=== PATIENT | female | born 1965 | race Caucasian/White ===

== ENCOUNTER → 2016-03-08 | Outpatient (CLI) | payer MEDICARE, OTHER ==
[2016-03-08 13:52] LABS: Basophils % (A) 1 %; CH 29.6; CHCM 32.5; Eosinophils # (A) 0.2 k/uL (0-0.7); Eosinophils % (A) 3 %; HCT 41.4 % (34.0-46.0); HGB 13.2 gm/dL (11.4-16.0); Luc # (Auto) 0.08; Luc % (Auto) 2; Lymphocytes # (A) 1.4 k/uL (1.0-4.8); Lymphocytes % (A) 29 %; MCH 29.1 pg (25.0-35.0); MCHC 31.8 g/dL (31.0-37.0); MCV 91.6 fL (80.0-100.0); Mean Platelet Volume 7.5; Monocytes # (A) 0.4 k/uL (0-1.0); Monocytes % (A) 8 %; Neutrophils # (A) 2.9 k/uL (1.3-7.7); Neutrophils % (A) 58 %; RBC 4.52 m/uL (3.80-5.40); RDW 13.6 % (11.5-15.5); WBC 4.9 k/uL (3.8-10.6); WBC (Perox) 5.08
[2016-03-08 14:43] LABS: ALT 35 U/L (9-52); AST 28 U/L (14-36); Alkaline Phosphatase 110 U/L (38-126); Anion Gap 12 mmol/L; Blood Urea Nitrogen 14 mg/dL (7-17); Calcium 9.8 mg/dL (8.4-10.2); Carbon Dioxide 28 mmol/L (22-30); Chloride 102 mmol/L (98-107); Glucose 95 mg/dL (74-99); Magnesium 2.1 mg/dL (1.6-2.3); Non-African American GFR(MDRD) >60 (>60 ml/min/1.73 sqM); Phosphorous 3.9 mg/dL (2.5-4.5); Sodium 142 mmol/L (137-145); Total Bilirubin 0.6 mg/dL (0.2-1.3); Total Protein 7.2 g/dL (6.3-8.2)
[2016-03-08 14:49] LABS: Potassium 4.8 mmol/L (3.5-5.1)
== END | disposition home or self-care (01) ==
LOC: LABWHC1 13:14
PROVIDERS: ATTEND Obstetrics & Gynecology
DX: C56.1 Malignant neoplasm of right ovary (principal)
CPT/HCPCS: 36415; 80053; 83735; 84100; 85025; 86304

== ENCOUNTER 2016-04-11 12:27 | Emergency (ER) | payer MEDICARE, OTHER ==
[2016-04-11 12:37] VITALS: TEMP 98.1
--- NOTE | 2016-04-11 13:02 | ED ---
General Adult HPI - General Chief complaint: Extremity Problem,Nontraumatic Stated complaint: Arm Swelling/Sore Time Seen by Provider: 04/11/16 12:55 Source: patient, RN notes reviewed, old records reviewed Mode of arrival: ambulatory Limitations: no limitations - History of Present Illness Initial comments: This is a 50-year-old female the ER for evaluation. Patient coming in for evaluation of upper x-ray pain. Patient doesn't pick R PICC line right upper x- ray, patient currently going through chemotherapy. Patient also admits to generalized body rash, that is been started with chemo. Patient has no shortness of breath no chest pain. She does have history of blood clot and arm prior secondary to PICC line. - Related Data Home Medications Medication Instructions Recorded Confirmed ALPRAZolam [Xanax] 0.25 mg PO BID PRN 01/16/14 04/11/16 Escitalopram Oxalate [Lexapro] 20 mg PO HS 01/16/14 04/11/16 HYDROcodone/APAP 5-325MG [[place] 1 - 2 tab PO Q6H PRN 10/29/15 04/11/16 5-325] Previous Rx's Medication Instructions Recorded Rivaroxaban [Xarelto] 15 mg PO BID #42 tab 04/11/16 Rivaroxaban [Xarelto] 20 mg PO DAILY #30 tab 04/11/16 Allergies Allergy/AdvReac Type Severity Reaction Status Date / Time duloxetine HCl Allergy Rash/Hives Verified 04/11/16 14:51 [From Cymbalta] Sulfa (Sulfonamide Allergy Rash/Hives Verified 04/11/16 14:51 Antibiotics) Review of Systems ROS Statement: Those systems with pertinent positive or pertinent negative responses have been documented in the HPI. ROS Other: All systems not noted in ROS Statement are negative. Past Medical History Past Medical History: Cancer, Deep Vein Thrombosis (DVT), Fibromyalgia, Osteoarthritis (OA) Additional Past Medical History / Comment(s): OVARIAN CANCER-T3C N0 Mx grade 3, mvp, diverticulosis History of Any Multi-Drug Resistant Organisms: None Reported Past Surgical History: Hysterectomy Additional Past Surgical History / Comment(s): OOPHERECTOMY; vaginal mesh insertion 1 week ago, port placement and removal, PICC line insertion and removal, Uterine CA Past Anesthesia/Blood Transfusion Reactions: Motion Sickness Additional Past Anesthesia/Blood Transfusion Reaction / Comment(s): clausterphobia Past Psychological History: Anxiety, Depression, Panic Disorder Smoking Status: Former smoker Past Alcohol Use History: Occasional Additional Past Alcohol Use History / Comment(s): started smoking at age 13, smoked 1 pack per day, quit 2011 Past Drug Use History: None Reported - Past Family History Father Family Medical History: Hypertension, Prostate Disorder Additional Family Medical History / Comment(s): parkinsons, prostate cancer Mother Family Medical History: Cancer Additional Family Medical History / Comment(s): multiple myeoloma General Exam Limitations: no limitations General appearance: alert, in no apparent distress Head exam: Present: atraumatic, normocephalic, normal inspection Eye exam: Present: normal appearance, PERRL, EOMI. Absent: scleral icterus, conjunctival injection, periorbital swelling ENT exam: Present: normal exam, mucous membranes moist Neck exam: Present: normal inspection. Absent: tenderness, meningismus, lymphadenopathy Respiratory exam: Present: normal lung sounds bilaterally. Absent: respiratory distress, wheezes, rales, rhonchi, stridor Cardiovascular Exam: Present: regular rate, normal rhythm, normal heart sounds. Absent: systolic murmur, diastolic murmur, rubs, gallop, clicks GI/Abdominal exam: Present: soft, normal bowel sounds. Absent: distended, tenderness, guarding, rebound, rigid Extremities exam: Present: normal inspection, full ROM, normal capillary refill. Absent: tenderness, pedal edema, joint swelling, calf tenderness Back exam: Present: normal inspection Neurological exam: Present: alert, oriented X3, CN II-XII intact Psychiatric exam: Present: normal affect, normal mood Skin exam: Present: warm, dry, intact, normal color. Absent: rash Course Vital Signs 04/11/16 12:33 Temperature 98.1 F Pulse Rate 109 H Respiratory 18 Rate Blood Pressure 158/97 O2 Sat by Pulse 98 Oximetry - Reevaluation(s) Reevaluation #1: 04/11/16 15:12 Patient's in no distress Medical Decision Making - Medical Decision Making Physical ER with right upper extremity thrombosis, superficial and deep, patient does have intoeing PICC line. Patient placed anticoagulation, presents checked and normal, patient will leave and PICC line for further chemotherapy - Lab Data Result diagrams: 04/11/16 15:10 04/11/16 15:10 Lab Results 04/11/16 04/11/16 04/11/16 Range/Units 15:10 15:10 15:10 WBC 2.5 L (3.8-10.6) k/uL RBC 3.93 (3.80-5.40) m/uL Hgb 11.7 (11.4-16.0) gm/dL Hct 35.5 (34.0-46.0) % MCV 90.3 (80.0-100.0) fL MCH 29.6 (25.0-35.0) pg MCHC 32.8 (31.0-37.0) g/dL RDW 16.0 H (11.5-15.5) % Plt Count 182 (150-450) k/uL Neutrophils % 46 % Lymphocytes % 44 % Monocytes % 5 % Eosinophils % 0 % Basophils % 1 % Neutrophils # 1.2 L (1.3-7.7) k/uL Lymphocytes # 1.1 (1.0-4.8) k/uL Monocytes # 0.1 (0-1.0) k/uL Eosinophils # 0.0 (0-0.7) k/uL Basophils # 0.0 (0-0.2) k/uL Anisocytosis Slight PT 9.9 (9.0-12.0) sec INR 1.0 (<1.1) APTT 22.1 (22.0-30.0) sec D-Dimer 2.02 H (<0.60) mg/L FEU Sodium 139 (137-145) mmol/L Potassium 4.6 (3.5-5.1) mmol/L Chloride 103 (98-107) mmol/L Carbon Dioxide 25 (22-30) mmol/L Anion Gap 11 mmol/L BUN 11 (7-17) mg/dL Creatinine 0.70 (0.52-1.04) mg/dL Est GFR (MDRD) Af Amer >60 (>60 ml/min/1.73 sqM) Est GFR (MDRD) Non-Af >60 (>60 ml/min/1.73 sqM) Glucose 92 (74-99) mg/dL Calcium 9.2 (8.4-10.2) mg/dL Phosphorus 3.7 (2.5-4.5) mg/dL Magnesium 1.8 (1.6-2.3) mg/dL Total Bilirubin 0.6 (0.2-1.3) mg/dL AST 22 (14-36) U/L ALT 38 (9-52) U/L Alkaline Phosphatase 106 (38-126) U/L Total Protein 7.5 (6.3-8.2) g/dL Albumin 4.3 (3.5-5.0) g/dL - Radiology Data Radiology results: report reviewed (Of some bilateral upper extremities is positive for right upper extremity DVT), image reviewed Disposition Clinical Impression: DVT of upper extremity (deep vein thrombosis) Disposition: HOME SELF-CARE Condition: Good Prescriptions: Rivaroxaban [Xarelto] 15 mg PO BID #42 tab Rivaroxaban [Xarelto] 20 mg PO DAILY #30 tab Referrals: Hussain Paulino MD [Primary Care Provider] - 1-2 days
--- NOTE | 2016-04-11 15:03 | US ---
EXAMINATION TYPE: US venous doppler duplex UE BI DATE OF EXAM: 04/11/2016 2:45 PM COMPARISON: Left upper extremity venous ultrasound September 26, 2014 CLINICAL HISTORY: Pain. Right arm pain and edema, PICC line right arm 2 weeks ago. History of DVT lef t arm SIDE PERFORMED: bilateral upper extremity TECHNOLOGIST IMPRESSION: Right Arm: +Positive for DVT, incomplete blood flow within brachial vein. +Positive for superficial t hrombus right basilic vein. *Technical limitations due to PICC line bandage Left Arm: No evidence of DVT as visualized There is satisfactory color flow and compressibility in the right internal jugular vein. Satisfactory color flow is seen in visualized portion of right subclavian vein with PICC line in place. Superfici al basilic veins shows hyperechoic material expanding lumen with noncompressibility consistent with c omplete thrombosis. Right axillary vein shows satisfactory color flow and compressibility. Right brac hial vein however shows absent color flow and noncompressibility consistent with deep venous thrombos is. Superficial cephalic vein shows satisfactory color flow and compressibility. Radial and ulnar vei ns show satisfactory compressibility. Left internal jugular vein shows satisfactory color flow and compressibility. Left subclavian vein sh ows satisfactory color flow and phasicity. Left axillary and brachial veins show satisfactory color f low and compressibility. Left superficial basilic and cephalic veins show satisfactory color flow and compressibility. Left radial and ulnar veins show satisfactory compressibility. IMPRESSION: Completely occlusive acute Superficial thrombus in right basilic vein and acute deep veno us thrombosis is noted in the visualized portion of right basilic vein. Preliminary critical results communicated to ordering ER physician by lead nuclear medicine technologist shortly after exam was completed.
[2016-04-11 15:20] LABS: Anisocytosis Slight; Basophils % (A) 1 %; CH 29.8; CHCM 33.1; Eosinophils % (A) 0 %; HCT 35.5 % (34.0-46.0); HGB 11.7 gm/dL (11.4-16.0); Luc # (Auto) 0.11; Luc % (Auto) 4; Lymphocytes # (A) 1.1 k/uL (1.0-4.8); Lymphocytes % (A) 44 %; MCH 29.6 pg (25.0-35.0); MCHC 32.8 g/dL (31.0-37.0); MCV 90.3 fL (80.0-100.0); Mean Platelet Volume 6.4; Monocytes # (A) 0.1 k/uL (0-1.0); Monocytes % (A) 5 %; Neutrophils # (A) 1.2 k/uL (1.3-7.7); Neutrophils % (A) 46 %; RBC 3.93 m/uL (3.80-5.40); WBC 2.5 k/uL (3.8-10.6); WBC (Perox) 2.81
[2016-04-11 15:26] LABS: ALT 38 U/L (9-52); AST 22 U/L (14-36); Alkaline Phosphatase 106 U/L (38-126); Anion Gap 11 mmol/L; Blood Urea Nitrogen 11 mg/dL (7-17); Calcium 9.2 mg/dL (8.4-10.2); Carbon Dioxide 25 mmol/L (22-30); Chloride 103 mmol/L (98-107); Glucose 92 mg/dL (74-99); Magnesium 1.8 mg/dL (1.6-2.3); Non-African American GFR(MDRD) >60 (>60 ml/min/1.73 sqM); Phosphorous 3.7 mg/dL (2.5-4.5); Potassium 4.6 mmol/L (3.5-5.1); Sodium 139 mmol/L (137-145); Total Bilirubin 0.6 mg/dL (0.2-1.3); Total Protein 7.5 g/dL (6.3-8.2)
[2016-04-11 15:32] LABS: Partial Thromboplastin Time 22.1 sec (22.0-30.0); Prothrombin Time 9.9 sec (9.0-12.0)
[2016-04-11] MEDS ORDERED: RIVAROXABAN 15 MG TAB PO STA (15:47)
[2016-04-11 16:15] VITALS: BP 126/87; PULSE 110; RESP 20
== END 2016-04-11 16:16 | disposition home or self-care (01) ==
LOC: EC 12:27
DX: I82.621 Acute embolism and thrombosis of deep veins of right upper extremity (principal); Z95.828 Presence of other vascular implants and grafts; Z88.2 Allergy status to sulfonamides; Z88.8 Allergy status to other drugs, medicaments and biological substances; F32.9 Major depressive disorder, single episode, unspecified; F41.9 Anxiety disorder, unspecified; F41.0 Panic disorder [episodic paroxysmal anxiety]; Z85.43 Personal history of malignant neoplasm of ovary; Z92.21 Personal history of antineoplastic chemotherapy; Z87.891 Personal history of nicotine dependence
CPT/HCPCS: 36415; 80053; 83735; 84100; 85025; 85379; 85610; 85730; 93970; 99284

== ENCOUNTER → 2016-06-10 | Outpatient (CLI) | payer MEDICARE, OTHER ==
[~2016-06-10] MED LIST: ALTEPLASE 2 MG VIAL (CATHFLO) IV NR; SODIUM CHLORIDE 0.9% 250 ML in EMPTY BAG 1 BAG IV PRN; SODIUM CHLORIDE 0.9% 500 ML in EMPTY BAG 1 BAG IV PRN
[2016-06-10 12:01] VITALS: BP 144/70; PULSE 89; RESP 16; TEMP 97.8
== END | disposition home or self-care (01) ==
LOC: PROCWHC3 10:59
PROVIDERS: ATTEND Obstetrics & Gynecology
DX: C56.1 Malignant neoplasm of right ovary (principal)
CPT/HCPCS: 96523

== ENCOUNTER 2017-01-11 07:56 | Day surgery (SDC) | payer MEDICARE, OTHER ==
[2017-01-10 11:35] VITALS: BMI 29.2
[2017-01-11 08:37] VITALS: BP 132/69; RESP 16; TEMP 98.1
[2017-01-11] MEDS ORDERED: LIDOCAINE 2% INJ 20 MG/ML SQ ONE (09:58)
[2017-01-11 10:26] VITALS: PULSE 68
--- NOTE | 2017-01-11 12:01 | IR ---
EXAMINATION TYPE: IR cvc insert >=5 years DATE OF EXAM: 01/11/2017 COMPARISON: NONE CLINICAL HISTORY: Ovarian carcinoma Needs long-term intravenous access for therapy. PROCEDURE: After informed consent, the skin overlying the right basilic vein was localized with ultrasound and n oted to be compressible and patent. An ultrasound image was obtained and submitted on the patient's chart. The overlying skin was prepped and draped and Lidocaine was used for local anesthesia. A ski n chet was made with a scalpel. Access was gained to the vein under ultrasound guidance with a 21 ga uge needle and a 0.018 inch wire was advanced. Access site was dilated with Peel-Away sheath and cat heter tailored to the appropriate length and advanced such that the distal tip is at the cavoatrial j unction. Spot image was obtained verifying placement. Catheter was fixed to the skin with suture an d a sterile dressing was placed following hemostasis. Catheter was aspirated and flushed with saline . Patient was discharged in stable condition without complication.Maximal barrier technique is utili zed. Ultrasound image is documented on the chart. Ultrasound used with sterile technique. Fluoro time and fluoroscopic images submitted to document procedure: 96 intraoperative C-arm images, 0.3 minutes fluoroscopy time IMPRESSION: STATUS POST ULTRASOUND AND FLUOROSCOPIC GUIDED PICC LINE PLACEMENT, READY FOR USE. THIS PROCEDURE WAS PERFORMED BY THE UNDERSIGNED.
== END 2017-01-11 10:25 | disposition home or self-care (01) ==
LOC: CATHCVL 07:56
PROVIDERS: ATTEND Internal Medicine Hematology & Oncology
DX: C56.9 Malignant neoplasm of unspecified ovary (principal); Z86.718 Personal history of other venous thrombosis and embolism; M12.9 Arthropathy, unspecified; Z79.01 Long term (current) use of anticoagulants; Z79.899 Other long term (current) drug therapy; Z79.2 Long term (current) use of antibiotics; Z88.2 Allergy status to sulfonamides; Z91.012 Allergy to eggs
CPT/HCPCS: 36569; 76937; 77001; C1751; C1769; J2001

== ENCOUNTER 2017-03-10 12:00 | Inpatient (IN) | payer MEDICARE, OTHER ==
[2017-03-10] MEDS ORDERED: SODIUM CHLORIDE 0.9% 1,000 ML IV STA (12:25)
[2017-03-10] MEDS ORDERED: HYDROmorphone 1 MG/ML 1 ML SYRINGE IVP STA (12:25)
[2017-03-10] MEDS ORDERED: ONDANSETRON 4 MG/2 ML VIAL IVP STA (12:25)
[2017-03-10] MEDS ORDERED: RX INFO: IV CONTRAST WAS GIVEN 1 EACH MISC MISCELLANE PRN (12:26)
--- NOTE | 2017-03-10 12:32 | ED ---
General Adult HPI - General Source: patient, RN notes reviewed Mode of arrival: ambulatory Limitations: no limitations <Radha Mendoza - Last Filed: 03/10/17 16:24> <Sahil Alexander - Last Filed: 03/10/17 16:33> - General Chief complaint: Abdominal Pain Stated complaint: Poss bowel obstruction-ca pt Time Seen by Provider: 03/10/17 12:17 - History of Present Illness Initial comments: 51-year-old female presents to the emergency Department chief complaint of nausea vomiting and abdominal pain. Patient states that she has had this for the past 2 days. She has ovarian cancer that has spread to her intestines. She states she has been drinking her abdomen. She states she has a history of obstructions in the past but today does seem to be improved compared to yesterday. She is having a lot of abdominal pain and nausea with this well. She is currently on chemo for treatment. States very little stool output. They were concerned because of the continued nausea vomiting abdominal pain she is very concerned that she may have an obstruction. She denies any fever chills with this or any other symptoms. Patient denies any recent fever, chills , shortness of breath, chest pain, back pain, numbness or tingling, dysuria or hematuria, constipation or diarrhea, headaches or visual changes, or any other current symptoms. (Radha Mendoza) - Related Data Home Medications Medication Instructions Recorded Confirmed ALPRAZolam [Xanax] 0.5 mg PO Q6H PRN 01/16/14 03/10/17 Escitalopram Oxalate [Lexapro] 20 mg PO HS 01/16/14 03/10/17 MORPHINE ORAL NIRMAL CONC 20mg/mL 10 - 20 mg PO Q4HR PRN 01/24/17 03/10/17 [Roxanol Oral Soln Conc 20MG/ML] INSULIN LISPRO (HumaLOG) [humaLOG] See Protocol SQ ACHS 03/10/17 03/10/17 Previous Rx's Medication Instructions Recorded Enoxaparin [Lovenox] 80 mg SQ DAILY 90 Days #30 syringe 01/31/17 Pantoprazole Sodium [Protonix] 40 mg PO BID #60 tablet. 01/31/17 Allergies Allergy/AdvReac Type Severity Reaction Status Date / Time duloxetine HCl Allergy Rash/Hives Verified 03/10/17 12:54 [From Cymbalta] Sulfa (Sulfonamide Allergy Rash/Hives Verified 03/10/17 12:54 Antibiotics) carboplatin AdvReac Nausea & Verified 03/10/17 12:54 Vomiting, TEMPORARY HEARING LOSS Review of Systems ROS Other: All systems not noted in ROS Statement are negative. <Radha Mendoza - Last Filed: 03/10/17 16:24> ROS Other: All systems not noted in ROS Statement are negative. <Sahil Alexander - Last Filed: 03/10/17 16:33> ROS Statement: Those systems with pertinent positive or pertinent negative responses have been documented in the HPI. Past Medical History Past Medical History: Cancer, Deep Vein Thrombosis (DVT), Fibromyalgia, GERD/ Reflux, Hearing Disorder / Deafness, Hyperlipidemia, Osteoarthritis (OA) Additional Past Medical History / Comment(s): OVARIAN CA-T3C N0 Mx grade 3, 2012 ; REOCCURING CA W/ CHEMO TREATMENT 03/2016-07/2016. MVP. Diverticulosis. PARTIAL BOWEL OBSTRUCTION D/T CA METS 12/2016. 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 BLOOD PRESSURE TAKEN ON LEGS ONLY. CURRENT UTI, ON RX. TPN History of Any Multi-Drug Resistant Organisms: None Reported Past Surgical History: Hysterectomy Additional Past Surgical History / Comment(s): OOPHERECTOMY/CERVIX/UTERUS/ OMENTUM EXC; Vaginal mesh insertion. RX Port placement, removal; PICC line insertion, removal. G TUBE 02/02 Past Anesthesia/Blood Transfusion Reactions: Motion Sickness Additional Past Anesthesia/Blood Transfusion Reaction / Comment(s): claustrophobia Past Psychological History: Anxiety, Depression, Panic Disorder Smoking Status: Former smoker Past Alcohol Use History: None Reported Past Drug Use History: None Reported - Past Family History Sister(s) Family Medical History: Blood Disorder Additional Family Medical History / Comment(s): FACTOR 5 BLOOD DISORDER. Father Family Medical History: Hypertension, Prostate Disorder Additional Family Medical History / Comment(s): parkinsons, prostate cancer Mother Family Medical History: Cancer Additional Family Medical History / Comment(s): multiple myeoloma <Radha Mendoza - Last Filed: 03/10/17 16:24> General Exam Limitations: no limitations <Radha Mendoza - Last Filed: 03/10/17 16:24> <Sahil Alexander - Last Filed: 03/10/17 16:33> - General Exam Comments Initial Comments: General: The patient is awake and alert, in no distress, and does not appear acutely ill. Eye: Pupils are equal, round and reactive to light, extra-ocular movements are intact; there is normal conjunctiva bilaterally. No signs of icterus. Ears, nose, mouth and throat: There are moist mucous membranes. Neck: The neck is supple, there is no tenderness. Cardiovascular: There is a regular rate and rhythm. No murmur, rub or gallop is appreciated. Respiratory: Lungs are clear to auscultation, respirations are non-labored, breath sounds are equal. No wheezes, stridor, rales, or rhonchi. Gastrointestinal: Soft, mild distention, non-tender abdomen without masses or organomegaly noted. There is no rebound or guarding present. No CVA tenderness. Bowel sounds are unremarkable. Back: There is no tenderness to palpation in the midline. There is no obvious deformity. No rashes noted. Musculoskeletal: Normal ROM, no tenderness, There is no pedal edema. There is no calf tenderness or swelling. Sensation intact. Pulses equal bilaterally 2+. Neurological: CN II-XII intact, There are no obvious motor or sensory deficits. Coordination appears grossly intact. Speech is normal. Skin: Skin is warm and dry and no rashes or lesions are noted. Psychiatric: Cooperative, appropriate mood & affect, normal judgment. (Radha Mendoza) Vital Signs 03/10/17 03/10/17 03/10/17 12:10 13:52 16:26 Temperature 98.4 F Pulse Rate 116 H 91 95 Respiratory 18 19 19 Rate Blood Pressure 184/109 136/63 140/69 O2 Sat by Pulse 99 98 99 Oximetry Medical Decision Making - Lab Data Result diagrams: 03/10/17 12:56 03/10/17 12:56 - Radiology Data Radiology results: report reviewed, image reviewed <Radha Mendoza - Last Filed: 03/10/17 16:24> - Lab Data Result diagrams: 03/10/17 12:56 03/10/17 12:56 <Sahil Alexander - Last Filed: 03/10/17 16:33> - Medical Decision Making 51-year-old female presents for nausea vomiting with concern for obstruction. This time CAT scan does show a small bowel obstruction. She does currently have a G2 that is draining her abdomen. This time the patient we'll consult Dr. Paredes neurosurgery as well as oncology admit to [facility] hospitalist Dr. Alexander spoke with Ana Laura. At this time on questions have been answered patient will be admitted. (Radha Mendoza) Patient was reevaluated by myself, Dr. Alexander. Patient resting comfortably in bed. Onset of symptoms was yesterday. Symptoms similar to patient's previous bowel obstruction. Abdomen does have some mild to moderate mid abdominal tenderness. Patient was updated on results and plan. Case was discussed in detail with Dr. Man, who will consult and does want medical admission. Patient case was discussed with practitioner Roseanne, who will admit for Dr. Long, who admits for Dr. Guzman. Dr. Arguelles will be placed on consult. (Sahil Alexander) - Lab Data Lab Results 03/10/17 03/10/17 03/10/17 Range/Units 12:56 12:56 12:56 WBC 4.7 (3.8-10.6) k/uL RBC 3.40 L (3.80-5.40) m/uL Hgb 10.2 L (11.4-16.0) gm/dL Hct 32.1 L (34.0-46.0) % MCV 94.2 (80.0-100.0) fL MCH 30.0 (25.0-35.0) pg MCHC 31.9 (31.0-37.0) g/dL RDW 18.4 H (11.5-15.5) % Plt Count 97 L (150-450) k/uL Neutrophils % (Manual) 75 % Band Neutrophils % 1 % Lymphocytes % (Manual) 16 % Monocytes % (Manual) 4 % Metamyelocytes % 1 % Myelocytes % 4 % Neutrophils # (Manual) 3.50 (1.3-7.7) k/uL Lymphocytes # (Manual) 0.75 L (1.0-4.8) k/uL Monocytes # (Manual) 0.19 (0-1.0) k/uL Metamyelocytes # (Man) 0.05 H (0) k/uL Myelocytes # (Manual) 0.19 H (0) k/uL Nucleated RBCs 0 (0-0) /100 WBC Manual Slide Review Performed Anisocytosis Slight Macrocytosis Slight PT (9.0-12.0) sec INR (<1.2) APTT (22.0-30.0) sec Sodium 138 (137-145) mmol/L Potassium 4.3 (3.5-5.1) mmol/L Chloride 101 (98-107) mmol/L Carbon Dioxide 25 (22-30) mmol/L Anion Gap 12 mmol/L BUN 18 H (7-17) mg/dL Creatinine 0.64 (0.52-1.04) mg/dL Est GFR (MDRD) Af Amer >60 (>60 ml/min/1.73 sqM) Est GFR (MDRD) Non-Af >60 (>60 ml/min/1.73 sqM) Glucose 121 H (74-99) mg/dL Lactic Ac Sepsis Rflx Plasma Lactic Acid Vern 2.2 H* (0.7-2.0) mmol/L Calcium 9.6 (8.4-10.2) mg/dL Total Bilirubin 0.5 (0.2-1.3) mg/dL AST 47 H (14-36) U/L ALT 119 H (9-52) U/L Alkaline Phosphatase 156 H (38-126) U/L Total Protein 6.9 (6.3-8.2) g/dL Albumin 4.0 (3.5-5.0) g/dL Amylase 47 (30-110) U/L Lipase 33 (23-300) U/L Urine Color Urine Appearance (Clear) Urine pH (5.0-8.0) Ur Specific [place] (1.001-1.035) Urine Protein (Negative) Urine Glucose (UA) (Negative) Urine Ketones (Negative) Urine Blood (Negative) Urine Nitrite (Negative) Urine Bilirubin (Negative) Urine Urobilinogen (<2.0) mg/dL Ur Leukocyte Esterase (Negative) Urine RBC (0-5) /hpf Ur Squamous Epith Cells (0-4) /hpf Urine Mucus (None) /hpf 03/10/17 03/10/17 03/10/17 Range/Units 13:15 13:34 16:20 WBC (3.8-10.6) k/uL RBC (3.80-5.40) m/uL Hgb (11.4-16.0) gm/dL Hct (34.0-46.0) % MCV (80.0-100.0) fL MCH (25.0-35.0) pg MCHC (31.0-37.0) g/dL RDW (11.5-15.5) % Plt Count (150-450) k/uL Neutrophils % (Manual) % Band Neutrophils % % Lymphocytes % (Manual) % Monocytes % (Manual) % Metamyelocytes % % Myelocytes % % Neutrophils # (Manual) (1.3-7.7) k/uL Lymphocytes # (Manual) (1.0-4.8) k/uL Monocytes # (Manual) (0-1.0) k/uL Metamyelocytes # (Man) (0) k/uL Myelocytes # (Manual) (0) k/uL Nucleated RBCs (0-0) /100 WBC Manual Slide Review Anisocytosis Macrocytosis PT 10.3 (9.0-12.0) sec INR 1.0 (<1.2) APTT 22.1 (22.0-30.0) sec Sodium (137-145) mmol/L Potassium (3.5-5.1) mmol/L Chloride (98-107) mmol/L Carbon Dioxide (22-30) mmol/L Anion Gap mmol/L BUN (7-17) mg/dL Creatinine (0.52-1.04) mg/dL Est GFR (MDRD) Af Amer (>60 ml/min/1.73 sqM) Est GFR (MDRD) Non-Af (>60 ml/min/1.73 sqM) Glucose (74-99) mg/dL Lactic Ac Sepsis Rflx Y Plasma Lactic Acid Vern (0.7-2.0) mmol/L Calcium (8.4-10.2) mg/dL Total Bilirubin (0.2-1.3) mg/dL AST (14-36) U/L ALT (9-52) U/L Alkaline Phosphatase (38-126) U/L Total Protein (6.3-8.2) g/dL Albumin (3.5-5.0) g/dL Amylase (30-110) U/L Lipase (23-300) U/L Urine Color Yellow Urine Appearance Clear (Clear) Urine pH 6.5 (5.0-8.0) Ur Specific [place] >1.050 H (1.001-1.035) Urine Protein 1+ H (Negative) Urine Glucose (UA) Negative (Negative) Urine Ketones Negative (Negative) Urine Blood Negative (Negative) Urine Nitrite Negative (Negative) Urine Bilirubin Negative (Negative) Urine Urobilinogen <2.0 (<2.0) mg/dL Ur Leukocyte Esterase Negative (Negative) Urine RBC 1 (0-5) /hpf Ur Squamous Epith Cells 1 (0-4) /hpf Urine Mucus Rare H (None) /hpf Disposition Time of Disposition: 16:25 Decision Date: 03/10/17 Decision Time: 16:25 <Radha Mendoza - Last Filed: 03/10/17 16:24> <Sahil Alexander - Last Filed: 03/10/17 16:33> Clinical Impression: Small bowel obstruction, Ovarian cancer, Abdominal pain Disposition: ADMITTED IP TO THIS [facility] Condition: Stable Referrals: Sylvia Moctezuma MD [Primary Care Provider] - 1-2 days
[2017-03-10 13:12] LABS: ALT 119 U/L (9-52); AST 47 U/L (14-36); Alkaline Phosphatase 156 U/L (38-126); Amylase 47 U/L (30-110); Anion Gap 12 mmol/L; Blood Urea Nitrogen 18 mg/dL (7-17); Calcium 9.6 mg/dL (8.4-10.2); Carbon Dioxide 25 mmol/L (22-30); Chloride 101 mmol/L (98-107); Glucose 121 mg/dL (74-99); Lipase 33 U/L (23-300); Potassium 4.3 mmol/L (3.5-5.1); Sodium 138 mmol/L (137-145); Total Bilirubin 0.5 mg/dL (0.2-1.3); Total Protein 6.9 g/dL (6.3-8.2)
[2017-03-10 13:38] LABS: Anisocytosis Slight; HCT 32.1 % (34.0-46.0); HGB 10.2 gm/dL (11.4-16.0); MCHC 31.9 g/dL (31.0-37.0); MCV 94.2 fL (80.0-100.0); Macrocytosis Slight; Mean Platelet Volume 7.8; RDW 18.4 % (11.5-15.5); WBC 4.7 k/uL (3.8-10.6)
--- NOTE | 2017-03-10 14:09 | CT ---
EXAMINATION TYPE: CT abdomen pelvis w con DATE OF EXAM: 03/10/2017 HISTORY: Possible obstruction, history of ovarian CA with multiple obstructions presents with pain CT DLP: 712.7mGycm Automated Exposure Control for Dose Reduction was Utilized. CONTRAST: CT scan of the abdomen and pelvis is performed with IV Contrast, patient injected with 100 mL of Omni paque 300. COMPARISON: CT abdomen pelvis January 26, 2017. FINDINGS: LUNG BASES: There is left basilar linear scarring and/or atelectasis. LIVER/GB: There is trace perihepatic fluid or ascites anterior margin of liver redemonstrated. Mesent vishal surgical clips inferior to liver again seen. PANCREAS: No significant abnormality is seen. SPLEEN: Trace ascites lateral margin of the spleen is redemonstrated perhaps slightly larger versus p rior. ADRENALS: Stable nonspecific nodularity or prominence left adrenal gland. KIDNEYS: No significant abnormality is seen. BOWEL: Evaluation bowel suboptimal secondary to lack of enteric contrast. There is no suspicious dila tation of stomach or duodenal sweep. Percutaneous gastrostomy tube is now present and felt satisfacto ry in position. Proximal small bowel left upper quadrant shows no suspicious dilatation. There are fluid filled promi nent and some dilated small bowel loops in the mid to lower abdomen extending into the pelvis. There is poorly distended colon along the periphery. There is poorly distended terminal and distal ileum in the pelvis and right lower quadrant. There is 1 area of mild to moderate wall thickening small bowel loops left lower quadrant coronal image 40. There is prominence of bowel proximal and distal to this . Transition point not definitively seen but there is suspected transition somewhere in the lower abd omen or pelvis. I suspect transition upper to mid pelvis just left of midline near axial image 65. UTERUS/ADNEXA: Uterus is surgically absent. LYMPH NODES: No greater than 1cm abdominal or pelvic lymph nodes are appreciated. OSSEOUS STRUCTURES: No significant abnormality is seen. OTHER: Peritoneum carcinomatosis is felt present as there is soft tissue nodularity in the upper to m id abdomen most prominent left of midline. IMPRESSION: Similar to prior study there is suggestion of distal small bowel obstruction with fluid p rominent dilated small bowel loops in the mid to lower abdomen and upper pelvis. Underlying peritonea l carcinomatosis is felt present. Consider this or adhesions as most likely etiology.
[2017-03-10 14:10] LABS: Partial Thromboplastin Time 22.1 sec (22.0-30.0); Prothrombin Time 10.3 sec (9.0-12.0)
[2017-03-10 14:35] LABS: Neutrophils % (M) 75 %
[2017-03-10 14:36] LABS: Band Neutrophils % 1 %; Lymphocytes # (M) 0.75 k/uL (1.0-4.8); Metamyelocytes # (M) 0.05 k/uL (0); Metamyelocytes % 1 %; Monocytes # (M) 0.19 k/uL (0-1.0); Myelocytes # (M) 0.19 k/uL (0); Myelocytes % 4 %; Nucleated Red Blood Cells 0 /100 WBC (0-0); Total Cells Counted 200
[2017-03-10 14:40] LABS: Platelet Count 97 k/uL (150-450)
[2017-03-10 16:24] LABS: Appearance,Urine Clear (Clear); Bilirubin,Urine Negative (Negative); Blood,Urine Negative (Negative); Color,Urine Yellow; Glucose,Urine (UA) Negative (Negative); Ketones,Urine Negative (Negative); Leukocyte Esterase,Urine Negative (Negative); Mucus,Urine Rare /hpf; Nitrite,Urine Negative (Negative); PH, Urine 6.5 (5.0-8.0); Protein,Urine 1+ (Negative); RBC,Urine 1 /hpf (0-5); Squamous Epithelial Cell,Urine 1 /hpf (0-4); Urobilinogen,Urine <2.0 mg/dL (<2.0)
[2017-03-10] MEDS ORDERED: NALOXONE 0.4 MG/ML 1 ML VIAL IV PRN (16:25)
[2017-03-10] MEDS ORDERED: ONDANSETRON 4 MG/2 ML VIAL IVP PRN (16:25)
[2017-03-10] MEDS ORDERED: HYDROmorphone 1 MG/ML 1 ML SYRINGE IVP PRN ×2 (16:25)
[2017-03-10 16:26] LABS: Specific Gravity,Urine >1.050 (1.001-1.035)
[2017-03-10] MEDS ORDERED: ALPRAZolam 0.25 MG TAB PO PRN (16:26)
[2017-03-10] MEDS ORDERED: HYDROmorphone 2 MG/ML 1 ML SYRINGE IVP PRN (16:28)
[2017-03-10] MEDS ORDERED: LORazepam 2 MG/ML INJ IV STA (16:37)
[2017-03-10] MEDS: HYDROmorphone 2 MG/ML 1 ML SYRINGE IVP PRN ×2 (16:41→22:27)
[2017-03-10 17:17] LABS: Glucose,Whole Blood 93 mg/dL (75-99)
[2017-03-10] MEDS: INSULIN ASPART 100 UNIT/ML 1 ML 10 ML VIAL SQ SCH ×2 (17:22→20:52)
[2017-03-10] MEDS: SODIUM CHLORIDE 0.9% 1,000 ML IV SCH (17:29)
[2017-03-10] MEDS ORDERED: PANTOPRAZOLE 40 MG TABLET PO SCH (17:30)
[2017-03-10 20:33] LABS: Glucose,Whole Blood 88 mg/dL (75-99)
[2017-03-10] MEDS: ESCITALOPRAM 20 MG TAB PO SCH (20:52)
[2017-03-10] MEDS ORDERED: MORPHINE ORAL SOL CONC 20 MG/ML BOTTLE PO PRN (21:43)
[2017-03-10] MEDS: LORazepam 2 MG/ML INJ IV PRN (22:26)
[2017-03-10 22:27] VITALS: RESP 16
[2017-03-10] MEDS: PANTOPRAZOLE 40 MG/10 ML VIAL IVP SCH (22:27)
--- NOTE | 2017-03-10 22:55 | HP ---
HISTORY AND PHYSICAL DATE OF SERVICE: 03/10/2017 CHIEF COMPLAINTS: Nausea, vomiting and abdominal pain. HISTORY OF PRESENT ILLNESS: This 51-year-old woman with a past medical history of multiple medical problems, including ovarian cancer with metastases, history of thrombocytopenia, history of DVT, fibromyalgia, being followed by Dr. Moctezuma in the outpatient setting, was recently admitted to [facility] with acute partial small-bowel obstruction. G tube was placed by Dr. Paredes and drainage was applied. The patient was also started on TPN Currently the patient is complaining of nausea, vomiting, abdominal pain which was aggravated the last 2 days. The patient is admitted for further evaluation and treatment. CT scan of the abdomen and pelvis was done in the emergency room which was similar to the prior studies that showed just a small bowel obstruction with fluid prominence and dilated small bowel loops in the mid to lower abdomen and upper pelvis. Peritoneal carcinomatosis is also suspected. The patient is admitted for evaluation. There is no history of any fever, rigor, chills. No history of headache, loss of consciousness, seizures. PAST MEDICAL HISTORY: 1. Ovarian cancer with metastases, as mentioned earlier. 2. History of fibromyalgia. 3. History of DVT. 4. History of DJD. 5. History of hysterectomy. 6. History of anxiety, depression, panic disorder. MEDICATIONS: Medications prior to admission include: 1. Protonix 40 mg p.o. b.i.d. 2. Roxanol 10 to 20 mg q.4 p.r.n. 3. Humalog scale. 4. Lexapro 20 mg at bedtime. 5. Lovenox 80 mg subcutaneously daily. 6. Xanax 0.5 q.6 p.r.n. ALLERGIES: 1. CYMBALTA. 2. SULFA. 3. CARBOPLATIN. FAMILY HISTORY: Hypertension, possibly due to Parkinson's. SOCIAL HISTORY: Previous history of smoking. No history of alcohol intake. REVIEW OF SYSTEMS: ENT: No diminished hearing. No diminished vision. CARDIOVASCULAR SYSTEM: No angina, palpitations. RESPIRATORY SYSTEM: As mentioned earlier. GI: As mentioned earlier. : As mentioned earlier. NERVOUS SYSTEM: No numbness, weakness. ALLERGY/IMMUNOLOGY: No asthma, hayfever. MUSCULOSKELETAL: As mentioned earlier. HEMATOLOGY/ONCOLOGY: No history of anemia. ENDOCRINE: As mentioned earlier. CONSTITUTIONAL: As mentioned earlier. DERMATOLOGY: Negative. RHEUMATOLOGY: Negative. PSYCHIATRY: As mentioned earlier. PHYSICAL EXAMINATION: Patient is alert and oriented x3. Pulse is 116, blood pressure 184/109, respiration 18, temperature 98.4, pulse ox 99% on room air. HEENT: Conjunctivae normal. Oral mucosa moist. Facial puffiness NECK: No jugular venous distention. No carotid bruit. No lymph node enlargement. CARDIOVASCULAR SYSTEM: S1, S2 muffled. No S3. No S4. RESPIRATORY SYSTEM: Breath sounds diminished at the bases. No rhonchi. No crackles. ABDOMEN: Soft. Mild diffuse distention. G tube present, draining some fluid, minimally bilious. Otherwise, diffuse tenderness also present. No guarding. No rigidity. No mass palpable. LEGS: Minimal edema bilaterally. NERVOUS SYSTEM: Higher functions as mentioned earlier. Moves all 4 limbs. No focal motor or sensory deficit. LYMPHATICS: No lymph node palpable in neck, axillae or groin. SKIN: No ulcer, rash, bleeding. LABS AT THIS TIME: UA noted. WBC 4.6, hemoglobin 10.2. BUN is 18. AST is 47, ALT is 119. ASSESSMENT: 1. Abdominal pain and distention, possibly partial small bowel obstruction. 2. Status post recent G tube insertion. 3. Ovarian cancer with metastases as well as peritoneal carcinomatosis. 4. History of ovarian cancer, on chemotherapy. 5. On total parenteral nutrition. 6. History of deep venous thrombosis. 7. History of fibromyalgia. 8. Hyperlipidemia. 9. History of degenerative joint disease. 10.History of previous partial small bowel obstruction. 11.History of anxiety, depression, panic attacks. 12.Remote history of nicotine dependence. 13.Increased AST, ALT, possibly secondary to carcinomatosis. 14.Anemia, normocytic, secondary to malignancy. 15.Thrombocytopenia secondary to malignancy. 16.FULL CODE. RECOMMENDATIONS AND DISCUSSION: In this 51-year-old woman who presented with multiple complex medical issues, we will we will monitor the patient closely, continue the current medications, continue with symptomatic treatment. I recommend intermittent aspiration from the NG. Continue with TPN. Resume the home medication. Monitor electrolytes closely. Surgical evaluation. Guarded prognosis because of the multiple complex medical issues. Further recommendations to follow. I would also recommend resuming the pain medication , and Dilaudid may be given for breakthrough pain. Prognosis guarded because of multiple complex medical issues. Further recommendations to follow. See orders for further details. Discussed with the patient. DVT prophylaxis. Dr. Paredes and Dr. Man also are consulted. MMODL / IJN: [id number] / ALINE
[2017-03-11] MEDS: HYDROmorphone 2 MG/ML 1 ML SYRINGE IVP PRN ×2 (02:04→21:01)
[2017-03-11] MEDS: LORazepam 2 MG/ML INJ IV PRN (06:30)
[2017-03-11 07:25] LABS: Glucose,Whole Blood 91 mg/dL (75-99)
[2017-03-11] MEDS: INSULIN ASPART 100 UNIT/ML 1 ML 10 ML VIAL SQ SCH ×4 (09:33→20:35)
[2017-03-11] MEDS: PANTOPRAZOLE 40 MG/10 ML VIAL IVP SCH ×2 (09:34→20:41)
[2017-03-11] MEDS: ENOXAPARIN 80 MG/0.8 ML SYRINGE SQ SCH (09:35)
[2017-03-11 09:45] VITALS: BMI 26.2
[2017-03-11] MEDS ORDERED: MVI, ADULT NO.4 WITH VIT K 10 ML, TRACE (CONC-1ML/DOSE) 1 ML, PARENTERAL ELECTROLYTES 2... IV SCH ×4 (10:00)
[2017-03-11] MEDS: MVI, ADULT NO.4 WITH VIT K 10 ML, TRACE (CONC-1ML/DOSE) 1 ML, PARENTERAL ELECTROLYTES 2... IV SCH ×4 (10:30)
--- NOTE | 2017-03-11 10:48 | P.GSCN ---
History of Present Illness Consult date: 03/11/17 Reason for Consult: Small bowel obstruction History of present illness: [id number] female with history of metastatic ovarian cancer. Patient has had previous admissions for small bowel obstruction. She has had a G-tube placed for decompression of her stomach. She currently is on TPN. She is undergoing chemotherapy. Patient states that she developed abdominal pain and nausea yesterday. Past Medical History Past Medical History: Cancer, Deep Vein Thrombosis (DVT), Fibromyalgia, GERD/ Reflux, Hearing Disorder / Deafness, Hyperlipidemia, Osteoarthritis (OA) Additional Past Medical History / Comment(s): OVARIAN CA-T3, N0 ,Mx grade 3, 2012; REOCCURING CA W/ CHEMO TREATMENT 03/2016-07/2016.currently recieving chemo( had a tx was 03-02-17) MVP. Diverticulosis. PARTIAL BOWEL OBSTRUCTION D/T CA METS 12/2016. 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 BLOOD PRESSURE TAKEN ON LEGS ONLY. CURRENT UTI, ON RX. TPN History of Any Multi-Drug Resistant Organisms: None Reported Past Surgical History: Hysterectomy Additional Past Surgical History / Comment(s): OOPHERECTOMY/CERVIX/UTERUS/ OMENTUM EXC; Vaginal mesh insertion. RX Port placement, removal; PICC line insertion, removal.picc line rt upper arm, G TUBE 02/02 Past Anesthesia/Blood Transfusion Reactions: Motion Sickness Additional Past Anesthesia/Blood Transfusion Reaction / Comm: claustrophobia Smoking Status: Former smoker - Past Family History Sister(s) Family Medical History: Blood Disorder Additional Family Medical History / Comment(s): FACTOR 5 BLOOD DISORDER. Father Family Medical History: Hypertension, Prostate Disorder Additional Family Medical History / Comment(s): parkinsons, prostate cancer Mother Family Medical History: Cancer Additional Family Medical History / Comment(s): multiple myeoloma Medications and Allergies Home Medications Medication Instructions Recorded Confirmed Type ALPRAZolam [Xanax] 0.5 mg PO Q6H PRN 01/16/14 03/10/17 History Escitalopram Oxalate [Lexapro] 20 mg PO HS 01/16/14 03/10/17 History MORPHINE ORAL NIRMAL CONC 20mg/mL 10 - 20 mg PO Q4HR PRN 01/24/17 03/10/17 History [Roxanol Oral Soln Conc 20MG/ML] Enoxaparin [Lovenox] 80 mg SQ DAILY 90 Days #30 syringe 01/31/17 03/10/17 Rx Pantoprazole Sodium [Protonix] 40 mg PO BID #60 tablet. 01/31/17 03/10/17 Rx INSULIN LISPRO (HumaLOG) [humaLOG] See Protocol SQ ACHS 03/10/17 03/10/17 History Allergies Allergy/AdvReac Type Severity Reaction Status Date / Time duloxetine HCl Allergy Rash/Hives Verified 03/10/17 12:54 [From Cymbalta] Sulfa (Sulfonamide Allergy Rash/Hives Verified 03/10/17 12:54 Antibiotics) carboplatin AdvReac Nausea & Verified 03/10/17 12:54 Vomiting, TEMPORARY HEARING LOSS Surgical - Exam Vital Signs Temp Pulse Resp BP Pulse Ox 98.4 F 116 H 18 184/109 99 03/10/17 12:10 03/10/17 12:10 03/10/17 12:10 03/10/17 12:10 03/10/17 12:10 - General no distress - Eyes PERRL - ENT normal pinna - Neck no masses - Respiratory normal expansion - Cardiovascular Rhythm: regular - Abdomen G-tube in left upper quadrant Abdomen: soft, non tender Results - Labs 03/10/17 12:56 03/10/17 12:56 Abnormal Lab Results - Last 24 Hours (Table) 03/10/17 03/10/17 03/10/17 Range/Units 12:56 12:56 12:56 RBC 3.40 L (3.80-5.40) m/uL Hgb 10.2 L (11.4-16.0) gm/dL Hct 32.1 L (34.0-46.0) % RDW 18.4 H (11.5-15.5) % Plt Count 97 L (150-450) k/uL Lymphocytes # (Manual) 0.75 L (1.0-4.8) k/uL Metamyelocytes # (Man) 0.05 H (0) k/uL Myelocytes # (Manual) 0.19 H (0) k/uL BUN 18 H (7-17) mg/dL Glucose 121 H (74-99) mg/dL Plasma Lactic Acid Vern 2.2 H* (0.7-2.0) mmol/L AST 47 H (14-36) U/L ALT 119 H (9-52) U/L Alkaline Phosphatase 156 H (38-126) U/L Ur Specific [place] (1.001-1.035) Urine Protein (Negative) Urine Mucus (None) /hpf 03/10/17 Range/Units 16:20 RBC (3.80-5.40) m/uL Hgb (11.4-16.0) gm/dL Hct (34.0-46.0) % RDW (11.5-15.5) % Plt Count (150-450) k/uL Lymphocytes # (Manual) (1.0-4.8) k/uL Metamyelocytes # (Man) (0) k/uL Myelocytes # (Manual) (0) k/uL BUN (7-17) mg/dL Glucose (74-99) mg/dL Plasma Lactic Acid Vern (0.7-2.0) mmol/L AST (14-36) U/L ALT (9-52) U/L Alkaline Phosphatase (38-126) U/L Ur Specific [place] >1.050 H (1.001-1.035) Urine Protein 1+ H (Negative) Urine Mucus Rare H (None) /hpf Microbiology - Last 24 Hours (Table) 03/10/17 16:20 Urine Culture - Preliminary Urine,Voided Diabetes panel 03/10/17 Range/Units 12:56 Sodium 138 (137-145) mmol/L Potassium 4.3 (3.5-5.1) mmol/L Chloride 101 (98-107) mmol/L Carbon Dioxide 25 (22-30) mmol/L BUN 18 H (7-17) mg/dL Creatinine 0.64 (0.52-1.04) mg/dL Glucose 121 H (74-99) mg/dL Calcium 9.6 (8.4-10.2) mg/dL AST 47 H (14-36) U/L ALT 119 H (9-52) U/L Alkaline Phosphatase 156 H (38-126) U/L Total Protein 6.9 (6.3-8.2) g/dL Albumin 4.0 (3.5-5.0) g/dL Calcium panel 03/10/17 Range/Units 12:56 Calcium 9.6 (8.4-10.2) mg/dL Albumin 4.0 (3.5-5.0) g/dL Pituitary panel 03/10/17 Range/Units 12:56 Sodium 138 (137-145) mmol/L Potassium 4.3 (3.5-5.1) mmol/L Chloride 101 (98-107) mmol/L Carbon Dioxide 25 (22-30) mmol/L BUN 18 H (7-17) mg/dL Creatinine 0.64 (0.52-1.04) mg/dL Glucose 121 H (74-99) mg/dL Calcium 9.6 (8.4-10.2) mg/dL Adrenal panel 03/10/17 Range/Units 12:56 Sodium 138 (137-145) mmol/L Potassium 4.3 (3.5-5.1) mmol/L Chloride 101 (98-107) mmol/L Carbon Dioxide 25 (22-30) mmol/L BUN 18 H (7-17) mg/dL Creatinine 0.64 (0.52-1.04) mg/dL Glucose 121 H (74-99) mg/dL Calcium 9.6 (8.4-10.2) mg/dL Total Bilirubin 0.5 (0.2-1.3) mg/dL AST 47 H (14-36) U/L ALT 119 H (9-52) U/L Alkaline Phosphatase 156 H (38-126) U/L Total Protein 6.9 (6.3-8.2) g/dL Albumin 4.0 (3.5-5.0) g/dL - Imaging CT scan - abdomen: report reviewed (Distal small bowel obstruction with peritoneal carcinomatosis) Assessment and Plan Assessment: Chronic small bowel obstruction. Would recommend gastric tube to low intermittent suction. Patient will continue TPN. She will be observed.
[2017-03-11 10:58] LABS: Glucose,Whole Blood 95 mg/dL (75-99)
[2017-03-11 11:45] LABS: Anisocytosis Slight; Basophils % (A) 1 %; Eosinophils # (A) 0.1 k/uL (0-0.7); Eosinophils % (A) 2 %; HCT 25.2 % (34.0-46.0); HGB 7.8 gm/dL (11.4-16.0); Hypochromasia Slight; Lymphocytes % (A) 31 %; MCV 96.9 fL (80.0-100.0); Macrocytosis Slight; Mean Platelet Volume 7.8; Monocytes # (A) 0.2 k/uL (0-1.0); Monocytes % (A) 5 %; Neutrophils # (A) 1.8 k/uL (1.3-7.7); Neutrophils % (A) 58 %; Platelet Count 90 k/uL (150-450); RDW 18.6 % (11.5-15.5); WBC 3.1 k/uL (3.8-10.6)
[2017-03-11 11:58] LABS: ALT 96 U/L (9-52); AST 53 U/L (14-36); Albumin 2.8 g/dL (3.5-5.0); Alkaline Phosphatase 126 U/L (38-126); Anion Gap 4 mmol/L; Blood Urea Nitrogen 17 mg/dL (7-17); Calcium 8.1 mg/dL (8.4-10.2); Carbon Dioxide 28 mmol/L (22-30); Chloride 107 mmol/L (98-107); Glucose 85 mg/dL (74-99); Magnesium 1.7 mg/dL (1.6-2.3); Phosphorus 3.5 mg/dL (2.5-4.5); Potassium 3.7 mmol/L (3.5-5.1); Sodium 139 mmol/L (137-145); Total Bilirubin 0.4 mg/dL (0.2-1.3); Total Protein 5.1 g/dL (6.3-8.2); Triglycerides 149 mg/dL (<150)
--- NOTE | 2017-03-11 15:02 | P.PN ---
Progress Note - Text Consult dictated Impression: 1- Recurrent partial SBO > clinically resolving 2- Metastatic Ovarian Cancer, currently on Gemzar Chemotherapy Rec: 1- Agree with conservative approach 2- No intervention from Oncology stand point
--- NOTE | 2017-03-11 16:49 | XR ---
EXAMINATION TYPE: XR chest 1V portable DATE OF EXAM: 03/11/2017 CLINICAL HISTORY: Ovarian cancer. TECHNIQUE: Single AP portable upright view of the chest is obtained. COMPARISON: Chest x-ray from June 24, 2014 FINDINGS: There is new right-sided PICC line with tip in right atrium. There is suspected new small left pleural effusion. Both lungs are clear without pneumothorax. Cardiac silhouette size is more pro minent but within normal limits. Osseous structures are intact. IMPRESSION: New right-sided PICC line with tip in right atrium. New small left pleural effusion. No s uspicious focal infiltrate.
[2017-03-11] MEDS: ALPRAZolam 0.5 MG TAB PO PRN ×2 (16:51→20:44)
[2017-03-11] MEDS: SODIUM CHLORIDE 0.9% 1,000 ML IV SCH (16:55)
[2017-03-11 17:36] LABS: Glucose,Whole Blood 104 mg/dL (75-99)
[2017-03-11] MEDS: ESCITALOPRAM 20 MG TAB PO SCH (20:41)
--- NOTE | 2017-03-11 21:02 | PN ---
PROGRESS NOTE DATE OF SERVICE: 03/11/2017 This 51-year-old woman with a past medical history of multiple medical problems, ovarian cancer with mets, was admitted with abdominal pain and possible partial small- bowel obstruction. The patient was seen by Dr. Man as well as Dr. Campos. The patient has had NG tube draining to gravity at this time. TPN is being continued. The patient is on Gemzar chemotherapy. No chest pain. No palpitations. No fever. EXAM: Alert and oriented x3. Pulse 90, blood pressure 120/60, respirations 16, temperature 99.1, pulse ox 94% room air. HEENT: Conjunctivae normal. NECK: No jugular venous distention. CARDIOVASCULAR: S1, S2 muffled. RESPIRATORY: Breath sounds diminished in the bases. Scattered rhonchi. No crackles. ABDOMEN: Soft. NG tube in place. Otherwise, mild diffuse discomfort on palpation. No guarding. No rigidity. NERVOUS SYSTEM: No focal deficits. LAB: WBC 3.1, hemoglobin WAS 7.8, and AST is 53 and ALT is 96, which is improving mildly. The cultures are negative. ASSESSMENT: 1. Abdominal pain, distention, possibly partial small-bowel obstruction, acute on chronic. 2. Status post recent nasogastric tube insertion for decompression. 3. Ovarian cancer with metastases as well as peritoneal carcinomatosis. 4. History of ovarian cancer on chemotherapy, Gemzar. 5. On total parenteral nutrition. 6. History of deep venous thrombosis. 7. History of fibromyalgia. 8. Hyperlipidemia. 9. History of degenerative joint disease. 10.History of previous partial small-bowel obstruction. 11.History of anxiety, depression, panic attacks. 12.Remote history of nicotine dependence. 13.Increased AST, ALT, possibly secondary to carcinomatosis. 14.Anemia, normocytic and secondary to malignancy. 15.Thrombocytopenia secondary to malignancy. 16.FULL CODE. RECOMMENDATIONS AND DISCUSSION: Recommend to continue current medical management, continue with monitoring and symptomatic treatment. Closely monitor with multiple consultants. Guarded prognosis because of multiple complex medical issues. Further recommendations to follow. MMODL / IJN: [id number] /
--- NOTE | 2017-03-11 23:08 | CONS ---
CONSULTATION DATE OF SERVICE: March 11, 2017. ADMITTING PHYSICIANS: Dr. Long. REASON FOR CONSULTATION: Ovarian carcinoma and bowel obstruction. HISTORY OF PRESENT ILLNESS: Ladonna is a 51-year-old female, who was diagnosed with stage IIIC ovarian carcinoma August 16, 2014. Then she was seen by Dr. Singh and underwent optimal cytoreductive surgery followed by 8 cycles of carboplatin and Taxol by Dr. Talley in [facility]. The patient has done well until early 2015, when she developed recurrent disease with peritoneal carcinomatosis. She was rechallenged with carboplatin and Taxotere with initial improvement; however, she has progressed recently with recurrent episodes of small-bowel obstruction. She was evaluated by Dr. Estrada Khan at [facility] and felt not to be a surgical candidate. She was recently started on palliative systemic chemotherapy with gemcitabine which she has tolerated well with early clinical signs of improvement. She presented to the hospital with 3-4 days of progressive abdominal pain and nausea and no bowel movement for 3 days. She was found to have an early small-bowel obstruction on imaging studies and hospitalized for further management. When seen today, she reported that nausea, vomiting and abdominal pain had significantly improved and nearly resolved. Her gastric tube is connected to intermittent suction and TPN was resumed. When she was examined in her room, she stated feeling much better. PAST MEDICAL HISTORY: 1. Recurrent metastatic carcinoma with diagnostic and therapeutic circumstance as indicated above. 2. Prior history of thromboembolic event in the right upper extremity. 3. Fibromyalgia. 4. Degenerative joint disease. 5. Anxiety/depression. CURRENT MEDICATIONS: Reviewed and listed in electronic medical record. SOCIAL HISTORY: The patient reports smoking 1 pack of cigarettes daily for 20 years, quit at diagnosis of cancer. Denies any history of alcohol use. Family history was noncontributory. PAST SURGICAL HISTORY: Abdominal debulking by Dr. Singh. EXAMINATION: The patient was alert and oriented. Skin is warm and dry. Pale, but not icteric. Hair distribution was normal for age and gender. Blood pressure was 100/63, pulse was 90 and regular, respiratory rate of 16, not labored. Temperature was 99.1. There were no pathologic cervical supraclavicular infraclavicular . Chest was clear with good air exchange. Heart sounds are normal. The abdomen was soft. The liver and the spleen were not clinically palpable. No masses, tenderness or inguinal lymphadenopathy. Abdomen was soft, moderate tenderness. No rebound. Extremities are unremarkable. ' Laboratory studies showed WBC of 3.1, neutrophils of 1.8, hemoglobin 7.8, and platelet count of 90,000. IMPRESSION: 1. Recurrent small-bowel obstruction due to advanced malignancy and abdominal carcinomatosis. 2. Metastatic ovarian carcinoma with multiple lines of systemic therapy; more recently, gemcitabine with good clinical results. 3. Anemia and thrombocytopenia with mild leukopenia, but no neutropenia. This is likely result of chemotherapy. 4. History of thromboembolic event in the right upper extremity. RECOMMENDATION: 1. Reviewed CBC results with the patient. 2. Monitor for need of supportive transfusion if hemoglobin is less than 7.0. 3. I agree with gastric tube to suction. 4. Resume TPN. 5. Chemotherapy will be resumed after discharge in an outpatient setting. 6. Will follow the patient along with you in the hospital. Further recommendation to follow. Thank you for asking us and the privilege to participate in the care of Ms. Belle. MMSHAUNNAL / BRANDIEN: [id number] /
[2017-03-12 01:41] LABS: Glucose,Whole Blood 110 mg/dL (75-99)
[2017-03-12] MEDS: ALPRAZolam 0.5 MG TAB PO PRN ×2 (05:04→10:31)
[2017-03-12 06:05] LABS: Glucose,Whole Blood 124 mg/dL (75-99)
[2017-03-12 08:28] VITALS: BP 118/72; PULSE 99; TEMP 97.8
[2017-03-12] MEDS: ENOXAPARIN 80 MG/0.8 ML SYRINGE SQ SCH (09:04)
[2017-03-12] MEDS: PANTOPRAZOLE 40 MG/10 ML VIAL IVP SCH (09:04)
[2017-03-12] MEDS: MVI, ADULT NO.4 WITH VIT K 10 ML, TRACE (CONC-1ML/DOSE) 1 ML, PARENTERAL ELECTROLYTES 2... IV SCH ×4 (09:09)
[2017-03-12 09:13] LABS: Anisocytosis Slight; HCT 26.9 % (34.0-46.0); HGB 8.5 gm/dL (11.4-16.0); Hypochromasia Slight; MCH 30.5 pg (25.0-35.0); MCHC 31.7 g/dL (31.0-37.0); MCV 96.4 fL (80.0-100.0); Macrocytosis Slight; Mean Platelet Volume 8.2; Platelet Count 126 k/uL (150-450); RBC 2.79 m/uL (3.80-5.40); RDW 18.5 % (11.5-15.5); WBC 2.9 k/uL (3.8-10.6)
[2017-03-12 09:21] LABS: ALT 98 U/L (9-52); AST 54 U/L (14-36); Albumin 3.2 g/dL (3.5-5.0); Alkaline Phosphatase 118 U/L (38-126); Anion Gap 8 mmol/L; Blood Urea Nitrogen 15 mg/dL (7-17); Calcium 9.2 mg/dL (8.4-10.2); Carbon Dioxide 30 mmol/L (22-30); Chloride 101 mmol/L (98-107); Glucose 136 mg/dL (74-99); Magnesium 1.6 mg/dL (1.6-2.3); Phosphorus 3.3 mg/dL (2.5-4.5); Potassium 3.7 mmol/L (3.5-5.1); Sodium 139 mmol/L (137-145); Total Bilirubin 0.4 mg/dL (0.2-1.3); Total Protein 5.7 g/dL (6.3-8.2)
[2017-03-12] MEDS: INSULIN ASPART 100 UNIT/ML 1 ML 10 ML VIAL SQ SCH (09:22)
[2017-03-12 09:31] LABS: Band Neutrophils % 1 %; Eosinophils # (M) 0.09 k/uL (0-0.7); Lymphocytes # (M) 0.75 k/uL (1.0-4.8); Monocytes # (M) 0.23 k/uL (0-1.0); Neutrophils % (M) 62 %; Nucleated Red Blood Cells 0 /100 WBC (0-0); Polychromasia Present; Total Cells Counted 100
[2017-03-12] MEDS ORDERED: MVI, ADULT NO.4 WITH VIT K 10 ML, TRACE (CONC-1ML/DOSE) 1 ML, PARENTERAL ELECTROLYTES 2... IV SCH ×4 (10:00)
[2017-03-12] MEDS ORDERED: MAGNESIUM SULFATE-D5W PMX 1 GM in DEXTROSE/WATER 1 100ML.BAG IVPB SCH (10:30)
[2017-03-12] MEDS ORDERED: POTASSIUM CHLORIDE 10 MEQ in WATER FOR INJECTION 1 100ML.BAG IVPB SCH (10:30)
--- NOTE | 2017-03-12 11:08 | P.PN ---
Progress Note - Text Progress Note Date: 03/12/17 The patient states she feels better. She is actually had several small bowel movements and flatus this morning. She is currently receiving TPN. Her gastrostomy tube is draining. On exam her vital signs are stable. Her abdomen is soft. There is no significant tenderness. Small bowel obstruction secondary to ovarian carcinomatosis. Patient appears to be at her baseline condition. I think that she can be discharged home today and follow-up as needed. She'll continue nothing by mouth with TPN at home.
[2017-03-12 11:19] LABS: Glucose,Whole Blood 118 mg/dL (75-99)
[2017-03-12] MEDS ORDERED: INSULIN ASPART 100 UNIT/ML 1 ML 10 ML VIAL SQ SCH (12:00)
[2017-03-13] MEDS ORDERED: FAT EMULSION 20% 250 ML IV SCH (09:00)
--- NOTE | 2017-03-13 12:10 | DS ---
DISCHARGE SUMMARY FINAL DIAGNOSES: 1. Abdominal pain and distention, possible partial small bowel obstruction, acute on chronic, improved. 2. Status post recent G-tube insertion for decompression. 3. Ovarian cancer with metastases as well as peritoneal carcinoma. 4. History of ovarian cancer on chemotherapy and Gemzar, on total parenteral nutrition. 5. History of deep venous thrombosis. 6. History of fibromyalgia. 7. Hyperlipidemia. 8. History of degenerative joint disease. 9. History of previous partial small bowel obstruction. 10.History of anxiety, depression, and panic attacks. 11.Remote history of nicotine dependence. 12.Increased AST, ALT, possibly secondary to carcinomatosis. 13.Anemia, normocytic anemia associated with malignancy. 14.Thrombocytopenia secondary to malignancy. 15.FULL CODE. RECOMMENDATIONS: Recommend to continue current medications. CONDITION ON DISCHARGE: The patient will be discharged in stable condition with guarded prognosis. HISTORY OF PRESENT ILLNESS: This 51-year-old woman with a past medical as above, was admitted with abdominal discomfort and pain and partial small bowel obstruction. Patient treated symptomatically. Patient improved significantly. Hematology and Oncology saw the patient. On exam, vital signs stable. Cardiovascular S1 and S2. Abdomen soft, nondistended. Continue with gravity-assisted drainage. MEDICATIONS: 1. Xanax 0.5 every 6 hours p.r.n. 2. Lovenox 80 mg subcu daily. 3. Lexapro 20 mg at bedtime. 4. Humalog scale. 5. Continue TPN. 6. Morphine sulfate 10/20 mg p.r.n. 7. Protonix 40 mg p.o. b.i.d. FOLLOWUP: Follow up with Hematology/Oncology as recommended. MMODL / IJN: [id number] /
== END 2017-03-12 13:00 | disposition home health service (06) | DRG 389 ==
LOC: EC 12:00 → 5ONC 16:31
PROVIDERS: ADMIT Hospitalist; ATTEND Hospitalist
PROC: 0D9670Z Drainage of Stomach with Drainage Device, Via Natural or Artificial Opening (ICD-10-PCS; 2017-03-10)
PROC: 3E0436Z Introduction of Nutritional Substance into Central Vein, Percutaneous Approach (ICD-10-PCS; principal; 2017-03-11)
DX: K56.600 Partial intestinal obstruction, unspecified as to cause (principal); C56.9 Malignant neoplasm of unspecified ovary; C78.6 Secondary malignant neoplasm of retroperitoneum and peritoneum; D69.59 Other secondary thrombocytopenia; Z93.1 Gastrostomy status; D63.0 Anemia in neoplastic disease; E78.5 Hyperlipidemia, unspecified; F32.9 Major depressive disorder, single episode, unspecified; F41.9 Anxiety disorder, unspecified; F41.0 Panic disorder [episodic paroxysmal anxiety]; M79.7 Fibromyalgia; M19.91 Primary osteoarthritis, unspecified site; K57.90 Diverticulosis of intestine, part unspecified, without perforation or abscess without bleeding; F40.240 Claustrophobia; H91.90 Unspecified hearing loss, unspecified ear; K21.9 Gastro-esophageal reflux disease without esophagitis; Z86.718 Personal history of other venous thrombosis and embolism; Z79.01 Long term (current) use of anticoagulants; Z79.4 Long term (current) use of insulin; Z79.899 Other long term (current) drug therapy; Z90.710 Acquired absence of both cervix and uterus; Z87.891 Personal history of nicotine dependence; Z88.2 Allergy status to sulfonamides; Z88.8 Allergy status to other drugs, medicaments and biological substances
CPT/HCPCS: 36415; 71045; 74177; 80053; 81001; 82150; 83605; 83690; 83735; 84100; 84134; 84478; 85025; 85610; 85730; 87040; 87086; 96361; 96374; 96375; 96376; 99285

== ENCOUNTER 2017-03-28 17:47 | Inpatient (IN) | payer MEDICARE, OTHER ==
[2017-03-28] MEDS ORDERED: SODIUM CHLORIDE 0.9% 500 ML IV STA ×2 (19:36→20:51)
[2017-03-28] MEDS ORDERED: ACETAMINOPHEN TAB 325 MG TAB PO STA (19:36)
[2017-03-28 19:57] LABS: Anisocytosis Slight; Basophils % (A) 1 %; Eosinophils % (A) 1 %; HGB 8.6 gm/dL (11.4-16.0); Lymphocytes # (A) 0.3 k/uL (1.0-4.8); Lymphocytes % (A) 19 %; MCH 30.9 pg (25.0-35.0); MCHC 33.1 g/dL (31.0-37.0); MCV 93.3 fL (80.0-100.0); Mean Platelet Volume 8.2; Monocytes % (A) 1 %; Neutrophils # (A) 1.1 k/uL (1.3-7.7); Neutrophils % (A) 75 %; RBC 2.79 m/uL (3.80-5.40); RDW 17.5 % (11.5-15.5)
--- NOTE | 2017-03-28 19:57 | ED ---
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 She states that she has had some shortness breath as well as neck and shoulder pain since yesterday. She had subjective fevers and chills with associated headache and nausea as well. Denies associated cough or rhinorrhea. There is some redness around her G-tube port as well as her TPN/PICC line. She is receiving chemotherapy with her last treatment being 03/24 denies history of radiation therapy. - Related Data Home Medications Medication Instructions Recorded Confirmed ALPRAZolam [Xanax] 0.5 mg PO Q6H PRN 01/16/14 03/28/17 Escitalopram Oxalate [Lexapro] 20 mg PO HS 01/16/14 03/28/17 MORPHINE ORAL NIRMAL CONC 20mg/mL 10 - 20 mg PO Q4HR PRN 01/24/17 03/28/17 [Roxanol Oral Soln Conc 20MG/ML] INSULIN LISPRO (HumaLOG) [humaLOG] See Protocol SQ ACHS 03/10/17 03/28/17 HYDROmorphone [Dilaudid] 1 mg PO Q4HR PRN 03/16/17 03/28/17 Acetaminophen/Diphenhydramine 2 tab PO HS 03/28/17 03/28/17 [Tylenol PM Extra Strength] Naproxen Sodium [Aleve] 440 mg PO DAILY PRN 03/28/17 03/28/17 Previous Rx's Medication Instructions Recorded Pantoprazole Sodium [Protonix] 40 mg PO BID #60 tablet. 01/31/17 Enoxaparin [Lovenox] 80 mg SQ BID syringe 04/05/17 cefTRIAXone [Rocephin] 2,000 mg IVP Q24HR #7 ml 04/05/17 Allergies Allergy/AdvReac Type Severity Reaction Status Date / Time duloxetine HCl Allergy Rash/Hives Verified 03/29/17 05:57 [From Cymbalta] Sulfa (Sulfonamide Allergy Rash/Hives Verified 03/29/17 05:57 Antibiotics) carboplatin AdvReac Nausea & Verified 03/29/17 05:57 Vomiting, TEMPORARY HEARING LOSS Review of Systems ROS Statement: Those systems with pertinent positive or pertinent negative responses have been documented in the HPI. ROS Other: All systems not noted in ROS Statement are negative. Constitutional: Reports: fever, chills. Denies: weakness, weight change Eyes: Denies: eye pain, eye discharge, vision change ENT: Denies: ear pain, throat pain, congestion Respiratory: Reports: dyspnea. Denies: cough, wheezes, hemoptysis, stridor Cardiovascular: Denies: chest pain, palpitations, dyspnea on exertion, orthopnea , edema, syncope Endocrine: Denies: fatigue, polydipsia, polyuria Gastrointestinal: Reports: nausea, other (erythema around the G-tube, improving) . Denies: abdominal pain, vomiting, diarrhea, constipation, hematemesis, melena , hematochezia Genitourinary: Denies: urgency, dysuria, frequency, hematuria, discharge Musculoskeletal: Reports: arthralgia, myalgia. Denies: back pain Skin: Denies: rash, lesions, change in color, change in hair/nails, pruritus Neurological: Reports: headache Psychiatric: Denies: anxiety, depression Hematological/Lymphatic: Denies: easy bleeding, easy bruising Past Medical History Past Medical History: Cancer, Deep Vein Thrombosis (DVT), Fibromyalgia, GERD/ Reflux, Hearing Disorder / Deafness, Hyperlipidemia, Osteoarthritis (OA) Additional Past Medical History / Comment(s): OVARIAN CA-T3, N0 ,Mx grade 3, 2012; REOCCURING CA W/ CHEMO TREATMENT 03/2016-07/2016.currently recieving chemo( had a tx was 03-02-17) MVP. Diverticulosis. PARTIAL BOWEL OBSTRUCTION D/T CA METS 12/2016. 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 BLOOD PRESSURE TAKEN ON LEGS ONLY. CURRENT UTI, ON RX. TPN History of Any Multi-Drug Resistant Organisms: None Reported Past Surgical History: Hysterectomy Additional Past Surgical History / Comment(s): OOPHERECTOMY/CERVIX/UTERUS/ OMENTUM EXC; Vaginal mesh insertion. RX Port placement, removal; PICC line insertion, removal.picc line rt upper arm, G TUBE 02/02 Past Anesthesia/Blood Transfusion Reactions: Motion Sickness Additional Past Anesthesia/Blood Transfusion Reaction / Comment(s): claustrophobia Past Psychological History: Anxiety, Depression, Panic Disorder Smoking Status: Former smoker Past Alcohol Use History: None Reported Past Drug Use History: None Reported - Past Family History Sister(s) Family Medical History: Blood Disorder Additional Family Medical History / Comment(s): FACTOR 5 BLOOD DISORDER. Father Family Medical History: Hypertension, Prostate Disorder Additional Family Medical History / Comment(s): parkinsons, prostate cancer Mother Family Medical History: Cancer Additional Family Medical History / Comment(s): multiple myeoloma General Exam Limitations: no limitations General appearance: alert, in no apparent distress Head exam: Present: atraumatic, normocephalic, normal inspection Eye exam: Present: normal appearance, PERRL, EOMI. Absent: scleral icterus, conjunctival injection, periorbital swelling ENT exam: Present: normal exam, mucous membranes moist Neck exam: Present: normal inspection. Absent: tenderness, meningismus, lymphadenopathy Respiratory exam: Present: normal lung sounds bilaterally. Absent: respiratory distress, wheezes, rales, rhonchi, stridor Cardiovascular Exam: Present: normal rhythm, tachycardia GI/Abdominal exam: Present: soft, normal bowel sounds. Absent: distended, tenderness, guarding, rebound, rigid Rectal exam: Present: deferred Extremities exam: Present: normal inspection, full ROM, normal capillary refill. Absent: tenderness, pedal edema, joint swelling, calf tenderness Back exam: Present: normal inspection Neurological exam: Present: alert, oriented X3, CN II-XII intact Psychiatric exam: Present: normal affect, normal mood Skin exam: Present: warm, dry, intact, erythema (around PICC insertion and G- tube). Absent: normal color, rash Course Vital Signs 03/28/17 03/28/17 03/28/17 18:18 19:03 19:20 Temperature 98.9 F 100.0 F H Pulse Rate 110 H 87 Respiratory 22 20 18 Rate Blood Pressure 139/69 109/62 O2 Sat by Pulse 99 100 Oximetry 03/28/17 03/28/17 03/28/17 20:25 21:55 22:45 Temperature 101.2 F H 98.5 F 98.1 F Pulse Rate 114 H 107 H 98 Respiratory 18 18 18 Rate Blood Pressure 91/52 85/51 85/54 O2 Sat by Pulse 98 96 97 Oximetry EKG Findings - EKG Comments: EKG Findings:: Sinus tachycardia with a ventricular rate of 105. Medical Decision Making - Medical Decision Making 51-year-old female past medical history as noted above presented for evaluation of generalized malaise, arthralgias and myalgias. On physical examination she appears to be in no apparent distress, lungs are clear to auscultation bilaterally. Skin shows some erythema around the PICC line insertion as well as the G-tube however there is no significant spread or induration. Full range of motion of the neck without meningismus. Negative Kernig and Brudzinski sign. Although there is concern for influenza versus pneumonia we'll also obtain labs to rule out neutropenic fever. No significant source of infection identified however given her neutropenic fever will start on broad spectrum antibiotics and admit for further treatment and evaluation. Discussed with admitting team who accepted without further request. - Lab Data Result diagrams: 04/05/17 08:19 04/05/17 08:19 Lab Results 03/28/17 03/28/17 03/28/17 Range/Units 19:08 19:08 19:08 WBC 1.5 L* (3.8-10.6) k/uL RBC 2.79 L (3.80-5.40) m/uL Hgb 8.6 L (11.4-16.0) gm/dL Hct 26.0 L (34.0-46.0) % MCV 93.3 D (80.0-100.0) fL MCH 30.9 (25.0-35.0) pg MCHC 33.1 (31.0-37.0) g/dL RDW 17.5 H (11.5-15.5) % Plt Count 88 L D (150-450) k/uL Neutrophils % 75 % Lymphocytes % 19 % Monocytes % 1 % Eosinophils % 1 % Basophils % 1 % Neutrophils # 1.1 L (1.3-7.7) k/uL Lymphocytes # 0.3 L (1.0-4.8) k/uL Monocytes # 0.0 (0-1.0) k/uL Eosinophils # 0.0 (0-0.7) k/uL Basophils # 0.0 (0-0.2) k/uL Manual Slide Review Performed RBC Morphology Normal Anisocytosis Slight Sodium 137 (137-145) mmol/L Potassium 4.1 (3.5-5.1) mmol/L Chloride 103 (98-107) mmol/L Carbon Dioxide 23 (22-30) mmol/L Anion Gap 11 mmol/L BUN 18 H (7-17) mg/dL Creatinine 0.80 (0.52-1.04) mg/dL Est GFR (MDRD) Af Amer >60 (>60 ml/min/1.73 sqM) Est GFR (MDRD) Non-Af >60 (>60 ml/min/1.73 sqM) Glucose 84 (74-99) mg/dL Plasma Lactic Acid Vern (0.7-2.0) mmol/L Calcium 8.9 (8.4-10.2) mg/dL Total Bilirubin 1.0 (0.2-1.3) mg/dL AST 97 H (14-36) U/L ALT 128 H (9-52) U/L Alkaline Phosphatase 164 H (38-126) U/L Troponin I (0.000-0.034) ng/mL Total Protein 6.2 L (6.3-8.2) g/dL Albumin 3.5 (3.5-5.0) g/dL Urine Color Urine Appearance (Clear) Urine pH (5.0-8.0) Ur Specific [place] (1.001-1.035) Urine Protein (Negative) Urine Glucose (UA) (Negative) Urine Ketones (Negative) Urine Blood (Negative) Urine Nitrite (Negative) Urine Bilirubin (Negative) Urine Urobilinogen (<2.0) mg/dL Ur Leukocyte Esterase (Negative) Urine RBC (0-5) /hpf Urine WBC (0-5) /hpf Ur Squamous Epith Cells (0-4) /hpf Urine Mucus (None) /hpf Influenza Type A RNA Not Detected (Not Detectd) Influenza Type B (PCR) Not Detected (Not Detectd) 03/28/17 03/28/17 03/28/17 Range/Units 19:08 19:08 19:50 WBC (3.8-10.6) k/uL RBC (3.80-5.40) m/uL Hgb (11.4-16.0) gm/dL Hct (34.0-46.0) % MCV (80.0-100.0) fL MCH (25.0-35.0) pg MCHC (31.0-37.0) g/dL RDW (11.5-15.5) % Plt Count (150-450) k/uL Neutrophils % % Lymphocytes % % Monocytes % % Eosinophils % % Basophils % % Neutrophils # (1.3-7.7) k/uL Lymphocytes # (1.0-4.8) k/uL Monocytes # (0-1.0) k/uL Eosinophils # (0-0.7) k/uL Basophils # (0-0.2) k/uL Manual Slide Review RBC Morphology Anisocytosis Sodium (137-145) mmol/L Potassium (3.5-5.1) mmol/L Chloride (98-107) mmol/L Carbon Dioxide (22-30) mmol/L Anion Gap mmol/L BUN (7-17) mg/dL Creatinine (0.52-1.04) mg/dL Est GFR (MDRD) Af Amer (>60 ml/min/1.73 sqM) Est GFR (MDRD) Non-Af (>60 ml/min/1.73 sqM) Glucose (74-99) mg/dL Plasma Lactic Acid Vern 0.8 (0.7-2.0) mmol/L Calcium (8.4-10.2) mg/dL Total Bilirubin (0.2-1.3) mg/dL AST (14-36) U/L ALT (9-52) U/L Alkaline Phosphatase (38-126) U/L Troponin I <0.012 (0.000-0.034) ng/mL Total Protein (6.3-8.2) g/dL Albumin (3.5-5.0) g/dL Urine Color Yellow Urine Appearance Clear (Clear) Urine pH 6.5 (5.0-8.0) Ur Specific [place] 1.021 (1.001-1.035) Urine Protein 1+ H (Negative) Urine Glucose (UA) Negative (Negative) Urine Ketones Negative (Negative) Urine Blood Negative (Negative) Urine Nitrite Negative (Negative) Urine Bilirubin Negative (Negative) Urine Urobilinogen >12.0 (<2.0) mg/dL Ur Leukocyte Esterase Negative (Negative) Urine RBC 2 (0-5) /hpf Urine WBC 2 (0-5) /hpf Ur Squamous Epith Cells <1 (0-4) /hpf Urine Mucus Few H (None) /hpf Influenza Type A RNA (Not Detectd) Influenza Type B (PCR) (Not Detectd) Disposition Clinical Impression: Neutropenic fever Disposition: ADMITTED IP TO THIS [facility] Condition: Stable Decision to Admit Reason: Admit from EC Decision Date: 03/28/17 Decision Time: 22:42
[2017-03-28 20:03] LABS: WBC 1.5 k/uL (3.8-10.6)
[2017-03-28 20:08] LABS: ALT 128 U/L (9-52); AST 97 U/L (14-36); Albumin 3.5 g/dL (3.5-5.0); Alkaline Phosphatase 164 U/L (38-126); Anion Gap 11 mmol/L; Blood Urea Nitrogen 18 mg/dL (7-17); Calcium 8.9 mg/dL (8.4-10.2); Carbon Dioxide 23 mmol/L (22-30); Chloride 103 mmol/L (98-107); Glucose 84 mg/dL (74-99); Potassium 4.1 mmol/L (3.5-5.1); Sodium 137 mmol/L (137-145); Total Protein 6.2 g/dL (6.3-8.2)
[2017-03-28 20:11] LABS: Appearance,Urine Clear (Clear); Bilirubin,Urine Negative (Negative); Blood,Urine Negative (Negative); Color,Urine Yellow; Glucose,Urine (UA) Negative (Negative); Ketones,Urine Negative (Negative); Leukocyte Esterase,Urine Negative (Negative); Mucus,Urine Few /hpf; Nitrite,Urine Negative (Negative); PH, Urine 6.5 (5.0-8.0); Protein,Urine 1+ (Negative); RBC,Urine 2 /hpf (0-5); Specific Gravity,Urine 1.021 (1.001-1.035); Squamous Epithelial Cell,Urine <1 /hpf (0-4); Urobilinogen,Urine >12.0 mg/dL (<2.0); WBC,Urine 2 /hpf (0-5)
--- NOTE | 2017-03-28 20:24 | XR ---
EXAMINATION TYPE: XR chest 2V DATE OF EXAM: 03/28/2017 COMPARISON: Chest x-ray March 11, 2017. HISTORY: Fever shortness of breath and chills. Currently on chemotherapy for ovarian cancer. TECHNIQUE: Frontal and lateral views of the chest are obtained. FINDINGS: There is stable right-sided PICC line. There is no focal air space opacity, pleural effusio n, or pneumothorax seen. The cardiac silhouette size is within normal limits. The osseous structur es are intact. IMPRESSION: No new suspicious acute infiltrate
[2017-03-28 20:27] LABS: Platelet Count 88 k/uL (150-450)
[2017-03-28] MEDS ORDERED: MORPHINE SULFATE 5 MG/ML SYRINGE IVP STA (21:42)
[2017-03-28] MEDS ORDERED: ONDANSETRON 4 MG/2 ML VIAL IVP STA (21:42)
[2017-03-28] MEDS ORDERED: CEFEPIME 2 GM in SODIUM CHLORIDE 0.9% 50 ML IVPB STA (21:55)
[2017-03-28] MEDS ORDERED: VANCOMYCIN IV PER PHARMACY 1 EACH MISC MISCELLANE PRN (21:55)
[2017-03-28] MEDS ORDERED: KETOROLAC 30 MG/ML 1 ML VIAL IVP STA (22:01)
[2017-03-28] MEDS ORDERED: AMPICILLIN 2,000 MG in SODIUM CHLORIDE 0.9% 100 ML IVPB STA (22:11)
[2017-03-28] MEDS ORDERED: cefTRIAXone IN SWFI 2,000 MG/20 ML SYRINGE IVP STA (22:11)
[2017-03-28] MEDS ORDERED: SODIUM CHLORIDE 0.9% 1,000 ML IV ONE (22:23)
[2017-03-28] MEDS ORDERED: MORPHINE SULFATE 4 MG/ML SYRINGE IV PRN (22:42)
[2017-03-28] MEDS ORDERED: NALOXONE 0.4 MG/ML 1 ML VIAL IV PRN (22:42)
[2017-03-28] MEDS ORDERED: NAPROXEN SODIUM 440 MG PO PRN (22:44)
[2017-03-28] MEDS: SODIUM CHLORIDE 0.9% 1,000 ML IV SCH (22:50)
[2017-03-28] MEDS ORDERED: MORPHINE SULFATE 2 MG/ML SYRINGE IV PRN (22:51)
[2017-03-28] MEDS ORDERED: VANCOMYCIN 1,250 MG in SODIUM CHLORIDE 0.9% 250 ML IVPB ONE (23:00)
[2017-03-29] MEDS ORDERED: ALPRAZolam 0.25 MG TAB ONE (02:34)
[2017-03-29] MEDS ORDERED: ENOXAPARIN 80 MG/0.8 ML SYRINGE SQ STA (04:36)
[2017-03-29] MEDS ORDERED: ESCITALOPRAM 20 MG TAB PO STA (04:36)
[2017-03-29] MEDS: SODIUM CHLORIDE 0.9% 1,000 ML IV SCH (06:44)
[2017-03-29] MEDS ORDERED: ACETAMINOPHEN IV (For NPO) 1,000 MG in EMPTY BAG 1 BAG IVPB STA (07:14)
[2017-03-29] MEDS ORDERED: NON-FORMULARY DRUG (Insulin Lispro (Humalog) 0 UNIT) SQ SCH (07:30)
[2017-03-29 07:34] LABS: Anion Gap 6 mmol/L; Blood Urea Nitrogen 12 mg/dL (7-17); Calcium 7.8 mg/dL (8.4-10.2); Carbon Dioxide 24 mmol/L (22-30); Chloride 109 mmol/L (98-107); Glucose 91 mg/dL (74-99); Potassium 4.5 mmol/L (3.5-5.1); Sodium 139 mmol/L (137-145)
[2017-03-29 07:48] LABS: Anisocytosis Slight; HGB 7.4 gm/dL (11.4-16.0); MCH 30.9 pg (25.0-35.0); MCHC 32.3 g/dL (31.0-37.0); MCV 95.6 fL (80.0-100.0); Mean Platelet Volume 7.5; RBC 2.41 m/uL (3.80-5.40)
[2017-03-29 07:52] LABS: Platelet Count 80 k/uL (150-450)
[2017-03-29 07:53] LABS: WBC 0.9 k/uL (3.8-10.6)
[2017-03-29 08:58] LABS: Poikilocytosis (M) Present
[2017-03-29] MEDS: PANTOPRAZOLE 40 MG TABLET PO SCH ×2 (09:15→21:36)
[2017-03-29] MEDS ORDERED: SODIUM CHLORIDE 0.9% 500 ML IV ONE (12:26)
[2017-03-29 13:04] LABS: Phosphorus 3.7 mg/dL (2.5-4.5)
[2017-03-29] MEDS ORDERED: MVI, ADULT NO.4 WITH VIT K 10 ML, TRACE (CONC-1ML/DOSE) 1 ML in AMINO ACID 5%-D25W+LYTE... IV ONE ×3 (14:00)
[2017-03-29] MEDS: FAT EMULSION 20% 250 ML IV SCH (14:15)
[2017-03-29] MEDS: VANCOMYCIN 1,500 MG in SODIUM CHLORIDE 0.9% 250 ML IVPB SCH (15:32)
[2017-03-29] MEDS: ALPRAZolam 0.25 MG TAB PO PRN ×2 (15:37→21:37)
[2017-03-29 18:51] LABS: Glucose,Whole Blood 86 mg/dL (75-99)
--- NOTE | 2017-03-29 21:05 | HP ---
HISTORY AND PHYSICAL DATE OF SERVICE: 03/29/2017. CHIEF COMPLAINT: Shortness of breath. BRIEF HISTORY ON THIS PATIENT: A 51-year-old female patient with history of metastatic ovarian cancer with intestinal metastasis on TPN with also history of DVT, hyperlipidemia, osteoarthritis, myalgias, presents to ED with complaint of generalized illness. The patient claims that started about 48 hours ago when she felt some shortness of breath as well as some pain in the neck and shoulder area. This was associated with fever and chills, but later got better. Patient has states that the day prior to admission, she had the same episode which was associated with headache and nausea with no vomiting or diarrhea. The patient states that she was chilling to a point it felt like she was seizing. She was seen by the by the home visiting nurse and was advised to come to the ED. PAST MEDICAL HISTORY: Significant for: 1. A history of ovarian cancer with intestinal metastasis. 2. DVT. 3. Fibromyalgia. 4. Gastroesophageal reflux disease. 5. Hyperlipidemia. 6. Osteoarthritis. 7. Deafness. 8. History of diverticulosis. 9. The patient does have history of partial bowel obstruction due to cancer metastasis. PAST SURGICAL HISTORY: Significant for hysterectomy, oophorectomy with cervical, uterine, omentum surgery, vaginal mesh insertion, port placement and removal, PICC line insertion, placement of G tube. PSYCHOLOGICAL HISTORY: Patient has history of anxiety, depression and panic disorder. SOCIAL HISTORY: Patient is a former smoker. No history of alcohol abuse and no history of IV drug abuse. FAMILY HISTORY: Significant for a blood dyscrasias in sister and history of hypertension, prostatic cancer, Parkinson disease in father. Mother has history of multiple myeloma. She is is allergic to CYMBALTA, SULFA DRUGS, and CARBOPLATIN. MEDICATIONS: The patient is on: 1. Protonix 40 mg p.o. b.i.d. 2. Naproxen 440 mg p.o. daily p.r.n. 3. Xanax 0.5 mg p.o. every 6 hours p.r.n. 4. Lexapro 20 mg p.o. q.h.s. 5. Roxanol oral solution 10-20 mg p.o. q.4 hours p.r.n. 6. Lisinopril. 7. Insulin lispro by sliding scale q.a.c. and at bedtime. 8. Dilaudid 1 mg p.o. q.4 hours p.r.n. 9. Tylenol Extra Strength 2 tablets p.o. q.h.s. REVIEW OF SYSTEMS: CONSTITUTIONAL: Patient reports fever and chills as described above with no weakness or weight changes. HEENT: Denies any ear pain or discharge. No deafness. Denies any eye pain or discharge. No vision changes. RESPIRATORY: Does report dyspnea, but no cough and hemoptysis. CARDIOVASCULAR: Denies any chest pain or palpitations. ENDOCRINE: Denies any polyuria, polydipsia. GASTROINTESTINAL: Reports some nausea, but no vomiting or diarrhea. GENITOURINARY: No hematuria or dysuria. MUSCULOSKELETAL: Patient reports some arthralgias, myalgias and back pain. SKIN: No rashes or pigmentation. NEUROLOGICAL: Patient reports some headache. Admits no lightheadedness or dizziness. PSYCHIATRIC: Patient does admit to anxiety and depression. HEMATOLOGY AND LYMPHATIC: Does give history of easy bruising and bleeding. Rest of 14-point review of system is unremarkable. PHYSICAL EXAMINATION: CONSTITUTIONAL: Patient is awake, alert, oriented x3. VITAL SIGNS: Temperature of 100, pulse 87, respirations 18, blood pressure 109/ 62, O2 saturation 100%. HEENT: Atraumatic, normocephalic. Pupils equal and reactive to light. Extraocular movements intact. Buccal mucosa is fair. Neck is supple. No goiter or lymphadenopathy. JVD is negative. No carotid bruit heard. Lungs are clear to auscultate. No rales, rhonchi, or wheezes. Heart is regular rate and rhythm without any murmurs or gallop rhythm. Abdomen is soft and mild diffuse tenderness. Bowel sounds positive. No organomegaly. EXTREMITIES: Positive trace edema. No pulses are palpable. NEUROLOGICAL: Patient is awake, alert, alert, oriented x3. She has no gross motor or sensory deficit. Cranial nerves 2-12 are grossly intact. PSYCHIATRIC: Patient has normal mood and affect. Skin is warm, dry and intact. There is some erythema around the PICC line insertion and G tube. No rashes. EKG shows sinus tachycardia without any acute changes. LABS: CBC: White blood count of 1.5, hemoglobin 8.6, hematocrit 26 and platelet count of 88. Chemical profile: Sodium 137, potassium 4.1, chloride 103, bicarb 23, BUN of 18 , creatinine 0.8. ASSESSMENT: 1. Neutropenic fever. 2. Pancytopenia. 3. Tachycardia, possibly secondary to fever. 4. Mild renal insufficiency. 5. Protein-calorie malnutrition, status post total parenteral nutrition. 6. Metastatic ovarian cancer with intestinal metastasis. PLAN: Admit the patient to general medical floor. Start patient on IV fluids. Resume TPN as prescribed at home. Continue to monitor CBC, blood cultures, urine culture. Will consult Heme/Oncology. The patient is started on IV vancomycin. Will continue with that. Will consult Infectious Disease if the patient remains febrile. Resume home medications. Further recommendations after patient is seen by Heme/Oncology and ID. MMODL / IJN: [id number] / ALINE
[2017-03-29] MEDS: diphenhydrAMINE 25 MG CAP PO SCH (21:37)
[2017-03-29] MEDS: ACETAMINOPHEN TAB 500 MG TAB PO SCH (21:38)
[2017-03-29] MEDS: ENOXAPARIN 80 MG/0.8 ML SYRINGE SQ SCH (21:39)
[2017-03-30] MEDS: ESCITALOPRAM 20 MG TAB PO SCH ×2 (00:11→21:51)
[2017-03-30] MEDS: SODIUM CHLORIDE 0.9% 1,000 ML IV SCH ×3 (00:14→19:35)
[2017-03-30 00:15] LABS: Glucose,Whole Blood 98 mg/dL (75-99)
[2017-03-30] MEDS: VANCOMYCIN 1,500 MG in SODIUM CHLORIDE 0.9% 250 ML IVPB SCH ×2 (02:59→14:56)
[2017-03-30 07:06] LABS: Glucose,Whole Blood 112 mg/dL (75-99)
[2017-03-30 08:12] LABS: Ionized Calcium 5.1 mg/dL (4.5-5.3)
[2017-03-30 08:23] LABS: Anion Gap 8 mmol/L; Blood Urea Nitrogen 7 mg/dL (7-17); Calcium 8.8 mg/dL (8.4-10.2); Carbon Dioxide 26 mmol/L (22-30); Chloride 106 mmol/L (98-107); Glucose 113 mg/dL (74-99); Magnesium 1.7 mg/dL (1.6-2.3); Phosphorus 4.2 mg/dL (2.5-4.5); Potassium 3.8 mmol/L (3.5-5.1); Sodium 140 mmol/L (137-145)
[2017-03-30] MEDS: PANTOPRAZOLE 40 MG TABLET PO SCH ×2 (09:57→21:50)
[2017-03-30] MEDS: ALPRAZolam 0.25 MG TAB PO PRN ×3 (09:57→21:49)
[2017-03-30 11:35] LABS: Glucose,Whole Blood 116 mg/dL (75-99)
[2017-03-30 12:50] LABS: Anisocytosis Slight; HCT 22.7 % (34.0-46.0); HGB 7.6 gm/dL (11.4-16.0); Hypochromasia Slight; MCH 31.3 pg (25.0-35.0); MCHC 33.3 g/dL (31.0-37.0); MCV 93.9 fL (80.0-100.0); Mean Platelet Volume 8.7; Platelet Count 64 k/uL (150-450); RBC 2.41 m/uL (3.80-5.40); RDW 17.9 % (11.5-15.5)
[2017-03-30 12:55] LABS: WBC 1.8 k/uL (3.8-10.6)
[2017-03-30 13:28] LABS: Band Neutrophils % 1 %; Eosinophils # (M) 0.04 k/uL (0-0.7); Lymphocytes # (M) 0.83 k/uL (1.0-4.8); Monocytes # (M) 0.05 k/uL (0-1.0); Neutrophils % (M) 48 %; Nucleated Red Blood Cells 0 /100 WBC (0-0); Poikilocytosis (M) Present; Total Cells Counted 100
[2017-03-30] MEDS ORDERED: MVI, ADULT NO.4 WITH VIT K 10 ML, TRACE (CONC-1ML/DOSE) 1 ML in AMINO ACID 5%-D25W+LYTE... IV SCH ×3 (14:00)
[2017-03-30] MEDS: CEFEPIME 2 GM in SODIUM CHLORIDE 0.9% 50 ML IVPB SCH ×2 (14:04→23:38)
[2017-03-30] MEDS ORDERED: RX INFO: IV CONTRAST WAS GIVEN 1 EACH MISC MISCELLANE PRN (14:25)
[2017-03-30] MEDS ORDERED: IOHEXOL 350 MG/ML 25 ML BOTTLE (ORAL USE) PO PRN (14:25)
[2017-03-30] MEDS ORDERED: CEFEPIME 2 GM in SODIUM CHLORIDE 0.9% 50 ML IVPB SCH (16:00)
[2017-03-30] MEDS: PARENTERAL ELECTROLYTES 20 ML, MVI, ADULT NO.4 WITH VIT K 10 ML, TRACE (CONC-1ML/DOSE) ... IV SCH ×4 (16:02)
[2017-03-30 18:04] LABS: Glucose,Whole Blood 109 mg/dL (75-99)
[2017-03-30] MEDS: ACETAMINOPHEN TAB 500 MG TAB PO SCH (21:50)
[2017-03-30] MEDS: diphenhydrAMINE 25 MG CAP PO SCH (21:51)
--- NOTE | 2017-03-30 22:06 | PN ---
PROGRESS NOTE DATE OF SERVICE: 03/30/2017 The patient was seen in her room and denies any complaints of shortness of breath, claims was seen by infectious disease, but she has numerous questions for the oncologist. Vital signs temperature of 98.4, pulse 90, respiration 18, blood pressure 103/63 , O2 saturation of 100% on room air. General examination patient is awake, alert, oriented x3. She is in no acute distress. HEENT atraumatic, normocephalic. Pupils equal and reactive to light. Extraocular movements intact. Buccal mucosa is fair. Neck is supple without a goiter or lymphadenopathy. JVD is negative. Lungs decreased breath sounds with scattered rhonchi. Cardiovascular system: Heart is regular rate and rhythm without murmurs or gallop rhythm. Abdomen is soft, nontender, nondistended. Bowel sounds positive. Extremities: No edema clubbing or cyanosis. Pulses are palpable. Neurological examination: Cranial nerves 2-12 grossly intact. No gross motor or sensory deficit. LAB: The CBC, white blood count of 1.8, hemoglobin 7.6, hematocrit 22.7, and platelet count of 64. Chemical profile sodium 140, potassium 3.8, chloride 106, bicarb 26, BUN of 7, creatinine 0.69, glucose 116. The patient's blood culture positive for gram- negative bacilli. ASSESSMENT: 1. Gram negative septicemia. 2. Neutropenic fever. 3. Pancytopenia. 4. Tachycardia, possibly secondary to fever which is resolved. 5. Mild renal insufficiency, clinically resolved. 6. Protein calorie malnutrition, which patient is on TPN. 7. Metastatic ovarian cancer with intestinal metastasis. PLAN: Continue to monitor. Monitor patient electrolytes and CBC closely. Await further recommendations from Oncology as for blood transfusion or a platelet transfusion. Continue with TPN as home prescription. The patient's blood cultures are positive for gram-negative bacilli. The patient's antibiotics have been switched to cefepime 2 g IV q.8 hours and also IV vancomycin. Pharmacy is dosing it. Await recommendations from heme Oncology as far pancytopenia. Resume all home medications. Will continue to monitor electrolytes and CBC. Continue to monitor renal function and I and Os. MMODL / IJN: [id number] / MTDD
[2017-03-30] MEDS: ENOXAPARIN 80 MG/0.8 ML SYRINGE SQ SCH (23:40)
[2017-03-31] MEDS: VANCOMYCIN 1,500 MG in SODIUM CHLORIDE 0.9% 250 ML IVPB SCH (01:56)
[2017-03-31 01:57] LABS: Glucose,Whole Blood 125 mg/dL (75-99)
[2017-03-31] MEDS: SODIUM CHLORIDE 0.9% 1,000 ML IV SCH ×5 (02:37→22:48)
[2017-03-31] MEDS: CEFEPIME 2 GM in SODIUM CHLORIDE 0.9% 50 ML IVPB SCH ×3 (06:21→22:48)
--- NOTE | 2017-03-31 08:13 | CONS ---
CONSULTATION DATE OF SERVICE: 03/30/17 REASON FOR CONSULTATION: Bacteremia. HISTORY OF PRESENT ILLNESS: The patient is a 51-year-old female with a past medical history significant for ovarian cancer, stage IIIC, initially diagnosed in August of 2012 for which the patient did have for 8 cycles of chemotherapy. The patient subsequently did have a problem with DVT left upper extremity to the port that was subsequently discontinued. The patient noticed to have recurrence of her malignancy in February of 2016 with evidence of peritoneal carcinomatosis and subsequent development of small bowel obstruction with progression of her disease involving the anterior abdominal wall. The patient overall remains to be very poor, hence the patient did get a PICC line January 30, 2017 and was getting TPN at home in addition to the chemotherapy. The last chemo was a week ago on . Patient presented to the [facility] ER on the 28 March 2017 with the chief complaints of shortness of breath as well as generalized weakness in addition to the neck and shoulder pain. The patient did have subjective fever and chills with associated headache and nausea as well. Patient on arrival to the ER was afebrile at 98.9, however, subsequently did have a fever of 101.2 degrees Fahrenheit. The patient did have blood cultures obtained. She was noticed to be leukopenic with a white count of 1.4 subsequently down to 0.9 with a neutrophil count of 0.8. The patient urine was negative. Influenza serology was negative. She did have a chest x-ray that was negative for any acute infiltrate. The patient has been admitted hospital. Blood cultures obtained. Blood culture now showing a gram- negative bacilli. Hence, ID was consulted for further recommendation regarding antibiotic therapy. The patient had complained some dull pain in the lower abdominal area about 2 to 3/10, associated with some nausea but no vomiting. Denies significant diarrhea though. The blood culture drawn was from the PICC line and no peripheral draw. REVIEW OF SYSTEMS: Constitutional: Positive for weakness along with chills. Eyes: No complaint. ENT no complaint. Respiratory as per HPI. Cardiovascular: No complaint. Genitourinary no complaint. Gastrointestinal: As per HPI. Musculoskeletal no complaint. Integumentary no complaint. Psychological no complaint. Endocrine no complaint. Neurological no complaint. 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 PAST SURGICAL HISTORY: Hysterectomy, port placement and subsequent removal, PICC line placement and subsequent removal with G-tube placement. Psychological history positive for anxiety, depression, panic disorder. SOCIAL HISTORY: Remote history of smoking. No drinking or drug use. FAMILY HISTORY: One sister with factor 5 Leiden deficiency. Father history of prostate cancer and parkinsonism. Mother history of multiple myeloma. ALLERGIES: TO SULFA, GABAPENTIN AND DULOXETINE. MEDICATIONS: The patient is currently on Tylenol, Xanax, Benadryl, Lovenox, Lexapro, Lipids, Dilaudid, morphine sulfate, Narcan, Zofran, Protonix, TPN and vancomycin. EXAMINATION: Blood pressure is 93/60 with a pulse of 92, temperature 98.2, T-max is 101. She is 99% on room air. General description is a middle aged female lying in bed in no distress. No tachypnea or accessory muscles of respiration use. HEENT: Shows pallor. No scleral icterus. Oral mucous membranes dry. No erythema or thrush. Neck: Trachea central. No thyromegaly. Lungs unlabored breathing. Clear to auscultation. No wheeze or crackles. Heart S1, S2 regular rate and rhythm . ABDOMEN: Soft, no guarding, no rigidity. No organomegaly. Extremities: No edema of the feet. Skin examination: No rashes or mass palpable. Neurological: Patient is awake, alert, oriented x3. Mood and affect normal. LABS: Hemoglobin 10.4, white count 0.91, and count was 1.1 with a BUN of 7, creatinine 0.69. UA has been negative. Influenza serology was negative. Chest x-ray negative for acute infiltrate. DIAGNOSTIC IMPRESSION AND PLAN: Patient admitted to the hospital with sepsis in a patient who did have fever over 101 degrees Fahrenheit. The patient did have evidence of leukopenia/neutropenia in addition to the tachycardia with a heart rate of 110, now with gram-negative bacteremia. Source is likely a PICC line infection to be on top of the list. The patient urine has been negative. However, the patient did have a complicated gynecological history with history of ovarian tumor, cancer with METS to the peritoneum, small bowel obstruction, underlying abdominal etiology cannot be entirely excluded. PLAN: 1. We will obtain blood cultures from the PICC line peripherally . 2. We will obtain a CT abdominal and pelvis with oral IV contrast to rule out any intraabdominal pathology. 3. We will add cefepime 2 g q.8 hours to cover for the gram-negative while waiting for the ID to this pathogen. 4. Depending upon clinical response as well as cultures will adjust her medications further if needed. Thank you for this consultation. Will follow this patient with you. MMODL / IJN: [id number] /
[2017-03-31 08:18] LABS: Glucose,Whole Blood 114 mg/dL (75-99)
[2017-03-31 08:29] LABS: Anisocytosis Slight; HCT 20.9 % (34.0-46.0); MCH 30.5 pg (25.0-35.0); MCHC 31.8 g/dL (31.0-37.0); MCV 95.9 fL (80.0-100.0); Mean Platelet Volume 7.6; Platelet Count 53 k/uL (150-450); RBC 2.18 m/uL (3.80-5.40); RDW 16.9 % (11.5-15.5)
[2017-03-31 08:35] LABS: Anion Gap 7 mmol/L; Blood Urea Nitrogen 5 mg/dL (7-17); Calcium 7.4 mg/dL (8.4-10.2); Carbon Dioxide 24 mmol/L (22-30); Chloride 113 mmol/L (98-107); Glucose 110 mg/dL (74-99); Magnesium 1.3 mg/dL (1.6-2.3); Phosphorus 3.3 mg/dL (2.5-4.5); Sodium 144 mmol/L (137-145)
[2017-03-31 08:36] LABS: WBC 1.9 k/uL (3.8-10.6)
[2017-03-31 08:37] LABS: HGB 6.6 gm/dL (11.4-16.0)
[2017-03-31] MEDS ORDERED: Magnesium Replacement Protocol 1 EACH MISC MISCELLANE PRN (09:12)
[2017-03-31] MEDS ORDERED: POTASSIUM CHLORIDE ORAL LIQUID 40 MEQ/30 ML CUP PO ONE (09:13)
[2017-03-31] MEDS: MAGNESIUM SULFATE-D5W PMX 1 GM in DEXTROSE/WATER 1 100ML.BAG IVPB SCH ×2 (09:44→10:47)
[2017-03-31] MEDS: PANTOPRAZOLE 40 MG TABLET PO SCH ×2 (09:55→22:45)
[2017-03-31 10:42] LABS: Band Neutrophils % 1 %; Eosinophils # (M) 0.02 k/uL (0-0.7); Lymphocytes # (M) 0.78 k/uL (1.0-4.8); Metamyelocytes # (M) 0.08 k/uL (0); Metamyelocytes % 4 %; Monocytes # (M) 0.13 k/uL (0-1.0); Myelocytes # (M) 0.04 k/uL (0); Myelocytes % 2 %; Neutrophils % (M) 43 %; Nucleated Red Blood Cells 0 /100 WBC (0-0); Poikilocytosis (M) Present; Polychromasia Present; Promyelocytes # (M) 0.02 k/uL (0); Promyelocytes % 1 %; Total Cells Counted 100
[2017-03-31] MEDS: MVI, ADULT NO.4 WITH VIT K 10 ML, TRACE (CONC-1ML/DOSE) 1 ML, POTASSIUM ACETATE 20 MEQ,... IV SCH ×5 (11:30)
[2017-03-31 13:03] LABS: Glucose,Whole Blood 106 mg/dL (75-99)
[2017-03-31] MEDS: ALPRAZolam 0.25 MG TAB PO PRN ×2 (13:59→22:41)
[2017-03-31] MEDS ORDERED: VANCOMYCIN 1,250 MG in SODIUM CHLORIDE 0.9% 250 ML IVPB SCH ×2 (15:00→17:00)
[2017-03-31] MEDS ORDERED: VANCOMYCIN IV PER PHARMACY 1 EACH MISC MISCELLANE PRN (15:39)
[2017-03-31] MEDS: VANCOMYCIN 1,250 MG in SODIUM CHLORIDE 0.9% 250 ML IVPB SCH (17:37)
[2017-03-31] MEDS: PARENTERAL ELECTROLYTES 20 ML, MVI, ADULT NO.4 WITH VIT K 10 ML, TRACE (CONC-1ML/DOSE) ... IV SCH ×4 (18:09)
[2017-03-31] MEDS ORDERED: RX INFO: IV CONTRAST WAS GIVEN 1 EACH MISC MISCELLANE PRN (18:53)
--- NOTE | 2017-03-31 18:53 | P.CONS ---
History of Present Illness - Reason for Consult Consult date: 03/31/17 - History of Present Illness The patient is a 51-year-old white female, well-known to her service. she was initially diagnosed with papillary serous ovarian cancer, stage IIIc, in 08/16. she was treated with radical surgery and then had 8 cycles of carboplatin and Taxol. She did have catheter related upper extremity thrombus during this time and is treated with about 4 months of anticoagulation. port was removed after completion of chemotherapy. She was initially seen in consult at [facility] in 05/18. 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 She was treated with Xarelto and stopped that in 10/18, with repeat Doppler showing resolution of the clot. she developed progression in 02/18 with CA 125 increasing to 92 and PET scan showing peritoneal carcinomatosis in the abdomen and pelvis, including the surface of the liver. She was treated again with carboplatin and Taxol and completed treatment in 07/20. During this time she developed recurrent PICC line related UE DVT in 04/22. she progressed again in early 12/20 with development of small bowel obstruction and CT scans showing progression in the anterior abdominal wall. CA 125 was again elevated to 92. She was admitted at this time to [facility], under the care of Dr.Rabbie Khan. she improved with conservative management. She was then seen by Dr. Khan here, as she wanted to have treatment locally. She started single agent Gemzar on01/12/17 and is status post 4 cycles. Most recent chemotherapy was administered on 03/23/17 (day 8 of cycle 4). She is not on Neulasta. The patient presented to the hospital, she was feeling quite weak and was having fevers. She had a T-max of 101.2 in the ER. She was therefore admitted further management. Labs are shown pancytopenia, with ANC less than 1000. Her blood cultures grew gram-negative bacilli as well as gram-positive cocci. She is on antibiotics, cefepime and vancomycin, according to ID. She does not have any definite localizing signs other than some mild abdominal discomfort which could be chronic. Consult was therefore placed for further evaluation and recommendations Review of Systems Constitutional: Reports fever, Reports weakness Eyes: denies blurred vision, denies pain Ears: deny: decreased hearing, ear discharge, earache, tinnitus Ears, nose, mouth and throat: Denies headache, Denies sore throat Cardiovascular: Reports decreased exercise tolerance Respiratory: Denies cough Gastrointestinal: Reports as per HPI (The patient can only tolerate clear liquids. She does have bowel movements off and on. She has a PEG tube for drainage as needed), Reports abdominal pain Genitourinary: Denies dysuria, Denies hematuria Menstruation: Reports postmenopausal Musculoskeletal: Reports muscle weakness Integumentary: Denies pruritus, Denies rash Neurological: Reports weakness, Denies numbness Psychiatric: Denies anxiety, Denies depression Endocrine: Denies fatigue, Denies weight change Hematologic/Lymphatic: Reports as per HPI Past Medical History Past Medical History: Cancer, Deep Vein Thrombosis (DVT), Fibromyalgia, GERD/ Reflux, Hearing Disorder / Deafness, Hyperlipidemia, Osteoarthritis (OA) Additional Past Medical History / Comment(s): Ovarian cancer [id number] 2012; reoccuring w/ chemo treatment 03/2016-07/2016. Last chemo received was . Diverticulosis; partial bowel obstruction r/t cancer mets 12/2016; MVP; several DVTs in bilateral arms since 2012; UTI; TPN daily. History of Any Multi-Drug Resistant Organisms: None Reported Past Surgical History: Hysterectomy Additional Past Surgical History / Comment(s): Oophorectomy w/ hysterectomy; vaginal mesh insertion; port placement and removal; PICC line insertion and removal; G-tube inserted 02/02. Past Anesthesia/Blood Transfusion Reactions: Motion Sickness Additional Past Anesthesia/Blood Transfusion Reaction / Comm: Claustrophobia Past Psychological History: Anxiety, Depression, Panic Disorder Smoking Status: Former smoker Past Alcohol Use History: None Reported Additional Past Alcohol Use History / Comment(s): Started smoking at age 13, smoked 1 pack per day, quit 2011. past occ alcohol but none now. Past Drug Use History: None Reported Additional Drug Use History / Comment(s): PAST MEDICAL MARIJUANA USE. - Past Family History Sister(s) Family Medical History: Blood Disorder Additional Family Medical History / Comment(s): FACTOR 5 BLOOD DISORDER. Father Family Medical History: Hypertension, Prostate Disorder Additional Family Medical History / Comment(s): Parkinson's, prostate cancer Mother Family Medical History: Cancer Additional Family Medical History / Comment(s): Multiple myeoloma. Medications and Allergies Home Medications Medication Instructions Recorded Confirmed Type ALPRAZolam [Xanax] 0.5 mg PO Q6H PRN 01/16/14 03/28/17 History Escitalopram Oxalate [Lexapro] 20 mg PO HS 01/16/14 03/28/17 History MORPHINE ORAL NIRMAL CONC 20mg/mL 10 - 20 mg PO Q4HR PRN 01/24/17 03/28/17 History [Roxanol Oral Soln Conc 20MG/ML] Pantoprazole Sodium [Protonix] 40 mg PO BID #60 tablet. 01/31/17 03/28/17 Rx INSULIN LISPRO (HumaLOG) [humaLOG] See Protocol SQ ACHS 03/10/17 03/28/17 History HYDROmorphone [Dilaudid] 1 mg PO Q4HR PRN 03/16/17 03/28/17 History Acetaminophen/Diphenhydramine 2 tab PO HS 03/28/17 03/28/17 History [Tylenol PM Extra Strength] Enoxaparin [Lovenox] 80 mg SQ HS 03/28/17 03/28/17 History Naproxen Sodium [Aleve] 440 mg PO DAILY PRN 03/28/17 03/28/17 History Allergies Allergy/AdvReac Type Severity Reaction Status Date / Time duloxetine HCl Allergy Rash/Hives Verified 03/29/17 05:57 [From Cymbalta] Sulfa (Sulfonamide Allergy Rash/Hives Verified 03/29/17 05:57 Antibiotics) carboplatin AdvReac Nausea & Verified 03/29/17 05:57 Vomiting, TEMPORARY HEARING LOSS Physical Exam Vitals: Vital Signs Temp Pulse Pulse Pulse Resp BP BP 03/31/17 17:27 97.9 F 79 20 98/63 03/31/17 17:09 97.9 F 79 20 98/63 03/31/17 15:27 98.4 F 85 16 103/54 03/31/17 15:25 98 F 85 16 103/54 03/31/17 14:55 98.5 F 90 18 100/68 03/31/17 14:45 98.2 F 92 16 108/73 03/31/17 11:55 97.9 F 89 16 104/56 03/31/17 08:10 98.1 F 80 16 102/55 03/31/17 08:00 86 03/31/17 00:00 86 83 16 03/30/17 20:31 98.3 F 83 16 84/54 Pulse Ox 03/31/17 17:27 100 03/31/17 17:09 100 03/31/17 15:27 98 03/31/17 15:25 03/31/17 14:55 97 03/31/17 14:45 98 03/31/17 11:55 96 03/31/17 08:10 98 03/31/17 08:00 03/31/17 00:00 03/30/17 20:31 97 Intake and Output 03/31/17 03/31/17 03/31/17 06:59 14:59 22:59 Intake Total 0 310 Output Total 700 Balance -700 0 310 Intake: Blood Product 0 310 Rc As-1 Unit 0 310 [id number] Output: Urine 700 Other: Voiding Method Toilet Toilet # Voids 1 Weight 74.7 kg 74.7 kg Patient Weight 04/01/17 06:59 Weight 74.7 kg - Constitutional General appearance: no acute distress - EENT Eyes: EOMI, PERRLA ENT: hearing grossly normal, normal oropharynx - Neck Neck: no lymphadenopathy Thyroid: bilateral: normal size - Respiratory Respiratory: bilateral: CTA - Cardiovascular Rhythm: regular Heart sounds: normal: S1, S2 - Gastrointestinal General gastrointestinal: normal bowel sounds, soft Localized gastrointestinal: tender: RLQ (Overall mild. No rebound) - Integumentary Integumentary: normal - Neurologic Neurologic: CNII-XII intact - Musculoskeletal Musculoskeletal: generalized weakness, strength equal bilaterally - Psychiatric Psychiatric: A&O x's 3, appropriate affect Results CBC & Chem 7: 03/31/17 08:00 03/31/17 08:00 Labs: Abnormal Lab Results - Last 24 Hours (Table) 03/31/17 03/31/17 03/31/17 Range/Units 01:55 07:56 08:00 WBC (3.8-10.6) k/uL RBC (3.80-5.40) m/uL Hgb (11.4-16.0) gm/dL Hct (34.0-46.0) % RDW (11.5-15.5) % Plt Count (150-450) k/uL Neutrophils # (Manual) (1.3-7.7) k/uL Lymphocytes # (Manual) (1.0-4.8) k/uL Metamyelocytes # (Man) (0) k/uL Myelocytes # (Manual) (0) k/uL Promyelocytes # (Man) (0) k/uL Potassium 3.0 L* (3.5-5.1) mmol/L Chloride 113 H (98-107) mmol/L BUN 5 L (7-17) mg/dL Glucose 110 H (74-99) mg/dL POC Glucose (mg/dL) 125 H 114 H (75-99) mg/dL Calcium 7.4 L (8.4-10.2) mg/dL Magnesium 1.3 L (1.6-2.3) mg/dL Albumin (3.5-5.0) g/dL Crossmatch 03/31/17 03/31/17 03/31/17 Range/Units 08:00 08:00 11:15 WBC 1.9 L* (3.8-10.6) k/uL RBC 2.18 L (3.80-5.40) m/uL Hgb 6.6 L* (11.4-16.0) gm/dL Hct 20.9 L (34.0-46.0) % RDW 16.9 H (11.5-15.5) % Plt Count 53 L (150-450) k/uL Neutrophils # (Manual) 0.80 L (1.3-7.7) k/uL Lymphocytes # (Manual) 0.78 L (1.0-4.8) k/uL Metamyelocytes # (Man) 0.08 H (0) k/uL Myelocytes # (Manual) 0.04 H (0) k/uL Promyelocytes # (Man) 0.02 H (0) k/uL Potassium (3.5-5.1) mmol/L Chloride (98-107) mmol/L BUN (7-17) mg/dL Glucose (74-99) mg/dL POC Glucose (mg/dL) (75-99) mg/dL Calcium (8.4-10.2) mg/dL Magnesium (1.6-2.3) mg/dL Albumin 2.4 L (3.5-5.0) g/dL Crossmatch See Detail 03/31/17 Range/Units 11:48 WBC (3.8-10.6) k/uL RBC (3.80-5.40) m/uL Hgb (11.4-16.0) gm/dL Hct (34.0-46.0) % RDW (11.5-15.5) % Plt Count (150-450) k/uL Neutrophils # (Manual) (1.3-7.7) k/uL Lymphocytes # (Manual) (1.0-4.8) k/uL Metamyelocytes # (Man) (0) k/uL Myelocytes # (Manual) (0) k/uL Promyelocytes # (Man) (0) k/uL Potassium (3.5-5.1) mmol/L Chloride (98-107) mmol/L BUN (7-17) mg/dL Glucose (74-99) mg/dL POC Glucose (mg/dL) 106 H (75-99) mg/dL Calcium (8.4-10.2) mg/dL Magnesium (1.6-2.3) mg/dL Albumin (3.5-5.0) g/dL Crossmatch Microbiology - Last 24 Hours (Table) 03/30/17 12:32 Blood Culture - Preliminary Blood No Growth after 24 hours 03/30/17 12:40 Blood Culture - Final Blood 03/28/17 19:08 Blood Culture Gram Stain - Preliminary Blood Blood Culture - Preliminary Gram Neg Bacilli Chest x-ray: report reviewed Assessment and Plan (1) Neutropenic fever Narrative/Plan: The patient does not have any specific localizing signs. She does have abdominal discomfort, but this could potentially be chronic for her. On exam she did have some mild right lower quadrant tenderness but no rebound. - Patient is currently on vancomycin and cefepime. Blood cultures as noted above. Final identification and susceptibilities pending. Continue antibiotics according to ID. - Patient will be started on Neupogen to increase her ANC. - Agree with plan for computed tomography scan of the abdomen and pelvis. The patient was somewhat apprehensive about drinking the dye, given her history of bowel obstruction. As she does have bowel movements and passing gas, the probability of for having problems is comparatively low. In case she does have any symptoms of obstruction, she does have an in situ PEG tube for decompression anyway. The patient was thus ultimately agreeable. Computed tomography scan will be ordered. Current Visit: Yes Status: Acute Code(s): D70.9 - NEUTROPENIA, UNSPECIFIED; R50.81 - FEVER PRESENTING WITH CONDITIONS CLASSIFIED ELSEWHERE SNOMED Code(s) : 101948370 (2) Pancytopenia due to antineoplastic chemotherapy Narrative/Plan: The patient is close to her laura at this time. Hemoglobin did drop to 6.6, and 1 unit of blood and has appropriately been ordered. Transfuse to keep hemoglobin above 7. The patient is concerned about her low platelets as she is on anticoagulation. She was assured that this is safe as long as the platelets are above 50,000. Continue to monitor and hold anticoagulation if platelets drop below that level Current Visit: Yes Status: Acute Code(s): D61.810 - ANTINEOPLASTIC CHEMOTHERAPY INDUCED PANCYTOPENIA; T45.1X5A - ADVERSE EFFECT OF ANTINEOPLASTIC AND IMMUNOSUP DRUGS, INIT SNOMED Code(s): 240343113471530 (3) Ovarian cancer Narrative/Plan: The patient will follow-up as an outpatient, after resolution of her acute problem Current Visit: No Status: Chronic Priority: High Code(s): C56.9 - MALIGNANT NEOPLASM OF UNSPECIFIED OVARY SNOMED Code(s): 893499155
[2017-03-31] MEDS: IOHEXOL 350 MG/ML 25 ML BOTTLE (ORAL USE) PO PRN ×2 (19:35→20:39)
[2017-03-31] MEDS ORDERED: FILGRASTIM-SNDZ 480 MCG/0.8 ML SYRINGE SQ SCH (20:00)
[2017-03-31] MEDS: ENOXAPARIN 80 MG/0.8 ML SYRINGE SQ SCH (22:37)
[2017-03-31] MEDS: diphenhydrAMINE 25 MG CAP PO SCH (22:45)
[2017-03-31] MEDS: ESCITALOPRAM 20 MG TAB PO SCH (22:46)
[2017-03-31] MEDS: ACETAMINOPHEN TAB 325 MG TAB PO PRN (22:46)
--- NOTE | 2017-03-31 22:56 | CT ---
EXAMINATION TYPE: CT abdomen pelvis w con DATE OF EXAM: 03/31/2017 HISTORY: Neutropenic fever. History of ovarian cancer. CT DLP: 666.5mGycm Automated Exposure Control for Dose Reduction was Utilized. CONTRAST: CT scan of the abdomen and pelvis is performed with IV Contrast, patient injected with 100 mL of Omni paque 300. COMPARISON: CT abdomen and pelvis March 10, 2017. FINDINGS: LUNG BASES: There is persistent posterior right basilar linear scarring and/or atelectasis and centra l and posterior left basilar linear scarring and/or atelectasis. LIVER/GB: Contracted gallbladder is present on current study. Trace perihepatic ascites along the ant erior margin of liver is redemonstrated and felt stable. PANCREAS: No significant abnormality is seen. SPLEEN: No significant abnormality is seen. ADRENALS: No significant abnormality is seen. KIDNEYS: No significant abnormality is seen. BOWEL: Oral contrast does not reach colonic level on current study. There are sutures and clips near level of hepatic flexure redemonstrated. There is no suspicious small or large bowel dilatation ident ified currently. Marked interval improvement in dilated fluid-filled small bowel loops in the mid to lower abdomen and upper pelvis from prior study. Percutaneous gastrostomy tube remains satisfactory i n position. Diverticula in the proximal sigmoid colon are redemonstrated. UTERUS/ADNEXA: Uterus is surgically absent. There are a few scattered pelvic phleboliths seen. LYMPH NODES: No greater than 1cm abdominal or pelvic lymph nodes are appreciated. OSSEOUS STRUCTURES: No significant abnormality is seen. OTHER: There is redemonstration of tiny amount of nonlayering fluid in the lower abdomen and upper pe lvis. There is more nodular soft tissue in the upper to mid abdomen most prominent in the left upper quadrant, clips are seen in the right upper quadrant at the area of soft tissue nodularity. Findings consistent with peritoneal carcinomatosis. IMPRESSION: 1. No significant new or acute finding is seen to account for patient's clinical symptoms of fever. 2. CT findings consistent with peritoneal carcinomatosis most prominent in the upper abdomen in parti cular left upper quadrant are redemonstrated without significant interval change. 3. Improved dilated small bowel loops is consistent with resolved or resolving small bowel obstructio n.
--- NOTE | 2017-03-31 22:58 | PN ---
PROGRESS NOTE DATE OF SERVICE: 03/31/2017. The patient is sitting the bedside recliner, claims she has numerous questions about her positive cultures and further plan of care and she has a lot of questions for the oncologist. VITAL SIGNS: Temperature of 97.9, pulse 79, respirations 20, blood pressure of 98/63, O2 saturation 100% on room air. She is awake, alert, oriented x3. HEENT: Atraumatic, normocephalic. Pupils equal and reactive to light. Extraocular movements intact. Buccal mucosa is a fair. Neck is supple. No goiter or lymphadenopathy. JVD is negative. No carotid bruit heard. RESPIRATORY: Lungs are clear to auscultate. No rales, rhonchi or wheezes. CARDIOVASCULAR: Heart is regular rate and rhythm without any murmurs, gallop rhythm. ABDOMEN/GI: Abdomen is soft, nontender, nondistended. Bowel sounds positive. EXTREMITIES: No edema, clubbing, cyanosis. Pulses are palpable. NEUROLOGIC: Cranial nerves 2-12 grossly intact. No gross motor or sensory deficit. SKIN; without rashes or pigmentation LABS: CBC: White blood count of 1.9, hemoglobin 6.6, hematocrit 20.9 and platelet count of 53. Chemical profile: Sodium 144, potassium 3.2, chloride 113, bicarb 24, BUN 5, creatinine 0.5 and glucose 110. Blood cultures positive for gram-negative bacilli. Cultures from PICC line are positive for gram-positive bacilli and gram- positive cocci in clusters. ASSESSMENT: 1. Gram-positive and gram-negative septicemia. 2. Neutropenic fever. 3. Severe anemia. 4. Marked neutropenia. 5. Thrombocytopenia. 6. Protein-calorie malnutrition. The patient is on total parenteral nutrition. 7. Renal insufficiency. 8. Tachycardia, clinically resolved. 9. Metastatic ovarian cancer with intestinal metastasis. Patient is getting chemotherapy. The patient received 1 unit of packed RBCs. White blood count is stable. Platelets are above 50. Will continue to monitor. The patient's IV antibiotics have been switched to IV vancomycin and IV cefepime. Infectious Disease is following with the patient. The patient is awaited further recommendations on pancytopenia by the oncology team. Will resume all home medications. Will resume TPN as prescribed at home. Continue with IV fluids. The patient had detailed discussion about patient's diagnosis and prognosis. The patient had numerous questions which were answered to her satisfaction. MMDEIRDRE / BRANDIEN: [id number] / ALINE
[2017-04-01] MEDS: ACETAMINOPHEN TAB 500 MG TAB PO SCH ×2 (00:13→22:11)
[2017-04-01] MEDS: FAT EMULSION 20% 250 ML IV SCH ×2 (00:22→06:02)
[2017-04-01] MEDS: VANCOMYCIN 1,250 MG in SODIUM CHLORIDE 0.9% 250 ML IVPB SCH ×2 (04:47→16:35)
[2017-04-01 05:15] LABS: Glucose,Whole Blood 117 mg/dL (75-99)
[2017-04-01] MEDS: ACETAMINOPHEN TAB 325 MG TAB PO PRN (06:16)
[2017-04-01] MEDS: ONDANSETRON 4 MG/2 ML VIAL IVP PRN ×2 (06:17→13:19)
[2017-04-01 06:56] LABS: Anisocytosis Slight; Basophils # (A) 0.1 k/uL (0-0.2); Basophils % (A) 1 %; Eosinophils # (A) 0.1 k/uL (0-0.7); Eosinophils % (A) 1 %; HCT 25.8 % (34.0-46.0); Lymphocytes # (A) 1.4 k/uL (1.0-4.8); Lymphocytes % (A) 13 %; MCH 30.4 pg (25.0-35.0); MCHC 32.3 g/dL (31.0-37.0); MCV 93.9 fL (80.0-100.0); Macrocytosis Slight; Mean Platelet Volume 8.5; Monocytes # (A) 0.7 k/uL (0-1.0); Monocytes % (A) 7 %; Neutrophils # (A) 8.3 k/uL (1.3-7.7); Neutrophils % (A) 76 %; Poikilocytosis Slight; RBC 2.75 m/uL (3.80-5.40); RDW 18.5 % (11.5-15.5); WBC 10.9 k/uL (3.8-10.6)
[2017-04-01 06:58] LABS: ALT 74 U/L (9-52); AST 46 U/L (14-36); Albumin 3.1 g/dL (3.5-5.0); Alkaline Phosphatase 137 U/L (38-126); Anion Gap 7 mmol/L; Blood Urea Nitrogen 6 mg/dL (7-17); Calcium 8.8 mg/dL (8.4-10.2); Carbon Dioxide 30 mmol/L (22-30); Chloride 103 mmol/L (98-107); Glucose 109 mg/dL (74-99); Magnesium 1.9 mg/dL (1.6-2.3); Phosphorus 4.4 mg/dL (2.5-4.5); Potassium 3.7 mmol/L (3.5-5.1); Sodium 140 mmol/L (137-145); Total Bilirubin 0.6 mg/dL (0.2-1.3); Total Protein 5.7 g/dL (6.3-8.2)
[2017-04-01 06:59] LABS: Platelet Count 81 k/uL (150-450)
[2017-04-01 07:00] LABS: HGB 8.4 gm/dL (11.4-16.0)
[2017-04-01 07:31] LABS: Glucose,Whole Blood 136 mg/dL (75-99)
[2017-04-01] MEDS: MVI, ADULT NO.4 WITH VIT K 10 ML, TRACE (CONC-1ML/DOSE) 1 ML, POTASSIUM ACETATE 20 MEQ,... IV SCH ×10 (08:25→09:41)
[2017-04-01] MEDS: PANTOPRAZOLE 40 MG TABLET PO SCH ×2 (08:26→22:09)
[2017-04-01] MEDS: SODIUM CHLORIDE 0.9% 1,000 ML IV SCH ×2 (08:26→12:45)
[2017-04-01] MEDS: CEFEPIME 2 GM in SODIUM CHLORIDE 0.9% 50 ML IVPB SCH ×3 (08:27→22:19)
[2017-04-01 08:55] LABS: Toxic Granulation Present
--- NOTE | 2017-04-01 09:50 | PN ---
PROGRESS NOTE DATE OF SERVICE: 03/31/2017 REASON FOR FOLLOWUP: Fever and bacteremia with a question of PICC line infection. INTERVAL HISTORY: The patient is afebrile. She is breathing comfortably. Denies significant chest pain or cough. She has some vague lower abdominal pain off and on, 3 to 4 out of 10 and no radiation. Some nausea but no vomiting. PHYSICAL EXAMINATION: Her blood pressure is 113/58 with a pulse of 79, temperature of 97.5. She is 97% on room air. General description is a middle-aged female up in the bed in no distress. RESPIRATORY SYSTEM: Unlabored breathing. Clear to auscultation anteriorly. HEART: S1, S2. Regular rate and rhythm. ABDOMEN: Soft. No tenderness. LABS: Hemoglobin 6.6, white count of 1.9 with a BUN of 5, creatinine 0.54. Blood cultures showing Gram-negative bacilli and some Gram-positive cocci. DIAGNOSTIC IMPRESSION AND PLAN: Patient admitted to hospital with a fever, now with evidence of bacteremia with blood culture showing both Gram-negative as well as Gram-positive cocci in clusters. Source is likely the PICC line. Abdominal source not entirely excluded. Patient initially refused CT of abdomen and pelvis, later on agreed to it. That will be completed today. She will be kept on vancomycin and cefepime, watching her kidney function very closely. Continue supportive care. MMODL / IJN: [id number] /
[2017-04-01] MEDS: ALPRAZolam 0.25 MG TAB PO PRN ×2 (09:58→22:11)
[2017-04-01] MEDS ORDERED: POTASSIUM CHLORIDE ORAL LIQUID 40 MEQ/30 ML CUP NG-TUBE SCH (11:00)
--- NOTE | 2017-04-01 11:40 | P.PN ---
Subjective Patient is a pleasant 63-year-old female with history of ovarian cancer multiple bowel obstructions has TPN from home came in with the fever patient is found to be bacteremic with gram-negative bacilli as well as gram-positive pressure-like CT of the abdomen did not show any significant abnormality. Patient's bowel obstruction shouldn't is improving patient did move her bowels patient's TPN need to be weaned off because of the risks of infection including candidal bacteremia. PICC line need to be more will obtain a peripheral line today try to get her to the PICC line will also get the opinion of surgery regarding TPN. Patient at this time is afebrile doing clinically well blood cultures from as today is still positive because of which repeat blood cultures will be obtained for today and tomorrow morning patient will be days continued on cefepime and vancomycin. Patient is on an appropriate dose of Lovenox that and patient had multiple DVTs in the past patient need to be an 80 twice a day subcutaneous Lovenox. Patient has a J-tube which is only being utilized for drainage rather and feeding Constitutional: Denied any fatigue denied any fever. Cardio vascular: denied any chest pain, palpitations Gastrointestinal denied any nausea vomiting Pulmonary: Denied any shortness of breath cough Neurologic denied any new focal deficits Objective - Vital Signs Vital signs: Vital Signs Temp 97.5 F L 03/31/17 23:15 Pulse 79 04/01/17 00:00 Resp 16 04/01/17 07:00 BP 99/66 04/01/17 07:00 Pulse Ox 96 04/01/17 07:00 Intake & Output 03/31/17 04/01/17 04/01/17 18:59 06:59 18:59 Intake Total 310 3373 Output Total 2850 3250 Balance -2540 123 Weight 74.7 kg 74.8 kg Intake: Intake, IV Titration 3373 Amount Fat Emulsion 20% 250 ml @ 40 20.833 mls/hr IV MoWeFr@ 1400 [facility] Rx#:[id number] Mvi, Adult No.4 with Vit 1683 K 10 ml Trace (Conc-1Ml/ Dose) 1 ml Potassium Acetate 20 meq Magnesium Sulfate 8 meq In Amino Acid 5%-D25w+Lytes*E* 1, 000 ml @ 55 mls/hr IV . [id number] [facility] Rx#:[id number] Sodium Chloride 0.9% 1, 1500 000 ml @ 125 mls/hr IV . Q8H [facility] Rx#:[id number] Vancomycin 1,250 mg In 150 Sodium Chloride 0.9% 250 ml @ 125 mls/hr IVPB Q12H [facility] Rx#:[id number] Blood Product 310 Rc As-1 Unit 310 [id number] Output: Drainage 700 G-tube drainage 700 Urine 2150 3250 Other: Voiding Method Toilet Toilet Toilet # Voids 1 3 - Exam PHYSICAL EXAMINATION: GENERAL: The patient is alert and oriented x3, not in any acute distress. Well developed, well nourished. HEENT: Pupils are round and equally reacting to light. EOMI. No scleral icterus. No conjunctival pallor. Normocephalic, atraumatic. No pharyngeal erythema. No thyromegaly. CARDIOVASCULAR: S1 and S2 present. No murmurs, rubs, or gallops. PULMONARY: Chest is clear to auscultation, no wheezing or crackles. ABDOMEN: Soft, nontender, nondistended, normoactive bowel sounds. No palpable organomegaly. J-tube in place middle ear drainage from J-tube. MUSCULOSKELETAL: No joint swelling or deformity. EXTREMITIES: No cyanosis, clubbing, or pedal edema. NEUROLOGICAL: Gross neurological examination did not reveal any focal deficits. SKIN: No rashes. - Labs CBC & Chem 7: 04/01/17 06:00 04/01/17 06:00 Labs: Abnormal Lab Results - Last 24 Hours (Table) 03/31/17 03/31/17 04/01/17 Range/Units 11:15 11:48 05:12 WBC (3.8-10.6) k/uL RBC (3.80-5.40) m/uL Hgb (11.4-16.0) gm/dL Hct (34.0-46.0) % RDW (11.5-15.5) % Plt Count (150-450) k/uL Neutrophils # (1.3-7.7) k/uL BUN (7-17) mg/dL Glucose (74-99) mg/dL POC Glucose (mg/dL) 106 H 117 H (75-99) mg/dL AST (14-36) U/L ALT (9-52) U/L Alkaline Phosphatase (38-126) U/L Total Protein (6.3-8.2) g/dL Albumin (3.5-5.0) g/dL Crossmatch See Detail 04/01/17 04/01/17 04/01/17 Range/Units 06:00 06:00 07:29 WBC 10.9 H (3.8-10.6) k/uL RBC 2.75 L (3.80-5.40) m/uL Hgb 8.4 L D (11.4-16.0) gm/dL Hct 25.8 L (34.0-46.0) % RDW 18.5 H (11.5-15.5) % Plt Count 81 L D (150-450) k/uL Neutrophils # 8.3 H (1.3-7.7) k/uL BUN 6 L (7-17) mg/dL Glucose 109 H (74-99) mg/dL POC Glucose (mg/dL) 136 H (75-99) mg/dL AST 46 H (14-36) U/L ALT 74 H (9-52) U/L Alkaline Phosphatase 137 H (38-126) U/L Total Protein 5.7 L (6.3-8.2) g/dL Albumin 3.1 L (3.5-5.0) g/dL Crossmatch Microbiology - Last 24 Hours (Table) 03/30/17 12:40 Blood Culture Gram Stain - Preliminary Blood Blood Culture - Preliminary Gram Neg Bacilli 03/30/17 12:32 Blood Culture - Preliminary Blood No Growth after 24 hours 03/30/17 12:40 Blood Culture - Final Blood Assessment and Plan Plan: -Bacteremia: Both gram-negative bacilli as well as gram-positive does live possible source of infection being PICC line PICC line need to, we need to decide about the TPN as well as the another line. Patient is presently on vancomycin and cefepime. -Ovarian cancer, history of bowel obstructions in the past patient is presently on TPN which need to be weaned off patient need to be started on diet will consult surgery. The patient's bowel obstruction improved at this point of time -Bowel obstruction: Partial improving at this point of time. -History of DVTs in the past patient is on Lovenox dose of which will be changed as mentioned in the interval history. -Pancytopenia: Secondary to chemotherapy which is improving at this time.
[2017-04-01] MEDS: MAGNESIUM SULFATE-D5W PMX 1 GM in DEXTROSE/WATER 1 100ML.BAG IVPB SCH ×2 (11:41→12:43)
[2017-04-01 12:01] LABS: Glucose,Whole Blood 124 mg/dL (75-99)
[2017-04-01] MEDS: HYDROmorphone 0.5 MG/0.5 ML SYRINGE IVP PRN ×2 (16:05→18:56)
--- NOTE | 2017-04-01 16:45 | P.PN ---
Subjective Progress Note Date: 04/01/17 Principal diagnosis: Bacteremia, bicytopenia due to chemotherapy, bowel obstruction Patient's obstruction is slowly improving. Having bowel movements. Especially after taking the contrast for her CT. Having intermittent severe cramping abdominal pain. Very concerned about the discontinuation of her PICC line and her TPN. Objective - Vital Signs Vital signs: Vital Signs Temp 97.9 F 04/01/17 15:00 Pulse 79 04/01/17 00:00 Resp 16 04/01/17 15:10 BP 120/63 04/01/17 15:00 Pulse Ox 96 04/01/17 15:00 Intake & Output 03/31/17 04/01/17 04/01/17 18:59 06:59 18:59 Intake Total 310 3373 2490 Output Total 2850 3250 2000 Balance -2540 123 490 Weight 74.7 kg 74.8 kg 74.8 kg Intake: Intake, IV Titration 3373 2460 Amount Cefepime 2 gm In Sodium 100 Chloride 0.9% 50 ml @ 100 mls/hr IVPB Q8H [facility] Rx#: [id number] Fat Emulsion 20% 250 ml @ 40 250 20.833 mls/hr IV MoWeFr@ 1400 [facility] Rx#:[id number] Magnesium Sulfate-D5w Pmx 200 1 gm In Dextrose/Water 1 100ml.bag @ 100 mls/hr IVPB Q1H [facility] Rx#: [id number] Mvi, Adult No.4 with Vit 1683 K 10 ml Trace (Conc-1Ml/ Dose) 1 ml Potassium Acetate 20 meq Magnesium Sulfate 8 meq In Amino Acid 5%-D25w+Lytes*E* 1, 000 ml @ 55 mls/hr IV . [id number] [facility] Rx#:[id number] Mvi, Adult No.4 with Vit 660 K 10 ml Trace (Conc-1Ml/ Dose) 1 ml Potassium Acetate 40 meq Magnesium Sulfate 16 meq In Amino Acid 5%-D25w+Lytes*E* 1, 000 ml @ 55 mls/hr IV . [id number] [facility] Rx#:[id number] Sodium Chloride 0.9% 1, 1500 1000 000 ml @ 125 mls/hr IV . Q8H [facility] Rx#:[id number] Vancomycin 1,250 mg In 150 250 Sodium Chloride 0.9% 250 ml @ 125 mls/hr IVPB Q12H [facility] Rx#:[id number] Oral 30 Blood Product 310 Rc As-1 Unit 310 [id number] Output: Drainage 700 G-tube drainage 700 Urine 2150 3250 2000 Other: Voiding Method Toilet Toilet Toilet # Voids 1 3 4 # Bowel Movements 2 - Exam Vital signs stable. Afebrile. Gen.: No acute distress HEENT: EOMI. No scleral icterus or pallor. Mucosa moist without lesions. Neck: Neck supple. Lungs: CTA-B without wheezing or rhonchi. Heart: RRR without murmurs. Trace bilateral LE edema. Abdomen: Soft, nondistended, with positive bowel sounds. Tenderness to palpation without guarding or rigidity but with slight rebound. MSK: 4 out of 4 strength in all 4 extremities. Neuro: Alert and oriented 3. No obvious gross neurologic deficits. Skin: No obvious jaundice or rash. Psych: Appropriate affect, slightly anxious. - Labs CBC & Chem 7: 04/01/17 06:00 04/01/17 06:00 Labs: Abnormal Lab Results - Last 24 Hours (Table) 03/31/17 04/01/17 04/01/17 Range/Units 11:15 05:12 06:00 WBC (3.8-10.6) k/uL RBC (3.80-5.40) m/uL Hgb (11.4-16.0) gm/dL Hct (34.0-46.0) % RDW (11.5-15.5) % Plt Count (150-450) k/uL Neutrophils # (1.3-7.7) k/uL BUN 6 L (7-17) mg/dL Glucose 109 H (74-99) mg/dL POC Glucose (mg/dL) 117 H (75-99) mg/dL AST 46 H (14-36) U/L ALT 74 H (9-52) U/L Alkaline Phosphatase 137 H (38-126) U/L Total Protein 5.7 L (6.3-8.2) g/dL Albumin 3.1 L (3.5-5.0) g/dL Crossmatch See Detail 04/01/17 04/01/17 04/01/17 Range/Units 06:00 07:29 11:59 WBC 10.9 H (3.8-10.6) k/uL RBC 2.75 L (3.80-5.40) m/uL Hgb 8.4 L D (11.4-16.0) gm/dL Hct 25.8 L (34.0-46.0) % RDW 18.5 H (11.5-15.5) % Plt Count 81 L D (150-450) k/uL Neutrophils # 8.3 H (1.3-7.7) k/uL BUN (7-17) mg/dL Glucose (74-99) mg/dL POC Glucose (mg/dL) 136 H 124 H (75-99) mg/dL AST (14-36) U/L ALT (9-52) U/L Alkaline Phosphatase (38-126) U/L Total Protein (6.3-8.2) g/dL Albumin (3.5-5.0) g/dL Crossmatch Microbiology - Last 24 Hours (Table) 03/30/17 12:32 Blood Culture - Preliminary Blood No Growth after 48 hours 03/30/17 12:40 Blood Culture Gram Stain - Preliminary Blood Blood Culture - Preliminary Gram Neg Bacilli 03/30/17 12:40 Blood Culture - Final Blood Assessment and Plan Assessment: #1 metastatic ovarian cancer, on chemotherapy #2 bacteremia with gram-negative bacilli and gram-positive cocci #3 small bowel obstruction, resolving #4 bicytopenia due to chemotherapy #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 ANC is 8. We'll stop her G-CSF. On antibiotics as per ID for her gram negative and gram-positive bacteremia. PICC line to be removed as per patient, likely for her bacteremia. She is very concerned about this, however he did counseling psychologist her importance of this. She is also very concerned about discontinuing her TPN. We'll defer to her primary team regarding this. Also with a small bowel obstruction that is slowly improving. She is very anxious and concerned about discontinuing her TPN and very scared about eating. Again we'll defer to primary team did try to encourage her to pace herself, however to try to eat as this is the best way to get nutrition and avoid complications of TPN. As for her history of the HOLLI, no objections to anticoagulation as long as her platelets remain above 50. Currently leaflets are 80. She will need to follow-up with her primary on career and guidance counselor oncologist upon discharge to complete her therapy for her ovarian cancer. This was discussed with the patient in great detail and she was agreeable to the plan.
[2017-04-01] MEDS ORDERED: DEXTROSE 5% IN WATER 1,000 ML IV SCH (17:30)
[2017-04-01 17:34] LABS: Glucose,Whole Blood 142 mg/dL (75-99)
[2017-04-01 18:17] LABS: Glucose,Whole Blood 133 mg/dL (75-99)
--- NOTE | 2017-04-01 18:26 | P.GSCN ---
History of Present Illness Consult date: 04/01/17 Reason for Consult: PICC line infection History of present illness: 51 years old female with ovarian cancer with peritoneal carcinomatosis. Patient is undergoing chemotherapy. She has right upper extremity PICC line and receiving TPN. She had PEG tube placement in January [address] Paredes. Blood cultures are stay for gram-negative x2. Infectious disease and primary team recommending PICC line removal to avoid sepsis. Patient denies any fever or chills or rigors. Her PEG tube has bilious drainage output. Review of Systems As stated in history of present illness Past Medical History Past Medical History: Cancer, Deep Vein Thrombosis (DVT), Fibromyalgia, GERD/ Reflux, Hearing Disorder / Deafness, Hyperlipidemia, Osteoarthritis (OA) Additional Past Medical History / Comment(s): Ovarian cancer T3N0M3 2012; reoccuring w/ chemo treatment 03/2016-07/2016. Last chemo received was . Diverticulosis; partial bowel obstruction r/t cancer mets 12/2016; MVP; several DVTs in bilateral arms since 2012; UTI; TPN daily. History of Any Multi-Drug Resistant Organisms: None Reported Past Surgical History: Hysterectomy Additional Past Surgical History / Comment(s): Oophorectomy w/ hysterectomy; vaginal mesh insertion; port placement and removal; PICC line insertion and removal; G-tube inserted 02/02. Past Anesthesia/Blood Transfusion Reactions: Motion Sickness Additional Past Anesthesia/Blood Transfusion Reaction / Comm: Claustrophobia Past Psychological History: Anxiety, Depression, Panic Disorder Smoking Status: Former smoker Past Alcohol Use History: None Reported Additional Past Alcohol Use History / Comment(s): Started smoking at age 13, smoked 1 pack per day, quit 2011. past occ alcohol but none now. Past Drug Use History: None Reported Additional Drug Use History / Comment(s): PAST MEDICAL MARIJUANA USE. - Past Family History Sister(s) Family Medical History: Blood Disorder Additional Family Medical History / Comment(s): FACTOR 5 BLOOD DISORDER. Father Family Medical History: Hypertension, Prostate Disorder Additional Family Medical History / Comment(s): Parkinson's, prostate cancer Mother Family Medical History: Cancer Additional Family Medical History / Comment(s): Multiple myeoloma. Medications and Allergies Home Medications Medication Instructions Recorded Confirmed Type ALPRAZolam [Xanax] 0.5 mg PO Q6H PRN 01/16/14 03/28/17 History Escitalopram Oxalate [Lexapro] 20 mg PO HS 01/16/14 03/28/17 History MORPHINE ORAL NIRMAL CONC 20mg/mL 10 - 20 mg PO Q4HR PRN 01/24/17 03/28/17 History [Roxanol Oral Soln Conc 20MG/ML] Pantoprazole Sodium [Protonix] 40 mg PO BID #60 tablet. 01/31/17 03/28/17 Rx INSULIN LISPRO (HumaLOG) [humaLOG] See Protocol SQ ACHS 03/10/17 03/28/17 History HYDROmorphone [Dilaudid] 1 mg PO Q4HR PRN 03/16/17 03/28/17 History Acetaminophen/Diphenhydramine 2 tab PO HS 03/28/17 03/28/17 History [Tylenol PM Extra Strength] Enoxaparin [Lovenox] 80 mg SQ HS 03/28/17 03/28/17 History Naproxen Sodium [Aleve] 440 mg PO DAILY PRN 03/28/17 03/28/17 History Allergies Allergy/AdvReac Type Severity Reaction Status Date / Time duloxetine HCl Allergy Rash/Hives Verified 03/29/17 05:57 [From Cymbalta] Sulfa (Sulfonamide Allergy Rash/Hives Verified 03/29/17 05:57 Antibiotics) carboplatin AdvReac Nausea & Verified 03/29/17 05:57 Vomiting, TEMPORARY HEARING LOSS Surgical - Exam Vital Signs Temp Pulse Resp BP Pulse Ox 98.9 F 110 H 22 139/69 99 03/28/17 18:18 03/28/17 18:18 03/28/17 18:18 03/28/17 18:18 03/28/17 18:18 General: Patient is alert and oriented to time, place and person and cooperative with exam. Chest: Bilateral equal breath sounds present. No wheezes, no crackles. Cardiovascular: Regular rate and rhythm. Abdomen: Soft, PEG tube in place Results - Labs 04/01/17 06:00 04/01/17 06:00 Abnormal Lab Results - Last 24 Hours (Table) 04/01/17 04/01/17 04/01/17 Range/Units 05:12 06:00 06:00 WBC 10.9 H (3.8-10.6) k/uL RBC 2.75 L (3.80-5.40) m/uL Hgb 8.4 L D (11.4-16.0) gm/dL Hct 25.8 L (34.0-46.0) % RDW 18.5 H (11.5-15.5) % Plt Count 81 L D (150-450) k/uL Neutrophils # 8.3 H (1.3-7.7) k/uL BUN 6 L (7-17) mg/dL Glucose 109 H (74-99) mg/dL POC Glucose (mg/dL) 117 H (75-99) mg/dL AST 46 H (14-36) U/L ALT 74 H (9-52) U/L Alkaline Phosphatase 137 H (38-126) U/L Total Protein 5.7 L (6.3-8.2) g/dL Albumin 3.1 L (3.5-5.0) g/dL 04/01/17 04/01/17 04/01/17 Range/Units 07:29 11:59 17:24 WBC (3.8-10.6) k/uL RBC (3.80-5.40) m/uL Hgb (11.4-16.0) gm/dL Hct (34.0-46.0) % RDW (11.5-15.5) % Plt Count (150-450) k/uL Neutrophils # (1.3-7.7) k/uL BUN (7-17) mg/dL Glucose (74-99) mg/dL POC Glucose (mg/dL) 136 H 124 H 142 H (75-99) mg/dL AST (14-36) U/L ALT (9-52) U/L Alkaline Phosphatase (38-126) U/L Total Protein (6.3-8.2) g/dL Albumin (3.5-5.0) g/dL 04/01/17 Range/Units 18:15 WBC (3.8-10.6) k/uL RBC (3.80-5.40) m/uL Hgb (11.4-16.0) gm/dL Hct (34.0-46.0) % RDW (11.5-15.5) % Plt Count (150-450) k/uL Neutrophils # (1.3-7.7) k/uL BUN (7-17) mg/dL Glucose (74-99) mg/dL POC Glucose (mg/dL) 133 H (75-99) mg/dL AST (14-36) U/L ALT (9-52) U/L Alkaline Phosphatase (38-126) U/L Total Protein (6.3-8.2) g/dL Albumin (3.5-5.0) g/dL Microbiology - Last 24 Hours (Table) 03/30/17 12:32 Blood Culture - Preliminary Blood No Growth after 48 hours 03/30/17 12:40 Blood Culture Gram Stain - Preliminary Blood Blood Culture - Preliminary Gram Neg Bacilli 03/30/17 12:40 Blood Culture - Final Blood Diabetes panel 04/01/17 Range/Units 06:00 Sodium 140 (137-145) mmol/L Potassium 3.7 (3.5-5.1) mmol/L Chloride 103 (98-107) mmol/L Carbon Dioxide 30 (22-30) mmol/L BUN 6 L (7-17) mg/dL Creatinine 0.70 (0.52-1.04) mg/dL Glucose 109 H (74-99) mg/dL Calcium 8.8 (8.4-10.2) mg/dL AST 46 H (14-36) U/L ALT 74 H (9-52) U/L Alkaline Phosphatase 137 H (38-126) U/L Total Protein 5.7 L (6.3-8.2) g/dL Albumin 3.1 L (3.5-5.0) g/dL Calcium panel 04/01/17 Range/Units 06:00 Calcium 8.8 (8.4-10.2) mg/dL Phosphorus 4.4 (2.5-4.5) mg/dL Albumin 3.1 L (3.5-5.0) g/dL Pituitary panel 04/01/17 Range/Units 06:00 Sodium 140 (137-145) mmol/L Potassium 3.7 (3.5-5.1) mmol/L Chloride 103 (98-107) mmol/L Carbon Dioxide 30 (22-30) mmol/L BUN 6 L (7-17) mg/dL Creatinine 0.70 (0.52-1.04) mg/dL Glucose 109 H (74-99) mg/dL Calcium 8.8 (8.4-10.2) mg/dL Adrenal panel 04/01/17 Range/Units 06:00 Sodium 140 (137-145) mmol/L Potassium 3.7 (3.5-5.1) mmol/L Chloride 103 (98-107) mmol/L Carbon Dioxide 30 (22-30) mmol/L BUN 6 L (7-17) mg/dL Creatinine 0.70 (0.52-1.04) mg/dL Glucose 109 H (74-99) mg/dL Calcium 8.8 (8.4-10.2) mg/dL Total Bilirubin 0.6 (0.2-1.3) mg/dL AST 46 H (14-36) U/L ALT 74 H (9-52) U/L Alkaline Phosphatase 137 H (38-126) U/L Total Protein 5.7 L (6.3-8.2) g/dL Albumin 3.1 L (3.5-5.0) g/dL Assessment and Plan (1) Neutropenic fever Current Visit: Yes Status: Acute Code(s): D70.9 - NEUTROPENIA, UNSPECIFIED; R50.81 - FEVER PRESENTING WITH CONDITIONS CLASSIFIED ELSEWHERE SNOMED Code(s) : 139583714 (2) Ovarian cancer Current Visit: No Status: Chronic Priority: High Code(s): C56.9 - MALIGNANT NEOPLASM OF UNSPECIFIED OVARY SNOMED Code(s): 827881833 Plan: 1. Agree with discontinuing PICC line and line holiday 2. Send catheter tip for culture 3. Start peripheral IV and PPN 4. Dr. Marcos covering for Dr. Paredes
[2017-04-01 20:32] LABS: Glucose,Whole Blood 115 mg/dL (75-99)
[2017-04-01] MEDS: ESCITALOPRAM 20 MG TAB PO SCH (22:10)
[2017-04-01] MEDS: ENOXAPARIN 80 MG/0.8 ML SYRINGE SQ SCH (22:10)
[2017-04-01] MEDS: diphenhydrAMINE 25 MG CAP PO SCH (22:10)
[2017-04-01 22:29] LABS: Glucose,Whole Blood 107 mg/dL (75-99)
[2017-04-02 00:16] LABS: Glucose,Whole Blood 111 mg/dL (75-99)
[2017-04-02] MEDS: HYDROmorphone 0.5 MG/0.5 ML SYRINGE IVP PRN ×7 (00:31→21:57)
[2017-04-02] MEDS ORDERED: [UNRECOGNIZED DRUG - REMARK] IV SCH ×6 (04:00)
[2017-04-02] MEDS: ONDANSETRON 4 MG/2 ML VIAL IVP PRN ×2 (04:12→11:22)
[2017-04-02] MEDS: SODIUM CHLORIDE 0.9% 1,000 ML IV SCH ×4 (04:14→14:26)
[2017-04-02] MEDS: ALPRAZolam 0.25 MG TAB PO PRN ×3 (04:22→21:58)
[2017-04-02] MEDS: VANCOMYCIN 1,250 MG in SODIUM CHLORIDE 0.9% 250 ML IVPB SCH ×2 (04:56→16:22)
[2017-04-02 06:03] LABS: Glucose,Whole Blood 111 mg/dL (75-99)
[2017-04-02 07:10] LABS: Anisocytosis Slight; Basophils # (A) 0.1 k/uL (0-0.2); Basophils % (A) 1 %; Eosinophils # (A) 0.2 k/uL (0-0.7); Eosinophils % (A) 1 %; HCT 32.8 % (34.0-46.0); HGB 10.5 gm/dL (11.4-16.0); Hypochromasia Slight; Lymphocytes # (A) 2.1 k/uL (1.0-4.8); Lymphocytes % (A) 7 %; MCH 30.4 pg (25.0-35.0); MCHC 31.9 g/dL (31.0-37.0); MCV 95.3 fL (80.0-100.0); Macrocytosis Slight; Mean Platelet Volume 9.2; Monocytes # (A) 1.6 k/uL (0-1.0); Monocytes % (A) 5 %; Neutrophils # (A) 25.6 k/uL (1.3-7.7); Neutrophils % (A) 85 %; Poikilocytosis Slight; RBC 3.44 m/uL (3.80-5.40); RDW 19.3 % (11.5-15.5)
[2017-04-02 07:13] LABS: Anion Gap 11 mmol/L; Blood Urea Nitrogen 10 mg/dL (7-17); Calcium 9.1 mg/dL (8.4-10.2); Carbon Dioxide 26 mmol/L (22-30); Chloride 106 mmol/L (98-107); Glucose 108 mg/dL (74-99); Potassium 4.4 mmol/L (3.5-5.1); Sodium 143 mmol/L (137-145)
[2017-04-02 07:16] LABS: WBC 30.2 k/uL (3.8-10.6)
[2017-04-02 07:17] LABS: Platelet Count 151 k/uL (150-450)
[2017-04-02] MEDS: CEFEPIME 2 GM in SODIUM CHLORIDE 0.9% 50 ML IVPB SCH ×3 (08:12→21:59)
[2017-04-02 08:21] LABS: Toxic Granulation Present
[2017-04-02] MEDS: ENOXAPARIN 80 MG/0.8 ML SYRINGE SQ SCH ×2 (09:46→21:57)
[2017-04-02] MEDS: PANTOPRAZOLE 40 MG TABLET PO SCH ×2 (09:46→21:58)
--- NOTE | 2017-04-02 12:04 | P.PN ---
Subjective Patient is a pleasant 63-year-old female with history of ovarian cancer multiple bowel obstructions has TPN from home came in with the fever patient is found to be bacteremic with gram-negative bacilli as well as gram-positive pressure-like CT of the abdomen did not show any significant abnormality. Patient's bowel obstruction shouldn't is improving patient did move her bowels patient's TPN need to be weaned off because of the risks of infection including candidal bacteremia. PICC line need to be more will obtain a peripheral line today try to get her to the PICC line will also get the opinion of surgery regarding TPN. Patient at this time is afebrile doing clinically well blood cultures from as today is still positive because of which repeat blood cultures will be obtained for today and tomorrow morning patient will be days continued on cefepime and vancomycin. Patient is on an appropriate dose of Lovenox that and patient had multiple DVTs in the past patient need to be an 80 twice a day subcutaneous Lovenox. Patient has a J-tube which is only being utilized for drainage rather and feeding 04/02/2017 Patient's PICC line was removed due to PICC line related infection patient has Pseudomonas in the blood which is sensitive to cefepime and patient is presently on cefepime. Patient is also on Vanco mycin which can be discontinued as the other gram-positive bacteria staph epidermidis but I'll leave the addition to infectious disease. Patient will be started on peripheral parenteral nutrition as patient is still vomiting bilious fluid. Patient had elevated white blood cell count from her GM-CSF injection. No diarrhea Constitutional: Denied any fatigue denied any fever. Cardio vascular: denied any chest pain, palpitations Gastrointestinal denied any nausea vomiting Pulmonary: Denied any shortness of breath cough Neurologic denied any new focal deficits Objective - Vital Signs Vital signs: Vital Signs Temp 99.4 F 04/02/17 07:00 Pulse 100 04/02/17 07:00 Resp 16 04/02/17 07:00 BP 114/73 04/02/17 07:00 Pulse Ox 94 L 04/02/17 07:00 Intake & Output 04/01/17 04/02/17 04/02/17 18:59 06:59 18:59 Intake Total 2490 1180 Output Total 1999 Balance 490 1180 Weight 74.8 kg 80.5 kg Intake: Intake, IV Titration 2460 Amount Cefepime 2 gm In Sodium 100 Chloride 0.9% 50 ml @ 100 mls/hr IVPB Q8H [facility] Rx#: [id number] Fat Emulsion 20% 250 ml @ 250 20.833 mls/hr IV MoWeFr@ 1400 [facility] Rx#:[id number] Magnesium Sulfate-D5w Pmx 200 1 gm In Dextrose/Water 1 100ml.bag @ 100 mls/hr IVPB Q1H [facility] Rx#: [id number] Mvi, Adult No.4 with Vit 660 K 10 ml Trace (Conc-1Ml/ Dose) 1 ml Potassium Acetate 40 meq Magnesium Sulfate 16 meq Parenteral Electrolytes 20 ml In Amino Acid 5%-D25w 1,000 ml @ 55 mls/hr IV . [id number] [facility] Rx#:[id number] Sodium Chloride 0.9% 1, 1000 000 ml @ 125 mls/hr IV . Q8H [facility] Rx#:[id number] Vancomycin 1,250 mg In 250 Sodium Chloride 0.9% 250 ml @ 125 mls/hr IVPB Q12H [facility] Rx#:[id number] Oral 30 1180 Output: Urine 2000 Other: Voiding Method Toilet Toilet Toilet # Voids 4 2 # Bowel Movements 2 - Exam PHYSICAL EXAMINATION: GENERAL: The patient is alert and oriented x3, not in any acute distress. Well developed, well nourished. HEENT: Pupils are round and equally reacting to light. EOMI. No scleral icterus. No conjunctival pallor. Normocephalic, atraumatic. No pharyngeal erythema. No thyromegaly. CARDIOVASCULAR: S1 and S2 present. No murmurs, rubs, or gallops. PULMONARY: Chest is clear to auscultation, no wheezing or crackles. ABDOMEN: Soft, nontender, nondistended, normoactive bowel sounds. No palpable organomegaly. J-tube in place middle ear drainage from J-tube. MUSCULOSKELETAL: No joint swelling or deformity. EXTREMITIES: No cyanosis, clubbing, or pedal edema. NEUROLOGICAL: Gross neurological examination did not reveal any focal deficits. SKIN: No rashes. - Labs CBC & Chem 7: 04/02/17 06:40 04/02/17 06:40 Labs: Abnormal Lab Results - Last 24 Hours (Table) 04/01/17 04/01/17 04/01/17 Range/Units 11:59 17:24 18:15 WBC (3.8-10.6) k/uL RBC (3.80-5.40) m/uL Hgb (11.4-16.0) gm/dL Hct (34.0-46.0) % RDW (11.5-15.5) % Neutrophils # (1.3-7.7) k/uL Monocytes # (0-1.0) k/uL Glucose (74-99) mg/dL POC Glucose (mg/dL) 124 H 142 H 133 H (75-99) mg/dL 04/01/17 04/01/17 04/02/17 Range/Units 20:30 22:27 00:14 WBC (3.8-10.6) k/uL RBC (3.80-5.40) m/uL Hgb (11.4-16.0) gm/dL Hct (34.0-46.0) % RDW (11.5-15.5) % Neutrophils # (1.3-7.7) k/uL Monocytes # (0-1.0) k/uL Glucose (74-99) mg/dL POC Glucose (mg/dL) 115 H 107 H 111 H (75-99) mg/dL 04/02/17 04/02/17 04/02/17 Range/Units 06:01 06:40 06:40 WBC 30.2 H* (3.8-10.6) k/uL RBC 3.44 L (3.80-5.40) m/uL Hgb 10.5 L (11.4-16.0) gm/dL Hct 32.8 L (34.0-46.0) % RDW 19.3 H (11.5-15.5) % Neutrophils # 25.6 H (1.3-7.7) k/uL Monocytes # 1.6 H (0-1.0) k/uL Glucose 108 H (74-99) mg/dL POC Glucose (mg/dL) 111 H (75-99) mg/dL Microbiology - Last 24 Hours (Table) 04/02/17 06:45 Catheter Tip Culture - Preliminary Catheter Tip 03/30/17 12:40 Blood Culture Gram Stain - Preliminary Blood Blood Culture - Preliminary Gram Neg Bacilli Coagulase Negative Staph 03/28/17 19:08 Blood Culture Gram Stain - Final Blood Blood Culture - Final Pseudomonas fluorescens/putida 03/30/17 12:32 Blood Culture - Preliminary Blood No Growth after 48 hours Assessment and Plan Plan: -Bacteremia: Pseudomonas and coagulase negative staph PICC line was removed PICC line tip was sent for cultures patient will be can you done cefepime, patient will be started on peripheral parenteral nutrition today -Ovarian cancer, history of bowel obstructions in the past patient is presently on TPN which need to be weaned off patient need to be started on diet will consult surgery. The patient's bowel obstruction improved at this point of time -Bowel obstruction: Patient will remain nothing by mouth because of the bilious emesis and surgery is following the patient -History of DVTs in the past patient is on Lovenox dose of which will be changed as mentioned in the interval history. -Pancytopenia: Secondary to chemotherapy which is improving at this time. Patient now has leukocytosis with the BBC count going up to 30,000 secondary to GM-CSF injection and no diarrhea
--- NOTE | 2017-04-02 14:06 | P.PN ---
Subjective Progress Note Date: 04/02/17 Principal diagnosis: Ovarian cancer 51 years old female with ovarian cancer with peritoneal carcinomatosis. Patient is undergoing chemotherapy. She had right upper extremity PICC line and receiving TPN. She had PEG tube placement in January [address] Paredes. Blood cultures positive gram-negative x2. Infectious disease and primary team recommending PICC line removal to avoid sepsis. Patient denies any fever or chills or rigors. Her PEG tube has bilious drainage output. PICC line removed yesterday and she was sent for culture Objective - Vital Signs Vital signs: Vital Signs Temp 99.4 F 04/02/17 07:00 Pulse 100 04/02/17 07:00 Resp 16 04/02/17 07:00 BP 114/73 04/02/17 07:00 Pulse Ox 94 L 04/02/17 07:00 Intake & Output 04/01/17 04/02/17 04/02/17 18:59 06:59 18:59 Intake Total 2490 1180 Output Total 2000 Balance 490 1180 Weight 74.8 kg 80.5 kg Intake: Intake, IV Titration 2460 Amount Cefepime 2 gm In Sodium 100 Chloride 0.9% 50 ml @ 100 mls/hr IVPB Q8H [facility] Rx#: [id number] Fat Emulsion 20% 250 ml @ 250 20.833 mls/hr IV MoWeFr@ 1400 [facility] Rx#:[id number] Magnesium Sulfate-D5w Pmx 200 1 gm In Dextrose/Water 1 100ml.bag @ 100 mls/hr IVPB Q1H [facility] Rx#: [id number] Mvi, Adult No.4 with Vit 660 K 10 ml Trace (Conc-1Ml/ Dose) 1 ml Potassium Acetate 40 meq Magnesium Sulfate 16 meq Parenteral Electrolytes 20 ml In Amino Acid 5%-D25w 1,000 ml @ 55 mls/hr IV . [id number] [facility] Rx#:[id number] Sodium Chloride 0.9% 1, 1000 000 ml @ 125 mls/hr IV . Q8H [facility] Rx#:[id number] Vancomycin 1,250 mg In 250 Sodium Chloride 0.9% 250 ml @ 125 mls/hr IVPB Q12H [facility] Rx#:[id number] Oral 30 1180 Output: Urine 2000 Other: Voiding Method Toilet Toilet Toilet # Voids 4 2 # Bowel Movements 2 - Labs CBC & Chem 7: 04/02/17 06:40 04/02/17 06:40 Labs: Abnormal Lab Results - Last 24 Hours (Table) 04/01/17 04/01/17 04/01/17 Range/Units 17:24 18:15 20:30 WBC (3.8-10.6) k/uL RBC (3.80-5.40) m/uL Hgb (11.4-16.0) gm/dL Hct (34.0-46.0) % RDW (11.5-15.5) % Neutrophils # (1.3-7.7) k/uL Monocytes # (0-1.0) k/uL Glucose (74-99) mg/dL POC Glucose (mg/dL) 142 H 133 H 115 H (75-99) mg/dL 04/01/17 04/02/17 04/02/17 Range/Units 22:27 00:14 06:01 WBC (3.8-10.6) k/uL RBC (3.80-5.40) m/uL Hgb (11.4-16.0) gm/dL Hct (34.0-46.0) % RDW (11.5-15.5) % Neutrophils # (1.3-7.7) k/uL Monocytes # (0-1.0) k/uL Glucose (74-99) mg/dL POC Glucose (mg/dL) 107 H 111 H 111 H (75-99) mg/dL 04/02/17 04/02/17 Range/Units 06:40 06:40 WBC 30.2 H* (3.8-10.6) k/uL RBC 3.44 L (3.80-5.40) m/uL Hgb 10.5 L (11.4-16.0) gm/dL Hct 32.8 L (34.0-46.0) % RDW 19.3 H (11.5-15.5) % Neutrophils # 25.6 H (1.3-7.7) k/uL Monocytes # 1.6 H (0-1.0) k/uL Glucose 108 H (74-99) mg/dL POC Glucose (mg/dL) (75-99) mg/dL Microbiology - Last 24 Hours (Table) 04/01/17 10:50 Blood Culture - Preliminary Blood No Growth after 24 hours 04/02/17 06:45 Catheter Tip Culture - Preliminary Catheter Tip 03/30/17 12:40 Blood Culture Gram Stain - Preliminary Blood Blood Culture - Preliminary Gram Neg Bacilli Coagulase Negative Staph 03/28/17 19:08 Blood Culture Gram Stain - Final Blood Blood Culture - Final Pseudomonas fluorescens/putida 03/30/17 12:32 Blood Culture - Preliminary Blood No Growth after 48 hours Assessment and Plan (1) Neutropenic fever Current Visit: Yes Status: Acute Code(s): D70.9 - NEUTROPENIA, UNSPECIFIED; R50.81 - FEVER PRESENTING WITH CONDITIONS CLASSIFIED ELSEWHERE SNOMED Code(s) : 117953662 (2) Ovarian cancer Current Visit: No Status: Chronic Priority: High Code(s): C56.9 - MALIGNANT NEOPLASM OF UNSPECIFIED OVARY SNOMED Code(s): 268426488 Plan: 1. Continue line holiday 2. IV abx as per ID 3. Start peripheral IV and PPN 4. Dr. Marcos covering for Dr. Paredes
--- NOTE | 2017-04-02 14:20 | P.PN ---
Subjective Progress Note Date: 04/02/17 Principal diagnosis: Bacteremia, bicytopenia due to chemotherapy, now with leukocytosis due to G-CSF therapy WBC increased due to G-CSF use, which was stopped yesterday. Remains afebrile. Last blood culture from 03/30 positive. PICC removed. Objective - Vital Signs Vital signs: Vital Signs Temp 99.4 F 04/02/17 07:00 Pulse 100 04/02/17 07:00 Resp 16 04/02/17 07:00 BP 114/73 04/02/17 07:00 Pulse Ox 94 L 04/02/17 07:00 Intake & Output 04/01/17 04/02/17 04/02/17 18:59 06:59 18:59 Intake Total 2490 1180 Output Total 1999 Balance 490 1180 Weight 74.8 kg 80.5 kg Intake: Intake, IV Titration 2460 Amount Cefepime 2 gm In Sodium 100 Chloride 0.9% 50 ml @ 100 mls/hr IVPB Q8H [facility] Rx#: [id number] Fat Emulsion 20% 250 ml @ 250 20.833 mls/hr IV MoWeFr@ 1400 [facility] Rx#:[id number] Magnesium Sulfate-D5w Pmx 200 1 gm In Dextrose/Water 1 100ml.bag @ 100 mls/hr IVPB Q1H [facility] Rx#: [id number] Mvi, Adult No.4 with Vit 660 K 10 ml Trace (Conc-1Ml/ Dose) 1 ml Potassium Acetate 40 meq Magnesium Sulfate 16 meq Parenteral Electrolytes 20 ml In Amino Acid 5%-D25w 1,000 ml @ 55 mls/hr IV . [id number] [facility] Rx#:[id number] Sodium Chloride 0.9% 1, 1000 000 ml @ 125 mls/hr IV . Q8H [facility] Rx#:[id number] Vancomycin 1,250 mg In 250 Sodium Chloride 0.9% 250 ml @ 125 mls/hr IVPB Q12H [facility] Rx#:[id number] Oral 30 1180 Output: Urine 1999 Other: Voiding Method Toilet Toilet Toilet # Voids 4 2 # Bowel Movements 2 - Exam Vital signs stable. Afebrile. Gen.: No acute distress HEENT: EOMI. No scleral icterus or pallor. Mucosa moist without lesions. Neck: Neck supple. Lungs: CTA-B without wheezing or rhonchi. Heart: RRR without murmurs. Trace bilateral LE edema. Abdomen: Soft, nondistended, with positive bowel sounds. Tenderness to palpation without guarding or rigidity but with slight rebound. MSK: 4 out of 4 strength in all 4 extremities. Neuro: Alert and oriented 3. No obvious gross neurologic deficits. Skin: No obvious jaundice or rash. Psych: Appropriate affect, slightly anxious. - Labs CBC & Chem 7: 04/02/17 06:40 04/02/17 06:40 Labs: Abnormal Lab Results - Last 24 Hours (Table) 04/01/17 04/01/17 04/01/17 Range/Units 11:59 17:24 18:15 WBC (3.8-10.6) k/uL RBC (3.80-5.40) m/uL Hgb (11.4-16.0) gm/dL Hct (34.0-46.0) % RDW (11.5-15.5) % Neutrophils # (1.3-7.7) k/uL Monocytes # (0-1.0) k/uL Glucose (74-99) mg/dL POC Glucose (mg/dL) 124 H 142 H 133 H (75-99) mg/dL 04/01/17 04/01/17 04/02/17 Range/Units 20:30 22:27 00:14 WBC (3.8-10.6) k/uL RBC (3.80-5.40) m/uL Hgb (11.4-16.0) gm/dL Hct (34.0-46.0) % RDW (11.5-15.5) % Neutrophils # (1.3-7.7) k/uL Monocytes # (0-1.0) k/uL Glucose (74-99) mg/dL POC Glucose (mg/dL) 115 H 107 H 111 H (75-99) mg/dL 04/02/17 04/02/17 04/02/17 Range/Units 06:01 06:40 06:40 WBC 30.2 H* (3.8-10.6) k/uL RBC 3.44 L (3.80-5.40) m/uL Hgb 10.5 L (11.4-16.0) gm/dL Hct 32.8 L (34.0-46.0) % RDW 19.3 H (11.5-15.5) % Neutrophils # 25.6 H (1.3-7.7) k/uL Monocytes # 1.6 H (0-1.0) k/uL Glucose 108 H (74-99) mg/dL POC Glucose (mg/dL) 111 H (75-99) mg/dL Microbiology - Last 24 Hours (Table) 03/30/17 12:40 Blood Culture Gram Stain - Preliminary Blood Blood Culture - Preliminary Gram Neg Bacilli Coagulase Negative Staph 03/28/17 19:08 Blood Culture Gram Stain - Final Blood Blood Culture - Final Pseudomonas fluorescens/putida 03/30/17 12:32 Blood Culture - Preliminary Blood No Growth after 48 hours Assessment and Plan Assessment: #1 metastatic ovarian cancer, on chemotherapy #2 bacteremia with gram-negative bacilli and gram-positive cocci #3 small bowel obstruction, resolving #4 bicytopenia due to chemotherapy, resolving #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 G-CSF stopped yesterday. Likely leukocytosis due to G-CSF although pt also bacteremic and cannot rule out infection contributing. On antibiotics as per ID for her gram negative and gram-positive bacteremia. Last culture from 03/30/17 was still positive. PICC line removed and cultures repeated. Nutrition via PPN. Has slowly improving chronic small bowel obstruction. Hold chemo until she follows up with her primary oncologist. Continue anticoagulation for history of recurrent VTE as long as plt >50. Leukocytosis likely due to G-CSF and possibly infection. This was discussed with the patient in great detail and she was agreeable to the plan.
[2017-04-02] MEDS: ESCITALOPRAM 20 MG TAB PO SCH (21:57)
[2017-04-02] MEDS: diphenhydrAMINE 25 MG CAP PO SCH (21:58)
[2017-04-02] MEDS: ACETAMINOPHEN TAB 500 MG TAB PO SCH (21:58)
[2017-04-03] MEDS: HYDROmorphone 0.5 MG/0.5 ML SYRINGE IVP PRN ×6 (03:14→21:11)
[2017-04-03] MEDS: SODIUM CHLORIDE 0.9% 1,000 ML IV SCH ×4 (03:14→18:55)
[2017-04-03 03:37] LABS: Anisocytosis Slight; Basophils # (A) 0.2 k/uL (0-0.2); Basophils % (A) 1 %; Eosinophils # (A) 0.2 k/uL (0-0.7); Eosinophils % (A) 1 %; HCT 31.1 % (34.0-46.0); HGB 9.9 gm/dL (11.4-16.0); Hypochromasia Slight; Lymphocytes # (A) 2.2 k/uL (1.0-4.8); Lymphocytes % (A) 9 %; MCH 30.4 pg (25.0-35.0); MCHC 31.8 g/dL (31.0-37.0); MCV 95.7 fL (80.0-100.0); Macrocytosis Slight; Monocytes # (A) 1.4 k/uL (0-1.0); Monocytes % (A) 6 %; Neutrophils # (A) 19.2 k/uL (1.3-7.7); Neutrophils % (A) 81 %; Platelet Count 182 k/uL (150-450); RBC 3.25 m/uL (3.80-5.40); RDW 18.8 % (11.5-15.5); WBC 23.7 k/uL (3.8-10.6)
[2017-04-03 04:00] LABS: Anion Gap 12 mmol/L; Blood Urea Nitrogen 14 mg/dL (7-17); Calcium 9.2 mg/dL (8.4-10.2); Carbon Dioxide 26 mmol/L (22-30); Chloride 105 mmol/L (98-107); Glucose 89 mg/dL (74-99); Phosphorus 4.4 mg/dL (2.5-4.5); Sodium 143 mmol/L (137-145)
[2017-04-03] MEDS ORDERED: VANCOMYCIN TROUGH DUE 1 EACH MISC MISCELLANE ONE (04:00)
[2017-04-03] MEDS: VANCOMYCIN 1,250 MG in SODIUM CHLORIDE 0.9% 250 ML IVPB SCH ×2 (04:17→21:07)
[2017-04-03] MEDS: CEFEPIME 2 GM in SODIUM CHLORIDE 0.9% 50 ML IVPB SCH ×3 (06:12→23:27)
[2017-04-03] MEDS: ENOXAPARIN 80 MG/0.8 ML SYRINGE SQ SCH ×2 (07:51→21:19)
[2017-04-03] MEDS: PANTOPRAZOLE 40 MG TABLET PO SCH ×2 (07:56→21:19)
[2017-04-03] MEDS: ALPRAZolam 0.25 MG TAB PO PRN ×3 (07:58→21:20)
--- NOTE | 2017-04-03 08:06 | PN ---
PROGRESS NOTE DATE OF SERVICE: 04/02/2017. REASON FOR FOLLOW UP: Bacteremia and PICC line infection. INTERVAL HISTORY: The patient is afebrile. She has been breathing comfortably. The PICC line has been discontinued. The patient denies having any chest pain or shortness of breath, cough. No abdominal pain. Some abdominal pain but no diarrhea. EXAMINATION: Blood pressure is 124/74 with a pulse of 95, temperature of 98.5. She is 97% on room air. General description is a middle-aged female up in the bed, up in no distress. Respiratory system unlabored breathing, clear to auscultation anteriorly. Heart S1, S2 regular rate and rhythm. Abdomen soft, minimally tender in the lower quadrant area, no guarding or rigidity. LABS: Hemoglobin is 10.5, white count of 30,000. BUN of 10. Creatinine 0.70. Blood culture with Pseudomonas fluorescens noted. DIAGNOSTIC IMPRESSION AND PLAN: Patient with a positive blood culture with Pseudomonas likely related to her PICC line that has been discontinued. Blood culture repeat 04/01 has been negative. Currently on the cefepime and vancomycin that will be continued for short course. Continue supportive care. MMODL / IJN: [id number] /
[2017-04-03] MEDS: ONDANSETRON 4 MG/2 ML VIAL IVP PRN (11:02)
[2017-04-03 14:34] VITALS: BMI 30.2
--- NOTE | 2017-04-03 14:39 | P.PN ---
Subjective Progress Note Date: 04/03/17 Principal diagnosis: PICC line infection The patient had a PICC line removed. She currently is afebrile. She has no acute complaints. Objective - Vital Signs Vital signs: Vital Signs Temp 98.5 F 04/03/17 07:00 Pulse 95 04/03/17 07:00 Resp 16 04/03/17 07:00 BP 113/68 04/03/17 07:00 Pulse Ox 94 L 04/03/17 07:00 Intake & Output 04/02/17 04/03/17 04/03/17 18:59 06:59 18:59 Intake Total 1100 1320 Output Total 2400 Balance -1300 1320 Weight 80.5 kg 79.9 kg 79.9 kg Intake: Intake, IV Titration 1100 1200 Amount Cefepime 2 gm In Sodium 200 50 Chloride 0.9% 50 ml @ 100 mls/hr IVPB Q8H [facility] Rx#: [id number] Sodium Chloride 0.9% 1, 650 900 000 ml @ 75 mls/hr IV . [id number] [facility] Rx#:[id number] Vancomycin 1,250 mg In 250 250 Sodium Chloride 0.9% 250 ml @ 125 mls/hr IVPB Q12H [facility] Rx#:[id number] Oral 120 Output: Drainage 400 G-tube drainage 400 Urine 2000 Other: Voiding Method Toilet Toilet # Voids 3 - Constitutional General appearance: Present: average body habitus - Gastrointestinal Gastrointestinal Comment(s): Soft. There is no significant tenderness. Gastrostomy tube is in place for drainage. - Labs CBC & Chem 7: 04/03/17 03:25 04/03/17 03:25 Labs: Abnormal Lab Results - Last 24 Hours (Table) 04/03/17 Range/Units 03:25 WBC 23.7 H (3.8-10.6) k/uL RBC 3.25 L (3.80-5.40) m/uL Hgb 9.9 L (11.4-16.0) gm/dL Hct 31.1 L (34.0-46.0) % RDW 18.8 H (11.5-15.5) % Neutrophils # 19.2 H (1.3-7.7) k/uL Monocytes # 1.4 H (0-1.0) k/uL Microbiology - Last 24 Hours (Table) 03/30/17 12:40 Blood Culture Gram Stain - Final Blood Blood Culture - Final Pseudomonas fluorescens/putida Coagulase Negative Staph 04/01/17 10:50 Blood Culture - Preliminary Blood No Growth after 48 hours 04/02/17 06:40 Blood Culture - Preliminary Blood No Growth after 24 hours 04/02/17 06:45 Catheter Tip Culture - Preliminary Catheter Tip 03/30/17 12:32 Blood Culture - Preliminary Blood No Growth after 72 hours Assessment and Plan Assessment: Line infection. Patient continue receive IV antibiotics. She will be evaluated with Dr. Paredes tomorrow.
--- NOTE | 2017-04-03 16:20 | P.PN ---
Subjective Progress Note Date: 04/03/17 Progress note being dictated for Dr. Strong Interval history:Patient is a pleasant 63-year-old female with history of ovarian cancer multiple bowel obstructions has TPN from home came in with the fever patient is found to be bacteremic with gram-negative bacilli as well as gram-positive pressure-like CT of the abdomen did not show any significant abnormality. Patient's bowel obstruction shouldn't is improving patient did move her bowels patient's TPN need to be weaned off because of the risks of infection including candidal bacteremia. PICC line need to be more will obtain a peripheral line today try to get her to the PICC line will also get the opinion of surgery regarding TPN. Patient at this time is afebrile doing clinically well blood cultures from as today is still positive because of which repeat blood cultures will be obtained for today and tomorrow morning patient will be days continued on cefepime and vancomycin. Patient is on an appropriate dose of Lovenox that and patient had multiple DVTs in the past patient need to be an 80 twice a day subcutaneous Lovenox. Patient has a J- tube which is only being utilized for drainage rather and feeding 04/02/2017 Patient's PICC line was removed due to PICC line related infection patient has Pseudomonas in the blood which is sensitive to cefepime and patient is presently on cefepime. Patient is also on Vanco mycin which can be discontinued as the other gram-positive bacteria staph epidermidis but I'll leave the addition to infectious disease. Patient will be started on peripheral parenteral nutrition as patient is still vomiting bilious fluid. Patient had elevated white blood cell count from her GM-CSF injection. No diarrhea Constitutional: Denied any fatigue denied any fever. Cardio vascular: denied any chest pain, palpitations Gastrointestinal denied any nausea vomiting Pulmonary: Denied any shortness of breath cough Neurologic denied any new focal deficits 04/03/2017 maintained on cefepime and vancomycin as per infectious disease. PICC line catheter tip preliminary culture negative, repeat preliminary blood cultures negative. T-max 99.3, leukocytosis improving. Blood sugars controlled. Denies nausea vomiting, complains of mild supra-umbilical discomfort. Objective - Vital Signs Vital signs: Vital Signs Temp 99.3 F 04/03/17 14:51 Pulse 84 04/03/17 14:51 Resp 16 04/03/17 14:51 BP 109/66 01/29/18 14:51 Pulse Ox 97 04/03/17 14:51 Intake & Output 04/02/17 04/03/17 04/03/17 18:59 06:59 18:59 Intake Total 1100 1320 625 Output Total 2400 Balance -1300 1320 625 Weight 80.5 kg 79.9 kg 79.9 kg Intake: Intake, IV Titration 1100 1200 625 Amount Cefepime 2 gm In Sodium 200 50 100 Chloride 0.9% 50 ml @ 100 mls/hr IVPB Q8H [facility] Rx#: [id number] Sodium Chloride 0.9% 1, 650 900 525 000 ml @ 75 mls/hr IV . [id number] [facility] Rx#:[id number] Vancomycin 1,250 mg In 250 250 Sodium Chloride 0.9% 250 ml @ 125 mls/hr IVPB Q12H [facility] Rx#:[id number] Oral 120 Output: Drainage 400 G-tube drainage 400 Urine 2000 Other: Voiding Method Toilet Toilet # Voids 3 - Exam GENERAL: The patient is alert and oriented x3, not in any acute distress. Well developed, well nourished. HEENT: Pupils are round and equally reacting to light. EOMI. No scleral icterus. No conjunctival pallor. Normocephalic, atraumatic. No pharyngeal erythema. No thyromegaly. CARDIOVASCULAR: S1 and S2 present. No murmurs, rubs, or gallops. PULMONARY: Chest is clear to auscultation, no wheezing or crackles. ABDOMEN: Soft, nontender, nondistended, normoactive bowel sounds. No palpable organomegaly. Gastrostomy tube. MUSCULOSKELETAL: No joint swelling or deformity. EXTREMITIES: No cyanosis, clubbing, or pedal edema. NEUROLOGICAL: Gross neurological examination did not reveal any focal deficits. SKIN: No rashes. Microbiology 03/30/17 12:32 Blood Blood Culture - Preliminary No Growth after 96 hours 03/30/17 12:40 Blood Blood Culture Gram Stain - Final 03/30/17 12:40 Blood Blood Culture - Final Pseudomonas fluorescens/putida Coagulase Negative Staph 04/01/17 10:50 Blood Blood Culture - Preliminary No Growth after 48 hours 04/02/17 06:40 Blood Blood Culture - Preliminary No Growth after 24 hours 04/02/17 06:45 Catheter Tip Catheter Tip Culture - Preliminary 03/28/17 19:08 Blood Blood Culture Gram Stain - Final 03/28/17 19:08 Blood Blood Culture - Final Pseudomonas fluorescens/putida 03/30/17 12:40 Blood Blood Culture - Final 03/28/17 19:08 Blood Blood Culture - Final - Labs CBC & Chem 7: 04/03/17 03:25 04/03/17 03:25 Labs: Abnormal Lab Results - Last 24 Hours (Table) 04/03/17 Range/Units 03:25 WBC 23.7 H (3.8-10.6) k/uL RBC 3.25 L (3.80-5.40) m/uL Hgb 9.9 L (11.4-16.0) gm/dL Hct 31.1 L (34.0-46.0) % RDW 18.8 H (11.5-15.5) % Neutrophils # 19.2 H (1.3-7.7) k/uL Monocytes # 1.4 H (0-1.0) k/uL Microbiology - Last 24 Hours (Table) 03/30/17 12:32 Blood Culture - Preliminary Blood No Growth after 96 hours 03/30/17 12:40 Blood Culture Gram Stain - Final Blood Blood Culture - Final Pseudomonas fluorescens/putida Coagulase Negative Staph 04/01/17 10:50 Blood Culture - Preliminary Blood No Growth after 48 hours 04/02/17 06:40 Blood Culture - Preliminary Blood No Growth after 24 hours 04/02/17 06:45 Catheter Tip Culture - Preliminary Catheter Tip Assessment and Plan Assessment: -Bacteremia: Pseudomonas and coagulase negative staph PICC line was removed PICC line tip was sent for cultures -Ovarian cancer, history of bowel obstructions in the past patient weaned off TPN. patient needs to be started on diet will consult surgery. The patient's bowel obstruction improved at this point of time -Bowel obstruction: Patient will remain nothing by mouth because of the bilious emesis and surgery is following the patient, improving -History of DVTs in the past patient is on Lovenox dose of which will be changed as mentioned in the interval history. -Pancytopenia: Secondary to chemotherapy which is improving at this time. leukocytosis with the WBC secondary to GM-CSF injection and no diarrhea Plan: Continue on current medication regime ,monitoring and symptomatic treatment. Repeat cultures in progress, awaiting clear culture -replacement of PICC line pending. PPN/Diet advancement as per surgery. The impression and plan of care has been dictated as directed. : I performed a history and examination of this patient, discussed the same with the dictator. I agree with the dictator's note ,documented as a scribe. Any additional findings or plans will be noted.
--- NOTE | 2017-04-03 16:31 | PN ---
PROGRESS NOTE DATE OF SERVICE: 04/03/2017 REASON FOR FOLLOWUP: Positive blood culture, PICC line-related. INTERVAL HISTORY: The patient is afebrile. She is currently breathing comfortably. Still having some abdominal pain. No nausea, no vomiting or any diarrhea. Denies any chest pain or shortness of breath or cough. PHYSICAL EXAMINATION: Blood pressure 109/66 with pulse of 84, temperature of 99.3. She is 97% on room air. General description is a middle-aged female lying in bed in no distress. RESPIRATORY SYSTEM: Unlabored breathing. Clear to auscultation anteriorly. HEART: S1, S2. Regular rate and rhythm. ABDOMEN: Soft with minimal tenderness in the lower quadrant area. No guarding or rigidity. LABS: Hemoglobin 9.9, white count 23.7, BUN of 14, creatinine 0.90. Blood cultures from 04/01 and 04/02 have been negative. DIAGNOSTIC IMPRESSION AND PLAN: Patient with positive blood culture with Pseudomonas fluorescens/putida related to PICC line. That has been discontinued. It had been there for more than 3 months now. If the blood culture done on 04/01 remains negative tomorrow, she will be able to get another PICC line, as the patient needs to be on TPN in the outpatient setting. We will finish therapy with oral Cipro. Continue supportive care. MMODL / IJN: [id number] /
[2017-04-03] MEDS: ESCITALOPRAM 20 MG TAB PO SCH (21:19)
[2017-04-03] MEDS: ACETAMINOPHEN TAB 500 MG TAB PO SCH (21:20)
[2017-04-03] MEDS: diphenhydrAMINE 25 MG CAP PO SCH (21:21)
[2017-04-04] MEDS: HYDROmorphone 0.5 MG/0.5 ML SYRINGE IVP PRN ×5 (00:49→20:39)
[2017-04-04] MEDS: HYDROmorphone 2 MG TAB PO PRN (03:47)
[2017-04-04] MEDS: CEFEPIME 2 GM in SODIUM CHLORIDE 0.9% 50 ML IVPB SCH ×3 (06:18→22:00)
[2017-04-04] MEDS: ONDANSETRON 4 MG/2 ML VIAL IVP PRN ×2 (06:31→14:14)
[2017-04-04] MEDS: ENOXAPARIN 80 MG/0.8 ML SYRINGE SQ SCH ×2 (08:13→20:38)
[2017-04-04] MEDS: PANTOPRAZOLE 40 MG TABLET PO SCH ×2 (08:13→20:38)
[2017-04-04] MEDS: ALPRAZolam 0.25 MG TAB PO PRN ×3 (08:14→20:38)
[2017-04-04 09:00] LABS: Anion Gap 13 mmol/L; Blood Urea Nitrogen 16 mg/dL (7-17); Carbon Dioxide 24 mmol/L (22-30); Chloride 104 mmol/L (98-107); Glucose 76 mg/dL (74-99); Magnesium 1.7 mg/dL (1.6-2.3); Phosphorus 3.4 mg/dL (2.5-4.5); Sodium 141 mmol/L (137-145)
[2017-04-04 09:02] LABS: Potassium 3.8 mmol/L (3.5-5.1)
[2017-04-04] MEDS: VANCOMYCIN 1,250 MG in SODIUM CHLORIDE 0.9% 250 ML IVPB SCH (12:03)
--- NOTE | 2017-04-04 13:24 | P.PN ---
Subjective Progress Note Date: 04/04/17 Progress note being dictated for Dr. Strong Interval history:Patient is a pleasant 63-year-old female with history of ovarian cancer multiple bowel obstructions has TPN from home came in with the fever patient is found to be bacteremic with gram-negative bacilli as well as gram-positive pressure-like CT of the abdomen did not show any significant abnormality. Patient's bowel obstruction shouldn't is improving patient did move her bowels patient's TPN need to be weaned off because of the risks of infection including candidal bacteremia. PICC line need to be more will obtain a peripheral line today try to get her to the PICC line will also get the opinion of surgery regarding TPN. Patient at this time is afebrile doing clinically well blood cultures from as today is still positive because of which repeat blood cultures will be obtained for today and tomorrow morning patient will be days continued on cefepime and vancomycin. Patient is on an appropriate dose of Lovenox that and patient had multiple DVTs in the past patient need to be an 80 twice a day subcutaneous Lovenox. Patient has a J- tube which is only being utilized for drainage rather and feeding 04/02/2017 Patient's PICC line was removed due to PICC line related infection patient has Pseudomonas in the blood which is sensitive to cefepime and patient is presently on cefepime. Patient is also on Vanco mycin which can be discontinued as the other gram-positive bacteria staph epidermidis but I'll leave the addition to infectious disease. Patient will be started on peripheral parenteral nutrition as patient is still vomiting bilious fluid. Patient had elevated white blood cell count from her GM-CSF injection. No diarrhea Constitutional: Denied any fatigue denied any fever. Cardio vascular: denied any chest pain, palpitations Gastrointestinal denied any nausea vomiting Pulmonary: Denied any shortness of breath cough Neurologic denied any new focal deficits 04/03/2017 maintained on cefepime and vancomycin as per infectious disease. PICC line catheter tip preliminary culture negative, repeat preliminary blood cultures negative. T-max 99.3, leukocytosis improving. Blood sugars controlled. Denies nausea vomiting, complains of mild supra-umbilical discomfort. 04/04/2017 continues on IV antibiotics.Small bowel movement this morning. Nausea and vomiting earlier. Abdominal pain discomfort improving, better than yesterday. T-max 99.3, leukocytosis improving. Final Catheter tip culture reporting no growth. Repeat preliminary blood cultures negative at 48 hrs. Objective - Vital Signs Vital signs: Vital Signs Temp 99.3 F 04/04/17 07:00 Pulse 98 04/04/17 07:00 Resp 16 04/04/17 07:00 BP 130/69 04/04/17 07:00 Pulse Ox 94 L 04/04/17 07:00 Intake & Output 04/03/17 04/04/17 04/04/17 18:59 06:59 18:59 Intake Total 625 1300 Balance 625 1300 Weight 79.9 kg 81.5 kg Intake: IV 1250 Sodium Chloride 0.9% 1, 750 000 ml @ 75 mls/hr IV . [id number] [facility] Rx#:[id number] Vancomycin 1,250 mg In 500 Sodium Chloride 0.9% 250 ml @ 125 mls/hr IVPB Q12H [facility] Rx#:[id number] Intake, IV Titration 625 50 Amount Cefepime 2 gm In Sodium 100 50 Chloride 0.9% 50 ml @ 100 mls/hr IVPB Q8H [facility] Rx#: [id number] Sodium Chloride 0.9% 1, 525 000 ml @ 75 mls/hr IV . [id number] [facility] Rx#:[id number] Other: Voiding Method Toilet Toilet - Exam GENERAL: The patient is alert and oriented x3, not in any acute distress. Well developed, well nourished. HEENT: Pupils are round and equally reacting to light. EOMI. No scleral icterus. No conjunctival pallor. Normocephalic, atraumatic. No pharyngeal erythema. No thyromegaly. CARDIOVASCULAR: S1 and S2 present. No murmurs, rubs, or gallops. PULMONARY: Chest is clear to auscultation, no wheezing or crackles. ABDOMEN: Soft, nontender, nondistended, normoactive bowel sounds. No palpable organomegaly. Gastrostomy tube. MUSCULOSKELETAL: No joint swelling or deformity. EXTREMITIES: No cyanosis, clubbing, or pedal edema. NEUROLOGICAL: Gross neurological examination did not reveal any focal deficits. SKIN: No rashes. Microbiology 04/01/17 10:50 Blood Blood Culture - Preliminary No Growth after 72 hours 04/02/17 06:45 Catheter Tip Catheter Tip Culture - Final 04/02/17 06:40 Blood Blood Culture - Preliminary No Growth after 48 hours 03/30/17 12:32 Blood Blood Culture - Preliminary No Growth after 96 hours 03/30/17 12:40 Blood Blood Culture Gram Stain - Final 03/30/17 12:40 Blood Blood Culture - Final Pseudomonas fluorescens/putida Coagulase Negative Staph 03/28/17 19:08 Blood Blood Culture Gram Stain - Final 03/28/17 19:08 Blood Blood Culture - Final Pseudomonas fluorescens/putida 03/30/17 12:40 Blood Blood Culture - Final 03/28/17 19:08 Blood Blood Culture - Final - Labs CBC & Chem 7: 04/03/17 03:25 04/04/17 07:54 Labs: Microbiology - Last 24 Hours (Table) 04/02/17 06:40 Blood Culture - Preliminary Blood No Growth after 48 hours 03/30/17 12:32 Blood Culture - Preliminary Blood No Growth after 96 hours 03/30/17 12:40 Blood Culture Gram Stain - Final Blood Blood Culture - Final Pseudomonas fluorescens/putida Coagulase Negative Staph 04/01/17 10:50 Blood Culture - Preliminary Blood No Growth after 48 hours 04/02/17 06:45 Catheter Tip Culture - Preliminary Catheter Tip Assessment and Plan Assessment: -Bacteremia: Pseudomonas and coagulase negative staph PICC line was removed PICC line tip was sent for cultures -Ovarian cancer, history of bowel obstructions in the past patient weaned off TPN. patient needs to be started on diet will consult surgery. The patient's bowel obstruction improved at this point of time -Bowel obstruction: Patient will remain nothing by mouth because of the bilious emesis and surgery is following the patient, improving -History of DVTs in the past patient is on Lovenox dose of which will be changed as mentioned in the interval history. -Pancytopenia: Secondary to chemotherapy which is improving at this time. leukocytosis with the WBC secondary to GM-CSF injection and no diarrhea Plan: Continue on current medication regime ,monitoring and symptomatic treatment. Follow repeat cultures closely,-replacement of PICC line pending with PPN/Diet advancement as per surgery. The impression and plan of care has been dictated as directed. : I performed a history and examination of this patient, discussed the same with the dictator. I agree with the dictator's note ,documented as a scribe. Any additional findings or plans will be noted.
--- NOTE | 2017-04-04 13:42 | CDI ---
Mild Pro-almita malnutrition Last Revision, February 2017 Documentation Clarification Form Date: 04/04/2017 1:33:00 PM From: Christine MazaEmMILLY ball, CCDS Admit Date: 03/28/2017 10:42:00 PM Patient Name: Ladonna Belle Visit Number: [id number] Discharge Date: ATTENTION: The Clinical Documentation Specialists (CDI) and [facility] Coding Staff appreciate your assistance in clarifying documentation. Please respond to the clarification below the line at the bottom and electronically sign. The CDI & [facility] Coding staff will review the response and follow-up if needed. Please note: Queries are made part of the Legal Health Record. If you have any questions, please contact the author of this message via ITS. Dr. Vu Panda: Malnutrition has been documented in your progress notes: 03/29, 03/30 & 03/31. 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 Clinical Indicators: Presented with SOB, nausea & fever. Labs: Albumin/: 3.5 - 3.1*, Total Protein 6.2* - 5.7*. Current BMI: 30.8 Treatment: IV fluid bolus x3, IV Ms, IV Zofran, IV Maxipime, IV Vanco, IV Toradol, IV Ampicillin, IV Rocephin Dietary Consult: Patient receiving TPN via PICC, possible Gm Neg Sepsis from PICC line, removed. In your professional opinion, can you please clarify if these findings signify one of the following conditions? Mild Protein Malnutrition Mild Protein-Calorie Malnutrition Moderate Protein Malnutrition Moderate Protein-Calorie Malnutrition Severe Protein Malnutrition Severe Protein-Calorie Malnutrition Malnutrition following GI surgery Other condition, please specify Unable to determine Please continue to document in your progress notes and discharge summary in order to capture severity of illness and risk of mortality. Include clinical findings that support your diagnosis. MTDD
--- NOTE | 2017-04-04 16:07 | P.PN ---
Subjective Progress Note Date: 04/04/17 Principal diagnosis: Small bowel obstruction We were consulted during his hospital stay because of vomiting and CAT scan findings of bowel obstruction. 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 A PEG tube was placed approximately 6-8 weeks ago as a decompression because of her chronic obstruction. She is currently on TPN and receiving chemotherapy as well. She has a PICC line in place that was thought to be the probable source of recent bacteremia. She is having small loose stools at times. Overall she believes her symptoms of bowel obstruction are slightly improved since the PEG tube was placed. She still allows the PEG tube to drain all evening long while she is sleeping. Despite having the PEG tube drainage currently she is having some occasional episodes of vomiting. PEG tube drain is bilious. Minimal abdominal discomfort. CAT scan from this hospitalization show slight improvement in her bowel obstruction. Objective - Vital Signs Vital signs: Vital Signs Temp 98.8 F 04/04/17 15:00 Pulse 95 04/04/17 15:00 Resp 16 04/04/17 15:00 BP 122/74 04/04/17 15:00 Pulse Ox 95 04/04/17 15:00 Intake & Output 04/03/17 04/04/17 04/04/17 18:59 06:59 18:59 Intake Total 625 1300 Balance 625 1300 Weight 79.9 kg 81.5 kg Intake: IV 1250 Sodium Chloride 0.9% 1, 750 000 ml @ 75 mls/hr IV . [id number] [facility] Rx#:[id number] Vancomycin 1,250 mg In 500 Sodium Chloride 0.9% 250 ml @ 125 mls/hr IVPB Q12H [facility] Rx#:[id number] Intake, IV Titration 625 50 Amount Cefepime 2 gm In Sodium 100 50 Chloride 0.9% 50 ml @ 100 mls/hr IVPB Q8H [facility] Rx#: [id number] Sodium Chloride 0.9% 1, 525 000 ml @ 75 mls/hr IV . [id number] [facility] Rx#:[id number] Other: Voiding Method Toilet Toilet - Exam Abdomen: Soft, nontender, nondistended - Labs CBC & Chem 7: 04/03/17 03:25 04/04/17 07:54 Labs: Microbiology - Last 24 Hours (Table) 03/30/17 12:32 Blood Culture - Preliminary Blood No Growth after 120 hours 04/01/17 10:50 Blood Culture - Preliminary Blood No Growth after 72 hours 04/02/17 06:45 Catheter Tip Culture - Final Catheter Tip 04/02/17 06:40 Blood Culture - Preliminary Blood No Growth after 48 hours 03/30/17 12:40 Blood Culture Gram Stain - Final Blood Blood Culture - Final Pseudomonas fluorescens/putida Coagulase Negative Staph Assessment and Plan (1) Small bowel obstruction Narrative/Plan: Continue PEG tube drainage. Nothing by mouth. Small bowel obstruction is a known problem for this patient if anything it appears to be slightly improved. Will follow. Current Visit: No Status: Acute Priority: High Code(s): K56.609 - UNSP INTESTNL OBST, UNSP TO PARTIAL VERSUS COMPLETE OBST SNOMED Code(s): 012644490
[2017-04-04] MEDS: SODIUM CHLORIDE 0.9% 1,000 ML IV SCH (17:55)
--- NOTE | 2017-04-04 19:05 | P.PN ---
Subjective Progress Note Date: 04/04/17 Principal diagnosis: neutropenic fever, bowel obstruction patient seen today in follow-up, she continues to have abdominal discomfort discomfort and indigestion, very small amounts of stool passing. Objective - Vital Signs Vital signs: Vital Signs Temp 98.8 F 04/04/17 15:00 Pulse 95 04/04/17 15:00 Resp 16 04/04/17 15:00 BP 122/74 04/04/17 15:00 Pulse Ox 95 04/04/17 15:00 Intake & Output 04/03/17 04/04/17 04/04/17 18:59 06:59 18:59 Intake Total 625 1300 Output Total 200 Balance 625 1300 -200 Weight 79.9 kg 81.5 kg Intake: IV 1250 Sodium Chloride 0.9% 1, 750 000 ml @ 75 mls/hr IV . [id number] [facility] Rx#:[id number] Vancomycin 1,250 mg In 500 Sodium Chloride 0.9% 250 ml @ 125 mls/hr IVPB Q12H [facility] Rx#:[id number] Intake, IV Titration 625 50 Amount Cefepime 2 gm In Sodium 100 50 Chloride 0.9% 50 ml @ 100 mls/hr IVPB Q8H [facility] Rx#: [id number] Sodium Chloride 0.9% 1, 525 000 ml @ 75 mls/hr IV . [id number] [facility] Rx#:[id number] Output: Drainage 200 G-tube drainage 200 Other: Voiding Method Toilet Toilet # Voids 4 - Constitutional General appearance: Present: no acute distress, obese - EENT ENT: Present: normal oropharynx - Respiratory Respiratory: bilateral: CTA - Cardiovascular Heart sounds: normal: S1, S2 - Gastrointestinal General gastrointestinal: Present: soft Localized gastrointestinal: tender: diffuse (mild) - Integumentary Integumentary: Present: normal - Neurologic Neurologic: Present: CNII-XII intact - Psychiatric Psychiatric: Present: A&O x's 3, appropriate affect, intact judgment & insight - Labs CBC & Chem 7: 04/03/17 03:25 04/04/17 07:54 Labs: Microbiology - Last 24 Hours (Table) 03/30/17 12:32 Blood Culture - Preliminary Blood No Growth after 120 hours 04/01/17 10:50 Blood Culture - Preliminary Blood No Growth after 72 hours 04/02/17 06:45 Catheter Tip Culture - Final Catheter Tip 04/02/17 06:40 Blood Culture - Preliminary Blood No Growth after 48 hours Assessment and Plan (1) Neutropenic fever Narrative/Plan: Patient received G-CSF, patient now has neutrophilia, this is stabilizing. Pt did have positive blood cultures, ID following. Current Visit: Yes Status: Resolved Code(s): D70.9 - NEUTROPENIA, UNSPECIFIED; R50.81 - FEVER PRESENTING WITH CONDITIONS CLASSIFIED ELSEWHERE SNOMED Code(s): 563328386 (2) Pancytopenia due to antineoplastic chemotherapy Narrative/Plan: Patient has leukocytosis from growth factor, that has been discontinued Anemia mild not requiring intervention Platelets are normal Current Visit: Yes Status: Acute Priority: Medium Code(s): D61.810 - ANTINEOPLASTIC CHEMOTHERAPY INDUCED PANCYTOPENIA; T45.1X5A - ADVERSE EFFECT OF ANTINEOPLASTIC AND IMMUNOSUP DRUGS, INIT SNOMED Code(s): 928583830558808 (3) Abdominal pain Narrative/Plan: Surgery following Current Visit: Yes Status: Acute Priority: High Code(s): R10.9 - UNSPECIFIED ABDOMINAL PAIN SNOMED Code(s): 34240014 (4) Papillary serous adenocarcinoma of ovary Narrative/Plan: Pt will follow up with Primary Oncologist Dr. Smith after D/C for future treatment plans Current Visit: No Status: Chronic Priority: High Code(s): C56.9 - MALIGNANT NEOPLASM OF UNSPECIFIED OVARY SNOMED Code(s): 28874677
[2017-04-04] MEDS: diphenhydrAMINE 25 MG CAP PO SCH (20:38)
[2017-04-04] MEDS: ESCITALOPRAM 20 MG TAB PO SCH (20:38)
[2017-04-04] MEDS: ACETAMINOPHEN TAB 500 MG TAB PO SCH (20:38)
[2017-04-05] MEDS: SODIUM CHLORIDE 0.9% 1,000 ML IV SCH (03:11)
[2017-04-05] MEDS: VANCOMYCIN 1,250 MG in SODIUM CHLORIDE 0.9% 250 ML IVPB SCH (03:11)
--- NOTE | 2017-04-05 04:35 | PN ---
PROGRESS NOTE DATE OF SERVICE: 04/04/2017 REASON FOR FOLLOWUP: Bacteremia secondary to PICC line. INTERVAL HISTORY: The patient is afebrile. She has been breathing comfortably pain. She did mention she had one episode of vomiting this morning. No chest pain, shortness of breath or cough and no worsening abdominal pain or diarrhea. PHYSICAL EXAMINATION: On examination, blood pressure is 122/74 with a pulse of 95, temperature of 98.8. She is 95% on room air. General description is a middle-aged female lying in bed in no distress. RESPIRATORY SYSTEM: Unlabored breathing, clear to auscultation anteriorly. No wheeze or crackle. HEART: S1, S2, regular rate and rhythm. ABDOMEN: Soft, mildly tender. No guarding or rigidity. LABS: Hemoglobin 9.9, white count 23.7 with a BUN of 16, creatinine 0.82. DIAGNOSTIC IMPRESSION AND PLAN: Patient with positive blood culture related to the PICC line that has been discontinued. Repeat blood culture has been negative. Patient at this time on cefepime and vancomycin. The plan will be to get a PICC line tomorrow as the patient is to have it for nutritional support in outpatient setting. If the patient tolerates Cipro that will be the drug of choice for discharge. Otherwise, will need to arrange for the IV for another 7 to 10 days. MMSHAUNNAL / IJN: [id number] /
[2017-04-05] MEDS: CEFEPIME 2 GM in SODIUM CHLORIDE 0.9% 50 ML IVPB SCH (05:47)
[2017-04-05] MEDS: PANTOPRAZOLE 40 MG TABLET PO SCH (08:19)
[2017-04-05] MEDS: ALPRAZolam 0.25 MG TAB PO PRN (08:19)
[2017-04-05] MEDS: ONDANSETRON 4 MG/2 ML VIAL IVP PRN (08:21)
[2017-04-05] MEDS: HYDROmorphone 2 MG TAB PO PRN (08:34)
[2017-04-05 09:12] LABS: Anion Gap 14 mmol/L; Blood Urea Nitrogen 13 mg/dL (7-17); Calcium 8.9 mg/dL (8.4-10.2); Carbon Dioxide 22 mmol/L (22-30); Chloride 104 mmol/L (98-107); Glucose 79 mg/dL (74-99); Magnesium 1.6 mg/dL (1.6-2.3); Potassium 3.6 mmol/L (3.5-5.1); Sodium 140 mmol/L (137-145)
[2017-04-05 09:45] LABS: Anisocytosis Slight; Basophils # (A) 0.1 k/uL (0-0.2); Basophils % (A) 1 %; Eosinophils # (A) 0.2 k/uL (0-0.7); Eosinophils % (A) 3 %; HCT 29.5 % (34.0-46.0); HGB 9.2 gm/dL (11.4-16.0); Hypochromasia Slight; Lymphocytes # (A) 0.9 k/uL (1.0-4.8); Lymphocytes % (A) 9 %; MCH 30.2 pg (25.0-35.0); MCHC 31.3 g/dL (31.0-37.0); MCV 96.4 fL (80.0-100.0); Macrocytosis Slight; Mean Platelet Volume 7.9; Monocytes # (A) 0.9 k/uL (0-1.0); Monocytes % (A) 9 %; Neutrophils # (A) 7.1 k/uL (1.3-7.7); Neutrophils % (A) 75 %; Platelet Count 334 k/uL (150-450); Poikilocytosis Slight; RBC 3.06 m/uL (3.80-5.40); RDW 17.2 % (11.5-15.5); WBC 9.4 k/uL (3.8-10.6)
--- NOTE | 2017-04-05 12:15 | P.PN ---
Subjective Progress Note Date: 04/05/17 Principal diagnosis: Small bowel obstruction Patient says she feels better today. She had a small loose stool. No nausea or vomiting. Pain is unchanged. Objective - Vital Signs Vital signs: Vital Signs Temp 98.1 F 04/05/17 07:00 Pulse 87 04/05/17 07:00 Resp 16 04/05/17 07:00 BP 102/65 04/05/17 07:00 Pulse Ox 96 04/05/17 07:00 Intake & Output 04/04/17 04/05/17 04/05/17 18:59 06:59 18:59 Intake Total 1190 Output Total 200 Balance -200 1190 Weight 81.2 kg Intake: IV 600 Sodium Chloride 0.9% 1, 600 000 ml @ 75 mls/hr IV . [id number] [facility] Rx#:[id number] Intake, IV Titration 350 Amount Cefepime 2 gm In Sodium 100 Chloride 0.9% 50 ml @ 100 mls/hr IVPB Q8H [facility] Rx#: [id number] Vancomycin 1,250 mg In 250 Sodium Chloride 0.9% 250 ml @ 125 mls/hr IVPB Q16H [facility] Rx#:[id number] Oral 240 Output: Drainage 200 G-tube drainage 200 Other: Voiding Method Toilet Toilet Toilet # Voids 4 1 - Exam Abdomen: Soft, minimal distention, mild lower abdominal tenderness, no rebound or guarding, PEG tube intact - Labs CBC & Chem 7: 04/05/17 08:19 04/05/17 08:19 Labs: Abnormal Lab Results - Last 24 Hours (Table) 04/05/17 Range/Units 08:19 RBC 3.06 L (3.80-5.40) m/uL Hgb 9.2 L (11.4-16.0) gm/dL Hct 29.5 L (34.0-46.0) % RDW 17.2 H (11.5-15.5) % Lymphocytes # 0.9 L (1.0-4.8) k/uL Microbiology - Last 24 Hours (Table) 04/02/17 06:40 Blood Culture - Preliminary Blood No Growth after 72 hours 03/30/17 12:32 Blood Culture - Preliminary Blood No Growth after 120 hours 04/01/17 10:50 Blood Culture - Preliminary Blood No Growth after 72 hours 04/02/17 06:45 Catheter Tip Culture - Final Catheter Tip Assessment and Plan (1) Small bowel obstruction Narrative/Plan: Continue TPN with sips. PICC line today. Will follow. Current Visit: No Status: Acute Priority: High Code(s): K56.609 - UNSP INTESTNL OBST, UNSP TO PARTIAL VERSUS COMPLETE OBST SNOMED Code(s): 132612823
[2017-04-05] MEDS: ENOXAPARIN 80 MG/0.8 ML SYRINGE SQ SCH (13:36)
[2017-04-05 13:43] VITALS: PULSE 91
[2017-04-05] MEDS ORDERED: LIDOCAINE 2% INJ 20 MG/ML SQ ONE (13:57)
[2017-04-05] MEDS ORDERED: cefTRIAXone IN SWFI 2,000 MG/20 ML SYRINGE IVP SCH (14:30)
--- NOTE | 2017-04-05 14:58 | IR ---
EXAMINATION TYPE: IR cvc insert >=5 years DATE OF EXAM: 04/05/2017 COMPARISON: NONE CLINICAL HISTORY: Small bowel obstruction Needs long-term intravenous access for total parenteral nut rition. PROCEDURE: After informed consent, the skin overlying the right basilic vein was localized with ultrasound and n oted to be compressible and patent. An ultrasound image was obtained and submitted on the patient's chart. The overlying skin was prepped and draped and Lidocaine was used for local anesthesia. A ski n chet was made with a scalpel. Access was gained to the vein under ultrasound guidance with a 21 ga uge needle and a 0.018 inch wire was advanced. Access site was dilated with Peel-Away sheath and cat heter tailored to the appropriate length and advanced such that the distal tip is at the cavoatrial j unction. Spot image was obtained verifying placement. Catheter was fixed to the skin with suture an d a sterile dressing was placed following hemostasis. Catheter was aspirated and flushed with saline . Patient was discharged in stable condition without complication. Maximal barrier technique is util ized. Ultrasound image is documented on the chart. Ultrasound used with sterile technique. Fluoro time and fluoroscopic images submitted to document procedure: 26 intraoperative images, 1.6 mi nutes fluoroscopy time IMPRESSION: STATUS POST ULTRASOUND AND FLUOROSCOPIC GUIDED PICC LINE PLACEMENT, READY FOR USE. THIS PROCEDURE WAS PERFORMED BY THE UNDERSIGNED.
--- NOTE | 2017-04-05 15:28 | PN ---
PROGRESS NOTE DATE OF SERVICE: 04/05/2017 REASON FOR FOLLOWUP: PICC line infection. INTERVAL HISTORY: The patient is afebrile. She is currently breathing comfortably. Denies having any chest pain. No cough. No nausea, vomiting. No abdominal pain or any diarrhea. PHYSICAL EXAMINATION: Blood pressure 110/58 with a pulse of 91, temperature 98.1. She is 96% on room air. General description is a middle-aged female, lying in bed in no distress. RESPIRATORY SYSTEM: Unlabored breathing, clear to auscultation anteriorly. HEART: S1, S2. Regular rate and rhythm. ABDOMEN: Soft, no tenderness. LABS: Hemoglobin 9.2, white count 9.4 with a BUN of 13, creatinine 0.74. Blood culture repeat has been negative. DIAGNOSTIC IMPRESSION AND PLAN: Patient with a positive blood culture of pseudomonas fluorescens, could be related to the PICC line with the blood culture being negative. Patient needs a PICC line for her chemo as well as nutrition. A PICC line can be placed now as the blood culture repeat has been negative. She will be given oral Cipro for another 10 days to finish a course of therapy for her positive blood culture. Continue supportive care. MMODL / IJN: [id number] /
[2017-04-05 16:44] VITALS: BP 106/67; RESP 16; TEMP 98.7
--- NOTE | 2017-04-05 18:19 | P.DS ---
Providers Date of admission: 03/28/17 22:42 Expected date of discharge: 04/05/17 Attending physician: Valerie Strong Consults: 03/30/17 11:56 Consult Physician Urgent Consulting Provider: Christ Singh Consult Reason/Comments: low white count, cancer, pos blood culture, post chemo Do you want consulting provider notified?: Yes 03/30/17 11:57 Consult Physician Urgent Consulting Provider: Yesenia Ohara Consult Reason/Comments: positive blood culture, post chemotherapy, cancer, low WBC Do you want consulting provider notified?: Yes 04/01/17 10:42 Consult Physician Routine Consulting Provider: Agus Paredes Consult Reason/Comments: Bowel obstruction Do you want consulting provider notified?: Yes Primary care physician: Sylvia [address] Hospital Course: Final Diagnoses: -Bacteremia: Pseudomonas fluorescens and coagulase negative staph. PICC line was removed PICC line tip was sent for cultures-no growth after 48 hours -Ovarian cancer, history of bowel obstructions in the past. -Bowel obstruction: Status post bilious emesis and surgery is following the patient, improving -History of DVTs in the past patient is on Lovenox dose of which will be changed as mentioned in the interval history. -Pancytopenia: Secondary to chemotherapy which is improving at this time. leukocytosis with the WBC secondary to GM-CSF injection and no diarrhea. Hospital course:Patient is a pleasant 63-year-old female with history of ovarian cancer multiple bowel obstructions has TPN from home came in with the fever patient is found to be bacteremic with Pseudomonas fluorescens. CT of the abdomen did not show any significant abnormality. TPN weaned off because of the risks of infection including candidal bacteremia. PICC line discontinued , culture reporting no growth at 48 hours. Maintained on Rocephin and vancomycin. Patient is on an appropriate dose of Lovenox that and patient had multiple DVTs in the past patient need to be an 80 twice a day subcutaneous Lovenox. Patient has a J-tube which is only being utilized for drainage rather and feeding. Evaluated by both surgery and infectious disease. PICC line replaced. Small bowel movements, nausea improving, no emesis. Abdominal pain/ discomfort improving. TPN resumed. Patient will be discharged home once cleared by both infectious disease and surgery. Case management arranging TPN. Patient will be discharged home in a stable condition with guarded prognosis. Physical exam: VSS,GENERAL: The patient is alert and oriented x3, not in any acute distress.CARDIOVASCULAR: S1 and S2 present. No murmurs, rubs, or gallops. PULMONARY: Chest is clear to auscultation, no wheezing or crackles. ABDOMEN: Soft, nontender, nondistended, normoactive bowel sounds. No palpable organomegaly. Gastrostomy tube. No focal deficits. Microbiology 03/30/17 12:32 Blood Blood Culture - Final No Growth after 144 hours 04/01/17 10:50 Blood Blood Culture - Preliminary No Growth after 96 hours 04/02/17 06:40 Blood Blood Culture - Preliminary No Growth after 72 hours 04/02/17 06:45 Catheter Tip Catheter Tip Culture - Final 03/30/17 12:40 Blood Blood Culture Gram Stain - Final 03/30/17 12:40 Blood Blood Culture - Final Pseudomonas fluorescens/putida Coagulase Negative Staph 03/28/17 19:08 Blood Blood Culture Gram Stain - Final 03/28/17 19:08 Blood Blood Culture - Final Pseudomonas fluorescens/putida 03/30/17 12:40 Blood Blood Culture - Final 03/28/17 19:08 Blood Blood Culture - Final The impression and plan of care has been dictated as directed. : I performed a history and examination of this patient, discussed the same with the dictator. I agree with the dictator's note ,documented as a scribe. Any additional findings or plans will be noted. Time taken: Greater than 35 minutes Patient Condition at Discharge: Stable Plan - Discharge Summary Discharge Rx Participant: Yes New Discharge Prescriptions: New cefTRIAXone [Rocephin] 2,000 mg IVP Q24HR #7 ml Enoxaparin [Lovenox] 80 mg SQ BID syringe Continue Escitalopram Oxalate [Lexapro] 20 mg PO HS ALPRAZolam [Xanax] 0.5 mg PO Q6H PRN PRN Reason: Anxiety MORPHINE ORAL NIRMAL CONC 20mg/mL [Roxanol Oral Soln Conc 20MG/ML] 10 - 20 mg PO Q4HR PRN PRN Reason: Pain Pantoprazole Sodium [Protonix] 40 mg PO BID #60 tablet. INSULIN LISPRO (HumaLOG) [humaLOG] See Protocol SQ ACHS HYDROmorphone [Dilaudid] 1 mg PO Q4HR PRN PRN Reason: Pain Naproxen Sodium [Aleve] 440 mg PO DAILY PRN PRN Reason: Pain Acetaminophen/Diphenhydramine [Tylenol PM Extra Strength] 2 tab PO HS Discontinued Enoxaparin [Lovenox] 80 mg SQ HS Discharge Medication List ALPRAZolam [Xanax] 0.5 mg PO Q6H PRN 01/16/14 [History] Escitalopram Oxalate [Lexapro] 20 mg PO HS 01/16/14 [History] MORPHINE ORAL NIRMAL CONC 20mg/mL [Roxanol Oral Soln Conc 20MG/ML] 10 - 20 mg PO Q4HR PRN 01/24/17 [History] Pantoprazole Sodium [Protonix] 40 mg PO BID #60 tablet. 01/31/17 [Rx] INSULIN LISPRO (HumaLOG) [humaLOG] See Protocol SQ ACHS 03/10/17 [History] HYDROmorphone [Dilaudid] 1 mg PO Q4HR PRN 03/16/17 [History] Acetaminophen/Diphenhydramine [Tylenol PM Extra Strength] 2 tab PO HS 03/28/17 [ History] Naproxen Sodium [Aleve] 440 mg PO DAILY PRN 03/28/17 [History] Enoxaparin [Lovenox] 80 mg SQ BID syringe 04/05/17 [Rx] cefTRIAXone [Rocephin] 2,000 mg IVP Q24HR #7 ml 04/05/17 [Rx] Follow up Appointment(s)/Referral(s): Christ Singh MD [STAFF PHYSICIAN] - 1 Week (Patient to call Dr. Singh's office morning to schedule follow up appointment. The office is closed at time of discharge. ) Sylvia Moctezuma MD [Primary Care Provider] - 1-2 days (Patient to call Dr. Moctezuma's office to schedule follow up appointment. The office is closed at time of discharge.) Priscilla Goodman, [REFERRING] - Yesenia Ohara MD [STAFF PHYSICIAN] - 1 Week (Patient to call Dr. Ohara's office to schedule follow up appointment. The office is closed at time of discharge. ) [facility] Visiting Nurse, [NON-STAFF] - Ambulatory/Diagnostic Orders: Complete Blood Count w/diff [LAB.AMB] Time Frame: 3 Days, Location: Determined By Patient Patient Instructions/Handouts: Ceftriaxone (By injection), Acute Abdominal Pain (DC), Neutropenia (DC), Pancytopenia (DC) Activity/Diet/Wound Care/Special Instructions: TPN via PICC
[2017-04-06] MEDS ORDERED: VANCOMYCIN TROUGH DUE 1 EACH MISC MISCELLANE ONE (11:00)
--- NOTE | 2017-04-06 14:40 | CDI ---
Last Revision, February 2017 Documentation Clarification Form Date: 04/06/2017 2:22:00 PM From: Rosario Wu Phone: If you have a question about this query, please contact Marita Clifford , Pbx Manager, Pr[facility] at [phone] between 8am and 5pm. Admit Date: 03/28/2017 10:42:00 PM Patient Name: Ladonna Belle Visit Number: [id number] Discharge Date: 04/05/17 ATTENTION: The Clinical Documentation Specialists (CDI) and [facility] Coding Staff appreciate your assistance in clarifying documentation. Please respond to the clarification below the line at the bottom and electronically sign. The CDI & [facility] Coding staff will review the response and follow-up if needed. Please note: Queries are made part of the Legal Health Record. If you have any questions, please contact the author of this message via ITS. Dr. Jaleel Strong/Diana Cronin Bacteremia documented in the discharge summary. PICC line was removed, tip sent for culture-no growth after 48 hours. Patient history/risk factors: Ovarian cancer w mets to retroperitoneum, PICC line for TPN, neutropenic fever, pancytopenia due to chemotherapy Clinical Indicators: T-101.2, P-114, R-18-22, BP-91/52 WBC: 1.5 Left Shift: 1.1 Blood Culture: Pseudomonas fluorescens PICC line culture: No growth Lactic acid: 0.8 Consult: Infectious Antibiotics: IV Cefepime, IV Vancomycin, IV Rocephin Bacteremia is considered a lab finding. Please clarify if that lab finding is clinical indicator of a more definitive medical diagnosis such as: Sepsis due Pseudomona fluorescens, no PICC line infection PICC line infection with sepsis due to Pseudomona fluoresens PICC line infectoin with bacteremia Infectious Process, please specify: Other, please specify Unable to determine Please continue to document in your progress notes and discharge summary in order to capture severity of illness and risk of mortality. Include clinical findings that support your diagnosis. PICC line infection with sepsis due to Pseudomona fluoresens MTDD
== END 2017-04-05 18:54 | disposition home health service (06) | DRG 314 ==
LOC: EC 17:47 → 4MS4W 22:42 → 6PED 03-29 10:26 → 5MS5E 03-31 20:41 → 5ONC 04-01 18:05
PROVIDERS: ADMIT Internal Medicine; ATTEND Internal Medicine
PROC: 3E0436Z Introduction of Nutritional Substance into Central Vein, Percutaneous Approach (ICD-10-PCS; 2017-03-29)
PROC: 30243N1 Transfusion of Nonautologous Red Blood Cells into Central Vein, Percutaneous Approach (ICD-10-PCS; principal; 2017-03-31)
PROC: 02HV33Z Insertion of Infusion Device into Superior Vena Cava, Percutaneous Approach (ICD-10-PCS; 2017-04-05 13:45)
DX: T80.211A Bloodstream infection due to central venous catheter, initial encounter (principal); D61.810 Antineoplastic chemotherapy induced pancytopenia; K56.609 Unspecified intestinal obstruction, unspecified as to partial versus complete obstruction; R78.81 Bacteremia; D70.9 Neutropenia, unspecified; C78.6 Secondary malignant neoplasm of retroperitoneum and peritoneum; D69.59 Other secondary thrombocytopenia; E44.1 Mild protein-calorie malnutrition; Z66 Do not resuscitate; Z93.1 Gastrostomy status; B96.5 Pseudomonas (aeruginosa) (mallei) (pseudomallei) as the cause of diseases classified elsewhere; R50.81 Fever presenting with conditions classified elsewhere; E78.5 Hyperlipidemia, unspecified; K21.9 Gastro-esophageal reflux disease without esophagitis; F40.240 Claustrophobia; H91.90 Unspecified hearing loss, unspecified ear; F41.0 Panic disorder [episodic paroxysmal anxiety]; F32.9 Major depressive disorder, single episode, unspecified; M79.7 Fibromyalgia; N28.9 Disorder of kidney and ureter, unspecified; M19.91 Primary osteoarthritis, unspecified site; T45.1X5A Adverse effect of antineoplastic and immunosuppressive drugs, initial encounter; Z79.01 Long term (current) use of anticoagulants; Z68.30 Body mass index [BMI] 30.0-30.9, adult; Z79.4 Long term (current) use of insulin; Z79.899 Other long term (current) drug therapy; Z87.891 Personal history of nicotine dependence; Z90.710 Acquired absence of both cervix and uterus; Z85.43 Personal history of malignant neoplasm of ovary; Z87.440 Personal history of urinary (tract) infections; Z90.721 Acquired absence of ovaries, unilateral; Z86.718 Personal history of other venous thrombosis and embolism; Z88.2 Allergy status to sulfonamides; Z88.8 Allergy status to other drugs, medicaments and biological substances; Y84.8 Other medical procedures as the cause of abnormal reaction of the patient, or of later complication, without mention of misadventure at the time of the procedure
CPT/HCPCS: 36415; 36569; 71046; 74177; 76937; 77001; 80048; 80053; 80202; 81001; 82040; 82330; 83605; 83735; 84100; 84478; 84484; 85025; 86850; 86900; 86901; 86920; 87040; 87070; 87077; 87186; 87502; 93005; 96361; 96365; 96367; 96375; 99285

== ENCOUNTER 2017-04-15 19:27 | Inpatient (IN) | payer MEDICARE, OTHER ==
--- NOTE | 2017-04-15 20:12 | ED ---
General Adult HPI - General Source: patient, family, RN notes reviewed Mode of arrival: ambulatory Limitations: no limitations <Sahil Alexander - Last Filed: 04/15/17 20:10> <Robbie Chicas - Last Filed: 04/15/17 23:17> - General Chief complaint: Fever Stated complaint: Fever Time Seen by Provider: 04/15/17 20:00 - History of Present Illness Initial comments: Patient is a pleasant 51-year-old female presenting to the emergency department with fever. Onset of symptoms was possibly a day or 2 ago. Symptoms more pronounced today. Patient has chills and myalgias and fatigue. No cough or chest pain. Patient has some chronic abdominal discomfort which is unchanged. No dysuria or hematuria. Patient is on chemotherapy. Patient does have a history of stage III/4 over area and cancer. Patient did have pseudomonas sepsis from a PICC line just a week ago. Patient did have a line removed and has a new PICC line in place. (Sahil Alexander) - Related Data Home Medications Medication Instructions Recorded Confirmed ALPRAZolam [Xanax] 0.5 mg PO Q6H PRN 01/16/14 04/15/17 Escitalopram Oxalate [Lexapro] 20 mg PO HS 01/16/14 04/15/17 MORPHINE ORAL NIRMAL CONC 20mg/mL 10 - 20 mg PO Q4HR PRN 01/24/17 04/15/17 [Roxanol Oral Soln Conc 20MG/ML] INSULIN LISPRO (HumaLOG) [humaLOG] See Protocol SQ ACHS 03/10/17 04/15/17 HYDROmorphone [Dilaudid] 1 - 2 mg PO Q4HR PRN 03/16/17 04/15/17 Acetaminophen/Diphenhydramine 2 tab PO HS 03/28/17 04/15/17 [Tylenol PM Extra Strength] Naproxen Sodium [Aleve] 440 mg PO DAILY PRN 03/28/17 04/15/17 Enoxaparin [Lovenox] 80 mg SQ DAILY 04/15/17 04/15/17 Previous Rx's Medication Instructions Recorded Pantoprazole Sodium [Protonix] 40 mg PO BID #60 tablet. 01/31/17 Allergies Allergy/AdvReac Type Severity Reaction Status Date / Time duloxetine HCl Allergy Rash/Hives Verified 04/15/17 20:14 [From Cymbalta] Sulfa (Sulfonamide Allergy Rash/Hives Verified 04/15/17 20:14 Antibiotics) carboplatin AdvReac Nausea & Verified 04/15/17 20:14 Vomiting, TEMPORARY HEARING LOSS Review of Systems ROS Other: All systems not noted in ROS Statement are negative. Constitutional: Reports: fever, chills, weakness Eyes: Denies: eye pain ENT: Denies: ear pain Respiratory: Denies: cough, dyspnea Cardiovascular: Denies: chest pain Endocrine: Reports: fatigue Gastrointestinal: Denies: vomiting Genitourinary: Denies: dysuria Musculoskeletal: Denies: back pain Skin: Denies: rash <Sahil Alexander - Last Filed: 04/15/17 20:10> ROS Other: All systems not noted in ROS Statement are negative. <Robbie Chicas - Last Filed: 04/15/17 23:17> ROS Statement: Those systems with pertinent positive or pertinent negative responses have been documented in the HPI. Past Medical History Past Medical History: Cancer, Deep Vein Thrombosis (DVT), Fibromyalgia, GERD/ Reflux, Hearing Disorder / Deafness, Hyperlipidemia, Osteoarthritis (OA) Additional Past Medical History / Comment(s): OVARIAN CA-T3, N0 ,Mx grade 3, 2012; REOCCURING CA W/ CHEMO TREATMENT 03/2016-07/2016.currently recieving chemo( had a tx was 03-02-17) MVP. Diverticulosis. PARTIAL BOWEL OBSTRUCTION D/T CA METS 12/2016. 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 BLOOD PRESSURE TAKEN ON LEGS ONLY. CURRENT UTI, ON RX. TPN History of Any Multi-Drug Resistant Organisms: None Reported Past Surgical History: Hysterectomy Additional Past Surgical History / Comment(s): OOPHERECTOMY/CERVIX/UTERUS/ OMENTUM EXC; Vaginal mesh insertion. RX Port placement, removal; PICC line insertion, removal.picc line rt upper arm, G TUBE 02/02 Past Anesthesia/Blood Transfusion Reactions: Motion Sickness Additional Past Anesthesia/Blood Transfusion Reaction / Comment(s): claustrophobia Past Psychological History: Anxiety, Depression, Panic Disorder Smoking Status: Former smoker Past Alcohol Use History: None Reported Past Drug Use History: None Reported - Past Family History Sister(s) Family Medical History: Blood Disorder Additional Family Medical History / Comment(s): FACTOR 5 BLOOD DISORDER. Father Family Medical History: Hypertension, Prostate Disorder Additional Family Medical History / Comment(s): parkinsons, prostate cancer Mother Family Medical History: Cancer Additional Family Medical History / Comment(s): multiple myeoloma <AlexanderSahil - Last Filed: 04/15/17 20:10> General Exam Limitations: no limitations General appearance: alert, in no apparent distress Head exam: Present: atraumatic Eye exam: Present: normal appearance, PERRL ENT exam: Present: normal oropharynx Neck exam: Present: normal inspection Respiratory exam: Present: normal lung sounds bilaterally Cardiovascular Exam: Present: tachycardia GI/Abdominal exam: Present: soft. Absent: tenderness Extremities exam: Present: normal inspection, other (PICC line right upper extremity with trace localized swelling and tenderness near the insertion site.) Neurological exam: Present: alert Psychiatric exam: Present: normal affect, normal mood Skin exam: Present: normal color <Sahil Alexander - Last Filed: 04/15/17 20:10> Vital Signs 04/15/17 19:46 Temperature 99.5 F Pulse Rate 115 H Respiratory 20 Rate Blood Pressure 127/61 O2 Sat by Pulse 96 Oximetry Medical Decision Making <Sahil Alexander - Last Filed: 04/15/17 20:10> - Lab Data Result diagrams: 04/15/17 20:55 04/15/17 20:55 <Robbie Chicas - Last Filed: 04/15/17 23:17> - Medical Decision Making EKG shows normal sinus rhythm at 80 bpm DC interval is on a 56 QRS is 82 QT interval 376 QTC is 433. Patient's EKG shows no ST segment elevation or depression or T wave abnormalities are noted I spoke with Dr. Singh and he agreed that the patient should be placed on antibiotics. (Robbie Chicas) - Lab Data Lab Results 04/15/17 04/15/17 04/15/17 Range/Units 20:55 20:55 20:55 WBC 5.2 (3.8-10.6) k/uL RBC 3.34 L (3.80-5.40) m/uL Hgb 10.2 L (11.4-16.0) gm/dL Hct 31.9 L (34.0-46.0) % MCV 95.6 (80.0-100.0) fL MCH 30.4 (25.0-35.0) pg MCHC 31.8 (31.0-37.0) g/dL RDW 16.2 H (11.5-15.5) % Plt Count 346 (150-450) k/uL Neutrophils % 77 % Lymphocytes % 15 % Monocytes % 4 % Eosinophils % 2 % Basophils % 1 % Neutrophils # 4.0 (1.3-7.7) k/uL Lymphocytes # 0.8 L (1.0-4.8) k/uL Monocytes # 0.2 (0-1.0) k/uL Eosinophils # 0.1 (0-0.7) k/uL Basophils # 0.0 (0-0.2) k/uL Hypochromasia Slight Anisocytosis Slight PT (9.0-12.0) sec INR (<1.2) APTT (22.0-30.0) sec Sodium 140 (137-145) mmol/L Potassium 4.0 (3.5-5.1) mmol/L Chloride 101 (98-107) mmol/L Carbon Dioxide 30 (22-30) mmol/L Anion Gap 9 mmol/L BUN 14 (7-17) mg/dL Creatinine 0.80 (0.52-1.04) mg/dL Est GFR (MDRD) Af Amer >60 (>60 ml/min/1.73 sqM) Est GFR (MDRD) Non-Af >60 (>60 ml/min/1.73 sqM) Glucose 95 (74-99) mg/dL Plasma Lactic Acid Vern 0.9 (0.7-2.0) mmol/L Calcium 9.5 (8.4-10.2) mg/dL Total Bilirubin 0.9 (0.2-1.3) mg/dL AST 39 H (14-36) U/L ALT 54 H (9-52) U/L Alkaline Phosphatase 131 H (38-126) U/L Total Protein 6.5 (6.3-8.2) g/dL Albumin 3.7 (3.5-5.0) g/dL Urine Color Urine Appearance (Clear) Urine pH (5.0-8.0) Ur Specific Cyril (1.001-1.035) Urine Protein (Negative) Urine Glucose (UA) (Negative) Urine Ketones (Negative) Urine Blood (Negative) Urine Nitrite (Negative) Urine Bilirubin (Negative) Urine Urobilinogen (<2.0) mg/dL Ur Leukocyte Esterase (Negative) Urine RBC (0-5) /hpf Urine WBC (0-5) /hpf Ur Squamous Epith Cells (0-4) /hpf Urine Mucus (None) /hpf Influenza Type A RNA (Not Detectd) Influenza Type B (PCR) (Not Detectd) 04/15/17 04/15/17 04/15/17 Range/Units 20:55 20:55 22:40 WBC (3.8-10.6) k/uL RBC (3.80-5.40) m/uL Hgb (11.4-16.0) gm/dL Hct (34.0-46.0) % MCV (80.0-100.0) fL MCH (25.0-35.0) pg MCHC (31.0-37.0) g/dL RDW (11.5-15.5) % Plt Count (150-450) k/uL Neutrophils % % Lymphocytes % % Monocytes % % Eosinophils % % Basophils % % Neutrophils # (1.3-7.7) k/uL Lymphocytes # (1.0-4.8) k/uL Monocytes # (0-1.0) k/uL Eosinophils # (0-0.7) k/uL Basophils # (0-0.2) k/uL Hypochromasia Anisocytosis PT 10.1 (9.0-12.0) sec INR 1.0 (<1.2) APTT 22.4 (22.0-30.0) sec Sodium (137-145) mmol/L Potassium (3.5-5.1) mmol/L Chloride (98-107) mmol/L Carbon Dioxide (22-30) mmol/L Anion Gap mmol/L BUN (7-17) mg/dL Creatinine (0.52-1.04) mg/dL Est GFR (MDRD) Af Amer (>60 ml/min/1.73 sqM) Est GFR (MDRD) Non-Af (>60 ml/min/1.73 sqM) Glucose (74-99) mg/dL Plasma Lactic Acid Vern (0.7-2.0) mmol/L Calcium (8.4-10.2) mg/dL Total Bilirubin (0.2-1.3) mg/dL AST (14-36) U/L ALT (9-52) U/L Alkaline Phosphatase (38-126) U/L Total Protein (6.3-8.2) g/dL Albumin (3.5-5.0) g/dL Urine Color Yellow Urine Appearance Clear (Clear) Urine pH 6.0 (5.0-8.0) Ur Specific Cyril 1.011 (1.001-1.035) Urine Protein Trace H (Negative) Urine Glucose (UA) Negative (Negative) Urine Ketones Negative (Negative) Urine Blood Negative (Negative) Urine Nitrite Negative (Negative) Urine Bilirubin Negative (Negative) Urine Urobilinogen <2.0 (<2.0) mg/dL Ur Leukocyte Esterase Moderate H (Negative) Urine RBC 2 (0-5) /hpf Urine WBC 5 (0-5) /hpf Ur Squamous Epith Cells 1 (0-4) /hpf Urine Mucus Rare H (None) /hpf Influenza Type A RNA Not Detected (Not Detectd) Influenza Type B (PCR) Not Detected (Not Detectd) Disposition <Sahil Alexander - Last Filed: 04/15/17 20:10> Time of Disposition: 23:17 <Robbie Chicas - Last Filed: 04/15/17 23:17> Clinical Impression: Febrile illness Disposition: ADMITTED IP TO THIS HOSP Referrals: Sylvia Moctezuma MD [Primary Care Provider] - 1-2 days
[2017-04-15] MEDS ORDERED: ACETAMINOPHEN TAB 500 MG TAB PO STA (20:13)
[2017-04-15] MEDS ORDERED: SODIUM CHLORIDE 0.9% 500 ML IV SCH (20:15)
[2017-04-15 21:09] LABS: Anisocytosis Slight; Basophils % (A) 1 %; Eosinophils # (A) 0.1 k/uL (0-0.7); Eosinophils % (A) 2 %; HCT 31.9 % (34.0-46.0); HGB 10.2 gm/dL (11.4-16.0); Hypochromasia Slight; Lymphocytes # (A) 0.8 k/uL (1.0-4.8); Lymphocytes % (A) 15 %; MCH 30.4 pg (25.0-35.0); MCHC 31.8 g/dL (31.0-37.0); MCV 95.6 fL (80.0-100.0); Mean Platelet Volume 7.5; Monocytes # (A) 0.2 k/uL (0-1.0); Monocytes % (A) 4 %; Neutrophils % (A) 77 %; Platelet Count 346 k/uL (150-450); RBC 3.34 m/uL (3.80-5.40); RDW 16.2 % (11.5-15.5); WBC 5.2 k/uL (3.8-10.6)
[2017-04-15 21:18] LABS: Appearance,Urine Clear (Clear); Bilirubin,Urine Negative (Negative); Blood,Urine Negative (Negative); Color,Urine Yellow; Glucose,Urine (UA) Negative (Negative); Ketones,Urine Negative (Negative); Leukocyte Esterase,Urine Moderate (Negative); Mucus,Urine Rare /hpf; Nitrite,Urine Negative (Negative); Protein,Urine Trace (Negative); RBC,Urine 2 /hpf (0-5); Specific Gravity,Urine 1.011 (1.001-1.035); Squamous Epithelial Cell,Urine 1 /hpf (0-4); Urobilinogen,Urine <2.0 mg/dL (<2.0); WBC,Urine 5 /hpf (0-5)
[2017-04-15 21:19] LABS: ALT 54 U/L (9-52); AST 39 U/L (14-36); Albumin 3.7 g/dL (3.5-5.0); Alkaline Phosphatase 131 U/L (38-126); Anion Gap 9 mmol/L; Blood Urea Nitrogen 14 mg/dL (7-17); Calcium 9.5 mg/dL (8.4-10.2); Carbon Dioxide 30 mmol/L (22-30); Chloride 101 mmol/L (98-107); Glucose 95 mg/dL (74-99); Sodium 140 mmol/L (137-145); Total Bilirubin 0.9 mg/dL (0.2-1.3); Total Protein 6.5 g/dL (6.3-8.2)
[2017-04-15 21:20] LABS: Partial Thromboplastin Time 22.4 sec (22.0-30.0); Prothrombin Time 10.1 sec (9.0-12.0)
--- NOTE | 2017-04-15 22:42 | US ---
EXAMINATION TYPE: US venous doppler duplex UE RT DATE OF EXAM: 04/15/2017 COMPARISON: NONE CLINICAL HISTORY: Pain. SIDE PERFORMED: Right Right Arm: Negative for DVT there is flow and augmentation demonstrated in the subclavian axillary ju gular brachial vein of the left arm. There is no evidence of thrombosis. IMPRESSION: Negative exam. No evidence of deep venous thrombosis in the right arm.
--- NOTE | 2017-04-15 22:44 | XR ---
EXAMINATION TYPE: XR chest 2V DATE OF EXAM: 04/15/2017 COMPARISON: 03/28/2017 HISTORY: Fever TECHNIQUE: Frontal and lateral views of the chest are obtained. FINDINGS: Heart and mediastinum are normal. There is slight blunting of left costophrenic angle. The re is right sided central venous catheter with tip in the superior vena cava. There is no sign of a p neumothorax. Lungs are clear of consolidation. IMPRESSION: There is mild pleural reaction at the lateral left lung base that is worse than old exam . Normal heart.
[2017-04-15] MEDS ORDERED: PIPERACILLIN-TAZOBACTAM 3.375 GM in DEXTROSE/WATER 1 50ML.BAG IVPB STA (22:59)
[2017-04-15] MEDS ORDERED: SODIUM CHLORIDE 0.9% 1,000 ML IV ONE (23:17)
[2017-04-16 00:51] VITALS: BMI 27.8
[2017-04-16] MEDS: ALPRAZolam 0.5 MG TAB PO PRN ×3 (01:33→20:59)
[2017-04-16] MEDS: ESCITALOPRAM 20 MG TAB PO SCH ×2 (01:33→20:55)
[2017-04-16 07:26] LABS: Anisocytosis Slight; Basophils % (A) 2 %; Eosinophils # (A) 0.1 k/uL (0-0.7); Eosinophils % (A) 4 %; HCT 30.2 % (34.0-46.0); HGB 9.5 gm/dL (11.4-16.0); Hypochromasia Slight; Lymphocytes # (A) 0.9 k/uL (1.0-4.8); Lymphocytes % (A) 33 %; MCH 30.6 pg (25.0-35.0); MCHC 31.4 g/dL (31.0-37.0); MCV 97.2 fL (80.0-100.0); Macrocytosis Slight; Mean Platelet Volume 7.5; Monocytes # (A) 0.1 k/uL (0-1.0); Monocytes % (A) 3 %; Neutrophils # (A) 1.5 k/uL (1.3-7.7); Neutrophils % (A) 56 %; Platelet Count 320 k/uL (150-450); RBC 3.11 m/uL (3.80-5.40); RDW 16.1 % (11.5-15.5); WBC 2.7 k/uL (3.8-10.6)
[2017-04-16 07:37] LABS: ALT 51 U/L (9-52); AST 39 U/L (14-36); Albumin 3.4 g/dL (3.5-5.0); Alkaline Phosphatase 122 U/L (38-126); Anion Gap 10 mmol/L; Blood Urea Nitrogen 13 mg/dL (7-17); Calcium 9.3 mg/dL (8.4-10.2); Carbon Dioxide 28 mmol/L (22-30); Chloride 103 mmol/L (98-107); Glucose 92 mg/dL (74-99); Potassium 4.3 mmol/L (3.5-5.1); Sodium 141 mmol/L (137-145); Total Bilirubin 1.2 mg/dL (0.2-1.3); Total Protein 6.1 g/dL (6.3-8.2)
[2017-04-16] MEDS ORDERED: PIPERACILLIN-TAZOBACTAM 3.375 GM in DEXTROSE/WATER 1 50ML.BAG IVPB SCH (08:00)
[2017-04-16 08:08] VITALS: RESP 16
[2017-04-16] MEDS: PANTOPRAZOLE 40 MG TABLET PO SCH ×2 (08:31→20:55)
[2017-04-16] MEDS: ENOXAPARIN 80 MG/0.8 ML SYRINGE SQ SCH (08:31)
[2017-04-16] MEDS ORDERED: ALTEPLASE 2 MG VIAL (CATHFLO) IV STA (09:58)
[2017-04-16] MEDS: CEFEPIME 2 GM in SODIUM CHLORIDE 0.9% 50 ML IVPB SCH ×2 (13:27→16:49)
[2017-04-16] MEDS ORDERED: MORPHINE ORAL SOL CONC 20 MG/ML BOTTLE PO PRN (14:40)
[2017-04-16] MEDS ORDERED: TEMAZEPAM 15 MG CAP PO PRN (14:42)
--- NOTE | 2017-04-16 15:21 | HP ---
HISTORY AND PHYSICAL CHIEF COMPLAINTS: Fever. HISTORY OF PRESENT ILLNESS: This 51-year-old woman with past medical history of DVT, fibromyalgia, GERD, history of DJD, hyperlipidemia, hysterectomy, being followed by Dr. Moctezuma, also had stage IV ovarian cancer. The patient had G tube insertion. The patient also had PICC line for TPN purposes. The patient recently was getting chemotherapy. Patient is admitted to [facility] with Pseudomonas sepsis. The blood cultures showed Pseudomonas fluorescens, [place] and coagulase-negative staph. The patient treated with antibiotics. Currently the patient is complaining of fever, rigors, chills and myalgias. The patient came to [facility] and was admitted for further evaluation and treatment. The patient also has abdominal discomfort, which is rather chronic in nature. There is no history of any headache, loss of consciousness, chest pain, hematochezia or melena at this time. PAST MEDICAL HISTORY: Ovarian cancer with mets, history of fibromyalgia, GERD, hyperlipidemia, history of DJD, history of anxiety, depression, panic disorder. MEDICATIONS: Prior to admission include home medications are: 1. Protonix 40 mg p.o. b.i.d. 2. Aleve 440 mg p.o. daily p.r.n. 3. Roxanol 10-20 mg q.4h p.r.n. 4. Lispro protocol. 5. Dilaudid 1 mg p.o. q.4h p.r.n. 6. Lexapro 20 mg q.h.s. 7. Lovenox 80 mg subcu daily. 8. Tylenol PM 2 tablets p.o. q.h.s. 9. Xanax 0.5 q.6h p.r.n. ALLERGIES: CYMBALTA AND SULFA ANTIBIOTICS, CARBOPLATIN. FAMILY HISTORY: Hypertension, prostate disorder, Parkinson's, prostate cancer. SOCIAL HISTORY: Previous history of smoking. No history of current smoking or alcohol intake. REVIEW OF SYSTEMS: ENT: No diminished hearing or diminished vision. CARDIOVASCULAR: No angina. RESPIRATORY: As mentioned earlier. GI: No nausea, vomiting. : No dysuria. NERVOUS SYSTEM: No numbness or tingling. ALLERGY/IMMUNOLOGY: No asthma or hayfever. MUSCULOSKELETAL: As mentioned earlier. HEMATOLOGY/ONCOLOGY: No history of anemia. ENDOCRINE: No history of diabetes or hypothyroidism. CONSTITUTIONAL: As mentioned earlier. DERMATOLOGY: Negative. RHEUMATOLOGY: Negative. PSYCHIATRY: As mentioned earlier. EXAMINATION: Alert and oriented x3. Pulse 88, blood pressure 110/53, respiratory 28, temperature 98.2, pulse ox 97% on room air. HEENT: Conjunctivae normal. NECK: No jugular venous distention. CARDIOVASCULAR: S1, S2 muffled. No S3, no S4. RESPIRATORY: Breath sounds diminished in the bases. A few scattered rhonchi and crackles. ABDOMEN: Soft, obese, nontender. No guarding. No rigidity. No mass palpable. LEGS: Minimal edema. NERVOUS SYSTEM: Higher functions as mentioned. Moves all 4 limbs. No focal motor sensory deficits. LYMPHATICS: No lymphadenopathy in the neck, axillae, groin. SKIN: No ulcer, rash or bleeding. LABS: WBC 2.2, hemoglobin 10.5, albumin 3.4. ASSESSMENT: 1. Fever for evaluation, rule out sepsis. 2. History of recent Pseudomonas fluorescens putida and sepsis. 3. Stage IV ovarian cancer with metastasis as well as peritoneal carcinoma on chemotherapy. 4. Status post G-tube insertion for decompression. 5. History of ovarian cancer with chemotherapy Gemzar. 6. History of DVT. 7. History of fibromyalgia. 8. Hyperlipidemia. 9. History of degenerative joint disease. 10.History of partial small bowel obstruction previously. 11.History of anxiety, depression, panic attacks. 12.Remote history of nicotine dependence. 13.Increased AST ALT, possibly secondary to carcinomatosis. 14.Anemia secondary to malignancy. 15.Leukopenia. RECOMMENDATIONS AND DISCUSSION: This 51-year-old woman who presented with multiple medical problems, we will monitor the patient closely. Continue the current management and symptomatic treatment. Will resume the home medications. DVT prophylaxis. Continue PPI and obtain cultures. Infectious Disease evaluation. Otherwise the patient will be initiated on cefepime. The prognosis guarded because of multiple complex medical issues and further recommendations to follow. MMODL / IJN: [id number] /
[2017-04-16] MEDS: diphenhydrAMINE 25 MG CAP PO SCH (20:55)
[2017-04-16] MEDS: ACETAMINOPHEN TAB 500 MG TAB PO SCH (20:55)
--- NOTE | 2017-04-16 21:27 | P.CONS ---
History of Present Illness - Reason for Consult Consult date: 04/16/17 - Chief Complaint Abdominal pain and fever - History of Present Illness 51-year-old female with a very extensive past medical history regarding her ovarian cancer stage IV. She's had significant difficulties intra -abdominally because of the extensive carcinomatosis of the abdomen. She's had significant involvement of her bowel and has required TPN for nutrition. She was recently hospitalized 04/05/2017 at that time there was evidence of a Pseudomonas fluorescence culture of the blood thought to be related to her PICC line, and constantly the PICC line was removed. Bacteremia cleared another PICC line was placed into the right arm and she was discharged home to continue her TPN. She continues to feel very poorly but then she developed a fever at home and presented back to the emergency center. For the fevers have not been noted but she does not feel well and was admitted for further evaluation given that she recently had chemotherapy and continues to have relative neutropenia. She relates that the right arm is uncomfortable with the PICC line. Although she is not noticing significant swelling, erythema at the site. There is hope that she may be starting to recover some of her gastrointestinal function, potentially will not be TPN dependent lifelong. At this time seems to be feeling slightly better. As noted not having any further fevers. Review of Systems HEENT:Denies headache or acute visual change. Denies sinus or mouth discomforts. Denies neck stiffness or pain. Denies significant oral cavity pain. Denies difficulty on swallowing. Lungs: Denies significant shortness of breath, cough, sputum production, or hemoptysis. Cardiovascular: Denies significant shortness of breath, chest pain, chest wall pain, orthopnea, dyspnea on exertion, syncope Gastrointestinal: Relates abdominal pain is improved over time, denies nausea or emesis at this time. Denies hematemesis melena or hematochezia. Occasional mucoid stool is noted. Musculoskeletal: denies significant myalgias or arthralgias. No new joint swelling. Denies new back pain. Skin: Denies new rash or lesions. No new ulcers or wounds are related.. Neuro: Denies headache or visual change. Denies any new onset weakness or difficulty with ambulation. Denies falls or seizures. Psychiatric: Has chronic anxiety Endocrine: Has profound fatigue and weight loss over time Past Medical History Past Medical History: Cancer, Deep Vein Thrombosis (DVT), Fibromyalgia, GERD/ Reflux, Hearing Disorder / Deafness, Hyperlipidemia, Osteoarthritis (OA) Additional Past Medical History / Comment(s): OVARIAN CA-T3, N0 ,Mx grade 3, 2012; REOCCURING CA W/ CHEMO TREATMENT 03/2016-07/2016.currently recieving chemo( had a tx was 03-02-17) MVP. Diverticulosis. PARTIAL BOWEL OBSTRUCTION D/T CA METS 12/2016. 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 History of Any Multi-Drug Resistant Organisms: None Reported Past Surgical History: Hysterectomy Additional Past Surgical History / Comment(s): OOPHERECTOMY/CERVIX/UTERUS/ OMENTUM EXC; Vaginal mesh insertion. RX Port placement, removal; PICC line insertion, removal.picc line rt upper arm, G TUBE 02/02 Past Anesthesia/Blood Transfusion Reactions: Motion Sickness Additional Past Anesthesia/Blood Transfusion Reaction / Comm: claustrophobia Past Psychological History: Anxiety, Depression, Panic Disorder Additional Psychological History / Comment(s): lives in the family with the and the child. does not work outside of the home. Stopped smoking several years ago no significant alcohol use. No experience or extensive travels. No animals in the home Smoking Status: Former smoker Past Alcohol Use History: None Reported Additional Past Alcohol Use History / Comment(s): Started smoking at age 13, smoked 1 pack per day, quit 2011. past occ alcohol but none now. Past Drug Use History: None Reported Additional Drug Use History / Comment(s): PAST MEDICAL MARIJUANA USE. - Past Family History Sister(s) Family Medical History: Blood Disorder Additional Family Medical History / Comment(s): FACTOR 5 BLOOD DISORDER. Father Family Medical History: Hypertension, Prostate Disorder Additional Family Medical History / Comment(s): parkinsons, prostate cancer Mother Family Medical History: Cancer Additional Family Medical History / Comment(s): multiple myeoloma Medications and Allergies Home Medications and Allergies Comment(s): Current Medications Acetaminophen (Tylenol Tab) 1,000 mg PO HS [place] Alprazolam (Xanax) 0.5 mg PO Q6H PRN PRN Reason: Anxiety Last Admin: 04/16/17 08:34 Dose: 0.5 mg Diphenhydramine HCl (Benadryl) 50 mg PO HS [place] Enoxaparin Sodium (Lovenox) 80 mg SQ DAILY [facility] Last Admin: 04/16/17 08:31 Dose: 80 mg Escitalopram Oxalate (Lexapro) 20 mg PO HS [facility] Last Admin: 04/16/17 01:33 Dose: 20 mg Hydromorphone HCl (Dilaudid) 1 - 2 mg PO Q4HR PRN PRN Reason: MODERATE TO SEVERE PAIN Cefepime HCl 2 gm/ Sodium (Chloride) 50 mls @ 100 mls/hr IVPB Q8HR [facility] Last Admin: 04/16/17 16:49 Dose: Not Given Morphine Sulfate (Roxanol Oral Soln Conc 20mg/Ml) 10 - 20 mg PO Q4HR PRN PRN Reason: Pain Pantoprazole Sodium (Protonix) 40 mg PO AC-BID [facility] Last Admin: 04/16/17 08:31 Dose: 40 mg Temazepam (Restoril) 15 mg PO HS PRN PRN Reason: Insomnia Home Medications Medication Instructions Recorded Confirmed Type ALPRAZolam [Xanax] 0.5 mg PO Q6H PRN 01/16/14 04/15/17 History Escitalopram Oxalate [Lexapro] 20 mg PO HS 01/16/14 04/15/17 History MORPHINE ORAL NIRMAL CONC 20mg/mL 10 - 20 mg PO Q4HR PRN 01/24/17 04/15/17 History [Roxanol Oral Soln Conc 20MG/ML] Pantoprazole Sodium [Protonix] 40 mg PO BID #60 tablet. 01/31/17 04/15/17 Rx INSULIN LISPRO (HumaLOG) [humaLOG] See Protocol SQ ACHS 03/10/17 04/15/17 History HYDROmorphone [Dilaudid] 1 - 2 mg PO Q4HR PRN 03/16/17 04/15/17 History Acetaminophen/Diphenhydramine 2 tab PO HS 03/28/17 04/15/17 History [Tylenol PM Extra Strength] Naproxen Sodium [Aleve] 440 mg PO DAILY PRN 03/28/17 04/15/17 History Enoxaparin [Lovenox] 80 mg SQ DAILY 04/15/17 04/15/17 History Allergies Allergy/AdvReac Type Severity Reaction Status Date / Time duloxetine HCl Allergy Rash/Hives Verified 04/15/17 20:14 [From Cymbalta] Sulfa (Sulfonamide Allergy Rash/Hives Verified 04/15/17 20:14 Antibiotics) carboplatin AdvReac Nausea & Verified 04/15/17 20:14 Vomiting, TEMPORARY HEARING LOSS Physical Exam Vitals: Vital Signs Temp Pulse Pulse Resp BP BP Pulse Ox 04/16/17 16:00 91 16 04/16/17 15:00 98.2 F 91 16 109/58 96 04/16/17 08:00 91 16 04/16/17 07:00 97.8 F 88 16 104/57 97 04/15/17 23:26 98.3 F 88 20 110/56 97 Intake and Output 04/16/17 04/16/17 04/16/17 06:59 14:59 22:59 Intake Total 150 Balance 150 Intake: Intake, IV Titration 150 Amount Sodium Chloride 0.9% 1, 150 000 ml @ 75 mls/hr IV . [id number] Rx#:[id number] Other: Voiding Method Toilet # Voids 3 3 Weight 73.482 kg 51-year-old woman who is modestly comfortable at this time HEENT: Anicteric conjunctiva are pink and moist nasal mucosa grossly intact without significant lesions, there is no thrush. Neck: The neck is supple without significant lymphadenopathy or thyromegaly. Lungs: Good bilateral air entry without significant crackles or wheezing. There is no significant bronchial sounds. There is no egophony or dullness. Heart: Regular rate and rhythm with an audible S1-S2, no S3 no S4. There is no significant murmur click or rub, PMI was nondisplaced. Abdomen: Reveals evidence of prior surgical interventions that are well-healed. Some minimal lower quadrant tenderness is noted. Patient relates is not new. No guarding or rebound. No organomegaly. G-tube without tenderness or erythema at its insertion Extremities: The upper extremities have excellent pulses they are symmetric, no significant petechiae or telangiectasia. No splinter hemorrhages were noted. The lower extremities are free from significant edema. The peripheral pulses were 2+ and symmetric. Neuro: Awake alert oriented to person place and time. There are no acute new gross focal sensory motor deficits. Results CBC & Chem 7: 04/16/17 07:00 04/16/17 07:00 Labs: Abnormal Lab Results - Last 24 Hours (Table) 04/15/17 04/15/17 04/15/17 Range/Units 20:55 20:55 20:55 WBC (3.8-10.6) k/uL RBC 3.34 L (3.80-5.40) m/uL Hgb 10.2 L (11.4-16.0) gm/dL Hct 31.9 L (34.0-46.0) % RDW 16.2 H (11.5-15.5) % Lymphocytes # 0.8 L (1.0-4.8) k/uL AST 39 H (14-36) U/L ALT 54 H (9-52) U/L Alkaline Phosphatase 131 H (38-126) U/L Total Protein (6.3-8.2) g/dL Albumin (3.5-5.0) g/dL Urine Protein Trace H (Negative) Ur Leukocyte Esterase Moderate H (Negative) Urine Mucus Rare H (None) /hpf 04/16/17 04/16/17 Range/Units 07:00 07:00 WBC 2.7 L (3.8-10.6) k/uL RBC 3.11 L (3.80-5.40) m/uL Hgb 9.5 L (11.4-16.0) gm/dL Hct 30.2 L (34.0-46.0) % RDW 16.1 H (11.5-15.5) % Lymphocytes # 0.9 L (1.0-4.8) k/uL AST 39 H (14-36) U/L ALT (9-52) U/L Alkaline Phosphatase (38-126) U/L Total Protein 6.1 L (6.3-8.2) g/dL Albumin 3.4 L (3.5-5.0) g/dL Urine Protein (Negative) Ur Leukocyte Esterase (Negative) Urine Mucus (None) /hpf Microbiology - Last 24 Hours (Table) 04/15/17 20:50 Urine Culture - Preliminary Urine,Voided Laboratory Results WBC 2.7 k/uL (3.8-10.6) L 04/16/17 07:00 RBC 3.11 m/uL (3.80-5.40) L 04/16/17 07:00 Hgb 9.5 gm/dL (11.4-16.0) L 04/16/17 07:00 Hct 30.2 % (34.0-46.0) L 04/16/17 07:00 MCV 97.2 fL (80.0-100.0) 04/16/17 07:00 MCH 30.6 pg (25.0-35.0) 04/16/17 07:00 MCHC 31.4 g/dL (31.0-37.0) 04/16/17 07:00 RDW 16.1 % (11.5-15.5) H 04/16/17 07:00 Plt Count 320 k/uL (150-450) 04/16/17 07:00 Neutrophils % 56 % 04/16/17 07:00 Lymphocytes % 33 % 04/16/17 07:00 Monocytes % 3 % 04/16/17 07:00 Eosinophils % 4 % 04/16/17 07:00 Basophils % 2 % 04/16/17 07:00 Neutrophils # 1.5 k/uL (1.3-7.7) 04/16/17 07:00 Lymphocytes # 0.9 k/uL (1.0-4.8) L 04/16/17 07:00 Monocytes # 0.1 k/uL (0-1.0) 04/16/17 07:00 Eosinophils # 0.1 k/uL (0-0.7) 04/16/17 07:00 Basophils # 0.0 k/uL (0-0.2) 04/16/17 07:00 Hypochromasia Slight 04/16/17 07:00 Anisocytosis Slight 04/16/17 07:00 Macrocytosis Slight 04/16/17 07:00 PT 10.1 sec (9.0-12.0) 04/15/17 20:55 INR 1.0 (<1.2) 04/15/17 20:55 APTT 22.4 sec (22.0-30.0) 04/15/17 20:55 Sodium 141 mmol/L (137-145) 04/16/17 07:00 Potassium 4.3 mmol/L (3.5-5.1) 04/16/17 07:00 Chloride 103 mmol/L (98-107) 04/16/17 07:00 Carbon Dioxide 28 mmol/L (22-30) 04/16/17 07:00 Anion Gap 10 mmol/L 04/16/17 07:00 BUN 13 mg/dL (7-17) 04/16/17 07:00 Creatinine 0.76 mg/dL (0.52-1.04) 04/16/17 07:00 Est GFR (MDRD) Af Amer >60 (>60 ml/min/1.73 sqM) 04/16/17 07:00 Est GFR (MDRD) Non-Af >60 (>60 ml/min/1.73 sqM) 04/16/17 07:00 Glucose 92 mg/dL (74-99) 04/16/17 07:00 Plasma Lactic Acid Vern 0.9 mmol/L (0.7-2.0) 04/15/17 20:55 Calcium 9.3 mg/dL (8.4-10.2) 04/16/17 07:00 Total Bilirubin 1.2 mg/dL (0.2-1.3) 04/16/17 07:00 AST 39 U/L (14-36) H 04/16/17 07:00 ALT 51 U/L (9-52) 04/16/17 07:00 Alkaline Phosphatase 122 U/L (38-126) 04/16/17 07:00 Total Protein 6.1 g/dL (6.3-8.2) L 04/16/17 07:00 Albumin 3.4 g/dL (3.5-5.0) L 04/16/17 07:00 Urine Color Yellow 04/15/17 20:55 Urine Appearance Clear (Clear) 04/15/17 20:55 Urine pH 6.0 (5.0-8.0) 04/15/17 20:55 Ur Specific [place] 1.011 (1.001-1.035) 04/15/17 20:55 Urine Protein Trace (Negative) H 04/15/17 20:55 Urine Glucose (UA) Negative (Negative) 04/15/17 20:55 Urine Ketones Negative (Negative) 04/15/17 20:55 Urine Blood Negative (Negative) 04/15/17 20:55 Urine Nitrite Negative (Negative) 04/15/17 20:55 Urine Bilirubin Negative (Negative) 04/15/17 20:55 Urine Urobilinogen <2.0 mg/dL (<2.0) 04/15/17 20:55 Ur Leukocyte Esterase Moderate (Negative) H 04/15/17 20:55 Urine RBC 2 /hpf (0-5) 04/15/17 20:55 Urine WBC 5 /hpf (0-5) 04/15/17 20:55 Ur Squamous Epith Cells 1 /hpf (0-4) 04/15/17 20:55 Urine Mucus Rare /hpf (None) H 04/15/17 20:55 Influenza Type A RNA Not Detected (Not Detectd) 04/15/17 22:40 Influenza Type B (PCR) Not Detected (Not Detectd) 04/15/17 22:40 Microbiology 04/15/17 20:50 Urine,Voided Urine Culture - Preliminary Laboratory Results WBC 2.7 k/uL (3.8-10.6) L 04/16/17 07:00 RBC 3.11 m/uL (3.80-5.40) L 04/16/17 07:00 Hgb 9.5 gm/dL (11.4-16.0) L 04/16/17 07:00 Hct 30.2 % (34.0-46.0) L 04/16/17 07:00 MCV 97.2 fL (80.0-100.0) 04/16/17 07:00 MCH 30.6 pg (25.0-35.0) 04/16/17 07:00 MCHC 31.4 g/dL (31.0-37.0) 04/16/17 07:00 RDW 16.1 % (11.5-15.5) H 04/16/17 07:00 Plt Count 320 k/uL (150-450) 04/16/17 07:00 Neutrophils % 56 % 04/16/17 07:00 Lymphocytes % 33 % 04/16/17 07:00 Monocytes % 3 % 04/16/17 07:00 Eosinophils % 4 % 04/16/17 07:00 Basophils % 2 % 04/16/17 07:00 Neutrophils # 1.5 k/uL (1.3-7.7) 04/16/17 07:00 Lymphocytes # 0.9 k/uL (1.0-4.8) L 04/16/17 07:00 Monocytes # 0.1 k/uL (0-1.0) 04/16/17 07:00 Eosinophils # 0.1 k/uL (0-0.7) 04/16/17 07:00 Basophils # 0.0 k/uL (0-0.2) 04/16/17 07:00 Hypochromasia Slight 04/16/17 07:00 Anisocytosis Slight 04/16/17 07:00 Macrocytosis Slight 04/16/17 07:00 PT 10.1 sec (9.0-12.0) 04/15/17 20:55 INR 1.0 (<1.2) 04/15/17 20:55 APTT 22.4 sec (22.0-30.0) 04/15/17 20:55 Sodium 141 mmol/L (137-145) 04/16/17 07:00 Potassium 4.3 mmol/L (3.5-5.1) 04/16/17 07:00 Chloride 103 mmol/L (98-107) 04/16/17 07:00 Carbon Dioxide 28 mmol/L (22-30) 04/16/17 07:00 Anion Gap 10 mmol/L 04/16/17 07:00 BUN 13 mg/dL (7-17) 04/16/17 07:00 Creatinine 0.76 mg/dL (0.52-1.04) 04/16/17 07:00 Est GFR (MDRD) Af Amer >60 (>60 ml/min/1.73 sqM) 04/16/17 07:00 Est GFR (MDRD) Non-Af >60 (>60 ml/min/1.73 sqM) 04/16/17 07:00 Glucose 92 mg/dL (74-99) 04/16/17 07:00 Plasma Lactic Acid Vern 0.9 mmol/L (0.7-2.0) 04/15/17 20:55 Calcium 9.3 mg/dL (8.4-10.2) 04/16/17 07:00 Total Bilirubin 1.2 mg/dL (0.2-1.3) 04/16/17 07:00 AST 39 U/L (14-36) H 04/16/17 07:00 ALT 51 U/L (9-52) 04/16/17 07:00 Alkaline Phosphatase 122 U/L (38-126) 04/16/17 07:00 Total Protein 6.1 g/dL (6.3-8.2) L 04/16/17 07:00 Albumin 3.4 g/dL (3.5-5.0) L 04/16/17 07:00 Urine Color Yellow 04/15/17 20:55 Urine Appearance Clear (Clear) 04/15/17 20:55 Urine pH 6.0 (5.0-8.0) 04/15/17 20:55 Ur Specific [place] 1.011 (1.001-1.035) 04/15/17 20:55 Urine Protein Trace (Negative) H 04/15/17 20:55 Urine Glucose (UA) Negative (Negative) 04/15/17 20:55 Urine Ketones Negative (Negative) 04/15/17 20:55 Urine Blood Negative (Negative) 04/15/17 20:55 Urine Nitrite Negative (Negative) 04/15/17 20:55 Urine Bilirubin Negative (Negative) 04/15/17 20:55 Urine Urobilinogen <2.0 mg/dL (<2.0) 04/15/17 20:55 Ur Leukocyte Esterase Moderate (Negative) H 04/15/17 20:55 Urine RBC 2 /hpf (0-5) 04/15/17 20:55 Urine WBC 5 /hpf (0-5) 04/15/17 20:55 Ur Squamous Epith Cells 1 /hpf (0-4) 04/15/17 20:55 Urine Mucus Rare /hpf (None) H 04/15/17 20:55 Influenza Type A RNA Not Detected (Not Detectd) 04/15/17 22:40 Influenza Type B (PCR) Not Detected (Not Detectd) 04/15/17 22:40 Microbiology 04/15/17 20:50 Urine,Voided Urine Culture - Preliminary Assessment and Plan (1) Fever Current Visit: Yes Status: Acute Code(s): R50.9 - FEVER, UNSPECIFIED SNOMED Code(s): 843535294 (2) Metastatic malignant neoplasm to ovary Current Visit: Yes Status: Acute Code(s): C79.60 - SECONDARY MALIGNANT NEOPLASM OF UNSPECIFIED OVARY SNOMED Code(s): 32760408 (3) Pain in right arm Narrative/Plan: 51-year-old female with an extensive past medical history regarding her metastatic ovarian cancer. Has been receiving chemotherapy most recently with Gemzar. Recently hospitalized with difficulty with the right arm PICC. There was evidence of possible culture with Pseudomonas fluorescence and was treated at discharge was ciprofloxacin. The patient had a new PICC line placed and she noticed that it was giving her difficulty. She is having discomfort and she was concerned about some erythema. On exam today there is some discomfort but there is no erythema. Duplex was performed with no evidence of any deep venous thrombosis of the right upper extremity. The patient is afebrile. Cultures are negative so far. Cath will be attempted to ensure that the catheter can be salvaged if there is no evidence of any recurrent bacteremia. With relative neutropenia and concerns to infection antibiotic therapy with cefepime as requested which would have appropriate coverage for the Pseudomonas and less hematological toxicity and Zosyn. It appears TPN is on hold until the status of her IV access is clarified over the next 24 hours. Her ANC is 1.5 and is being followed by oncology. Current Visit: Yes Status: Acute Code(s): M79.601 - PAIN IN RIGHT ARM SNOMED Code(s): 324100696
[2017-04-17] MEDS: CEFEPIME 2 GM in SODIUM CHLORIDE 0.9% 50 ML IVPB SCH ×3 (00:09→16:17)
--- NOTE | 2017-04-17 00:15 | P.CONS ---
History of Present Illness - Reason for Consult Consult date: 04/16/17 - History of Present Illness The patient is a 51-year-old white female, well-known to her service. she was initially diagnosed with papillary serous ovarian cancer, stage IIIc, in 08/16. she was treated with radical surgery and then had 8 cycles of carboplatin and Taxol. She did have catheter related upper extremity thrombus during this time and is treated with about 4 months of anticoagulation. port was removed after completion of chemotherapy. She was initially seen in consult at [facility] in 05/18. 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 She was treated with Xarelto and stopped that in 10/18, with repeat Doppler showing resolution of the clot. she developed progression in 02/18 with CA 125 increasing to 92 and PET scan showing peritoneal carcinomatosis in the abdomen and pelvis, including the surface of the liver. She was treated again with carboplatin and Taxol and completed treatment in 07/20. During this time she developed recurrent PICC line related UE DVT in 04/22. she progressed again in early 12/20 with development of small bowel obstruction and CT scans showing progression in the anterior abdominal wall. CA 125 was again elevated to 92. She was admitted at this time to [facility], under the care of Dr.Rabbie Khan. she improved with conservative management. She was then seen by Dr. Khan here, as she wanted to have treatment locally. She started single agent Gemzar on01/12/17. She s on chronic TPN. After 4 cycles, she was admitted to [facility] on 03/28/17 with febrile neutropenia and sepsis. Blood cultures were +ve for pseudomonas and coag negative staph. She had her PICC replaced with a new line. After completion of antibiotics, she had D 1 of C 5 on 04/13/17. She came into the ER this time with recurrent fever, in the 102 range. Mild redness was noted at the PICC insertion site. She denied any other localizing signs. She was thus admitted for further management, and consult placed. Review of Systems Constitutional: Reports fatigue, Reports fever, Reports weakness Eyes: denies blurred vision, denies pain Ears: deny: decreased hearing, ear discharge, earache, tinnitus Ears, nose, mouth and throat: Denies headache, Denies sore throat Cardiovascular: Reports decreased exercise tolerance Respiratory: Denies cough Gastrointestinal: Reports as per HPI (chronic partial bowel obstruction) Genitourinary: Denies dysuria, Denies hematuria Menstruation: Reports postmenopausal Musculoskeletal: Reports muscle weakness Integumentary: Denies pruritus, Denies rash Neurological: Reports weakness, Denies numbness Psychiatric: Denies anxiety, Denies depression Endocrine: Denies fatigue, Denies weight change Hematologic/Lymphatic: Reports as per HPI Past Medical History Past Medical History: Cancer, Deep Vein Thrombosis (DVT), Fibromyalgia, GERD/ Reflux, Hearing Disorder / Deafness, Hyperlipidemia, Osteoarthritis (OA) Additional Past Medical History / Comment(s): OVARIAN CA-T3, N0 ,Mx grade 3, 2012; REOCCURING CA W/ CHEMO TREATMENT 03/2016-07/2016.currently recieving chemo( had a tx was 03-02-17) MVP. Diverticulosis. PARTIAL BOWEL OBSTRUCTION D/T CA METS 12/2016. 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 History of Any Multi-Drug Resistant Organisms: None Reported Past Surgical History: Hysterectomy Additional Past Surgical History / Comment(s): OOPHERECTOMY/CERVIX/UTERUS/ OMENTUM EXC; Vaginal mesh insertion. RX Port placement, removal; PICC line insertion, removal.picc line rt upper arm, G TUBE 02/02 Past Anesthesia/Blood Transfusion Reactions: Motion Sickness Additional Past Anesthesia/Blood Transfusion Reaction / Comm: claustrophobia Past Psychological History: Anxiety, Depression, Panic Disorder Smoking Status: Former smoker Past Alcohol Use History: None Reported Additional Past Alcohol Use History / Comment(s): Started smoking at age 13, smoked 1 pack per day, quit 2011. past occ alcohol but none now. Past Drug Use History: None Reported Additional Drug Use History / Comment(s): PAST MEDICAL MARIJUANA USE. - Past Family History Sister(s) Family Medical History: Blood Disorder Additional Family Medical History / Comment(s): FACTOR 5 BLOOD DISORDER. Father Family Medical History: Hypertension, Prostate Disorder Additional Family Medical History / Comment(s): parkinsons, prostate cancer Mother Family Medical History: Cancer Additional Family Medical History / Comment(s): multiple myeoloma Medications and Allergies Home Medications Medication Instructions Recorded Confirmed Type ALPRAZolam [Xanax] 0.5 mg PO Q6H PRN 01/16/14 04/15/17 History Escitalopram Oxalate [Lexapro] 20 mg PO HS 01/16/14 04/15/17 History MORPHINE ORAL NIRMAL CONC 20mg/mL 10 - 20 mg PO Q4HR PRN 01/24/17 04/15/17 History [Roxanol Oral Soln Conc 20MG/ML] Pantoprazole Sodium [Protonix] 40 mg PO BID #60 tablet. 01/31/17 04/15/17 Rx INSULIN LISPRO (HumaLOG) [humaLOG] See Protocol SQ ACHS 03/10/17 04/15/17 History HYDROmorphone [Dilaudid] 1 - 2 mg PO Q4HR PRN 03/16/17 04/15/17 History Acetaminophen/Diphenhydramine 2 tab PO HS 03/28/17 04/15/17 History [Tylenol PM Extra Strength] Naproxen Sodium [Aleve] 440 mg PO DAILY PRN 03/28/17 04/15/17 History Enoxaparin [Lovenox] 80 mg SQ DAILY 04/15/17 04/15/17 History Allergies Allergy/AdvReac Type Severity Reaction Status Date / Time duloxetine HCl Allergy Rash/Hives Verified 04/15/17 20:14 [From Cymbalta] Sulfa (Sulfonamide Allergy Rash/Hives Verified 04/15/17 20:14 Antibiotics) carboplatin AdvReac Nausea & Verified 04/15/17 20:14 Vomiting, TEMPORARY HEARING LOSS Physical Exam Vitals: Vital Signs Temp Pulse Pulse Resp BP BP Pulse Ox 04/16/17 16:00 91 16 04/16/17 15:00 98.2 F 91 16 109/58 96 04/16/17 08:00 91 16 04/16/17 07:00 97.8 F 88 16 104/57 97 04/15/17 23:26 98.3 F 88 20 110/56 97 Intake and Output 04/16/17 04/16/17 04/16/17 06:59 14:59 22:59 Intake Total 150 Balance 150 Intake: Intake, IV Titration 150 Amount Sodium Chloride 0.9% 1, 150 000 ml @ 75 mls/hr IV . [id number] ONE Rx#:[id number] Other: Voiding Method Toilet # Voids 3 3 Weight 73.482 kg - Constitutional General appearance: no acute distress - EENT Eyes: EOMI, PERRLA ENT: hearing grossly normal, normal oropharynx - Neck Neck: no lymphadenopathy Thyroid: bilateral: normal size - Respiratory Respiratory: bilateral: CTA - Cardiovascular Rhythm: regular Heart sounds: normal: S1, S2 - Gastrointestinal General gastrointestinal: decreased bowel sounds, soft - Integumentary Integumentary: normal - Neurologic Neurologic: CNII-XII intact - Musculoskeletal Musculoskeletal: generalized weakness, strength equal bilaterally - Psychiatric Psychiatric: A&O x's 3, appropriate affect Results CBC & Chem 7: 04/16/17 07:00 04/16/17 07:00 Labs: Abnormal Lab Results - Last 24 Hours (Table) 04/15/17 04/15/17 04/15/17 Range/Units 20:55 20:55 20:55 WBC (3.8-10.6) k/uL RBC 3.34 L (3.80-5.40) m/uL Hgb 10.2 L (11.4-16.0) gm/dL Hct 31.9 L (34.0-46.0) % RDW 16.2 H (11.5-15.5) % Lymphocytes # 0.8 L (1.0-4.8) k/uL AST 39 H (14-36) U/L ALT 54 H (9-52) U/L Alkaline Phosphatase 131 H (38-126) U/L Total Protein (6.3-8.2) g/dL Albumin (3.5-5.0) g/dL Urine Protein Trace H (Negative) Ur Leukocyte Esterase Moderate H (Negative) Urine Mucus Rare H (None) /hpf 04/16/17 04/16/17 Range/Units 07:00 07:00 WBC 2.7 L (3.8-10.6) k/uL RBC 3.11 L (3.80-5.40) m/uL Hgb 9.5 L (11.4-16.0) gm/dL Hct 30.2 L (34.0-46.0) % RDW 16.1 H (11.5-15.5) % Lymphocytes # 0.9 L (1.0-4.8) k/uL AST 39 H (14-36) U/L ALT (9-52) U/L Alkaline Phosphatase (38-126) U/L Total Protein 6.1 L (6.3-8.2) g/dL Albumin 3.4 L (3.5-5.0) g/dL Urine Protein (Negative) Ur Leukocyte Esterase (Negative) Urine Mucus (None) /hpf Microbiology - Last 24 Hours (Table) 04/15/17 20:50 Urine Culture - Preliminary Urine,Voided Chest x-ray: report reviewed Venous US: report reviewed Assessment and Plan (1) Fever Narrative/Plan: at presentation the patient was not neutropenic. However given her recent admission for bacteremia, as well as the redness and pain around the PICC insertion site it was felt prudent to admit her for IV antibiotics. She is currently on cefepime. Fever pattern has improved. Await culture results. ID following Current Visit: Yes Status: Acute Code(s): R50.9 - FEVER, UNSPECIFIED SNOMED Code(s): 113560298 (2) Small bowel obstruction Narrative/Plan: continue TPN Current Visit: No Status: Acute Priority: High Code(s): K56.609 - UNSP INTESTNL OBST, UNSP TO PARTIAL VERSUS COMPLETE OBST SNOMED Code(s): 813237572 (3) Pancytopenia due to antineoplastic chemotherapy Narrative/Plan: currently. Count is normal. Hemoglobin is stable in a safe range. WBC is starting to drop. the patient is not sure if she has received Neulasta. Currently ANC is greater than 1000. I will check with the office chart, and start Neupogen, if ANC goes down to around 1000 or below, if the patient did not get Neulasta. Current Visit: No Status: Acute Priority: Medium Code(s): D61.810 - ANTINEOPLASTIC CHEMOTHERAPY INDUCED PANCYTOPENIA; T45.1X5A - ADVERSE EFFECT OF ANTINEOPLASTIC AND IMMUNOSUP DRUGS, INIT SNOMED Code(s): 880255660134570
[2017-04-17] MEDS: HYDROmorphone 2 MG TAB PO PRN ×3 (06:31→18:30)
[2017-04-17] MEDS: PANTOPRAZOLE 40 MG TABLET PO SCH ×2 (06:32→16:20)
[2017-04-17 07:16] LABS: Basophils # (A) 0.1 k/uL (0-0.2); Basophils % (A) 2 %; Eosinophils # (A) 0.2 k/uL (0-0.7); Eosinophils % (A) 6 %; HCT 33.7 % (34.0-46.0); HGB 10.2 gm/dL (11.4-16.0); Hypochromasia Marked; Lymphocytes # (A) 0.6 k/uL (1.0-4.8); Lymphocytes % (A) 19 %; MCH 30.4 pg (25.0-35.0); MCHC 30.2 g/dL (31.0-37.0); MCV 100.6 fL (80.0-100.0); Macrocytosis Slight; Mean Platelet Volume 7.4; Monocytes # (A) 0.1 k/uL (0-1.0); Monocytes % (A) 2 %; Neutrophils # (A) 2.1 k/uL (1.3-7.7); Neutrophils % (A) 69 %; Platelet Count 299 k/uL (150-450); RBC 3.35 m/uL (3.80-5.40); RDW 15.8 % (11.5-15.5); WBC 3.1 k/uL (3.8-10.6)
[2017-04-17 07:45] LABS: Anion Gap 10 mmol/L; Blood Urea Nitrogen 12 mg/dL (7-17); Calcium 9.6 mg/dL (8.4-10.2); Carbon Dioxide 27 mmol/L (22-30); Chloride 104 mmol/L (98-107); Glucose 106 mg/dL (74-99); Potassium 4.4 mmol/L (3.5-5.1); Sodium 141 mmol/L (137-145)
[2017-04-17] MEDS: ENOXAPARIN 80 MG/0.8 ML SYRINGE SQ SCH (07:48)
[2017-04-17] MEDS: ALPRAZolam 0.5 MG TAB PO PRN (07:48)
[2017-04-17] MEDS ORDERED: HYDROmorphone 0.5 MG/0.5 ML SYRINGE IVP PRN (11:17)
--- NOTE | 2017-04-17 14:08 | ECHOF ---
Referral Reason:fever MEASUREMENTS -------- HEIGHT: 162.6 cm WEIGHT: 73.5 kg BP: 116/64 RVIDd: 2.7 cm (< 3.3) IVSd: 0.8 cm (0.6 - 1.1) LVIDd: 4.3 cm (3.9 - 5.3) LVPWd: 0.8 cm (0.6 - 1.1) IVSs: 1.2 cm LVIDs: 3.0 cm LVPWs: 1.2 cm LAESV Index (A-L): 13.24 ml/m Ao Diam: 3.3 cm (2.0 - 3.7) AV Cusp: 1.8 cm (1.5 - 2.6) LA Diam: 2.3 cm (2.7 - 3.8) RAP: 5.00 mmHg RVSP: 21.78 mmHg FINDINGS -------- Sinus rhythm. This was a technically adequate study. The left ventricular size is normal. Left ventricular wall thickness is normal. Overall left vent ricular systolic function is normal with, an EF between 55 - 60 %. The right ventricle is normal in size and function. Normal LA size by volume 22+/-6 ml/m2. The right atrium is normal in size. The aortic valve is trileaflet, and appears structurally normal. No aortic stenosis or regurgitation. There is no evidence of aortic regurgitation. There is no evidence of aortic stenosis. The mitral valve leaflets are mildly thickened. Mild mitral regurgitation is present. Mild tricuspid regurgitation present. Right ventricular systolic pressure is normal at < 35 mmHg. There is no evidence of pulmonary hypertension. Trace/mild (physiologic) pulmonic regurgitation. The aortic root size is normal. IVC Not well visulized. There is a trivial pericardial effusion present. CONCLUSIONS -------- 1. Sinus rhythm. 2. This was a technically adequate study. 3. The left ventricular size is normal. 4. Left ventricular wall thickness is normal. 5. Overall left ventricular systolic function is normal with, an EF between 55 - 60 %. 6. Normal LA size by volume 22+/-6 ml/m2. 7. The aortic valve is trileaflet, and appears structurally normal. No aortic stenosis or regurgitati on. 8. The mitral valve leaflets are mildly thickened. 9. Mild mitral regurgitation is present. 10. Mild tricuspid regurgitation present. 11. Right ventricular systolic pressure is normal at < 35 mmHg. 12. Trace/mild (physiologic) pulmonic regurgitation. 13. The aortic root size is normal. 14. IVC Not well visulized. 15. There is a trivial pericardial effusion present. DRESSING ROOM PORTER: Priyank Williamson RDCS
[2017-04-17] MEDS ORDERED: ONDANSETRON 4 MG/2 ML VIAL IVP PRN (14:49)
[2017-04-17 16:06] LABS: Ionized Calcium 5.1 mg/dL (4.5-5.3)
[2017-04-17] MEDS: INSULIN ASPART 100 UNIT/ML 1 ML 10 ML VIAL SQ SCH (16:18)
[2017-04-17] MEDS ORDERED: HYDROmorphone 4 MG/ML 1 ML SYRINGE IVP PRN (18:45)
[2017-04-17] MEDS: ACETAMINOPHEN TAB 500 MG TAB PO SCH (20:58)
[2017-04-17] MEDS: HYDROmorphone 0.5 MG/0.5 ML SYRINGE IVP PRN (20:59)
[2017-04-17] MEDS: ESCITALOPRAM 20 MG TAB PO SCH (20:59)
[2017-04-17] MEDS ORDERED: [UNRECOGNIZED DRUG - REMARK] IV SCH ×3 (21:00)
[2017-04-17] MEDS ORDERED: [UNRECOGNIZED DRUG - REMARK] IV SCH (21:00)
[2017-04-17] MEDS: diphenhydrAMINE 25 MG CAP PO SCH (22:25)
--- NOTE | 2017-04-17 22:30 | PN ---
PROGRESS NOTE DATE OF SERVICE: 04/17/2017. INTERVAL HISTORY: This 51-year-old woman was admitted with fever, was thought to have sepsis at this time. Otherwise the cultures are negative. Patient recently had bacteremia and sepsis. No chest pain. No palpitations. No fever. The patient complaining of abdomen discomfort. EXAM: On exam, alert and oriented x3. blood pressure 130/70, respirations 16, temperature 98.2, pulse ox 98% on room air. Cardiovascular system: S1, S2 muffled. Respiratory: Breath sounds diminished in the bases. No rhonchi. No crackles. Abdomen is soft. Mild diffuse discomfort. No guarding. No rigidity. No mass palpable. Legs: No edema. No swelling. Central nervous system: No focal deficits. LABS: WBC 3.9, hemoglobin 10.2, and platelets is 205. Influenza is negative. 2D echocardiogram shows ejection fraction 50-60%. ASSESSMENT: 1. Fever, possible sepsis. 2. History of recent Pseudomonas fluids and sputum sepsis. 3. Stage IV ovarian cancer with METS as well as peritoneal carcinoma on chemotherapy. 4. Status post G-tube insertion for decompression. 5. Abdominal discomfort. 6. History metastatic ovarian cancer with chemotherapy Gemzar. 7. History of deep vein thrombosis. 8. History of fibromyalgia. 9. History hyperlipidemia. 10.History of degenerative joint disease. 11.History of partial small bowel obstruction previously. 12.History of anxiety, depression, panic attacks. 13.Remote history of nicotine dependence. 14.Increased AST, ALT, possibly secondary to carcinomatosis. 15.Anemia secondary to malignancy. 16.Leukopenia. RECOMMENDATIONS AND DISCUSSION: In this 51-year-old woman who presented with multiple complex medical issues, we will monitor the patient closely. Continue the current medications, management and symptomatic treatment. Otherwise at this time, we will monitor the patient closely. Continue with the current medications. I would also recommend to follow closely with Hematology/Oncology and continue to monitor. Obtain cultures. I would also recommend infectious disease evaluation also. Further recommendations to follow. MMODL / IJN: [id number] /
--- NOTE | 2017-04-17 23:54 | PN ---
PROGRESS NOTE DATE OF SERVICE: 04/17/2017 REASON FOR FOLLOWUP: Fever. INTERVAL HISTORY: The patient is afebrile. She is breathing comfortably. Complaining of slight gastric upset. The patient should have eaten more than she did. Denies having any chest pain or shortness of breath or cough. Did have slight diarrhea. EXAMINATION: Blood pressure is 133/78 with a pulse of 94, temperature of 98.6. She is 96% on room air. General description is a middle-aged female lying in bed in no distress. Respiratory system: Unlabored breathing. Clear to auscultation anteriorly. Heart S1, S2. Regular rate and rhythm. Abdomen soft no tenderness. LABS: Hemoglobin is 10.2, white count 3.1 with a BUN of 12, creatinine 0.75. Blood culture has been negative so far. DIAGNOSTIC IMPRESSION AND PLAN: Patient admitted to the hospital with a fever in a patient who recently had a Pseudomonas grown from MRSA bacteremia thought to be related to the PICC line that has been discontinued. Blood cultures this admission have been negative while the patient also off antibiotic for couple of days now making is to be less likely the source. In view of her abdominal pain and the patient has no new fever or abdomen with persistent may benefit from a repeat CT abdominal and pelvis. Continue Cefepime for now. MMODL / IJN: [id number] / ALINE
[2017-04-18 01:02] LABS: Glucose,Whole Blood 128 mg/dL (75-99)
[2017-04-18] MEDS: INSULIN ASPART 100 UNIT/ML 1 ML 10 ML VIAL SQ SCH ×3 (01:57→14:13)
[2017-04-18] MEDS: CEFEPIME 2 GM in SODIUM CHLORIDE 0.9% 50 ML IVPB SCH ×3 (02:19→15:14)
[2017-04-18] MEDS: HYDROmorphone 0.5 MG/0.5 ML SYRINGE IVP PRN ×4 (02:22→15:09)
[2017-04-18 05:44] LABS: Glucose,Whole Blood 131 mg/dL (75-99)
[2017-04-18 07:52] VITALS: BP 118/67; PULSE 94; TEMP 98.1
[2017-04-18 08:06] LABS: Basophils # (A) 0.1 k/uL (0-0.2); Basophils % (A) 1 %; Eosinophils # (A) 0.1 k/uL (0-0.7); Eosinophils % (A) 2 %; HCT 32.4 % (34.0-46.0); HGB 10.2 gm/dL (11.4-16.0); Hypochromasia Slight; Lymphocytes # (A) 0.6 k/uL (1.0-4.8); Lymphocytes % (A) 13 %; MCH 30.7 pg (25.0-35.0); MCHC 31.6 g/dL (31.0-37.0); MCV 97.3 fL (80.0-100.0); Mean Platelet Volume 7.3; Monocytes # (A) 0.1 k/uL (0-1.0); Monocytes % (A) 2 %; Neutrophils # (A) 3.9 k/uL (1.3-7.7); Neutrophils % (A) 80 %; Platelet Count 301 k/uL (150-450); RBC 3.33 m/uL (3.80-5.40); RDW 15.6 % (11.5-15.5); WBC 4.9 k/uL (3.8-10.6)
[2017-04-18 08:34] LABS: Anion Gap 12 mmol/L; Blood Urea Nitrogen 19 mg/dL (7-17); Calcium 9.4 mg/dL (8.4-10.2); Carbon Dioxide 25 mmol/L (22-30); Chloride 102 mmol/L (98-107); Glucose 141 mg/dL (74-99); Magnesium 2.1 mg/dL (1.6-2.3); Phosphorus 3.9 mg/dL (2.5-4.5); Potassium 4.3 mmol/L (3.5-5.1); Sodium 139 mmol/L (137-145)
[2017-04-18] MEDS: ENOXAPARIN 80 MG/0.8 ML SYRINGE SQ SCH (09:04)
[2017-04-18] MEDS: PANTOPRAZOLE 40 MG TABLET PO SCH ×2 (09:04→15:09)
[2017-04-18] MEDS: ALPRAZolam 0.5 MG TAB PO PRN (09:14)
[2017-04-18 11:17] LABS: Glucose,Whole Blood 105 mg/dL (75-99)
--- NOTE | 2017-04-18 11:24 | CDI ---
Last Revision, February 2017 Documentation Clarification Form Date: 04/21/2017 08:33:00 AM From: Christine EmMILLY, CCDS Admit Date: 04/15/2017 11:17:00 PM Patient Name: Ladonna Belle Visit Number: [id number] Discharge Date: 04/18/2017 ATTENTION: The Clinical Documentation Specialists (CDI) and [facility] Coding Staff appreciate your assistance in clarifying documentation. Please respond to the clarification below the line at the bottom and electronically sign. The CDI & [facility] Coding staff will review the response and follow-up if needed. Please note: Queries are made part of the Legal Health Record. If you have any questions, please contact the author of this message via ITS. Dr. Darby Long: Per the 04/16 Infectious Disease consult: "For the fevers have not been noted but she does not feel well and was admitted for further evaluation given that she recently had chemotherapy and continues to have relative neutropenia." Per the 04/16 Oncology consult: the patient was not neutropenic on presentation. History/Risk Factors: Ovarian CA with metastasis to peritoneal cavity. Recent PICC line infection (pseudomonas sepsis from PICC line a week ago, line was removed & replaced. Clinical Indicators: Presented with fever & neutropenia. WBC: (5.2), 2.7, 3.1. Blood cultures x2 negative. Urine culture negative. Vitals signs on admission: T 99.5, P 115, R 20, BP 127/61, PO 96 ra Treatment: IV fluid, IV Zosyn, IV Cefepime ID Consult, Oncology Consult In your professional opinion, please clarify if these findings signify one of the following conditions, whether the condition is POA, and cause, if known: Sepsis ruled in or ruled out o If ruled in, please specify the type & the cause if known. SIRS, without underlying infectious process Neutropenic Sepsis Severe Sepsis Other, please specify Unable to determine Present on Admission: Yes or No Please continue to document in your progress notes and discharge summary in order to capture severity of illness and risk of mortality. Include clinical findings that support your diagnosis. possible sepsis Unable to determine MTDD
--- NOTE | 2017-04-18 22:10 | PN ---
PROGRESS NOTE DATE OF SERVICE: 04/18/2017 REASON FOR FOLLOWUP: Fever. INTERVAL HISTORY: The patient is afebrile. She was seen on rounds earlier this afternoon. The patient denies having any chest pain or shortness of breath or cough. Abdominal pain has improved. No nausea, vomiting or any diarrhea. EXAMINATION: Blood pressure 118/67 with a pulse of 94, temperature 98.1. She is 95% on room air. General description is a middle-aged female lying in bed in no distress. RESPIRATORY SYSTEM: Unlabored breathing. Clear to auscultation anteriorly. HEART: S1, S2. Regular rate and rhythm. ABDOMEN: Soft. No tenderness. LABS: Hemoglobin 10.2, white count 4.9 with a BUN of 19, creatinine 0.3. Blood culture has been negative. DIAGNOSTIC IMPRESSION AND PLAN: Patient admitted to the hospital with a fever with concern for possible percutaneously inserted central catheter line infection. However, the blood cultures are negative, making this to be unlikely. No further fever and no clinical focus of infection. Antibiotic can be safely discontinued. Patient watched closely off antibiotic therapy and continue supportive care. MMODL / IJN: [id number] /
--- NOTE | 2017-05-05 23:20 | P.DS ---
Providers Date of admission: 04/15/17 23:17 Expected date of discharge: 04/18/17 Attending physician: Darby Long Consults: 04/15/17 23:17 Consult Physician Urgent Consulting Provider: Yesenia Ohara Consult Reason/Comments: Febrile illness, history of PICC line infection Do you want consulting provider notified?: Yes Primary care physician: Sylvia Moctezuma Hospital Course: Discharge diagnosis Fever possible sepsis. Workup negative so far. Off antibiotics. Patient is afebrile now. Recent bacteremia Stage IV ovarian cancer with metastases Status post G-tube insertion for compression History of DVT Fibromyalgia Hyperlipidemia Hospital course Patient is a 51-year-old female was admitted to the hospital with fever and possible sepsis. Patient had recently bacteremia with Pseudomonas and MRSA. Patient is on antibiotics via PICC line. Due to fever and sepsis patient was suspected to have PICC line infection. Patient had repeat cultures blood showed no growth. Patient was complaining of abdominal pain. Abdominal CT was done showed no acute process. Otherwise patient is off antibiotics and cultures have been negative. Patient did improve clinically and patient is being discharged as per ID recommendations. Patient does not need any antibiotics at this time. Discharge physical examination PHYSICAL EXAMINATION: Patient is lying in the bed comfortably, no acute distress, awake alert and oriented.. HEENT: Normocephalic. Neck is supple. Pupils reactive. Nostrils clear. Oral cavity is moist. Ears reveal no drainage. Neck reveals no JVD, carotid bruits, or thyromegaly. CHEST EXAMINATION: Trachea is central. Symmetrical expansion. Lung galvan clear to auscultation and percussion. CARDIAC: Normal S1, S2 with no gallops. No murmurs ABDOMEN: Soft. Bowel sounds normal. No organomegaly. No abdominal bruits. Extremities: reveal no edema. No clubbing or cyanosis Neurologically awake, alert, oriented x3 with well-coordinated movements. No focal deficits noted Skin: No rash or skin lesions. Psychiatric: Coperative. Nonsuicidal Musculoskeletal: No joint swelling or deformity. Normal range of motion. Patient Condition at Discharge: Fair Plan - Discharge Summary New Discharge Prescriptions: Continue Escitalopram Oxalate [Lexapro] 20 mg PO HS ALPRAZolam [Xanax] 0.5 mg PO Q6H PRN PRN Reason: Anxiety MORPHINE ORAL NIRMAL CONC 20mg/mL [Roxanol Oral Soln Conc 20MG/ML] 10 - 20 mg PO Q4HR PRN PRN Reason: Pain Pantoprazole Sodium [Protonix] 40 mg PO BID #60 tablet. INSULIN LISPRO (HumaLOG) [humaLOG] See Protocol SQ ACHS HYDROmorphone [Dilaudid] 1 - 2 mg PO Q4HR PRN PRN Reason: Pain Naproxen Sodium [Aleve] 440 mg PO DAILY PRN PRN Reason: Pain Acetaminophen/Diphenhydramine [Tylenol PM Extra Strength] 2 tab PO HS Enoxaparin [Lovenox] 80 mg SQ DAILY Discharge Medication List ALPRAZolam [Xanax] 0.5 mg PO Q6H PRN 01/16/14 [History] Escitalopram Oxalate [Lexapro] 20 mg PO HS 01/16/14 [History] MORPHINE ORAL NIRMAL CONC 20mg/mL [Roxanol Oral Soln Conc 20MG/ML] 10 - 20 mg PO Q4HR PRN 01/24/17 [History] Pantoprazole Sodium [Protonix] 40 mg PO BID #60 tablet. 01/31/17 [Rx] INSULIN LISPRO (HumaLOG) [humaLOG] See Protocol SQ ACHS 03/10/17 [History] HYDROmorphone [Dilaudid] 1 - 2 mg PO Q4HR PRN 03/16/17 [History] Acetaminophen/Diphenhydramine [Tylenol PM Extra Strength] 2 tab PO HS 03/28/17 [ History] Naproxen Sodium [Aleve] 440 mg PO DAILY PRN 03/28/17 [History] Enoxaparin [Lovenox] 80 mg SQ DAILY 04/15/17 [History] Follow up Appointment(s)/Referral(s): Sylvia Moctezuma MD [Primary Care Provider] - 1-2 days (Patient will follow up with Dr. Moctezuma when needed, per patient. ) [facility] Visiting Nurse, [NON-STAFF] - As Needed Patient Instructions/Handouts: Fever in Adults (GEN), Peripherally Inserted Central Catheters and Midline Catheters (DC), Parenteral Nutrition (DC) Activity/Diet/Wound Care/Special Instructions: continue with gastric tube drain care as prior to admission. continue with TPN as prior to admission. Discharge Disposition: HOME SELF-CARE
== END 2017-04-18 18:15 | disposition home or self-care (01) | DRG 871 ==
LOC: EC 19:27 → 5MS5E 23:17 → 5ONC 04-16 17:10
PROVIDERS: ADMIT Hospitalist; ATTEND Hospitalist
DX: A41.52 Sepsis due to Pseudomonas (principal); D61.810 Antineoplastic chemotherapy induced pancytopenia; C78.6 Secondary malignant neoplasm of retroperitoneum and peritoneum; C56.9 Malignant neoplasm of unspecified ovary; D63.0 Anemia in neoplastic disease; E78.5 Hyperlipidemia, unspecified; B95.62 Methicillin resistant Staphylococcus aureus infection as the cause of diseases classified elsewhere; F40.240 Claustrophobia; F41.0 Panic disorder [episodic paroxysmal anxiety]; H91.90 Unspecified hearing loss, unspecified ear; K21.9 Gastro-esophageal reflux disease without esophagitis; M19.90 Unspecified osteoarthritis, unspecified site; M79.7 Fibromyalgia; T45.1X5A Adverse effect of antineoplastic and immunosuppressive drugs, initial encounter; Z82.0 Family history of epilepsy and other diseases of the nervous system; Z82.49 Family history of ischemic heart disease and other diseases of the circulatory system; Z86.718 Personal history of other venous thrombosis and embolism; Z87.891 Personal history of nicotine dependence; Z90.710 Acquired absence of both cervix and uterus
CPT/HCPCS: 36415; 71046; 80048; 80053; 81001; 82330; 83605; 83735; 84100; 84134; 84478; 85025; 85610; 85730; 87040; 87086; 87502; 93005; 93306; 96365; 96367; 96375; 96413; 99285

== ENCOUNTER 2017-05-17 21:10 | Inpatient (IN) | payer MEDICARE, OTHER ==
[2017-05-17] MEDS ORDERED: SODIUM CHLORIDE 0.9% 1,000 ML IV STA ×2 (21:35)
--- NOTE | 2017-05-17 21:42 | ED ---
Fever HPI - General Chief Complaint: Fever Stated Complaint: Fever Time Seen by Provider: 05/17/17 21:20 Source: patient, RN notes reviewed Mode of arrival: ambulatory Limitations: no limitations - History of Present Illness Initial Comments: This is a 52-year-old female who is being treated currently for ovarian cancer she has of a history of a bowel obstruction she also has a history of a PICC line infection her current right upper extremity PICC lines been in for 4-6 weeks she does receive chemotherapy with the last round 5 days ago she also gets TPN who presents with complaints of fever all day. She also has been tachycardic has had some chills no sweats no cough or phlegm production she complains of some nausea and a headache. She states she has been able drink fluids she does not eat food because it makes her nauseated and she's afraid of another bowel obstruction. MD Complaint: fever - Related Data Home Medications Medication Instructions Recorded Confirmed ALPRAZolam [Xanax] 0.5 mg PO Q6H 01/16/14 05/17/17 Escitalopram Oxalate [Lexapro] 20 mg PO HS 01/16/14 05/17/17 INSULIN LISPRO (HumaLOG) [humaLOG] See Protocol SQ ACHS 03/10/17 05/17/17 Acetaminophen/Diphenhydramine 2 tab PO HS 03/28/17 05/17/17 [Tylenol PM Extra Strength] Naproxen Sodium [Aleve] 440 mg PO DAILY PRN 03/28/17 05/17/17 Enoxaparin [Lovenox] 80 mg SQ DAILY 04/15/17 05/17/17 HYDROmorphone HCL [Dilaudid] 4 mg PO Q4H PRN 05/17/17 05/17/17 diphenhydrAMINE HCL [Benadryl] 50 mg PO HS 05/17/17 05/17/17 Previous Rx's Medication Instructions Recorded Pantoprazole Sodium [Protonix] 40 mg PO BID #60 tablet. 01/31/17 Allergies Allergy/AdvReac Type Severity Reaction Status Date / Time duloxetine HCl Allergy Rash/Hives Verified 05/17/17 21:47 [From Cymbalta] Sulfa (Sulfonamide Allergy Rash/Hives Verified 05/17/17 21:47 Antibiotics) carboplatin AdvReac Nausea & Verified 05/17/17 21:47 Vomiting, TEMPORARY HEARING LOSS Review of Systems ROS Statement: Those systems with pertinent positive or pertinent negative responses have been documented in the HPI. ROS Other: All systems not noted in ROS Statement are negative. Past Medical History Past Medical History: Cancer, Deep Vein Thrombosis (DVT), Fibromyalgia, GERD/ Reflux, Hearing Disorder / Deafness, Hyperlipidemia, Osteoarthritis (OA) Additional Past Medical History / Comment(s): OVARIAN CA-T3C N0 Mx grade 3, 2012 ; REOCCURING CA W/ CHEMO TREATMENT 03/2016-07/2016. MVP. Diverticulosis. PARTIAL BOWEL OBSTRUCTION D/T CA METS 12/2016. 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 BLOOD PRESSURE TAKEN ON LEGS ONLY. CURRENT UTI, ON RX. TPN History of Any Multi-Drug Resistant Organisms: None Reported Past Surgical History: Hysterectomy Additional Past Surgical History / Comment(s): OOPHERECTOMY/CERVIX/UTERUS/ OMENTUM EXC; Vaginal mesh insertion. RX Port placement, removal; PICC line insertion, removal. G TUBE 02/02 Past Anesthesia/Blood Transfusion Reactions: Motion Sickness Additional Past Anesthesia/Blood Transfusion Reaction / Comment(s): claustrophobia Past Psychological History: Anxiety, Depression, Panic Disorder Smoking Status: Former smoker Past Alcohol Use History: None Reported Past Drug Use History: None Reported - Past Family History Sister(s) Family Medical History: Blood Disorder Additional Family Medical History / Comment(s): FACTOR 5 BLOOD DISORDER. Father Family Medical History: Hypertension, Prostate Disorder Additional Family Medical History / Comment(s): parkinsons, prostate cancer Mother Family Medical History: Cancer Additional Family Medical History / Comment(s): multiple myeoloma General Exam - General Exam Comments Initial Comments: This is a well-developed well-nourished awake alert oriented 3 female Limitations: no limitations General appearance: alert, anxious Head exam: Present: atraumatic, normocephalic, normal inspection Eye exam: Present: normal appearance, PERRL, EOMI. Absent: scleral icterus, conjunctival injection, periorbital swelling ENT exam: Present: mucous membranes dry Neck exam: Present: normal inspection. Absent: tenderness, meningismus, lymphadenopathy Respiratory exam: Present: normal lung sounds bilaterally. Absent: respiratory distress, wheezes, rales, rhonchi, stridor Cardiovascular Exam: Present: normal rhythm, tachycardia, normal heart sounds. Absent: systolic murmur, diastolic murmur, rubs, gallop, clicks GI/Abdominal exam: Present: soft, normal bowel sounds, other (Intestinal tube question gastric noted). Absent: distended, tenderness, guarding, rebound, rigid Extremities exam: Present: normal inspection, full ROM, normal capillary refill , other (Medial right upper extremity PICC tube). Absent: tenderness, pedal edema, joint swelling (Mid upper right extremity PICC line no evidence of any drainage or wound infection at this time), calf tenderness Back exam: Present: normal inspection Neurological exam: Present: alert, oriented X3, CN II-XII intact Psychiatric exam: Present: normal affect, normal mood Skin exam: Present: warm, dry, intact, normal color. Absent: rash Course Vital Signs 05/17/17 05/17/17 05/17/17 21:12 21:47 21:53 Temperature 101 F H Pulse Rate 118 H 102 H Pulse Rate [ 108 H Left Pulse Oximetery] Respiratory 18 17 Rate Blood Pressure 120/68 128/58 O2 Sat by Pulse 98 96 Oximetry 05/17/17 05/17/17 22:44 22:56 Temperature 101.2 F H Pulse Rate 101 H Pulse Rate [ Left Pulse Oximetery] Respiratory 18 Rate Blood Pressure 109/56 O2 Sat by Pulse 97 Oximetry Medical Decision Making - Medical Decision Making I did discuss findings with patient family she'll be admitted neutropenia with fever. She will be started on antibiotics with consultation by Dr. Khan - Lab Data Result diagrams: 05/17/17 21:40 05/17/17 21:40 Lab Results 05/17/17 05/17/17 05/17/17 Range/Units 21:40 21:40 21:40 WBC 1.8 L* (3.8-10.6) k/uL RBC 2.99 L (3.80-5.40) m/uL Hgb 9.1 L (11.4-16.0) gm/dL Hct 27.4 L (34.0-46.0) % MCV 91.8 (80.0-100.0) fL MCH 30.4 (25.0-35.0) pg MCHC 33.1 (31.0-37.0) g/dL RDW 15.3 (11.5-15.5) % Plt Count 365 (150-450) k/uL Neutrophils % 69 % Lymphocytes % 23 % Monocytes % 2 % Eosinophils % 1 % Basophils % 1 % Neutrophils # 1.2 L (1.3-7.7) k/uL Lymphocytes # 0.4 L (1.0-4.8) k/uL Monocytes # 0.0 (0-1.0) k/uL Eosinophils # 0.0 (0-0.7) k/uL Basophils # 0.0 (0-0.2) k/uL Manual Slide Review Performed Polychromasia Present PT 10.2 (9.0-12.0) sec INR 1.0 (<1.2) APTT 23.3 (22.0-30.0) sec Sodium (137-145) mmol/L Potassium (3.5-5.1) mmol/L Chloride (98-107) mmol/L Carbon Dioxide (22-30) mmol/L Anion Gap mmol/L BUN (7-17) mg/dL Creatinine (0.52-1.04) mg/dL Est GFR (CKD-EPI)AfAm (>60 ml/min/1.73 sqM) Est GFR (CKD-EPI)NonAf (>60 ml/min/1.73 sqM) Glucose (74-99) mg/dL Plasma Lactic Acid Vern (0.7-2.0) mmol/L Calcium (8.4-10.2) mg/dL Magnesium (1.6-2.3) mg/dL Total Bilirubin (0.2-1.3) mg/dL AST (14-36) U/L ALT (9-52) U/L Alkaline Phosphatase (38-126) U/L Total Creatine Kinase 25 L (30-135) U/L CK-MB (CK-2) <0.2 (0.0-2.4) ng/mL CK-MB (CK-2) Rel Index Troponin I <0.012 (0.000-0.034) ng/mL Total Protein (6.3-8.2) g/dL Albumin (3.5-5.0) g/dL Lipase (23-300) U/L Urine Color Urine Appearance (Clear) Urine pH (5.0-8.0) Ur Specific [place] (1.001-1.035) Urine Protein (Negative) Urine Glucose (UA) (Negative) Urine Ketones (Negative) Urine Blood (Negative) Urine Nitrite (Negative) Urine Bilirubin (Negative) Urine Urobilinogen (<2.0) mg/dL Ur Leukocyte Esterase (Negative) 05/17/17 05/17/17 05/17/17 Range/Units 21:40 21:40 22:15 WBC (3.8-10.6) k/uL RBC (3.80-5.40) m/uL Hgb (11.4-16.0) gm/dL Hct (34.0-46.0) % MCV (80.0-100.0) fL MCH (25.0-35.0) pg MCHC (31.0-37.0) g/dL RDW (11.5-15.5) % Plt Count (150-450) k/uL Neutrophils % % Lymphocytes % % Monocytes % % Eosinophils % % Basophils % % Neutrophils # (1.3-7.7) k/uL Lymphocytes # (1.0-4.8) k/uL Monocytes # (0-1.0) k/uL Eosinophils # (0-0.7) k/uL Basophils # (0-0.2) k/uL Manual Slide Review Polychromasia PT (9.0-12.0) sec INR (<1.2) APTT (22.0-30.0) sec Sodium 134 L (137-145) mmol/L Potassium 3.7 (3.5-5.1) mmol/L Chloride 97 L (98-107) mmol/L Carbon Dioxide 25 (22-30) mmol/L Anion Gap 12 mmol/L BUN 16 (7-17) mg/dL Creatinine 0.70 (0.52-1.04) mg/dL Est GFR (CKD-EPI)AfAm >90 (>60 ml/min/1.73 sqM) Est GFR (CKD-EPI)NonAf >90 (>60 ml/min/1.73 sqM) Glucose 94 (74-99) mg/dL Plasma Lactic Acid Vern 1.2 (0.7-2.0) mmol/L Calcium 9.0 (8.4-10.2) mg/dL Magnesium 1.7 (1.6-2.3) mg/dL Total Bilirubin 0.8 (0.2-1.3) mg/dL AST 80 H (14-36) U/L ALT 99 H (9-52) U/L Alkaline Phosphatase 169 H (38-126) U/L Total Creatine Kinase (30-135) U/L CK-MB (CK-2) (0.0-2.4) ng/mL CK-MB (CK-2) Rel Index Troponin I (0.000-0.034) ng/mL Total Protein 6.8 (6.3-8.2) g/dL Albumin 3.7 (3.5-5.0) g/dL Lipase 232 (23-300) U/L Urine Color Yellow Urine Appearance Clear (Clear) Urine pH 6.0 (5.0-8.0) Ur Specific [place] 1.012 (1.001-1.035) Urine Protein Negative (Negative) Urine Glucose (UA) Negative (Negative) Urine Ketones Negative (Negative) Urine Blood Negative (Negative) Urine Nitrite Negative (Negative) Urine Bilirubin Negative (Negative) Urine Urobilinogen 4.0 (<2.0) mg/dL Ur Leukocyte Esterase Negative (Negative) - EKG Data -: EKG Interpreted by Nh EKG shows normal: sinus rhythm Rate: tachycardia (Sinus tachycardia rate 106 AZ interval 150 QRS duration 82 QT since QTC of 318/[address]-T wave changes.) - Radiology Data Radiology results: report reviewed (I did review the imaging and report no acute findings), image reviewed Disposition Clinical Impression: Neutropenia, Febrile illness, acute, Fever of unknown origin (FUO), Ovarian cancer Disposition: ADMITTED IP TO THIS HOSP Condition: Stable Referrals: Sylvia Moctezuma MD [Primary Care Provider] - 1-2 days
[2017-05-17 21:53] LABS: Basophils % (A) 1 %; Eosinophils % (A) 1 %; HCT 27.4 % (34.0-46.0); HGB 9.1 gm/dL (11.4-16.0); Lymphocytes # (A) 0.4 k/uL (1.0-4.8); Lymphocytes % (A) 23 %; MCH 30.4 pg (25.0-35.0); MCHC 33.1 g/dL (31.0-37.0); MCV 91.8 fL (80.0-100.0); Mean Platelet Volume 7.2; Monocytes % (A) 2 %; Neutrophils # (A) 1.2 k/uL (1.3-7.7); Neutrophils % (A) 69 %; Platelet Count 365 k/uL (150-450); RBC 2.99 m/uL (3.80-5.40); RDW 15.3 % (11.5-15.5)
[2017-05-17 21:55] LABS: WBC 1.8 k/uL (3.8-10.6)
[2017-05-17 21:59] LABS: Partial Thromboplastin Time 23.3 sec (22.0-30.0); Prothrombin Time 10.2 sec (9.0-12.0)
[2017-05-17 22:03] LABS: ALT 99 U/L (9-52); AST 80 U/L (14-36); Albumin 3.7 g/dL (3.5-5.0); Alkaline Phosphatase 169 U/L (38-126); Anion Gap 12 mmol/L; Blood Urea Nitrogen 16 mg/dL (7-17); Carbon Dioxide 25 mmol/L (22-30); Chloride 97 mmol/L (98-107); Glucose 94 mg/dL (74-99); Lipase 232 U/L (23-300); Magnesium 1.7 mg/dL (1.6-2.3); Potassium 3.7 mmol/L (3.5-5.1); Sodium 134 mmol/L (137-145); Total Bilirubin 0.8 mg/dL (0.2-1.3); Total Protein 6.8 g/dL (6.3-8.2)
[2017-05-17 22:09] LABS: Polychromasia Present
[2017-05-17 22:10] LABS: Creatine Kinase 25 U/L (30-135)
--- NOTE | 2017-05-17 22:18 | XR ---
EXAMINATION TYPE: XR chest 2V DATE OF EXAM: 05/17/2017 COMPARISON: 04/15/2017 HISTORY: Cough TECHNIQUE: Frontal and lateral views of the chest are obtained. FINDINGS: Heart and mediastinum are normal. Lungs are clear. Costophrenic angles are clear. There ar e no hilar masses. There is right central venous catheter with tip in the superior vena cava. There a re chest leads. IMPRESSION: No active cardiopulmonary disease. Stable small linear density at the left lung base con sistent with scarring or subsegmental atelectasis.
[2017-05-17 22:22] LABS: Appearance,Urine Clear (Clear); Bilirubin,Urine Negative (Negative); Blood,Urine Negative (Negative); Color,Urine Yellow; Glucose,Urine (UA) Negative (Negative); Ketones,Urine Negative (Negative); Leukocyte Esterase,Urine Negative (Negative); Nitrite,Urine Negative (Negative); Protein,Urine Negative (Negative); Specific Gravity,Urine 1.012 (1.001-1.035)
[2017-05-17 22:22] LABS: Creatine Kinase MB <0.2 ng/mL (0.0-2.4); Troponin I <0.012 ng/mL (0.000-0.034)
[2017-05-17] MEDS ORDERED: CEFEPIME 2 GM in SODIUM CHLORIDE 0.9% 50 ML IVPB STA (22:58)
[2017-05-17] MEDS ORDERED: ACETAMINOPHEN IV (For NPO) 1,000 MG in SALINE 1 100ML.BAG IVPB STA (22:58)
[2017-05-17] MEDS ORDERED: NALOXONE 0.4 MG/ML 1 ML VIAL IV PRN (23:28)
[2017-05-17] MEDS ORDERED: NAPROXEN 250 MG TAB PO PRN (23:31)
[2017-05-17] MEDS ORDERED: diphenhydrAMINE 50 MG CAP PO STA (23:47)
[2017-05-18] MEDS ORDERED: CEFEPIME 2 GM in SODIUM CHLORIDE 0.9% 50 ML IVPB SCH ×2
[2017-05-18] MEDS: HYDROmorphone 4 MG TABLET PO PRN ×5 (01:29→23:54)
[2017-05-18] MEDS: ALPRAZolam 0.5 MG TAB PO SCH ×5 (01:29→22:58)
[2017-05-18] MEDS ORDERED: SODIUM CHLORIDE 0.9% 500 ML IV ONE (02:20)
[2017-05-18] MEDS: ACETAMINOPHEN TAB 325 MG TAB PO PRN ×3 (04:40→17:56)
[2017-05-18 05:59] LABS: Glucose,Whole Blood 156 mg/dL (75-99)
[2017-05-18 07:03] LABS: Glucose,Whole Blood 167 mg/dL (75-99)
[2017-05-18] MEDS: ENOXAPARIN 80 MG/0.8 ML SYRINGE SQ SCH (08:15)
[2017-05-18] MEDS: INSULIN ASPART 100 UNIT/ML 1 ML 10 ML VIAL SQ SCH ×4 (08:15→21:23)
[2017-05-18] MEDS: PANTOPRAZOLE 40 MG TABLET PO SCH ×2 (08:15→21:23)
[2017-05-18] MEDS: CEFEPIME 2 GM in SODIUM CHLORIDE 0.9% 50 ML IVPB SCH ×3 (08:15→23:46)
[2017-05-18] MEDS: ONDANSETRON 4 MG/2 ML VIAL IVP PRN ×3 (10:41→23:54)
[2017-05-18 11:03] LABS: ALT 78 U/L (9-52); AST 58 U/L (14-36); Albumin 3.1 g/dL (3.5-5.0); Alkaline Phosphatase 146 U/L (38-126); Anion Gap 8 mmol/L; Blood Urea Nitrogen 15 mg/dL (7-17); Calcium 8.6 mg/dL (8.4-10.2); Carbon Dioxide 25 mmol/L (22-30); Chloride 102 mmol/L (98-107); Glucose 116 mg/dL (74-99); Magnesium 1.9 mg/dL (1.6-2.3); Phosphorus 3.9 mg/dL (2.5-4.5); Sodium 135 mmol/L (137-145); Total Bilirubin 1.1 mg/dL (0.2-1.3); Total Protein 5.9 g/dL (6.3-8.2); Triglycerides 111 mg/dL (<150)
[2017-05-18 11:09] LABS: Potassium 3.9 mmol/L (3.5-5.1)
[2017-05-18 12:09] LABS: Glucose,Whole Blood 106 mg/dL (75-99)
--- NOTE | 2017-05-18 13:34 | P.CONS ---
History of Present Illness - Reason for Consult Consult date: 05/18/17 neutropenic fever, ovarian malignancy Requesting physician: Mihir Bustos - Chief Complaint fever, chills, V - History of Present Illness Mrs. Belle is a very pleasant female pt of Dr. Khan initially seen in consult 06/03/14, diagnosed with stage IIIC serous papillary ovarian cancer and underwent radical surgery with Dr. Gillespie in [place], treated with 8 cycles of chemotherapy in [place]. She had a Port associated DVT in the LUE that was treated with lovenox for 4 months. 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 She had recurrent LUE DVT in 04/22, which was PICC line related. Her CA125 was 11 in September 2016. BRCA testing was negative. On December she was evaluated by Dr. Rabbi Khan for possible resection but CT AP revealed partial small bowel obstruction and new nodularity in anterior abdominal wall worrisome for new peritoneal disease so, she started single agent gemzar 01/12/17, in anticipation of a possible clinical trial. On Treatment f/u on 03/31/17 revealed stable disease. She was due for cycle 6 day 8 of treatment today. She is on chronic TPN, she has had febrile neutropenia and sepsis from PICC line infection with replacement. Patient came to the hospital with complaints of, fevers vomiting, aches, chills , she has only had small amounts of stool, she vomited last night. No further vomiting, fever pattern has settled down, no cough, dysuria, swelling or bleeding. She is not currently experiencing pain. Review of Systems 10 point review of systems is as stated in HPI Past Medical History Past Medical History: Cancer, Deep Vein Thrombosis (DVT), Fibromyalgia, GERD/ Reflux, Hearing Disorder / Deafness, Hyperlipidemia, Osteoarthritis (OA) Additional Past Medical History / Comment(s): OVARIAN CA-T3C N0 Mx grade 3, 2012 ; REOCCURING CA W/ CHEMO TREATMENT 03/2016-07/2016. MVP. Diverticulosis. PARTIAL BOWEL OBSTRUCTION D/T CA METS 12/2016. 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 BLOOD PRESSURE TAKEN ON LEGS ONLY. CURRENT UTI, ON RX. TPN History of Any Multi-Drug Resistant Organisms: None Reported Past Surgical History: Hysterectomy Additional Past Surgical History / Comment(s): OOPHERECTOMY/CERVIX/UTERUS/ OMENTUM EXC; Vaginal mesh insertion. RX Port placement, removal; PICC line insertion, removal. G TUBE 02/02 Past Anesthesia/Blood Transfusion Reactions: Motion Sickness Additional Past Anesthesia/Blood Transfusion Reaction / Comm: claustrophobia Past Psychological History: Anxiety, Depression, Panic Disorder Additional Psychological History / Comment(s): lives in the family with the and the child. does not work outside of the home. Stopped smoking several years ago no significant alcohol use. No experience or extensive travels. No animals in the home Smoking Status: Former smoker Past Alcohol Use History: None Reported Additional Past Alcohol Use History / Comment(s): started smoking at age 13, smoked 1 pack per day, quit 2011 Past Drug Use History: None Reported Additional Drug Use History / Comment(s): PAST MEDICAL MARIJUANA USE. - Past Family History Sister(s) Family Medical History: Blood Disorder Additional Family Medical History / Comment(s): FACTOR 5 BLOOD DISORDER. Father Family Medical History: Hypertension, Prostate Disorder Additional Family Medical History / Comment(s): parkinsons, prostate cancer Mother Family Medical History: Cancer Additional Family Medical History / Comment(s): multiple myeoloma Medications and Allergies Home Medications Medication Instructions Recorded Confirmed Type ALPRAZolam [Xanax] 0.5 mg PO Q6H 01/16/14 05/17/17 History Escitalopram Oxalate [Lexapro] 20 mg PO HS 01/16/14 05/17/17 History Pantoprazole Sodium [Protonix] 40 mg PO BID #60 tablet. 01/31/17 05/17/17 Rx INSULIN LISPRO (HumaLOG) [humaLOG] See Protocol SQ ACHS 03/10/17 05/17/17 History Acetaminophen/Diphenhydramine 2 tab PO HS 03/28/17 05/17/17 History [Tylenol PM Extra Strength] Naproxen Sodium [Aleve] 440 mg PO DAILY PRN 03/28/17 05/17/17 History Enoxaparin [Lovenox] 80 mg SQ DAILY 04/15/17 05/17/17 History HYDROmorphone HCL [Dilaudid] 4 mg PO Q4H PRN 05/17/17 05/17/17 History diphenhydrAMINE HCL [Benadryl] 50 mg PO HS 05/17/17 05/17/17 History Allergies Allergy/AdvReac Type Severity Reaction Status Date / Time duloxetine HCl Allergy Rash/Hives Verified 05/17/17 21:47 [From Cymbalta] Sulfa (Sulfonamide Allergy Rash/Hives Verified 05/17/17 21:47 Antibiotics) carboplatin AdvReac Nausea & Verified 05/17/17 21:47 Vomiting, TEMPORARY HEARING LOSS Physical Exam Vitals: Vital Signs Temp Pulse Pulse Resp BP BP Pulse Ox 05/18/17 07:00 98.4 F 112 H 16 116/64 94 L 05/18/17 04:53 125/66 05/18/17 02:58 98/61 05/18/17 02:00 108 H 17 05/18/17 00:41 99.9 F H 103 H 17 104/54 94 L 05/17/17 23:45 110 H 18 104/52 94 L 05/17/17 22:56 101.2 F H 05/17/17 22:44 101 H 18 109/56 97 05/17/17 21:53 102 H 17 128/58 96 05/17/17 21:47 108 H 05/17/17 21:12 101 F H 118 H 18 120/68 98 Intake and Output 05/17/17 05/18/17 05/18/17 22:59 06:59 14:59 Output Total 0 Balance 0 Output: Stool 0 Other: Voiding Method Toilet Weight 71.214 kg 71.214 kg 71.214 kg - Constitutional General appearance: cooperative, mild distress, obese - EENT Eyes: anicteric sclerae, EOMI, PERRLA, normal appearance ENT: hearing grossly normal, normal oropharynx - Neck Neck: no lymphadenopathy - Respiratory Respiratory: bilateral: CTA - Cardiovascular Rhythm: regular Heart sounds: normal: S1, S2 Abnormal Heart Sounds: no systolic murmur, no diastolic murmur, no rub, no S3 Gallop, no S4 Gallop, no click, no other leg Peripheral Edema: bilateral: Trace - Gastrointestinal LUQ PEG without redness, swelling, drainage or mass General gastrointestinal: normal bowel sounds, soft, tenderness Localized gastrointestinal: tender: diffuse (mild) - Integumentary Integumentary: pale - Neurologic Neurologic: CNII-XII intact - Musculoskeletal Musculoskeletal: generalized weakness, strength equal bilaterally - Psychiatric Psychiatric: A&O x's 3, appropriate affect, intact judgment & insight Results CBC & Chem 7: 05/17/17 21:40 05/18/17 10:25 Labs: Abnormal Lab Results - Last 24 Hours (Table) 05/17/17 05/17/17 05/17/17 Range/Units 21:40 21:40 21:40 WBC 1.8 L* (3.8-10.6) k/uL RBC 2.99 L (3.80-5.40) m/uL Hgb 9.1 L (11.4-16.0) gm/dL Hct 27.4 L (34.0-46.0) % Neutrophils # 1.2 L (1.3-7.7) k/uL Lymphocytes # 0.4 L (1.0-4.8) k/uL Sodium 134 L (137-145) mmol/L Chloride 97 L (98-107) mmol/L Glucose (74-99) mg/dL POC Glucose (mg/dL) (75-99) mg/dL AST 80 H (14-36) U/L ALT 99 H (9-52) U/L Alkaline Phosphatase 169 H (38-126) U/L Total Creatine Kinase 25 L (30-135) U/L Total Protein (6.3-8.2) g/dL Albumin (3.5-5.0) g/dL 05/18/17 05/18/17 05/18/17 Range/Units 05:58 06:59 10:25 WBC (3.8-10.6) k/uL RBC (3.80-5.40) m/uL Hgb (11.4-16.0) gm/dL Hct (34.0-46.0) % Neutrophils # (1.3-7.7) k/uL Lymphocytes # (1.0-4.8) k/uL Sodium 135 L (137-145) mmol/L Chloride (98-107) mmol/L Glucose 116 H (74-99) mg/dL POC Glucose (mg/dL) 156 H 167 H (75-99) mg/dL AST 58 H (14-36) U/L ALT 78 H (9-52) U/L Alkaline Phosphatase 146 H (38-126) U/L Total Creatine Kinase (30-135) U/L Total Protein 5.9 L (6.3-8.2) g/dL Albumin 3.1 L (3.5-5.0) g/dL 05/18/17 Range/Units 12:07 WBC (3.8-10.6) k/uL RBC (3.80-5.40) m/uL Hgb (11.4-16.0) gm/dL Hct (34.0-46.0) % Neutrophils # (1.3-7.7) k/uL Lymphocytes # (1.0-4.8) k/uL Sodium (137-145) mmol/L Chloride (98-107) mmol/L Glucose (74-99) mg/dL POC Glucose (mg/dL) 106 H (75-99) mg/dL AST (14-36) U/L ALT (9-52) U/L Alkaline Phosphatase (38-126) U/L Total Creatine Kinase (30-135) U/L Total Protein (6.3-8.2) g/dL Albumin (3.5-5.0) g/dL Chest x-ray: report reviewed Assessment and Plan (1) Neutropenic fever Narrative/Plan: Pt is on abx, cultures pending. Agree with abx, daily CBC and monitoring of ANC. Current Visit: Yes Status: Acute Priority: High Code(s): D70.9 - NEUTROPENIA, UNSPECIFIED; R50.81 - FEVER PRESENTING WITH CONDITIONS CLASSIFIED ELSEWHERE SNOMED Code(s): 867880162 (2) Ovarian cancer Narrative/Plan: Pt treatment will be held until her current condition has been resolved Current Visit: No Status: Chronic Priority: Medium Code(s): C56.9 - MALIGNANT NEOPLASM OF UNSPECIFIED OVARY SNOMED Code(s): 933059806
[2017-05-18] MEDS ORDERED: CALCIUM CARBONATE 500 MG CHEWABLE PO PRN (15:30)
--- NOTE | 2017-05-18 16:15 | CDI ---
Last Revision, February 2017 Documentation Clarification Form Date: 05/18/17 From: Miranda Mahmood RN, CCDS Admit Date: 05/17/2017 11:28:00 PM Patient Name: Ladonna Belle Visit Number: [id number] Discharge Date: ATTENTION: The Clinical Documentation Specialists (CDI) and [facility] Coding Staff appreciate your assistance in clarifying documentation. Please respond to the clarification below the line at the bottom and electronically sign. The CDI & [facility] Coding staff will review the response and follow-up if needed. Please note: Queries are made part of the Legal Health Record. If you have any questions, please contact the author of this message via ITS. Dr. Christ Singh/Nini CUELLAR Neutropenic Fever is documented in your consult on 05/18/17 History/Risk Factors: Stage IIIC serous papillary ovarian cancer. LUE DVT, Clinical Indicators: Complaints of, fevers, vomiting, aches, and chills. X-ray: No active cardiopulmonary disease Labs/Microbiology reports: WBC 1.8; Lactic acid 1.2 Temperature: TMax 101.2 Vitals on admission: 120/68 118 18 101 Treatment: Cefepime IV Monitor Labs IV Fluids Tylenol PO PRN In order to accurately reflect the patients severity of condition; please indicate the cause of this patients symptom of fever, if known. Neutropenic Fever secondary to / due to (please specify) Fever of unknown origin Other, please specify Unable to determine Please continue to document in your progress notes and discharge summary in order to capture severity of illness and risk of mortality. Include clinical findings that support your diagnosis. MTDD
[2017-05-18 17:04] LABS: Glucose,Whole Blood 96 mg/dL (75-99)
[2017-05-18 20:38] LABS: Glucose,Whole Blood 134 mg/dL (75-99)
[2017-05-18] MEDS ORDERED: DIPHENHYDRAMINE HCL 50 MG PO SCH (21:00)
[2017-05-18] MEDS: ESCITALOPRAM 20 MG TAB PO SCH (21:23)
[2017-05-18] MEDS: ACETAMINOPHEN TAB 500 MG TAB PO PRN (21:33)
[2017-05-18] MEDS: IBUPROFEN 600 MG TAB PO PRN (23:44)
--- NOTE | 2017-05-18 23:44 | P.HPIM ---
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 Patient also having chills. No cough or sputum production. No sweating. Patient does have nausea. No vomiting or abdominal pain no diarrhea. She states she has been able drink fluids she does not eat food because it makes her nauseated and she's afraid of another bowel obstruction. Denied any complaints of pain. Patient had Pseudomonas bacteremia sometime in March 2017 and was treated with IV cefepime.. Patient is currently having PICC line for chemotherapy. Review of Systems Constitutional: Patient does have fever and chills . No generalized weakness or weight loss. Abdomen: Patient does have nausea. No vomiting. No abdominal pain no diarrhea Cardiovascular: Patient denies any chest pain or short of breath no palpitations. Respiratory: patient denied any cough is from production. No shortness of breath Neurologic: Patient denied any numbness or tingling headache. Musculoskeletal: Patient denies any complaints of joint swelling or deformity. Skin: Negative Psychiatric: Negative Endocrine: No heat or cold intolerance. No recent weight gain. Genitourinary: No dysuria or hematuria. All other 14 point ROS negative except the above Past Medical History Past Medical History: Cancer, Deep Vein Thrombosis (DVT), Fibromyalgia, GERD/ Reflux, Hearing Disorder / Deafness, Hyperlipidemia, Osteoarthritis (OA) Additional Past Medical History / Comment(s): OVARIAN CA-T3C N0 Mx grade 3, 2012 ; REOCCURING CA W/ CHEMO TREATMENT 03/2016-07/2016. MVP. Diverticulosis. PARTIAL BOWEL OBSTRUCTION D/T CA METS 12/2016. 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 BLOOD PRESSURE TAKEN ON LEGS ONLY. CURRENT UTI, ON RX. TPN History of Any Multi-Drug Resistant Organisms: None Reported Past Surgical History: Hysterectomy Additional Past Surgical History / Comment(s): OOPHERECTOMY/CERVIX/UTERUS/ OMENTUM EXC; Vaginal mesh insertion. RX Port placement, removal; PICC line insertion, removal. G TUBE 02/02 Past Anesthesia/Blood Transfusion Reactions: Motion Sickness Additional Past Anesthesia/Blood Transfusion Reaction / Comment(s): claustrophobia Past Psychological History: Anxiety, Depression, Panic Disorder Additional Psychological History / Comment(s): lives in the family with the and the child. does not work outside of the home. Stopped smoking several years ago no significant alcohol use. No experience or extensive travels. No animals in the home Smoking Status: Former smoker Past Alcohol Use History: None Reported Additional Past Alcohol Use History / Comment(s): started smoking at age 13, smoked 1 pack per day, quit 2011 Past Drug Use History: None Reported Additional Drug Use History / Comment(s): PAST MEDICAL MARIJUANA USE. - Past Family History Sister(s) Family Medical History: Blood Disorder Additional Family Medical History / Comment(s): FACTOR 5 BLOOD DISORDER. Father Family Medical History: Hypertension, Prostate Disorder Additional Family Medical History / Comment(s): parkinsons, prostate cancer Mother Family Medical History: Cancer Additional Family Medical History / Comment(s): multiple myeoloma Medications and Allergies Home Medications Medication Instructions Recorded Confirmed Type ALPRAZolam [Xanax] 0.5 mg PO Q6H 01/16/14 05/17/17 History Escitalopram Oxalate [Lexapro] 20 mg PO HS 01/16/14 05/17/17 History Pantoprazole Sodium [Protonix] 40 mg PO BID #60 tablet. 01/31/17 05/17/17 Rx INSULIN LISPRO (HumaLOG) [humaLOG] See Protocol SQ ACHS 03/10/17 05/17/17 History Acetaminophen/Diphenhydramine 2 tab PO HS 03/28/17 05/17/17 History [Tylenol PM Extra Strength] Naproxen Sodium [Aleve] 440 mg PO DAILY PRN 03/28/17 05/17/17 History Enoxaparin [Lovenox] 80 mg SQ DAILY 04/15/17 05/17/17 History HYDROmorphone HCL [Dilaudid] 4 mg PO Q4H PRN 05/17/17 05/17/17 History diphenhydrAMINE HCL [Benadryl] 50 mg PO HS 05/17/17 05/17/17 History Allergies Allergy/AdvReac Type Severity Reaction Status Date / Time duloxetine HCl Allergy Rash/Hives Verified 05/17/17 21:47 [From Cymbalta] Sulfa (Sulfonamide Allergy Rash/Hives Verified 05/17/17 21:47 Antibiotics) carboplatin AdvReac Nausea & Verified 05/17/17 21:47 Vomiting, TEMPORARY HEARING LOSS Physical Exam Vitals: Vital Signs Temp Pulse Pulse Resp BP BP Pulse Ox 05/18/17 07:00 98.4 F 112 H 16 116/64 94 L 05/18/17 04:53 125/66 05/18/17 02:58 98/61 05/18/17 02:00 108 H 17 05/18/17 00:41 99.9 F H 103 H 17 104/54 94 L 05/17/17 23:45 110 H 18 104/52 94 L 05/17/17 22:56 101.2 F H 05/17/17 22:44 101 H 18 109/56 97 05/17/17 21:53 102 H 17 128/58 96 05/17/17 21:47 108 H 05/17/17 21:12 101 F H 118 H 18 120/68 98 Intake and Output 05/17/17 05/18/17 05/18/17 22:59 06:59 14:59 Output Total 0 Balance 0 Output: Stool 0 Other: Voiding Method Toilet Weight 71.214 kg 71.214 kg 71.214 kg PHYSICAL EXAMINATION: Patient is lying in the bed comfortably, no acute distress, awake alert and oriented.. HEENT: Normocephalic. Neck is supple. Pupils reactive. Nostrils clear. Oral cavity is moist. Ears reveal no drainage. Neck reveals no JVD, carotid bruits, or thyromegaly. CHEST EXAMINATION: Trachea is central. Symmetrical expansion. Lung galvan clear to auscultation and percussion. CARDIAC: Normal S1, S2 with no gallops. No murmurs ABDOMEN: Soft. Bowel sounds normal. No organomegaly. No abdominal bruits. Extremities: reveal no edema. No clubbing or cyanosis. Right upper extremity PICC line. No signs of infection surrounding line. Neurologically awake, alert, oriented x3 with well-coordinated movements. No focal deficits noted Skin: No rash or skin lesions. Psychiatric: Coperative. Nonsuicidal Musculoskeletal: No joint swelling or deformity. Normal range of motion. Results CBC & Chem 7: 05/17/17 21:40 05/18/17 10:25 Labs: Abnormal Lab Results - Last 24 Hours (Table) 05/17/17 05/17/17 05/17/17 Range/Units 21:40 21:40 21:40 WBC 1.8 L* (3.8-10.6) k/uL RBC 2.99 L (3.80-5.40) m/uL Hgb 9.1 L (11.4-16.0) gm/dL Hct 27.4 L (34.0-46.0) % Neutrophils # 1.2 L (1.3-7.7) k/uL Lymphocytes # 0.4 L (1.0-4.8) k/uL Sodium 134 L (137-145) mmol/L Chloride 97 L (98-107) mmol/L Glucose (74-99) mg/dL POC Glucose (mg/dL) (75-99) mg/dL AST 80 H (14-36) U/L ALT 99 H (9-52) U/L Alkaline Phosphatase 169 H (38-126) U/L Total Creatine Kinase 25 L (30-135) U/L Total Protein (6.3-8.2) g/dL Albumin (3.5-5.0) g/dL 05/18/17 05/18/17 05/18/17 Range/Units 05:58 06:59 10:25 WBC (3.8-10.6) k/uL RBC (3.80-5.40) m/uL Hgb (11.4-16.0) gm/dL Hct (34.0-46.0) % Neutrophils # (1.3-7.7) k/uL Lymphocytes # (1.0-4.8) k/uL Sodium 135 L (137-145) mmol/L Chloride (98-107) mmol/L Glucose 116 H (74-99) mg/dL POC Glucose (mg/dL) 156 H 167 H (75-99) mg/dL AST 58 H (14-36) U/L ALT 78 H (9-52) U/L Alkaline Phosphatase 146 H (38-126) U/L Total Creatine Kinase (30-135) U/L Total Protein 5.9 L (6.3-8.2) g/dL Albumin 3.1 L (3.5-5.0) g/dL 05/18/17 Range/Units 12:07 WBC (3.8-10.6) k/uL RBC (3.80-5.40) m/uL Hgb (11.4-16.0) gm/dL Hct (34.0-46.0) % Neutrophils # (1.3-7.7) k/uL Lymphocytes # (1.0-4.8) k/uL Sodium (137-145) mmol/L Chloride (98-107) mmol/L Glucose (74-99) mg/dL POC Glucose (mg/dL) 106 H (75-99) mg/dL AST (14-36) U/L ALT (9-52) U/L Alkaline Phosphatase (38-126) U/L Total Creatine Kinase (30-135) U/L Total Protein (6.3-8.2) g/dL Albumin (3.5-5.0) g/dL Thrombosis Risk Factor Assmnt - DVT/VTE Prophylaxis DVT/VTE Prophylaxis: Pharmacologic Prophylaxis ordered Assessment and Plan Assessment: Acute neutropenic fever Neutropenia and anemia/bicytopenia likely due to chemotherapy Hypovolemic hyponatremia Ovarian cancer stage IIIc. Patient underwent last dose of chemotherapy 5 days ago History of Pseudomonas bacteremia and possible line infection in March 2017 Fibromyalgia GERD Hearing disorder/Deafness Hyperlipidemia next and osteoarthritis History of diverticulosis History of small bowel obstruction due to peritoneal carcinomatosis History of DVT in the upper extremity suspected line related Previous history of smoking Anxiety depression and panic disorder DVT prophylaxis. Currently already on full dose anticoagulation. Patient will be continued on antibiotics in the form of cefepime and IV fluids. ID will be consulted. Follow-up culture reports. Oncology is following. Continue with home medications and further recommendations based on the clinical course. Prognosis is guarded with multiple medical problems and comorbid conditions. Time with Patient: Greater than 30
[2017-05-18] MEDS: SODIUM CHLORIDE 0.9% 1,000 ML IV SCH (23:49)
[2017-05-19] MEDS ORDERED: FLUCONAZOLE IN NACL,ISO-OSM 100 MG in SALINE 1 50ML.BAG IVPB SCH (02:00)
[2017-05-19 07:52] LABS: Basophils % (A) 0 %; Eosinophils # (A) 0.1 k/uL (0-0.7); Eosinophils % (A) 1 %; HGB 7.7 gm/dL (11.4-16.0); Lymphocytes # (A) 0.4 k/uL (1.0-4.8); Lymphocytes % (A) 6 %; MCH 31.1 pg (25.0-35.0); MCHC 34.8 g/dL (31.0-37.0); MCV 89.3 fL (80.0-100.0); Monocytes # (A) 0.2 k/uL (0-1.0); Monocytes % (A) 4 %; Neutrophils # (A) 5.9 k/uL (1.3-7.7); Neutrophils % (A) 88 %; Poikilocytosis Slight; RBC 2.47 m/uL (3.80-5.40); RDW 15.6 % (11.5-15.5); WBC 6.7 k/uL (3.8-10.6)
[2017-05-19] MEDS: ALPRAZolam 0.5 MG TAB PO SCH ×3 (08:56→18:08)
[2017-05-19 09:27] LABS: Platelet Count 200 k/uL (150-450)
[2017-05-19 09:53] LABS: Glucose,Whole Blood 109 mg/dL (75-99)
[2017-05-19] MEDS: INSULIN ASPART 100 UNIT/ML 1 ML 10 ML VIAL SQ SCH ×4 (10:11→21:28)
[2017-05-19] MEDS: IBUPROFEN 600 MG TAB PO PRN ×3 (10:15→21:20)
[2017-05-19] MEDS: CEFEPIME 2 GM in SODIUM CHLORIDE 0.9% 50 ML IVPB SCH (10:16)
[2017-05-19] MEDS: ENOXAPARIN 80 MG/0.8 ML SYRINGE SQ SCH (10:16)
[2017-05-19] MEDS: ONDANSETRON 4 MG/2 ML VIAL IVP PRN ×2 (10:16→21:41)
[2017-05-19] MEDS: PANTOPRAZOLE 40 MG TABLET PO SCH ×2 (10:16→21:27)
[2017-05-19] MEDS ORDERED: RX INFO: IV CONTRAST WAS GIVEN 1 EACH MISC MISCELLANE PRN (12:29)
[2017-05-19] MEDS ORDERED: IOHEXOL 350 MG/ML 25 ML BOTTLE (ORAL USE) PO PRN (12:29)
--- NOTE | 2017-05-19 14:31 | CONS ---
CONSULTATION DATE OF SERVICE: 05/19/2017 REASON FOR CONSULT: Positive blood culture with yeast and sepsis. HISTORY OF PRESENT ILLNESS: The patient is a 52-year-old female with a past medical history significant for stage IIIC serous papillary ovarian cancer for which the patient did have radical surgery followed by chemotherapy with subsequent evidence of a peritoneal carcinoma with pneumatosis in abdomen and pelvis including the liver surface for which the patient has chemo with episodes of bowel obstruction. Currently, did have a drainage and on chronic TPN. She did have an episode of Pseudomonas fluorescens with bacteremia not related to the PICC line, that was subsequently discontinued and she finished her antibiotic therapy. Patient recently had chemotherapy and over the last day, patient started having a fever with rigor and chills of 1 day. Patient is feeling very weak and tired and no energy. She is complaining of some mild lower abdominal pain for the same duration. Moreover, dull aching, at times colicky. 3 to 4 with no radiation. She felt nauseated, but no vomiting. Denies having any diarrhea. With these symptoms, the patient presented to the [facility] ER where the patient was evaluated by the ER physician. She on arrival, did have a fever of 101 degrees Fahrenheit with another fever last evening of 102.7. Patient did have evidence of tachycardia with a heart rate running between 118 to 103. Blood pressure has been 90 systolic. Patient did have a UA that was negative. Influenza serology was negative. Chest x-ray reported to be negative for any pneumonia. Patient was leukopenic on admission with a white count of 1.8 for SIRS. She was started on cefepime with a blood culture now coming back positive with yeast. When asked specifically for the patient, she said she got a blood culture both from the PICC and peripherally. I could not locate the results for the other blood cultures. Hence, Infectious Disease was consulted for further recommendation. REVIEW OF SYSTEMS: CONSTITUTIONAL: Positive for weakness along with a fever. EYES: No complaint ENT: No complaint. RESPIRATORY: No complaint. CARDIOVASCULAR: No complaint. GENITOURINARY: No complaint. GASTROINTESTINAL: As per HPI. MUSCULOSKELETAL: No complaint. INTEGUMENTARY: No complaint. PSYCHOLOGICAL: No complaint. ENDOCRINE: No complaint. NEUROLOGICAL: No complaint. PAST MEDICAL HISTORY: Significant for metastatic ovarian cancer with carcinomatosis peritoneum, history of recurrent DVT, recurrent PICC line, fibromyalgia, , hyperlipidemia, osteoarthritis. PAST SURGICAL HISTORY: Hysterectomy, port placed, so we could remove PICC line placement and removal, G-tube placement. PSYCHOLOGICAL HISTORY: Positive for anxiety, depression, panic disorder. SOCIAL HISTORY: Remote history of smoking, no drinking or drug use. FAMILY HISTORY: Father history of prostate cancer and Parkinsonism. Mother history of multiple myeloma. One sister with a history of factor V Leiden deficiency. ALLERGIES: Including to DULOXETINE, SULFA and CARBOPLATIN. MEDICATIONS: The patient is currently on Tylenol, Xanax, TUMS, Benadryl, , Lexapro, Dilaudid, Motrin, NovoLog, Narcan, Zofran, Protonix, TPN, cefepime and Diflucan, she did receive 1 dose of 100 mg. PHYSICAL EXAMINATION: Blood pressure 92/58 with a pulse of 101, temperature 99, T-max is 102.7. She is 98% on room air. General description is a middle-aged female, up in the bed in no distress. No tachypnea or accessory muscle for respiration use. HEENT: Shows pallor no scleral icterus. Oral mucosa is moist. No pharyngeal erythema or thrush. NECK: Trachea central, no thyromegaly. LUNGS: Unlabored breathing, clear to auscultation. No wheeze or crackle heart S1, S2. Regular rate and rhythm. No murmur. ABDOMEN: Soft, mildly distended, no guarding or rigidity, no organomegaly. EXTREMITIES: No edema of the feet. SKIN EXAMINATION: No rash or mass palpable. Examination of the right lower extremity: PICC line site with no evidence of any abdominal infection. No swelling no redness neurological patient is awake, alert, oriented x3. Mood affect normal. LABS: Hemoglobin is 7.7, white count 6.7 admission white count was 1.8 with a BUN of 15, creatinine 0.70. Electrolytes have been normal. Liver enzymes slightly elevated, blood culture with the yeast. DIAGNOSTIC IMPRESSION/PLAN: Patient admitted to the hospital with sepsis in a patient who did have a fever of 102 degrees Fahrenheit. The patient was tachycardic, heart rate 118 with leukopenia, white count 1.8, meeting criteria for SIRS/sepsis. Source is likely a PICC line infection with the PICC also showing yeast. Patient is a high risk of yeast infection in view of the outpatient TPN use because of overall poor intake and risk of small bowel obstruction. The pain on oral intake per the patient with previous history of a PICC line related infection. The patient currently with no other clear focus of infection for responsibility for this positive blood culture. Her urine was negative. She did have some mild abdominal pain. Minimal tenderness. Will need further workup including CT abdominal admission. No evidence of any abdominal for source for this for anemia. PLAN: 1. Blood culture should be repeated to document clearance of fungemia. 2. Obtain a CT abdomen and pelvis to rule out any intraabdominal pathology and no evidence of make sure no evidence of any hepatitis, currently involvement with this case. 3. Discontinue cefepime and Diflucan. 4. Micafungin 100 g IV piggyback daily. 5. Careful monitoring of her cultures and kidney function while on this treatment. 6. Will follow up on the clinical condition and culture to further adjust medication if needed. Thank you for this consultation. Will follow this patient along with you. MMODL / IJN: [id number] /
[2017-05-19] MEDS: MICAFUNGIN 100 MG in SODIUM CHLORIDE 0.9% 100 ML IVPB SCH (14:35)
[2017-05-19 15:32] LABS: Glucose,Whole Blood 109 mg/dL (75-99)
[2017-05-19 17:39] LABS: Glucose,Whole Blood 108 mg/dL (75-99)
--- NOTE | 2017-05-19 17:40 | CT ---
EXAMINATION TYPE: CT abdomen pelvis w con DATE OF EXAM: 05/19/2017 COMPARISON: NONE HISTORY: Abdominal pain and vomiting CT DLP: 1673 mGycm. Automated exposure control for dose reduction was used. TECHNIQUE: Helical acquisition of images was performed from the lung bases through the pelvis. CONTRAST: Performed without Oral Contrast and with IV Contrast, patient injected with 100 mL of Omnip aque 300. FINDINGS: LUNG BASES: No significant abnormality is appreciated. LIVER/GB: No significant abnormality is appreciated. PANCREAS: No significant abnormality is seen. SPLEEN: No significant abnormality is seen. ADRENALS: No significant abnormality is seen. KIDNEYS: No significant abnormality is seen. REPRODUCTIVE ORGANS: No significant abnormality is seen URINARY BLADDER: No significant abnormality is seen. PELVIC ADENOPATHY: None visualized. OSSEOUS STRUCTURES: No significant abnormality is seen. VASCULATURE: Unremarkable. BOWEL: Gastric tube is in place and unremarkable. The stomach, duodenum, and jejunum are unremarkabl e, and the colon is collapsed. However, there is dilation of several loops of ileum, up to 5 cm calib er. No definite pneumatosis. No pneumoperitoneum. No free peritoneal fluid. The anterior abdominal wall is intact. The mesentery is not twisted. No acute edematous changes within the mesentery or mural thickening of the ileum. The previously seen left upper abdominal reticulonodular pattern of carcinomatosis is redemonstrated IMPRESSION: 1. DISTAL SMALL BOWEL OBSTRUCTION, NEW SINCE THE PRIOR STUDY AND PRESUMABLY DUE TO ADHESIONS. 2. IF NECESSARY, FURTHER CHARACTERIZATION OF THE BOWEL PATTERN CAN BE PROVIDED WITH USE OF DELAYED O RAL CONTRAST CT. 3. CARCINOMATOSIS REDEMONSTRATED.
[2017-05-19] MEDS ORDERED: MVI, ADULT NO.4 WITH VIT K 10 ML, TRACE (CONC-1ML/DOSE) 1 ML in AMIN 3.3%/DEX 9.8%/LIPI... IV SCH ×3 (18:30)
--- NOTE | 2017-05-19 18:37 | PN ---
PROGRESS NOTE DATE OF SERVICE: 05/19/2017 This 52-year-old woman who was admitted with ovarian cancer and who is also on palliative G-tube insertion for decompression is also on TPN. The patient had recent bacteremia, but currently the patient is having fever and the patient admitted for further evaluation treatment. The most recent cultures are negative, but the patient had previously Pseudomonas fluorescens and putida grown from the blood multiple times. The patient also had yeast from the blood cultures. PAST MEDICAL HISTORY: Reviewed. REVIEW OF SYSTEMS: CARDIOVASCULAR: No angina. RESPIRATIONS: As mentioned earlier. GI: As mentioned earlier. : No dysuria. NEUROLOGIC: No numbness, weakness. CURRENT MEDICATIONS: Reviewed, include: 1. Tylenol 650 every 6 hours p.r.n. 2. Xanax 0.5 every 6 hours p.r.n. 3. Tums. 4. Benadryl 50 mg q.h.s. 5. Lovenox 80 mg subcu daily. 6. Lexapro 20 mg q.h.s. 7. Dilaudid 4 mg p.o. q.4h p.r.n. 8. Motrin 600 mg p.o. q.i.d. 9. NovoLog q.a.c. and at bedtime. 10. 25 mg mL p.o. every 60 minutes. 11.Micafungin 100 daily. 12.Narcan 0.2 q.2h p.r.n. 13.Zofran 4 mg IV every 6 hours. 14.Protonix 40 mg p.o. b.i.d. 15.TPN. 16.IV fluids. PHYSICAL EXAM: Patient is alert, oriented x3. Pulse is 105, blood pressure 192/56, respiration 18, temperature 99.4, pulse ox 98% room air. HEENT: Conjunctivae normal. Oral mucosa moist. NECK: No jugular venous distention. No carotid bruits. No lymph node enlargement. CARDIOVASCULAR: S1, S2 muffled. RESPIRATORY: Breath sounds diminished in the bases. A few scattered rhonchi. No crackles. ABDOMEN: Soft, status post G-tube insertion. Mild diffuse tenderness. No guarding or rigidity. No mass palpable. LEGS: No edema. No swelling. NERVOUS SYSTEM: Higher functions as mentioned earlier. Moves all 4 limbs. No focal motor or sensory deficits. LYMPHATIC: No lymphadenopathy in neck or axillae. SKIN: No ulcer, rash or bleeding. LABS: WBC 6.7, hemoglobin 7.7 and glucose 109. ASSESSMENT: 1. Fever, possibly neutropenic fever and sepsis. 2. Ovarian cancer with peritoneal carcinomatosis in stage IV. 3. Fungemia. 4. Status post gastrostomy tube for decompression. 5. Status post chemotherapy. 6. History of deep vein thrombosis. 7. History of fibromyalgia. 8. Hyperlipidemia. 9. History of degenerative joint disease. 10.History of previous small-bowel obstructions. 11.Anxiety, depression, panic attacks. 12.Remote history of nicotine dependence. 13.Anemia, possibly secondary to malignancy. 14.Increased AST, ALT, alkaline phosphatase, possibly secondary to malignancy. RECOMMENDATION AND DISCUSSION: In this 52-year-old woman who presented with multiple complex medical issues, will monitor the patient closely, continue the current medical management and symptomatic treatment. Will re-initiate broad-spectrum IV antibiotics and antifungals. Infectious Disease evaluation. Closely follow with Hematology/Oncology. Recommend continuing with the rest of the medications. Prognosis guarded. Discussed with the patient. Further recommendations to follow. MMODL / IJN: [id number] / ALINE
[2017-05-19 19:57] LABS: Glucose,Whole Blood 91 mg/dL (75-99)
[2017-05-19] MEDS: ACETAMINOPHEN TAB 500 MG TAB PO PRN (20:20)
[2017-05-19] MEDS: ESCITALOPRAM 20 MG TAB PO SCH (21:19)
[2017-05-19] MEDS: diphenhydrAMINE 50 MG CAP PO PRN (21:20)
[2017-05-19] MEDS: SODIUM CHLORIDE 0.9% 1,000 ML IV SCH (21:41)
[2017-05-20] MEDS: IBUPROFEN 600 MG TAB PO PRN ×3 (05:41→17:19)
[2017-05-20] MEDS: ALPRAZolam 0.5 MG TAB PO SCH ×4 (05:41→17:19)
[2017-05-20 07:03] LABS: Glucose,Whole Blood 108 mg/dL (75-99)
[2017-05-20 07:57] LABS: Basophils % (A) 0 %; Eosinophils % (A) 1 %; HCT 21.6 % (34.0-46.0); Lymphocytes # (A) 0.2 k/uL (1.0-4.8); Lymphocytes % (A) 5 %; MCH 29.2 pg (25.0-35.0); MCHC 31.6 g/dL (31.0-37.0); MCV 92.4 fL (80.0-100.0); Mean Platelet Volume 8.2; Monocytes # (A) 0.3 k/uL (0-1.0); Monocytes % (A) 7 %; Neutrophils # (A) 3.4 k/uL (1.3-7.7); Neutrophils % (A) 85 %; Platelet Count 129 k/uL (150-450); RBC 2.33 m/uL (3.80-5.40); RDW 15.8 % (11.5-15.5)
[2017-05-20 08:12] LABS: HGB 6.8 gm/dL (11.4-16.0)
[2017-05-20] MEDS: SODIUM CHLORIDE 0.9% 1,000 ML IV SCH ×2 (09:25→17:20)
[2017-05-20] MEDS: MICAFUNGIN 100 MG in SODIUM CHLORIDE 0.9% 100 ML IVPB SCH (09:26)
[2017-05-20] MEDS: INSULIN ASPART 100 UNIT/ML 1 ML 10 ML VIAL SQ SCH ×4 (09:29→22:10)
[2017-05-20 11:13] LABS: Glucose,Whole Blood 93 mg/dL (75-99)
[2017-05-20] MEDS: PANTOPRAZOLE 40 MG TABLET PO SCH ×2 (11:30→22:10)
[2017-05-20] MEDS: ENOXAPARIN 80 MG/0.8 ML SYRINGE SQ SCH (11:30)
[2017-05-20] MEDS ORDERED: FUROSEMIDE 10 MG/ML 2 ML VIAL IV ONE (11:40)
--- NOTE | 2017-05-20 17:14 | PN ---
PROGRESS NOTE DATE OF SERVICE: 05/20/2017 This 52-year-old woman was admitted with ovarian cancer, also had fever. Fungemia suspected. Patient is on micafungin at this time. The patient also has ovarian cancer with peritoneal carcinoma stage IV. The patient also had G tube insertion for a palliative decompression at this time. The PICC line has been removed and sent for culture. The patient also has anemia with a hemoglobin 6.8 today. The patient closely monitored. PAST MEDICAL HISTORY: Reviewed. REVIEW OF SYSTEMS: CARDIOVASCULAR: No angina. RESPIRATORY: As mentioned. GI: As mentioned. : As mentioned earlier. NERVOUS SYSTEM: Diffuse weakness. CURRENT MEDICATIONS: Reviewed and include: 1. Tylenol 650 q.6 p.r.n. 2. Xanax 0.5 q.6 p.r.n. 3. Tums 500 mg q.h.s. 4. Benadryl 50 mg q.h.s. 5. Lovenox 80 mg subcu daily. 6. Celexa 20 mg q.h.s. 7. Dilaudid 4 mg q.4h. 8. Motrin 600 mg q.i.d. p.r.n. 9. NovoLog scale. 10.Micafungin. 11.Narcan 0.2 q.2h p.r.n. 12.Zofran 4 mg q.6h. 13.Protonix 40 mg p.o. b.i.d. PHYSICAL EXAM: Patient is alert, oriented. Pulse is 60, blood pressure 116/70, respiration 18, temperature 98.8, pulse ox 98% on room air. HEENT: Conjunctivae pale. Oral mucosa moist. Neck is no jugular venous distention. No carotid bruit. No lymph node enlargement. CARDIOVASCULAR: S1, S2. No S3, no S4. RESPIRATORY: Breath sounds diminished in the bases. A few scattered rhonchi. No crackles. ABDOMEN: Soft, status post G-tube placement. Otherwise no guarding, no rigidity, no mass palpable. LEGS: No edema. NERVOUS SYSTEM: No focal deficits. LABS: WBC 4, hemoglobin 6.8, other labs are noted. ASSESSMENT: 1. Fever, possibly neutropenic fever and sepsis with fungal sepsis on antifungal agents. 2. Anemia possibly secondary to malignancy. 3. Ovarian cancer with peritoneal carcinomatosis, stage IV. 4. Status post gastrostomy tube for decompression. 5. PICC line and TPN outpatient. 6. History of chemotherapy. 7. History of DVT. 8. History fibromyalgia. 9. Hyperlipidemia. 10.History of degenerative joint disease. 11.History of previous small-bowel obstructions. 12.Anxiety, depression, panic attacks. 13.Remote history of nicotine dependence. 14.Anemia. 15.Increased AST, ALT, alkaline phosphatase. 16.Possible skin malignancy. RECOMMENDATION AND DISCUSSION: I recommend to continue with current management and symptomatic treatment. Continue with antifungal, micafungin. Otherwise I would recommend dietary evaluation and PPN. One unit transfusion. Closely follow with Hematology/Oncology. Guarded prognosis because of multiple complex medical issues and further recommendations to follow. Infectious Disease also has been consulted. MMODL / IJN: [id number] /
[2017-05-20 17:19] LABS: Glucose,Whole Blood 78 mg/dL (75-99)
[2017-05-20] MEDS ORDERED: MVI, ADULT NO.4 WITH VIT K 10 ML, TRACE (CONC-1ML/DOSE) 1 ML in AMIN 3.3%/DEX 9.8%/LIPI... IV SCH ×3 (18:30)
[2017-05-20 18:58] LABS: Ionized Calcium 4.9 mg/dL (4.5-5.3)
[2017-05-20 19:07] LABS: Albumin 2.8 g/dL (3.5-5.0)
[2017-05-20 19:11] LABS: ALT 68 U/L (9-52); AST 60 U/L (14-36); Albumin 2.8 g/dL (3.5-5.0); Alkaline Phosphatase 163 U/L (38-126); Anion Gap 10 mmol/L; Blood Urea Nitrogen 15 mg/dL (7-17); Calcium 8.5 mg/dL (8.4-10.2); Carbon Dioxide 22 mmol/L (22-30); Chloride 106 mmol/L (98-107); Glucose 83 mg/dL (74-99); Magnesium 1.8 mg/dL (1.6-2.3); Phosphorus 3.5 mg/dL (2.5-4.5); Potassium 3.1 mmol/L (3.5-5.1); Sodium 138 mmol/L (137-145); Total Bilirubin 0.9 mg/dL (0.2-1.3); Total Protein 5.6 g/dL (6.3-8.2)
[2017-05-20] MEDS ORDERED: Potassium Replacement Protocol 1 EACH MISC MISCELLANE PRN (19:39)
[2017-05-20] MEDS ORDERED: MVI, ADULT NO.4 WITH VIT K 10 ML, TRACE (CONC-1ML/DOSE) 1 ML in AMINO ACID 4.25%-D10W+L... IV SCH ×3 (20:00)
[2017-05-20 20:01] LABS: Glucose,Whole Blood 81 mg/dL (75-99)
--- NOTE | 2017-05-20 21:44 | PN ---
PROGRESS NOTE DATE OF SERVICE: 05/20/2017. REASON FOR FOLLOWUP: Yeast positive blood culture secondary to the PICC line. INTERVAL HISTORY: The patient's overall fever pattern has improved. His temperature so far been 99.2. The patient is breathing comfortably. Denies having any chest pain, shortness of breath, cough. Still has some abdominal pain; nausea, but no vomiting. EXAMINATION: Blood pressure 105/61 with a pulse of 90, temperature of 99.1. She is 90% on room air. General description is a middle-aged female lying in bed in no distress. RESPIRATORY SYSTEM: Unlabored breathing. Decreased breath sounds in the bases. No wheeze. HEART: S1, S2. Regular rate and rhythm. ABDOMEN: Soft, mildly tender. No guarding or rigidity. EXTREMITIES: No edema of feet. LABS: Hemoglobin 6.8, white count 4.0 with a BUN of 15, creatinine 0.70. The blood culture with the patient's catheter was also with a yeast species. DIAGNOSTIC IMPRESSION AND PLAN: Patient admitted to the hospital with sepsis, now with yeast positive blood culture to the PICC line that has been discontinued. Blood culture repeated this morning. She will continue on the Micafungin point at this point while waiting for the final identification of this pathogen. Continue supportive care. MMODL / IJN: [id number] /
[2017-05-20] MEDS: FAT EMULSION 20% 250 ML IV SCH (21:59)
[2017-05-20] MEDS: HYDROmorphone 4 MG TABLET PO PRN (22:10)
[2017-05-20] MEDS: ESCITALOPRAM 20 MG TAB PO SCH (22:10)
[2017-05-20] MEDS: POTASSIUM CHLORIDE 10 MEQ in SODIUM CHLORIDE 0.9% 100 ML IVPB SCH (23:50)
[2017-05-21] MEDS: ALPRAZolam 0.5 MG TAB PO SCH ×4 (00:11→19:26)
[2017-05-21] MEDS: ACETAMINOPHEN TAB 500 MG TAB PO PRN (00:19)
[2017-05-21] MEDS: diphenhydrAMINE 50 MG CAP PO PRN (00:20)
[2017-05-21] MEDS: POTASSIUM CHLORIDE 10 MEQ in SODIUM CHLORIDE 0.9% 100 ML IVPB SCH ×7 (02:25→22:23)
[2017-05-21] MEDS: HYDROmorphone 4 MG TABLET PO PRN ×4 (03:02→21:16)
[2017-05-21] MEDS: SODIUM CHLORIDE 0.9% 1,000 ML IV SCH ×2 (04:00→19:27)
[2017-05-21 04:45] LABS: Glucose,Whole Blood 113 mg/dL (75-99)
[2017-05-21 07:10] LABS: Glucose,Whole Blood 105 mg/dL (75-99)
[2017-05-21 07:29] LABS: Anion Gap 8 mmol/L; Blood Urea Nitrogen 16 mg/dL (7-17); Calcium 8.3 mg/dL (8.4-10.2); Carbon Dioxide 25 mmol/L (22-30); Chloride 105 mmol/L (98-107); Glucose 98 mg/dL (74-99); Potassium 3.3 mmol/L (3.5-5.1); Sodium 138 mmol/L (137-145)
[2017-05-21 07:33] LABS: HCT 24.7 % (34.0-46.0); HGB 8.2 gm/dL (11.4-16.0); Hypochromasia Slight; MCH 30.3 pg (25.0-35.0); MCHC 33.3 g/dL (31.0-37.0); Mean Platelet Volume 7.9; Platelet Count 135 k/uL (150-450); Poikilocytosis Slight; RBC 2.71 m/uL (3.80-5.40); RDW 15.8 % (11.5-15.5); WBC 5.1 k/uL (3.8-10.6)
[2017-05-21 08:40] LABS: Band Neutrophils % 6 %; Lymphocytes # (M) 1.12 k/uL (1.0-4.8); Monocytes # (M) 0.26 k/uL (0-1.0); Neutrophils % (M) 67 %; Nucleated Red Blood Cells 0 /100 WBC (0-0); Poikilocytosis (M) Present; Total Cells Counted 100
[2017-05-21] MEDS ORDERED: Potassium Replacement Protocol 1 EACH MISC MISCELLANE PRN ×2 (11:00→19:22)
[2017-05-21] MEDS: INSULIN ASPART 100 UNIT/ML 1 ML 10 ML VIAL SQ SCH ×4 (11:03→21:29)
[2017-05-21] MEDS: ENOXAPARIN 80 MG/0.8 ML SYRINGE SQ SCH (11:09)
[2017-05-21] MEDS: MICAFUNGIN 100 MG in SODIUM CHLORIDE 0.9% 100 ML IVPB SCH (11:10)
[2017-05-21] MEDS: PANTOPRAZOLE 40 MG TABLET PO SCH ×2 (11:10→21:17)
[2017-05-21 11:39] LABS: Glucose,Whole Blood 110 mg/dL (75-99)
[2017-05-21 12:38] LABS: Magnesium 1.8 mg/dL (1.6-2.3); Phosphorus 4.4 mg/dL (2.5-4.5)
[2017-05-21] MEDS: ONDANSETRON 4 MG/2 ML VIAL IVP PRN (12:51)
[2017-05-21 17:25] LABS: Glucose,Whole Blood 103 mg/dL (75-99)
[2017-05-21] MEDS: 1: AMINO ACID 4.25%-D10W+LYTES*E* 1,000 ML 2: MVI, ADULT NO.4 WITH VIT K 10 ML, TRACE ( IV SCH ×3 (17:52)
[2017-05-21] MEDS: ACETAMINOPHEN TAB 325 MG TAB PO PRN (17:53)
[2017-05-21] MEDS ORDERED: MVI, ADULT NO.4 WITH VIT K 10 ML, TRACE (CONC-1ML/DOSE) 1 ML in AMIN 3.3%/DEX 9.8%/LIPI... IV SCH ×3 (18:30)
--- NOTE | 2017-05-21 19:45 | PN ---
PROGRESS NOTE DATE OF SERVICE: 05/21/2017. This 52-year-old woman was admitted with fever, neutropenic sepsis and fever also fungemia also. No chest pain. No palpitations. No fever. The catheter tip also is growing some yeast and the final ID is pending at this time. No chest pain. No palpitations. No fever. A CT scan of the abdomen and pelvis was reviewed. PHYSICAL EXAM: Alert and oriented x3. Pulse is 95, blood pressure 90/60, respirations 16, temperature 98.2, pulse ox 97% on room air. HEENT: Conjunctivae normal. CARDIOVASCULAR: S1, S2 RESPIRATORY: Breath sounds diminished in the bases. A few rhonchi, no crackles. ABDOMEN: Soft, status post G-tube. LEGS: No edema. NERVOUS SYSTEM: No focal deficits. LABS: WBC 5, hemoglobin is 8.2, potassium 3.3. ASSESSMENT: 1. Fever, possible neutropenic fever and sepsis with fungemia and sepsis on antifungal agents. 2. Anemia possibly secondary to malignancy. 3. 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 4. Status post gastrectomy, G tube for decompression. 5. PICC line and TPN placement outpatient, which is removed at this time. 6. History of chemotherapy. 7. History of DVT. 8. History of fibromyalgia. 9. Hyperlipidemia. 10.History of degenerative joint disease. 11.History of previous small-bowel obstruction. 12.History of anxiety and depression, panic attacks. 13.Remote history of nicotine dependence. 14.Anemia. 15.Increased AST, ALT and alkaline phosphatase. 16.Possible skin malignancy. RECOMMENDATIONS AND DISCUSSION: I recommend to continue current management and symptomatic treatment. I recommend continue with IV antibiotics and IV fungal agents and follow the cultures. When the fungemia clears placement of either central venous access or another PICC line. Guarded prognosis. Further recommendations to follow. MMODL / IJN: [id number] / [id number]
[2017-05-21 20:22] LABS: Glucose,Whole Blood 112 mg/dL (75-99)
[2017-05-21] MEDS: FAT EMULSION 20% 250 ML IV SCH (21:16)
[2017-05-21] MEDS: ESCITALOPRAM 20 MG TAB PO SCH (21:17)
--- NOTE | 2017-05-21 23:09 | PN ---
PROGRESS NOTE DATE OF SERVICE: 05/21/2017. REASON FOR FOLLOW UP: PICC line infection. INTERVAL HISTORY: The patient is afebrile. She is breathing comfortably, feeling better. Denies having any chest pain, shortness of breath or cough. Slight nausea, but no vomiting. No significant abdominal pain or diarrhea. EXAMINATION: Blood pressure 99/50 with a pulse of 104, temperature of 98.1. She is 93% on room air. General description is a middle-aged female lying in bed in no distress. RESPIRATORY SYSTEM: Unlabored breathing. Clear to auscultation anteriorly. HEART: S1, S2. Regular rate and rhythm. ABDOMEN: Soft, no tenderness. LABS: Hemoglobin 8.2, white count 5.1, BUN of 16, creatinine 0.81. Blood cultures with Tatyana albicans, catheter tip with yeast species. DIAGNOSTIC IMPRESSION AND PLAN: Patient with Tatyana albicans positive blood cultures related to her PICC line, which has been discontinued. Unfortunately, we cannot use Diflucan because of drug interaction with her Lexapro and Zofran. Hence, we will keep the patient on micafungin to finish a 2-week course of therapy from negative blood cultures. CT abdomen and pelvis with no evidence of any . In view of the patient's recurrent PICC line infection, may benefit from a Mediport for ongoing chemotherapy and TPN in the outpatient setting. This was discussed further with Oncology. MMODL / IJN: [id number] /
[2017-05-22] MEDS: HYDROmorphone 4 MG TABLET PO PRN ×4 (01:11→20:24)
[2017-05-22] MEDS: ALPRAZolam 0.5 MG TAB PO SCH ×4 (04:28→17:44)
[2017-05-22] MEDS: ONDANSETRON 4 MG/2 ML VIAL IVP PRN ×2 (04:29→14:54)
[2017-05-22] MEDS: 1: AMINO ACID 4.25%-D10W+LYTES*E* 1,000 ML 2: MVI, ADULT NO.4 WITH VIT K 10 ML, TRACE ( IV SCH ×6 (06:11→16:28)
[2017-05-22] MEDS: ACETAMINOPHEN TAB 325 MG TAB PO PRN (06:20)
[2017-05-22 07:07] LABS: Glucose,Whole Blood 133 mg/dL (75-99)
[2017-05-22 07:50] LABS: Anion Gap 8 mmol/L; Blood Urea Nitrogen 15 mg/dL (7-17); Calcium 8.3 mg/dL (8.4-10.2); Carbon Dioxide 24 mmol/L (22-30); Chloride 105 mmol/L (98-107); Glucose 129 mg/dL (74-99); Magnesium 1.7 mg/dL (1.6-2.3); Phosphorus 3.7 mg/dL (2.5-4.5); Potassium 3.4 mmol/L (3.5-5.1); Sodium 137 mmol/L (137-145)
[2017-05-22] MEDS: MICAFUNGIN 100 MG in SODIUM CHLORIDE 0.9% 100 ML IVPB SCH (08:03)
[2017-05-22] MEDS: INSULIN ASPART 100 UNIT/ML 1 ML 10 ML VIAL SQ SCH ×4 (08:06→20:26)
[2017-05-22] MEDS: ENOXAPARIN 80 MG/0.8 ML SYRINGE SQ SCH (08:07)
[2017-05-22] MEDS: PANTOPRAZOLE 40 MG TABLET PO SCH ×2 (08:07→20:17)
[2017-05-22] MEDS: POTASSIUM CHLORIDE 10 MEQ in SODIUM CHLORIDE 0.9% 100 ML IVPB SCH ×2 (11:34→13:06)
[2017-05-22 11:44] LABS: Glucose,Whole Blood 116 mg/dL (75-99)
--- NOTE | 2017-05-22 16:40 | PN ---
PROGRESS NOTE DATE OF SERVICE: 05/22/2017 This 52-year-old woman was admitted with fever, possibly neutropenic fever, and fungal sepsis. She had Tatyana albicans grown from the culture. Patient is on micafungin. Infectious Disease is following the patient closely. Catheter tip also grew fungus from the culture. No chest pain. No palpitations. No fever. Complains of some minimal abdominal discomfort at this time. On exam, alert and oriented x3. The pulse is 101, blood pressure 91/56, respiration 18, temperature 100 degrees, pulse ox 94% on room air. HEENT: Conjunctivae normal. NECK: No jugular venous distention. CARDIOVASCULAR SYSTEM: S1, S2 muffled. RESPIRATORY SYSTEM: Breath sounds diminished at the bases. A few scattered rhonchi and crackles. ABDOMEN: Soft. Status post G-tube insertion. No guarding. No rigidity. Mild diffuse distention. Mild diffuse discomfort on palpation also present. LEGS: Minimal edema. NERVOUS SYSTEM: No focal deficit. LABS: WBC 5.1, hemoglobin 8.2. ASSESSMENT: 1. Fever, possibly neutropenic fever, with fungal sepsis with Tatyana albicans, on antifungal medications. 2. Anemia, possibly secondary to malignancy. 3. Ovarian cancer with peritoneal carcinomatosis, stage IV. 4. Status post G-tube for decompression. 5. PICC line and TPN placed outpatient; removed because of fungemia. 6. History of chemotherapy. 7. History of deep venous thrombosis. 8. History of fibromyalgia. 9. Hyperlipidemia. 10.History of degenerative joint disease. 11.Previous small-bowel obstructions. 12.History of anxiety, depression, panic attacks. 13.Remote history of nicotine dependence. 14.Anemia. 15.Increased AST, ALT, alkaline phosphatase. 16.Possible skin malignancy. RECOMMENDATIONS AND DISCUSSION: I recommend to continue current medication, continue with the monitoring, symptomatic treatment. Otherwise at this time continue with IV antibiotics, PPN. The most recent cultures are negative at this time. Infectious Disease is planning micafungin for a 2- week course from the negative blood cultures. CT scan has been reviewed. Mediport is a possibility according to Dr. Ohara. Further recommendations to follow. MMODL / IJN: [id number] /
[2017-05-22 17:34] LABS: Glucose,Whole Blood 114 mg/dL (75-99)
--- NOTE | 2017-05-22 19:57 | ECHOF ---
Referral Reason:sepsis MEASUREMENTS -------- HEIGHT: 162.6 cm WEIGHT: 75.7 kg BP: 108/66 IVSd: 1.3 cm (0.6 - 1.1) LVIDd: 3.8 cm (3.9 - 5.3) LVPWd: 1.4 cm (0.6 - 1.1) IVSs: 1.6 cm LVIDs: 2.3 cm LVPWs: 1.4 cm LAESV Index (A-L): 17.02 ml/m Ao Diam: 3.2 cm (2.0 - 3.7) AV Cusp: 2.3 cm (1.5 - 2.6) LA Diam: 3.0 cm (2.7 - 3.8) MV EXCURSION: 22.560 mm (> 18.000) MV EF SLOPE: 97 mm/s (70 - 150) EPSS: 0.9 cm MV E Tommy: 1.04 m/s MV DecT: 181 ms MV A Tommy: 0.82 m/s MV E/A Ratio: 1.27 RAP: 5.00 mmHg RVSP: 29.31 mmHg FINDINGS -------- Sinus rhythm. This was a technically good study. The left ventricular size is normal. There is mild concentric left ventricular hypertrophy. Overa ll left ventricular systolic function is normal with, an EF between 55 - 60 %. The right ventricle is normal in size and function. The left atrium is normal in size. The right atrium is normal in size. The aortic valve is trileaflet, and appears structurally normal. No aortic stenosis or regurgitation. The mitral valve leaflets are mildly thickened. Mild mitral regurgitation is present. Mild tricuspid regurgitation present. The right ventricular systolic pressure, as measured by Doppl er, is 29.31mmHg. Pulmonic valve appears structurally normal. The aortic root size is normal. Normal inferior vena cava with normal inspiratory collapse consistent with estimated right atrial pre ssure of 5 mmHg. The pericardium is normal. CONCLUSIONS -------- 1. Sinus rhythm. 2. This was a technically good study. 3. The left ventricular size is normal. 4. There is mild concentric left ventricular hypertrophy. 5. Overall left ventricular systolic function is normal with, an EF between 55 - 60 %. 6. The right ventricle is normal in size and function. 7. The left atrium is normal in size. 8. The right atrium is normal in size. 9. The aortic valve is trileaflet, and appears structurally normal. No aortic stenosis or regurgitati on. 10. The mitral valve leaflets are mildly thickened. 11. Mild mitral regurgitation is present. 12. Mild tricuspid regurgitation present. 13. The right ventricular systolic pressure, as measured by Doppler, is 29.31mmHg. 14. Pulmonic valve appears structurally normal. 15. The aortic root size is normal. 16. Normal inferior vena cava with normal inspiratory collapse consistent with estimated right atrial pressure of 5 mmHg. 17. The pericardium is normal. DIRECTOR FUNDRAISING: Katya Holt RDCS
[2017-05-22] MEDS: SODIUM CHLORIDE 0.9% 1,000 ML IV SCH ×2 (20:16→20:26)
[2017-05-22] MEDS: FAT EMULSION 20% 250 ML IV SCH (20:17)
[2017-05-22] MEDS: ESCITALOPRAM 20 MG TAB PO SCH (20:17)
[2017-05-22 20:19] LABS: Glucose,Whole Blood 119 mg/dL (75-99)
[2017-05-22] MEDS: ACETAMINOPHEN TAB 500 MG TAB PO PRN (22:46)
[2017-05-22] MEDS: diphenhydrAMINE 50 MG CAP PO PRN (22:46)
--- NOTE | 2017-05-22 23:25 | PN ---
PROGRESS NOTE DATE OF SERVICE: 05/22/2017 REASON FOR FOLLOWUP: Tatyana albicans positive blood culture with PICC line infection. INTERVAL HISTORY: The patient did have a low-grade fever this morning of 100; afebrile afterwards. She is breathing comfortably. Denies having any chest pain, shortness of breath or cough. No nausea, vomiting or any diarrhea. PHYSICAL EXAMINATION: Her blood pressure is 92/61 with a pulse of 88, temperature of 98.6. She is 97% on room air. General description is a middle-aged female lying in bed in no distress. RESPIRATORY SYSTEM: Unlabored breathing. Clear to auscultation anteriorly. HEART: S1, S2. Regular rate and rhythm. ABDOMEN: Soft. No tenderness. LABS: Blood cultures repeated on 05/19 and 05/20 have been negative. DIAGNOSTIC IMPRESSION AND PLAN: Patient with Tatyana albicans bacteremia secondary to PICC line infection that has been discontinued. CT of abdomen and pelvis did not show any evidence of intraabdominal pathology. Currently on micafungin, as the patient is on Celexa; currently cannot use Diflucan and could have been done p.o. PICC line. However, the patient does need IV access. Discussed with Oncology whether the patient may benefit from a Mediport rather than a PICC line. Continue with supportive care. MMODL / IJN: [id number] /
[2017-05-23] MEDS: ALPRAZolam 0.5 MG TAB PO SCH ×4 (03:21→18:53)
[2017-05-23] MEDS: SODIUM CHLORIDE 0.9% 1,000 ML IV SCH ×2 (05:02→20:09)
[2017-05-23] MEDS: POTASSIUM CHLORIDE IV SCH ×12 (06:10→22:56)
[2017-05-23] MEDS: MVI IV SCH ×12 (06:10→22:56)
[2017-05-23] MEDS: AMINO ACID 4.25% IV SCH ×12 (06:10→22:56)
[2017-05-23] MEDS: HYDROmorphone 4 MG TABLET PO PRN ×5 (06:10→21:14)
[2017-05-23] MEDS: [UNRECOGNIZED DRUG - OTHER] IV SCH ×12 (06:10→22:56)
[2017-05-23 07:12] LABS: Glucose,Whole Blood 129 mg/dL (75-99)
[2017-05-23 08:08] LABS: Anion Gap 12 mmol/L; Calcium 8.7 mg/dL (8.4-10.2); Carbon Dioxide 22 mmol/L (22-30); Chloride 110 mmol/L (98-107); Glucose 120 mg/dL (74-99); Sodium 144 mmol/L (137-145)
[2017-05-23 08:18] LABS: Blood Urea Nitrogen 20 mg/dL (7-17); Magnesium 1.8 mg/dL (1.6-2.3); Phosphorus 4.9 mg/dL (2.5-4.5); Potassium 4.6 mmol/L (3.5-5.1)
[2017-05-23] MEDS: INSULIN ASPART 100 UNIT/ML 1 ML 10 ML VIAL SQ SCH ×4 (09:01→21:14)
[2017-05-23] MEDS: IBUPROFEN 600 MG TAB PO PRN (09:34)
[2017-05-23] MEDS: MICAFUNGIN 100 MG in SODIUM CHLORIDE 0.9% 100 ML IVPB SCH (09:35)
[2017-05-23] MEDS: ENOXAPARIN 80 MG/0.8 ML SYRINGE SQ SCH (09:35)
[2017-05-23] MEDS: PANTOPRAZOLE 40 MG TABLET PO SCH ×2 (09:35→20:22)
[2017-05-23 11:19] LABS: Glucose,Whole Blood 143 mg/dL (75-99)
[2017-05-23] MEDS: MAGNESIUM SULFATE-D5W PMX 1 GM in DEXTROSE/WATER 1 100ML.BAG IVPB SCH ×2 (12:34→13:54)
--- NOTE | 2017-05-23 14:36 | XR ---
EXAMINATION TYPE: XR abdomen complete w decub DATE OF EXAM: 05/23/2017 CLINICAL HISTORY: History of ileus nonintestinal cancer presents with pain and distention possible ob struction TECHNIQUE: Supine, upright, and left side down lateral decubitus views of the abdomen are obtained. COMPARISON: Abdominal x-ray series January 27, 2017. CT abdomen and pelvis from 4 days ago. FINDINGS: Percutaneous gastrostomy tube is redemonstrated. There are gas prominent bowel loops in the central abdomen with multiple air-fluid levels again seen. There is increasing gaseous dilatation fr om recent CT. There is transition into nondistended small bowel loops in the pelvis on CT. Nondistend ed colon along the periphery is again seen. Surgical clips right midabdomen are redemonstrated. No pn eumoperitoneum is identified. There is new tiny left pleural effusion. Osseous structures are intact. IMPRESSION: Radiographic findings are consistent with worsening distal small bowel obstruction. Trans ition point suspected in the upper pelvis on recent CT correlation.
--- NOTE | 2017-05-23 14:50 | PN ---
PROGRESS NOTE DATE OF SERVICE: 05/23/2017 This is a 52-year-old woman who was admitted with Tatyana albicans sepsis is being closely monitored. Patient also had abdominal symptoms, abdominal pain, vomiting yesterday. The G tube is draining bilious fluid at this time. No chest pain. No palpitations. Mild fever is noted. PHYSICAL EXAM: Alert and oriented x3. Pulse is 93, blood pressure 115/70, respirations 16, temperature 100.4, pulse ox 97% on room air. HEENT: Conjunctivae normal. NECK: No jugular venous distention. CARDIOVASCULAR: S1, S2 muffled. RESPIRATORY: Breath sounds diminished in the bases. A few rhonchi, no crackles. ABDOMEN: Soft, mild diffuse distention present, mild diffuse tenderness. No guarding. No rigidity. No mass palpable. Bowel sounds diminished. LEGS: No edema. NERVOUS SYSTEM: No focal deficits. LAB STUDIES: Sodium is 140, potassium 4.6. ASSESSMENT: 1. Fever, possible neutropenic fever with fungal sepsis with Tatyana albicans on antifungal medications related to PICC line. 2. Anemia possibly secondary to malignancy. 3. Ovarian cancer with peritoneal carcinomatosis, stage IV. 4. Status post G tube for decompression. 5. History of PICC line and TPN placed outpatient removed because of fungemia. 6. History of chemotherapy. 7. History of DVT. 8. History of fibromyalgia. 9. Hyperlipidemia. 10.History of degenerative joint disease. 11.Previous small-bowel obstructions. 12.Anxiety, depression, panic attacks. 13.Remote history of nicotine dependence. 14.Anemia. 15.Increased AST, ALT, alkaline phosphatase. RECOMMENDATIONS AND DISCUSSION: I recommend to continue current management and symptomatic treatment. Otherwise at this time surgical evaluation. Follow the cultures. Antifungal medications. Guarded prognosis because of multiple complex medical issues. Further recommendations to follow. MMODL / IJN: [id number] /
[2017-05-23 15:36] LABS: Basophils % (A) 0 %; Eosinophils # (A) 0.1 k/uL (0-0.7); Eosinophils % (A) 1 %; HCT 23.3 % (34.0-46.0); Lymphocytes % (A) 11 %; MCH 29.8 pg (25.0-35.0); MCHC 34.2 g/dL (31.0-37.0); MCV 87.4 fL (80.0-100.0); Mean Platelet Volume 8.4; Monocytes # (A) 0.7 k/uL (0-1.0); Monocytes % (A) 8 %; Neutrophils # (A) 6.7 k/uL (1.3-7.7); Neutrophils % (A) 76 %; Platelet Count 227 k/uL (150-450); Poikilocytosis Slight; RBC 2.67 m/uL (3.80-5.40); RDW 15.4 % (11.5-15.5); WBC 8.7 k/uL (3.8-10.6)
--- NOTE | 2017-05-23 16:17 | P.GSCN ---
History of Present Illness Consult date: 05/23/17 Reason for Consult: Small bowel obstruction History of present illness: Patient known to our service. History of chronic small bowel obstruction related to advanced peritoneal ovarian cancer metastasis. Nonsurgical candidate per gynecologic oncology. She has a PEG tube in place for decompression purposes. She admits that while at home recently she was trying some more solid foods but developed recurrent symptoms of obstruction. Mild abdominal pain currently. Today's x-rays confirm distal small bowel obstruction. Also admitted for fevers and was found to have a PICC line infection. Review of Systems Patient denies any acute changes in his hearing or vision, chest pain, shortness of breath, rectal bleeding, melena, dysuria, hematuria, lightheadedness, unexplained weight loss Past Medical History Past Medical History: Cancer, Deep Vein Thrombosis (DVT), Fibromyalgia, GERD/ Reflux, Hearing Disorder / Deafness, Hyperlipidemia, Osteoarthritis (OA) Additional Past Medical History / Comment(s): OVARIAN CA-T3C N0 Mx grade 3, 2012 ; REOCCURING CA W/ CHEMO TREATMENT 03/2016-07/2016. MVP. Diverticulosis. PARTIAL BOWEL OBSTRUCTION D/T CA METS 12/2016. 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 BLOOD PRESSURE TAKEN ON LEGS ONLY. CURRENT UTI, ON RX. TPN History of Any Multi-Drug Resistant Organisms: None Reported Past Surgical History: Hysterectomy Additional Past Surgical History / Comment(s): OOPHERECTOMY/CERVIX/UTERUS/ OMENTUM EXC; Vaginal mesh insertion. RX Port placement, removal; PICC line insertion, removal. G TUBE 02/02 Past Anesthesia/Blood Transfusion Reactions: Motion Sickness Additional Past Anesthesia/Blood Transfusion Reaction / Comm: claustrophobia Past Psychological History: Anxiety, Depression, Panic Disorder Additional Psychological History / Comment(s): lives in the family with the and the child. does not work outside of the home. Stopped smoking several years ago no significant alcohol use. No experience or extensive travels. No animals in the home Smoking Status: Former smoker Past Alcohol Use History: None Reported Additional Past Alcohol Use History / Comment(s): started smoking at age 13, smoked 1 pack per day, quit 2011 Past Drug Use History: None Reported Additional Drug Use History / Comment(s): PAST MEDICAL MARIJUANA USE. - Past Family History Sister(s) Family Medical History: Blood Disorder Additional Family Medical History / Comment(s): FACTOR 5 BLOOD DISORDER. Father Family Medical History: Hypertension, Prostate Disorder Additional Family Medical History / Comment(s): parkinsons, prostate cancer Mother Family Medical History: Cancer Additional Family Medical History / Comment(s): multiple myeoloma Medications and Allergies Home Medications Medication Instructions Recorded Confirmed Type ALPRAZolam [Xanax] 0.5 mg PO Q6H 01/16/14 05/17/17 History Escitalopram Oxalate [Lexapro] 20 mg PO HS 01/16/14 05/17/17 History Pantoprazole Sodium [Protonix] 40 mg PO BID #60 tablet. 01/31/17 05/17/17 Rx INSULIN LISPRO (HumaLOG) [humaLOG] See Protocol SQ ACHS 03/10/17 05/17/17 History Acetaminophen/Diphenhydramine 2 tab PO HS 03/28/17 05/17/17 History [Tylenol PM Extra Strength] Naproxen Sodium [Aleve] 440 mg PO DAILY PRN 03/28/17 05/17/17 History Enoxaparin [Lovenox] 80 mg SQ DAILY 04/15/17 05/17/17 History HYDROmorphone HCL [Dilaudid] 4 mg PO Q4H PRN 05/17/17 05/17/17 History diphenhydrAMINE HCL [Benadryl] 50 mg PO HS 05/17/17 05/17/17 History Allergies Allergy/AdvReac Type Severity Reaction Status Date / Time duloxetine HCl Allergy Rash/Hives Verified 05/17/17 21:47 [From Cymbalta] Sulfa (Sulfonamide Allergy Rash/Hives Verified 05/17/17 21:47 Antibiotics) carboplatin AdvReac Nausea & Verified 05/17/17 21:47 Vomiting, TEMPORARY HEARING LOSS Surgical - Exam Vital Signs Temp Pulse Resp BP Pulse Ox 101 F H 118 H 18 120/68 98 05/17/17 21:12 05/17/17 21:12 05/17/17 21:12 05/17/17 21:12 05/17/17 21:12 GENERAL: Well developed, well nourished HEENT: Normocephalic, sclera non-icteric CHEST: No deformities ABDOMEN: Mild abdominal tenderness, mild distention EXTREMITIES: No edema NEURO: Alert and appropriate Results - Labs 05/23/17 15:08 05/23/17 07:02 Abnormal Lab Results - Last 24 Hours (Table) 05/22/17 05/22/17 05/23/17 Range/Units 17:14 20:17 07:00 RBC (3.80-5.40) m/uL Hgb (11.4-16.0) gm/dL Hct (34.0-46.0) % Chloride (98-107) mmol/L BUN (7-17) mg/dL Glucose (74-99) mg/dL POC Glucose (mg/dL) 114 H 119 H 129 H (75-99) mg/dL Phosphorus (2.5-4.5) mg/dL 05/23/17 05/23/17 05/23/17 Range/Units 07:02 11:16 15:08 RBC 2.67 L (3.80-5.40) m/uL Hgb 8.0 L (11.4-16.0) gm/dL Hct 23.3 L (34.0-46.0) % Chloride 110 H (98-107) mmol/L BUN 20 H (7-17) mg/dL Glucose 120 H (74-99) mg/dL POC Glucose (mg/dL) 143 H (75-99) mg/dL Phosphorus 4.9 H (2.5-4.5) mg/dL Microbiology - Last 24 Hours (Table) 05/20/17 12:47 Blood Culture - Preliminary Blood No Growth after 72 hours 05/20/17 12:30 Blood Culture - Preliminary Blood No Growth after 72 hours 05/22/17 10:35 Blood Culture - Preliminary Blood No Growth after 24 hours 05/19/17 15:57 Blood Culture - Preliminary Blood No Growth after 72 hours Diabetes panel 05/22/17 05/23/17 Range/Units 18:17 07:02 Sodium 144 (137-145) mmol/L Potassium 3.9 4.6 (3.5-5.1) mmol/L Chloride 110 H (98-107) mmol/L Carbon Dioxide 22 (22-30) mmol/L BUN 20 H (7-17) mg/dL Creatinine 0.85 (0.52-1.04) mg/dL Glucose 120 H (74-99) mg/dL Calcium 8.7 (8.4-10.2) mg/dL Calcium panel 05/23/17 Range/Units 07:02 Calcium 8.7 (8.4-10.2) mg/dL Phosphorus 4.9 H (2.5-4.5) mg/dL Pituitary panel 05/22/17 05/23/17 Range/Units 18:17 07:02 Sodium 144 (137-145) mmol/L Potassium 3.9 4.6 (3.5-5.1) mmol/L Chloride 110 H (98-107) mmol/L Carbon Dioxide 22 (22-30) mmol/L BUN 20 H (7-17) mg/dL Creatinine 0.85 (0.52-1.04) mg/dL Glucose 120 H (74-99) mg/dL Calcium 8.7 (8.4-10.2) mg/dL Adrenal panel 05/22/17 05/23/17 Range/Units 18:17 07:02 Sodium 144 (137-145) mmol/L Potassium 3.9 4.6 (3.5-5.1) mmol/L Chloride 110 H (98-107) mmol/L Carbon Dioxide 22 (22-30) mmol/L BUN 20 H (7-17) mg/dL Creatinine 0.85 (0.52-1.04) mg/dL Glucose 120 H (74-99) mg/dL Calcium 8.7 (8.4-10.2) mg/dL Assessment and Plan (1) Small bowel obstruction Narrative/Plan: Continue PEG tube to dependent drainage. Continue sips of clears only. No surgical intervention planned. Current Visit: No Status: Acute Priority: High Code(s): K56.609 - UNSP INTESTNL OBST, UNSP TO PARTIAL VERSUS COMPLETE OBST SNOMED Code(s): 560868957
--- NOTE | 2017-05-23 16:43 | P.PN ---
Subjective Progress Note Date: 05/23/17 Principal diagnosis: neutropenic fever Pt seen today in follow up, she is vomiting, brown, clear liquid, her abd pain is periumbilical, her last pain med dose has done nothing for her, she is NPO other then meds. Objective - Vital Signs Vital signs: Vital Signs Temp 98 F 05/23/17 15:00 Pulse 82 05/23/17 15:00 Resp 16 05/23/17 15:00 BP 112/73 05/23/17 15:00 Pulse Ox 99 05/23/17 15:00 Intake & Output 05/22/17 05/23/17 05/23/17 18:59 06:59 18:59 Output Total 0 Balance 0 Weight 77.5 kg 77.5 kg Output: Stool 0 Other: Voiding Method Toilet Toilet Toilet - Constitutional General appearance: Present: disheveled, obese, severe distress - Respiratory Respiratory: bilateral: CTA - Cardiovascular Heart sounds: normal: S1, S2 - Gastrointestinal Gastrointestinal Comment(s): periumbilical tenderness, two 2-3 cm masses palpated at 7 and 11 o'clock arond the naval, pt has increased discomfort when palpating these areas - Neurologic Neurologic: Present: CNII-XII intact - Musculoskeletal Musculoskeletal: Present: generalized weakness - Psychiatric Psychiatric: Present: A&O x's 3, appropriate affect, intact judgment & insight - Labs CBC & Chem 7: 05/23/17 15:08 05/23/17 07:02 Labs: Abnormal Lab Results - Last 24 Hours (Table) 05/22/17 05/22/17 05/23/17 Range/Units 17:14 20:17 07:00 RBC (3.80-5.40) m/uL Hgb (11.4-16.0) gm/dL Hct (34.0-46.0) % Chloride (98-107) mmol/L BUN (7-17) mg/dL Glucose (74-99) mg/dL POC Glucose (mg/dL) 114 H 119 H 129 H (75-99) mg/dL Phosphorus (2.5-4.5) mg/dL 05/23/17 05/23/17 05/23/17 Range/Units 07:02 11:16 15:08 RBC 2.67 L (3.80-5.40) m/uL Hgb 8.0 L (11.4-16.0) gm/dL Hct 23.3 L (34.0-46.0) % Chloride 110 H (98-107) mmol/L BUN 20 H (7-17) mg/dL Glucose 120 H (74-99) mg/dL POC Glucose (mg/dL) 143 H (75-99) mg/dL Phosphorus 4.9 H (2.5-4.5) mg/dL Microbiology - Last 24 Hours (Table) 05/20/17 12:47 Blood Culture - Preliminary Blood No Growth after 72 hours 05/20/17 12:30 Blood Culture - Preliminary Blood No Growth after 72 hours 05/22/17 10:35 Blood Culture - Preliminary Blood No Growth after 24 hours 05/19/17 15:57 Blood Culture - Preliminary Blood No Growth after 72 hours - Imaging and Cardiology Abdominal x-ray: report reviewed Assessment and Plan (1) Neutropenic fever Current Visit: Yes Status: Resolved Priority: High Code(s): D70.9 - NEUTROPENIA, UNSPECIFIED; R50.81 - FEVER PRESENTING WITH CONDITIONS CLASSIFIED ELSEWHERE SNOMED Code(s): 785935540 (2) Ovarian cancer Narrative/Plan: Pt is having recurrent symptoms of obstruction, abd xray was ordered with evidence of worsening distal SBO. Surgery has seen pt with no plans for surgery at this time. Plan is for symptom management including pain control, decompression tube in place and draining. TPN will continue for nutritional support. Will review case with pt primary Oncologist Dr. Khan for recommendations on plans to treat or if other options such as comfort are more appropriate. Will follow up. Changes to pain regimen, Fentanyl TDP added, increased frequency of dilaudid Current Visit: Yes Status: Chronic Priority: Medium Code(s): C56.9 - MALIGNANT NEOPLASM OF UNSPECIFIED OVARY SNOMED Code(s): 198731380
[2017-05-23 17:21] LABS: Glucose,Whole Blood 114 mg/dL (75-99)
[2017-05-23] MEDS: ONDANSETRON 4 MG/2 ML VIAL IVP PRN (17:50)
[2017-05-23] MEDS: FAT EMULSION 20% 250 ML IV SCH (20:09)
[2017-05-23] MEDS: ESCITALOPRAM 20 MG TAB PO SCH (20:23)
[2017-05-23 20:30] LABS: Glucose,Whole Blood 109 mg/dL (75-99)
--- NOTE | 2017-05-23 21:02 | PN ---
PROGRESS NOTE DATE OF SERVICE: 05/21/2017. REASON FOR FOLLOWUP: Positive blood culture with Tatyana albicans. INTERVAL HISTORY: The patient did spike a fever of 101.5 last night with 100.5 this morning; however, afebrile afterward. She has been complaining of some abdominal discomfort and feeling nauseous, but no vomiting. No chest pain or any diarrhea. EXAMINATION: Her blood pressure is 112/73 with a pulse of 82, temperature of 98. She is 99% on room air. General description is a middle-aged female up in the bed in no distress. RESPIRATORY SYSTEM: Unlabored breathing with decreased breath sounds at the bases. No wheezing. HEART: S1, S2. Regular rate and rhythm. ABDOMEN: Soft, mildly distended. No guarding or rigidity. LABS: Hemoglobin 8.2, white count 8.7. BUN of 20, creatinine 0.85. Blood culture repeat has been negative so far. DIAGNOSTIC IMPRESSION AND PLAN: Patient with a Tatyana albicans positive blood culture related to the PICC line which has been discontinued with a new fever yesterday and some abdominal symptoms for which General Surgery has been consulted. Blood culture will be repeated in view of the new fever. Continue with micafungin in view of the inability to use the Diflucan because of drug interaction with and continue supportive care. MMODL / IJN: [id number] /
[2017-05-24] MEDS: HYDROmorphone 4 MG TABLET PO PRN ×3 (01:08→08:36)
[2017-05-24] MEDS: ALPRAZolam 0.5 MG TAB PO SCH ×5 (05:19→23:41)
[2017-05-24 07:12] LABS: Glucose,Whole Blood 126 mg/dL (75-99)
[2017-05-24] MEDS: INSULIN ASPART 100 UNIT/ML 1 ML 10 ML VIAL SQ SCH ×4 (07:55→21:20)
[2017-05-24] MEDS: MICAFUNGIN 100 MG in SODIUM CHLORIDE 0.9% 100 ML IVPB SCH (08:39)
[2017-05-24 08:57] LABS: Anion Gap 10 mmol/L; Blood Urea Nitrogen 20 mg/dL (7-17); Calcium 8.6 mg/dL (8.4-10.2); Carbon Dioxide 26 mmol/L (22-30); Chloride 107 mmol/L (98-107); Glucose 118 mg/dL (74-99); Phosphorus 5.4 mg/dL (2.5-4.5); Potassium 3.6 mmol/L (3.5-5.1); Sodium 143 mmol/L (137-145)
[2017-05-24] MEDS: ENOXAPARIN 80 MG/0.8 ML SYRINGE SQ SCH (09:42)
[2017-05-24] MEDS: PANTOPRAZOLE 40 MG TABLET PO SCH ×2 (09:45→21:28)
[2017-05-24 10:01] LABS: Basophils # (A) 0.1 k/uL (0-0.2); Basophils % (A) 1 %; Eosinophils # (A) 0.2 k/uL (0-0.7); Eosinophils % (A) 2 %; HCT 24.6 % (34.0-46.0); HGB 8.2 gm/dL (11.4-16.0); Lymphocytes # (A) 1.2 k/uL (1.0-4.8); Lymphocytes % (A) 12 %; MCH 30.5 pg (25.0-35.0); MCHC 33.5 g/dL (31.0-37.0); Mean Platelet Volume 8.8; Monocytes # (A) 0.9 k/uL (0-1.0); Monocytes % (A) 9 %; Neutrophils # (A) 7.4 k/uL (1.3-7.7); Neutrophils % (A) 74 %; Platelet Count 319 k/uL (150-450); Poikilocytosis Slight; RDW 15.8 % (11.5-15.5)
[2017-05-24 11:18] LABS: Glucose,Whole Blood 116 mg/dL (75-99)
--- NOTE | 2017-05-24 11:58 | P.PN ---
Subjective Progress Note Date: 05/24/17 Principal diagnosis: Small bowel obstruction Patient had episodes of vomiting yesterday. Still with some abdominal pain. Abdominal x-ray showed persistent bowel obstruction. Gastrostomy tube was intermittently draining bilious fluid Objective - Vital Signs Vital signs: Vital Signs Temp 98.6 F 05/24/17 07:00 Pulse 96 05/24/17 07:00 Resp 16 05/24/17 07:00 BP 107/68 05/24/17 07:00 Pulse Ox 96 05/23/17 22:33 Intake & Output 05/23/17 05/24/17 05/24/17 18:59 06:59 18:59 Intake Total 1007.5 Output Total 0 Balance 1007.5 0 Weight 77.5 kg 77.4 kg Intake: Intake, IV Titration 1007.5 Amount Potassium Chloride 15 meq 1007.5 In Amino Acid 4.25%-D10w +Lytes*E* 1,000 ml @ 80 mls/hr IV .[facility] Rx#:[id number] Output: Stool 0 Other: Voiding Method Toilet Toilet Toilet - Exam Abdomen: Soft, mild diffuse tenderness - Labs CBC & Chem 7: 05/24/17 07:35 05/24/17 07:35 Labs: Abnormal Lab Results - Last 24 Hours (Table) 05/23/17 05/23/17 05/23/17 Range/Units 15:08 17:16 20:27 RBC 2.67 L (3.80-5.40) m/uL Hgb 8.0 L (11.4-16.0) gm/dL Hct 23.3 L (34.0-46.0) % RDW (11.5-15.5) % BUN (7-17) mg/dL Glucose (74-99) mg/dL POC Glucose (mg/dL) 114 H 109 H (75-99) mg/dL Phosphorus (2.5-4.5) mg/dL 05/24/17 05/24/17 05/24/17 Range/Units 07:04 07:35 07:35 RBC 2.70 L (3.80-5.40) m/uL Hgb 8.2 L (11.4-16.0) gm/dL Hct 24.6 L (34.0-46.0) % RDW 15.8 H (11.5-15.5) % BUN 20 H (7-17) mg/dL Glucose 118 H (74-99) mg/dL POC Glucose (mg/dL) 126 H (75-99) mg/dL Phosphorus 5.4 H (2.5-4.5) mg/dL 05/24/17 Range/Units 11:13 RBC (3.80-5.40) m/uL Hgb (11.4-16.0) gm/dL Hct (34.0-46.0) % RDW (11.5-15.5) % BUN (7-17) mg/dL Glucose (74-99) mg/dL POC Glucose (mg/dL) 116 H (75-99) mg/dL Phosphorus (2.5-4.5) mg/dL Microbiology - Last 24 Hours (Table) 05/19/17 14:00 Catheter Tip Culture - Final Catheter Tip Tatyana albicans 05/19/17 15:57 Blood Culture - Preliminary Blood No Growth after 96 hours 05/20/17 12:47 Blood Culture - Preliminary Blood No Growth after 72 hours 05/20/17 12:30 Blood Culture - Preliminary Blood No Growth after 72 hours 05/22/17 10:35 Blood Culture - Preliminary Blood No Growth after 24 hours Assessment and Plan (1) Small bowel obstruction Narrative/Plan: Continue gastrostomy tube to dependent drainage. Would not placed on suction. Frequent position changes encouraged to the patient to assist with drainage from the gastrostomy. Current Visit: No Status: Acute Priority: High Code(s): K56.609 - UNSP INTESTNL OBST, UNSP TO PARTIAL VERSUS COMPLETE OBST SNOMED Code(s): 705213291
--- NOTE | 2017-05-24 12:48 | PN ---
PROGRESS NOTE DATE OF SERVICE: 05/24/2017 This 52-year-old woman who was admitted with fever and possibly fungal sepsis is complaining abdominal pain and distention also. The patient also had features of small- bowel obstruction. Surgery is following the patient closely. The patient is on gravity drainage of NG tube conservatively. Dr. Paredes has seen the patient at this time. CAT scan has been noted. Infectious Disease is following the patient closely. The most recent cultures did not show any yeast grown. The patient is currently on micafungin at this time. No chest pain. No palpitations. No fever. PHYSICAL EXAM: On exam, alert and oriented x3. Pulse 96, blood pressure 107/68, respirations 16, temperature 98.6, pulse ox 96% on 2 L. HEENT: Conjunctivae normal. Oral mucosa moist. Neck is no jugular venous distention. No carotid bruit. No lymph node enlargement. CARDIOVASCULAR: S1, S2 muffled. No S3, no S4. RESPIRATORY; Breath sounds diminished at the bases. No rhonchi, no crackles. ABDOMEN: Soft. Mild diffuse distention. G-tube drainage, draining bilious fluid. Bowel sounds diminished. LEGS: No edema, no swelling. NERVOUS SYSTEM: Higher functions as mentioned earlier, moves all 4 limbs, no focal motor or sensory deficits. LYMPHATICS: No lymphadenopathy of the neck, axillae or groin. SKIN: No ulcer, rash or bleeding. LABS: WBC 10, hemoglobin is 8.2. Glucose 118. ASSESSMENT: 1. Fever, possible neutropenic fever with fungal sepsis with Tatyana albicans on antifungal medications related to PICC line. 2. Anemia possibly secondary to malignancy. 3. Abdominal distention, possibly partial small bowel obstruction. 4. Ovarian cancer with peritoneal carcinomatosis, stage IV. 5. Status post, G tube for decompression purposes. 6. History of PICC line and TPN placed outpatient removed because of fungemia. 7. History of chemotherapy. 8. History of deep venous thrombosis. 9. History of fibromyalgia. 10.Hyperlipidemia. 11.History of degenerative joint disease. 12.Previous small-bowel obstructions. 13.Anxiety, depression, panic attacks history. 14.Remote history of nicotine dependence. 15.Anemia. 16.Increased AST, ALT, alkaline phosphatase. RECOMMENDATIONS AND DISCUSSION: Recommend to continue current medications, continue to monitor and symptomatic treatment. Otherwise, guarded prognosis because of multiple complex medical issues. Further recommendations to follow. Otherwise, I would also recommend follow closely with Surgery and the most recent cultures are negative as mentioned earlier. Continue with the antifungal medications. Prognosis guarded because of multiple complex medical issues as detailed above. MMODL / IJN: [id number] /
[2017-05-24] MEDS: MORPHINE SULFATE/PF 10MG/10ML VL IVP PRN ×3 (12:56→21:43)
[2017-05-24] MEDS: AMINO ACID 4.25% IV SCH ×8 (15:11→15:35)
[2017-05-24] MEDS: MVI IV SCH ×8 (15:11→15:35)
[2017-05-24] MEDS: [UNRECOGNIZED DRUG - OTHER] IV SCH ×8 (15:11→15:35)
[2017-05-24] MEDS: POTASSIUM CHLORIDE IV SCH ×8 (15:11→15:35)
[2017-05-24] MEDS: SODIUM CHLORIDE 0.9% 1,000 ML IV SCH (15:35)
--- NOTE | 2017-05-24 15:54 | PN ---
PROGRESS NOTE DATE OF SERVICE: 05/24/2017. REASON FOR FOLLOWUP: Tatyana albicans bacteremia secondary to PICC line infection. INTERVAL HISTORY: The patient is afebrile. She is breathing comfortably. Denies having any chest pain, shortness of breath or cough. Abdominal pain has improved. Slight nausea but no vomiting. Did have a small bowel movement. PHYSICAL EXAMINATION: Blood pressure 107/68 with a pulse of 96, temperature 98.6. She is 96% on room air. General description is a middle-aged female lying in bed in no distress. RESPIRATORY SYSTEM: Unlabored breathing. Clear to auscultation anteriorly. HEART: S1, S2. Regular rate and rhythm. ABDOMEN: Soft. No tenderness. LABS: Hemoglobin 8.2, white count 10.0, BUN of 20, creatinine 0.83. DIAGNOSTIC IMPRESSION AND PLAN: Patient with Tatyana albicans positive blood culture related to catheter and secondary to PICC line that has been removed. Repeat blood cultures have been negative. Patient will be able to get a PICC line as of Monday morning and afterward to continue with the micafungin for 2 weeks. Cannot use the Diflucan as the patient is on Lexapro, contraindicating use of the same. Continue with supportive care. MMODL / IJN: [id number] /
[2017-05-24 17:14] LABS: Glucose,Whole Blood 116 mg/dL (75-99)
[2017-05-24] MEDS: ONDANSETRON 4 MG/2 ML VIAL IVP PRN ×2 (17:20→23:41)
[2017-05-24 20:01] LABS: Glucose,Whole Blood 105 mg/dL (75-99)
[2017-05-24] MEDS: ESCITALOPRAM 20 MG TAB PO SCH (21:27)
[2017-05-24] MEDS: FAT EMULSION 20% 250 ML IV SCH (21:27)
--- NOTE | 2017-05-24 23:01 | P.PN ---
Subjective Progress Note Date: 05/24/17 Pt with persistent n/v yesterday, with some improvement today. She continues to c/o significant pain on PO dilaudid Objective - Vital Signs Vital signs: Vital Signs Temp 98.3 F 05/24/17 15:00 Pulse 89 05/24/17 15:00 Resp 16 05/24/17 15:00 BP 126/68 05/24/17 15:00 Pulse Ox 95 05/24/17 15:00 Intake & Output 05/24/17 05/24/17 05/25/17 06:59 18:59 06:59 Output Total 0 Balance 0 Weight 77.4 kg Output: Stool 0 Other: Voiding Method Toilet Toilet - Constitutional General appearance: Present: mild distress - EENT Eyes: Present: PERRLA ENT: Present: hearing grossly normal, normal oropharynx - Respiratory Respiratory: bilateral: diminished - Cardiovascular Rhythm: regular Heart sounds: normal: S1, S2 - Gastrointestinal General gastrointestinal: Present: absent bowel sounds, distended - Neurologic Neurologic: Present: CNII-XII intact - Musculoskeletal Musculoskeletal: Present: generalized weakness, strength equal bilaterally - Psychiatric Psychiatric: Present: A&O x's 3, appropriate affect - Labs CBC & Chem 7: 05/24/17 07:35 05/24/17 07:35 Labs: Abnormal Lab Results - Last 24 Hours (Table) 05/24/17 05/24/17 05/24/17 Range/Units 07:04 07:35 07:35 RBC 2.70 L (3.80-5.40) m/uL Hgb 8.2 L (11.4-16.0) gm/dL Hct 24.6 L (34.0-46.0) % RDW 15.8 H (11.5-15.5) % BUN 20 H (7-17) mg/dL Glucose 118 H (74-99) mg/dL POC Glucose (mg/dL) 126 H (75-99) mg/dL Phosphorus 5.4 H (2.5-4.5) mg/dL 05/24/17 05/24/17 05/24/17 Range/Units 11:13 17:11 19:58 RBC (3.80-5.40) m/uL Hgb (11.4-16.0) gm/dL Hct (34.0-46.0) % RDW (11.5-15.5) % BUN (7-17) mg/dL Glucose (74-99) mg/dL POC Glucose (mg/dL) 116 H 116 H 105 H (75-99) mg/dL Phosphorus (2.5-4.5) mg/dL Microbiology - Last 24 Hours (Table) 05/19/17 15:57 Blood Culture - Preliminary Blood No Growth after 120 hours 05/20/17 12:47 Blood Culture - Preliminary Blood No Growth after 96 hours 05/20/17 12:30 Blood Culture - Preliminary Blood No Growth after 96 hours 05/22/17 10:35 Blood Culture - Preliminary Blood No Growth after 48 hours 05/23/17 10:58 Blood Culture - Preliminary Blood No Growth after 24 hours 05/19/17 14:00 Catheter Tip Culture - Final Catheter Tip Tatyana albicans Assessment and Plan (1) Small bowel obstruction Narrative/Plan: The pt has developed SBO again, with increased pain, and n/v. She has a decompression PEG, to dependent drainage. Surgery is following. Check with surgery if connecting to suction could be more effective Current Visit: No Status: Acute Priority: High Code(s): K56.609 - UNSP INTESTNL OBST, UNSP TO PARTIAL VERSUS COMPLETE OBST SNOMED Code(s): 170460215 (2) Abdominal pain Narrative/Plan: Control continues to be suboptimal. She was started on Fentanyl 25 mcg on 05/23. I will stop PO dilaudid as it is likely not being absorbed, and switch to IV morphine Current Visit: No Status: Acute Priority: High Code(s): R10.9 - UNSPECIFIED ABDOMINAL PAIN SNOMED Code(s): 00091443 (3) Neutropenic fever Narrative/Plan: Due to candidemia. fever and neutropenia have resolved. On micafungin per ID. PICC removed. replace PICC when Ok with ID Current Visit: Yes Status: Resolved Priority: High Code(s): D70.9 - NEUTROPENIA, UNSPECIFIED; R50.81 - FEVER PRESENTING WITH CONDITIONS CLASSIFIED ELSEWHERE SNOMED Code(s): 762049152 (4) Ovarian cancer Narrative/Plan: Treatment on hold till candidemia resolved. There is concern for progression given recurrent SBO. Current Visit: Yes Status: Chronic Priority: Medium Code(s): C56.9 - MALIGNANT NEOPLASM OF UNSPECIFIED OVARY SNOMED Code(s): 463736200
[2017-05-25] MEDS: SODIUM CHLORIDE 0.9% 1,000 ML IV SCH ×2 (04:53→16:20)
[2017-05-25] MEDS: MVI IV SCH ×8 (04:54→16:20)
[2017-05-25] MEDS: [UNRECOGNIZED DRUG - OTHER] IV SCH ×8 (04:54→16:20)
[2017-05-25] MEDS: AMINO ACID 4.25% IV SCH ×8 (04:54→16:20)
[2017-05-25] MEDS: POTASSIUM CHLORIDE IV SCH ×8 (04:54→16:20)
[2017-05-25] MEDS: ONDANSETRON 4 MG/2 ML VIAL IVP PRN ×2 (06:04→18:25)
[2017-05-25] MEDS: ALPRAZolam 0.5 MG TAB PO SCH ×3 (06:04→18:50)
[2017-05-25 06:59] LABS: Glucose,Whole Blood 118 mg/dL (75-99)
[2017-05-25 07:29] LABS: Basophils % (A) 1 %; Eosinophils # (A) 0.1 k/uL (0-0.7); Eosinophils % (A) 2 %; HCT 23.4 % (34.0-46.0); HGB 7.9 gm/dL (11.4-16.0); Lymphocytes # (A) 1.2 k/uL (1.0-4.8); Lymphocytes % (A) 15 %; MCH 30.6 pg (25.0-35.0); MCHC 33.8 g/dL (31.0-37.0); MCV 90.6 fL (80.0-100.0); Mean Platelet Volume 8.1; Monocytes # (A) 0.8 k/uL (0-1.0); Monocytes % (A) 10 %; Neutrophils # (A) 5.7 k/uL (1.3-7.7); Neutrophils % (A) 71 %; Platelet Count 409 k/uL (150-450); Poikilocytosis Slight; RBC 2.58 m/uL (3.80-5.40); RDW 15.9 % (11.5-15.5)
[2017-05-25] MEDS: ENOXAPARIN 80 MG/0.8 ML SYRINGE SQ SCH (07:29)
[2017-05-25] MEDS: PANTOPRAZOLE 40 MG TABLET PO SCH ×2 (07:30→21:30)
[2017-05-25] MEDS: MICAFUNGIN 100 MG in SODIUM CHLORIDE 0.9% 100 ML IVPB SCH (07:30)
[2017-05-25] MEDS: INSULIN ASPART 100 UNIT/ML 1 ML 10 ML VIAL SQ SCH ×4 (07:30→21:00)
[2017-05-25 08:03] LABS: Calcium 8.5 mg/dL (8.4-10.2); Magnesium 1.7 mg/dL (1.6-2.3); Phosphorus 5.8 mg/dL (2.5-4.5)
[2017-05-25 11:28] LABS: Glucose,Whole Blood 124 mg/dL (75-99)
--- NOTE | 2017-05-25 14:49 | PN ---
PROGRESS NOTE DATE OF SERVICE: 05/23/2017 This is a 52-year-old woman with a past history of multiple medical problems including metastatic ovarian cancer, was admitted with a fungal sepsis. The patient was ini abdominal discomfort which is slightly improving at this time. Dr. Paredes and Infectious Disease are following the patient closely. No chest pain, no palpitation. The patient is on micafungin. The most recent cultures are negative. PHYSICAL EXAM: Alert and oriented x3. Pulse 92, blood pressure 130/72, respirations 16, temperature 98.2, pulse ox 98% on room air. HEENT: Normal. CARDIOVASCULAR SYSTEM: S1, S2, muffled. RESPIRATORY: Breath sounds diminished at the bases, a few scattered rhonchi, no crackles.. ABDOMEN: Soft. Mild diffuse distention present. NG tube in situ. LEGS: No edema, no swelling. NERVOUS SYSTEM: Higher functions as mentioned earlier. Moves all four limbs. No focal deficits. SKIN: No rash, ulcer, bleeding. LABS: WBC 8, hemoglobin is 7.9, glucose 118, phos is 5.8. ASSESSMENT: 1. Fever, possible neutropenic fever with fungal sepsis with Tatyana albicans on antifungal medications possibly related to PICC line. 2. Anemia, possibly secondary to malignancy. 3. Abdominal distension, possible partial small bowel obstruction, possibly related to malignancy. 4. Ovarian cancer with peritoneal carcinomatosis, stage IV. 5. Status post G-tube for decompression purposes. 6. History of PICC line and TPN placed outpatient, removed because of fungemia. 7. History of chemotherapy. 8. History of deep venous thrombosis. 9. History of fibromyalgia. 10.Hyperlipidemia. 11.History of degenerative joint disease. 12.Previous small bowel obstruction history. 13.Anxiety, depression, panic attacks history. 14.Remote history of nicotine dependence. 15.Anemia. 16.Increased AST, ALT, alkaline phosphatase. 17.NO CODE, NO CARDIOPULMONARY RESUSCITATION, NO VENTILATOR. RECOMMENDATION: In this 52-year-old woman who presented with multiple complex medical issues, will monitor the patient closely. Continue with the current management and symptomatic treatment. Otherwise at this time, continue with the proton pump inhibitors. Otherwise, I would also recommend possible surgery and as well as Hematology, Oncology. Guarded prognosis. Continue with micafungin. Most recent cultures are negative at this time. Closely follow with Infectious Disease. Guarded prognosis. Further recommendations to follow. MMODL / IJN: [id number] /
--- NOTE | 2017-05-25 16:57 | P.PN ---
Subjective Progress Note Date: 05/25/17 Principal diagnosis: Small bowel obstruction Patient states that she is feeling better. She is drinking more today. Abdominal pain improved. She is waiting for PICC line and TPN to resume. Objective - Vital Signs Vital signs: Vital Signs Temp 99.5 F 05/25/17 14:22 Pulse 83 05/25/17 15:43 Resp 16 05/25/17 15:43 BP 112/66 05/25/17 14:22 Pulse Ox 97 05/25/17 14:22 Intake & Output 05/24/17 05/25/17 05/25/17 18:59 06:59 18:59 Intake Total 1018.5 Output Total 0 Balance 1018.5 0 Weight 77.4 kg Intake: Intake, IV Titration 1018.5 Amount Mvi, Adult No.4 with Vit 1018.5 K 10 ml Trace (Conc-1Ml/ Dose) 1 ml Potassium Chloride 15 meq In Amino Acid 4.25%-D10w+Lytes*E* 1,000 ml @ 80 mls/hr IV . [facility] Rx#: [id number] Output: Stool 0 Other: Voiding Method Toilet Toilet Toilet - Exam Abdomen: Soft, mild distention, mild tenderness - Labs CBC & Chem 7: 05/25/17 06:54 05/25/17 06:54 Labs: Abnormal Lab Results - Last 24 Hours (Table) 05/24/17 05/24/17 05/25/17 Range/Units 17:11 19:58 06:45 RBC (3.80-5.40) m/uL Hgb (11.4-16.0) gm/dL Hct (34.0-46.0) % RDW (11.5-15.5) % BUN (7-17) mg/dL Glucose (74-99) mg/dL POC Glucose (mg/dL) 116 H 105 H 118 H (75-99) mg/dL Phosphorus (2.5-4.5) mg/dL 05/25/17 05/25/17 05/25/17 Range/Units 06:54 06:54 11:26 RBC 2.58 L (3.80-5.40) m/uL Hgb 7.9 L (11.4-16.0) gm/dL Hct 23.4 L (34.0-46.0) % RDW 15.9 H (11.5-15.5) % BUN 21 H (7-17) mg/dL Glucose 117 H (74-99) mg/dL POC Glucose (mg/dL) 124 H (75-99) mg/dL Phosphorus 5.8 H (2.5-4.5) mg/dL Microbiology - Last 24 Hours (Table) 05/20/17 12:47 Blood Culture - Preliminary Blood No Growth after 120 hours 05/20/17 12:30 Blood Culture - Preliminary Blood No Growth after 120 hours 05/22/17 10:35 Blood Culture - Preliminary Blood No Growth after 72 hours 05/23/17 10:58 Blood Culture - Preliminary Blood No Growth after 48 hours 05/19/17 15:57 Blood Culture - Preliminary Blood No Growth after 120 hours Assessment and Plan (1) Small bowel obstruction Narrative/Plan: Continue sips of clears. Resume TPN once PICC line replaced. We'll sign off. Please contact if needed. Current Visit: No Status: Acute Priority: High Code(s): K56.609 - UNSP INTESTNL OBST, UNSP TO PARTIAL VERSUS COMPLETE OBST SNOMED Code(s): 617997872
[2017-05-25 17:37] LABS: Glucose,Whole Blood 114 mg/dL (75-99)
[2017-05-25 20:34] LABS: Glucose,Whole Blood 125 mg/dL (75-99)
[2017-05-25] MEDS: FAT EMULSION 20% 250 ML IV SCH (21:07)
[2017-05-25] MEDS: ESCITALOPRAM 20 MG TAB PO SCH (21:30)
--- NOTE | 2017-05-25 22:01 | PN ---
PROGRESS NOTE DATE OF SERVICE: 05/25/2017. REASON FOR FOLLOWUP: Positive blood culture with Tatyana albicans, secondary to PICC line infection. INTERVAL HISTORY: The patient is afebrile. She is breathing comfortably. Denies having any chest pain, shortness of breath or cough. Abdominal pain has improved. Did have a bowel movement. EXAMINATION: Blood pressure 112/66 with a pulse of 83, temp 98.5. He is 97% on room air. General description is a middle-aged female lying in bed in no distress. Respiratory system: Unlabored breathing, clear to auscultation anteriorly. HEART: S1, S2. Regular rate and rhythm. ABDOMEN: Soft, no tenderness. LABS: Hemoglobin 7.8, white count of 8.0, BUN of 21, creatinine 0.78. DIAGNOSTIC IMPRESSION AND PLAN: Patient with positive blood cultures secondary to PICC line has been discontinued. Repeat blood culture negative. We will get a PICC line tomorrow as the patient needs further outpatient chemo as well as TPN to carry high risk of infection. We will finish therapy with Micafungin for a total of 2 weeks from negative culture with close outpatient followup. MMODL / IJN: [id number] /
[2017-05-26] MEDS: ONDANSETRON 4 MG/2 ML VIAL IVP PRN (02:06)
[2017-05-26] MEDS: ALPRAZolam 0.5 MG TAB PO SCH ×5 (02:47→21:01)
[2017-05-26] MEDS: [UNRECOGNIZED DRUG - OTHER] IV SCH ×12 (04:12→21:02)
[2017-05-26] MEDS: POTASSIUM CHLORIDE IV SCH ×12 (04:12→21:02)
[2017-05-26] MEDS: AMINO ACID 4.25% IV SCH ×12 (04:12→21:02)
[2017-05-26] MEDS: MVI IV SCH ×12 (04:12→21:02)
[2017-05-26] MEDS: SODIUM CHLORIDE 0.9% 1,000 ML IV SCH ×2 (06:15→20:22)
[2017-05-26 07:20] LABS: Glucose,Whole Blood 119 mg/dL (75-99)
[2017-05-26 07:30] LABS: Basophils % (A) 1 %; Eosinophils % (A) 0 %; Hypochromasia Slight; Lymphocytes % (A) 11 %; MCH 30.1 pg (25.0-35.0); MCHC 33.2 g/dL (31.0-37.0); MCV 90.6 fL (80.0-100.0); Mean Platelet Volume 8.1; Monocytes # (A) 0.9 k/uL (0-1.0); Monocytes % (A) 10 %; Neutrophils % (A) 75 %; Platelet Count 503 k/uL (150-450); Poikilocytosis Slight; RBC 2.64 m/uL (3.80-5.40); RDW 15.9 % (11.5-15.5); WBC 9.4 k/uL (3.8-10.6)
[2017-05-26] MEDS: INSULIN ASPART 100 UNIT/ML 1 ML 10 ML VIAL SQ SCH ×4 (07:32→21:02)
[2017-05-26 07:36] LABS: Calcium 8.9 mg/dL (8.4-10.2); Magnesium 1.6 mg/dL (1.6-2.3); Phosphorus 5.5 mg/dL (2.5-4.5); Potassium 3.7 mmol/L (3.5-5.1)
[2017-05-26] MEDS: ENOXAPARIN 80 MG/0.8 ML SYRINGE SQ SCH (07:53)
[2017-05-26] MEDS: PANTOPRAZOLE 40 MG TABLET PO SCH ×2 (07:53→21:02)
[2017-05-26 11:14] LABS: Glucose,Whole Blood 127 mg/dL (75-99)
[2017-05-26] MEDS ORDERED: ONDANSETRON 4 MG TAB PO PRN (12:30)
[2017-05-26] MEDS ORDERED: FLUCONAZOLE 100 MG TAB PO ONE (12:39)
[2017-05-26] MEDS: MICAFUNGIN 100 MG in SODIUM CHLORIDE 0.9% 100 ML IVPB SCH (12:40)
[2017-05-26] MEDS ORDERED: SCOPOLAMINE 1.5MG/72HR PATCH TRANSDERM STA (12:42)
[2017-05-26] MEDS: ONDANSETRON ODT 4 MG TAB PO PRN ×2 (13:45→18:50)
[2017-05-26 17:35] LABS: Glucose,Whole Blood 112 mg/dL (75-99)
--- NOTE | 2017-05-26 18:47 | PN ---
PROGRESS NOTE DATE OF SERVICE: 05/26/2017 Patient was seen in the room at bedside. Claims she could not have PICC line placed because of Lovenox injection. She is getting it done at 7 in the morning tomorrow for resuming antifungal for Candidal albicans candidemia. The patient's vital signs: Temperature of 98.2, pulse 92, respirations 16, blood pressure of 130/72, O2 saturation 98%. GENERAL: Patient is awake, alert and oriented. She is in no acute distress. Looks chronically ill. HEENT: Atraumatic, normocephalic. Pupils equal and react to light. Extraocular intact. Buccal mucosa is fair is supple. No goiter, lymphadenopathy. JVD is negative. No carotid bruit heard. Lungs are clear to auscultate. No rales, rhonchi, or wheezes. Heart is regular rate and rhythm without any murmurs gallop rhythm. Abdomen is soft. Mild diffuse distention. Bowel sounds positive. Extremities: No edema, clubbing or cyanosis. NEUROLOGICAL EXAMINATION: Cranial nerves 2-12 grossly intact. No gross motor or sensory deficit. Skin is warm, dry, intact. LABS: CBC: White blood count of 9.2, hemoglobin 8, hematocrit 24, platelet count of 503. Chemical profile: Sodium 144, potassium 3.7, chloride 105, bicarb 27, BUN 21, creatinine 0.87, glucose 110. ASSESSMENT: 1. Fever, possibly neutropenic fever with fungal sepsis with Tatyana albicans. The patient is on antifungal medication. 2. Anemia secondary to malignancy. 3. Abdominal distention, partial small bowel obstruction secondary to malignancy. Continue with NG tube decompression. 4. Stage IV ovarian cancer with the peritoneal carcinomatosis. 5. Sepsis and bacteremia secondary to PICC line. The patient's PICC line was removed and is supposed to have PICC line inserted tomorrow morning for TPN and fungemia. 6. Anxiety. 7. Degenerative joint disease. 8. Increased ALT, AST. PLAN: Plan is to continue patient's current medication. Continue with the plan of care. Patient is supposed to get PICC line done tomorrow morning to continue medications. Patient is on micafungin. Infectious Disease is recommending a total 2 week therapy after the cultures came back negative. The patient is aware of plan of care. Possible discharge tomorrow morning once PICC line is done. MMODL / IJN: [id number] /
[2017-05-26 20:15] LABS: Glucose,Whole Blood 99 mg/dL (75-99)
[2017-05-26] MEDS: FAT EMULSION 20% 250 ML IV SCH (20:22)
[2017-05-26] MEDS: ESCITALOPRAM 20 MG TAB PO SCH (21:02)
--- NOTE | 2017-05-26 22:20 | PN ---
PROGRESS NOTE DATE OF SERVICE: 05/26/2017. REASON FOR FOLLOWUP: Tatyana albicans-positive blood culture secondary PICC line infection. INTERVAL HISTORY: The patient is afebrile. Unfortunately, she is going to get another PICC line today. She was given Lovenox by the RN this morning. The patient is afebrile. She is breathing comfortably. Denies having any chest pain. No cough. No worsening abdominal pain and did have a bowel movement. EXAMINATION: Blood pressure 120/73 with a pulse of 71, temperature of 98.9. She is 97% on room air. General description is middle-aged female, lying in bed in no distress. RESPIRATORY SYSTEM: Unlabored breathing. Clear to auscultation anteriorly. HEART: S1, S2. Regular rate and rhythm. ABDOMEN: Soft. No tenderness. LABS: Hemoglobin is 8.2, white count 9.4 with a BUN of 21, creatinine 0.87. Blood culture repeat has been negative so far. DIAGNOSTIC IMPRESSION AND PLAN: Patient with a positive blood culture with Tatyana albicans. Second PICC line which has been discontinued. She is currently on micafungin because of drug interaction between Diflucan and psychiatric medications; however, the patient has currently no IV access; hence, will give her 1 oral dose of Diflucan. She should be able to get her PICC line tomorrow and able to go home on the IV micafungin with a prescription provided to the nurse. Continue supportive care. YVONNEL / BRANDIEN: [id number] /
[2017-05-26 22:44] VITALS: RESP 18
[2017-05-27] MEDS: ALPRAZolam 0.5 MG TAB PO SCH ×2 (06:08→09:51)
[2017-05-27] MEDS: SODIUM CHLORIDE 0.9% 1,000 ML IV SCH ×2 (07:32→08:58)
[2017-05-27] MEDS: MICAFUNGIN 100 MG in SODIUM CHLORIDE 0.9% 100 ML IVPB SCH ×2 (07:32→09:51)
[2017-05-27 07:37] LABS: Glucose,Whole Blood 131 mg/dL (75-99)
[2017-05-27] MEDS ORDERED: LIDOCAINE 2% (PF) 20 MG/ML 10 ML AMP SQ ONE (08:00)
[2017-05-27] MEDS ORDERED: IODIXANOL 320 MG/ML 100 ML IV ONE ×2 (08:08)
[2017-05-27 08:18] VITALS: BP 125/75; PULSE 66; TEMP 98.3
[2017-05-27] MEDS: INSULIN ASPART 100 UNIT/ML 1 ML 10 ML VIAL SQ SCH ×2 (08:42→12:00)
[2017-05-27] MEDS: PANTOPRAZOLE 40 MG TABLET PO SCH (08:59)
[2017-05-27] MEDS: ONDANSETRON 4 MG/2 ML VIAL IVP PRN ×2 (09:02→14:23)
[2017-05-27 09:27] LABS: Anisocytosis Slight; Basophils % (A) 0 %; Eosinophils % (A) 0 %; HCT 26.4 % (34.0-46.0); HGB 8.4 gm/dL (11.4-16.0); Hypochromasia Slight; Lymphocytes % (A) 9 %; MCH 28.9 pg (25.0-35.0); MCHC 31.9 g/dL (31.0-37.0); MCV 90.5 fL (80.0-100.0); Mean Platelet Volume 8.9; Monocytes # (A) 0.7 k/uL (0-1.0); Monocytes % (A) 6 %; Neutrophils # (A) 9.2 k/uL (1.3-7.7); Neutrophils % (A) 84 %; Platelet Count 636 k/uL (150-450); RBC 2.91 m/uL (3.80-5.40); RDW 16.2 % (11.5-15.5)
--- NOTE | 2017-05-27 10:45 | IR ---
PICC LINE PLACEMENT: HISTORY: TPN PROCEDURE: Ultrasound and fluoroscopic guidance of PICC line placement. COMPLICATIONS: None ANESTHESIA: 1. 1% Lidocaine locally. FINDINGS/TECHNIQUE: The procedure was explained to the patient. The risks, complications, benefits and alternatives were discussed and any questions were answered. Informed consent was obtained. The patient was placed supine on the fluoroscopic table and prepped and draped in the usual sterile [facility] ion. Utilizing a 21 gauge needle and sonographic and fluoroscopic guidance, access in the vein was achieved and there is placement of a 0.018 guidewire. The vein is patent. A 5-Fr sheath was placed over the guidewire. The guidewire and dilator were removed and a 5-F. Double lumen PICC line was pl aced through the sheath with the tip at the level of the SVC. The sheath was removed, the catheter w as flushed and sutured into position. The patient was stable throughout the procedure and remained s table upon discharge from the Department of Radiology. The vein puncture was patent under ultrasound. A patiño scale image was obtained to document patency of the vein punctured. All elements of the maximal barrier technique were utilized. FLUOROSCOPY TIME: 0.3 minutes of fluoroscopy time, one image provided IMPRESSION: Successful PICC double lumen line placement under ultrasound and fluoroscopic guidance.
[2017-05-27 11:11] LABS: Glucose,Whole Blood 126 mg/dL (75-99)
[2017-05-27 14:12] VITALS: BMI 27.1
[2017-05-28] MEDS ORDERED: ENOXAPARIN 80 MG/0.8 ML SYRINGE SQ SCH (09:00)
== END 2017-05-27 14:45 | disposition home health service (06) | DRG 314 ==
LOC: EC 21:10 → 3SUR 23:28 → 5ONC 05-18 21:50
PROVIDERS: ADMIT Internal Medicine; ATTEND Internal Medicine
PROC: 3E0336Z Introduction of Nutritional Substance into Peripheral Vein, Percutaneous Approach (ICD-10-PCS; 2017-05-16)
PROC: 30233N1 Transfusion of Nonautologous Red Blood Cells into Peripheral Vein, Percutaneous Approach (ICD-10-PCS; 2017-05-20)
PROC: 02HV33Z Insertion of Infusion Device into Superior Vena Cava, Percutaneous Approach (ICD-10-PCS; principal; 2017-05-27 08:00)
DX: T80.211A Bloodstream infection due to central venous catheter, initial encounter (principal); B37.7 Candidal sepsis; K56.690 Other partial intestinal obstruction; C78.6 Secondary malignant neoplasm of retroperitoneum and peritoneum; E87.1 Hypo-osmolality and hyponatremia; C56.9 Malignant neoplasm of unspecified ovary; D70.1 Agranulocytosis secondary to cancer chemotherapy; Z93.1 Gastrostomy status; D63.0 Anemia in neoplastic disease; E78.5 Hyperlipidemia, unspecified; T45.1X5A Adverse effect of antineoplastic and immunosuppressive drugs, initial encounter; F32.9 Major depressive disorder, single episode, unspecified; F40.240 Claustrophobia; F41.0 Panic disorder [episodic paroxysmal anxiety]; H91.90 Unspecified hearing loss, unspecified ear; K21.9 Gastro-esophageal reflux disease without esophagitis; M19.90 Unspecified osteoarthritis, unspecified site; M79.7 Fibromyalgia; K57.90 Diverticulosis of intestine, part unspecified, without perforation or abscess without bleeding; C44.90 Unspecified malignant neoplasm of skin, unspecified; R74.8 Abnormal levels of other serum enzymes; I34.1 Nonrheumatic mitral (valve) prolapse; E86.1 Hypovolemia; E66.9 Obesity, unspecified; Z68.27 Body mass index [BMI] 27.0-27.9, adult; Z86.718 Personal history of other venous thrombosis and embolism; Z87.891 Personal history of nicotine dependence; Z90.710 Acquired absence of both cervix and uterus; Z66 Do not resuscitate; Z88.2 Allergy status to sulfonamides; Z88.8 Allergy status to other drugs, medicaments and biological substances; Z79.4 Long term (current) use of insulin; Z79.899 Other long term (current) drug therapy; Z82.49 Family history of ischemic heart disease and other diseases of the circulatory system; Z80.7 Family history of other malignant neoplasms of lymphoid, hematopoietic and related tissues; Y84.8 Other medical procedures as the cause of abnormal reaction of the patient, or of later complication, without mention of misadventure at the time of the procedure
CPT/HCPCS: 36415; 36569; 71046; 74021; 74177; 76937; 77001; 80048; 80053; 81003; 82040; 82330; 82550; 82553; 83605; 83690; 83735; 84100; 84132; 84478; 84484; 85025; 85610; 85730; 86850; 86900; 86901; 86920; 87040; 87070; 87502; 93005; 93306; 96361; 96365; 96374; 96375; 99285

== ENCOUNTER → 2017-06-09 | Day surgery (SDC) | payer MEDICARE, OTHER ==
[2017-06-08 10:53] VITALS: BMI 26.6
[2017-06-09 10:29] LABS: Glucose,Whole Blood 122 mg/dL (75-99)
[2017-06-09 10:30] VITALS: RESP 18; TEMP 98
--- NOTE | 2017-06-09 12:59 | IR ---
PICC LINE PLACEMENT: HISTORY: PICC line occlusion PROCEDURE: PICC line exchange under fluoroscopic guidance . COMPLICATIONS: None ANESTHESIA: 1. 1% Lidocaine locally. FINDINGS/TECHNIQUE: The procedure was explained to the patient. The risks, complications, benefits and alternatives were discussed and any questions were answered. Informed consent was obtained. The patient was placed supine on the fluoroscopic table and prepped and draped in the usual sterile fash ion. The catheter was withdrawn and cut and there is placement of a 0.018 guidewire. The vein is pat ent. A 5-Fr sheath was placed over the guidewire. The guidewire and dilator were removed and a 5-F. Double lumen PICC line was placed through the sheath with the tip at the level of the SVC. The chandra th was removed, the catheter was flushed and sutured into position. The patient was stable throughou t the procedure and remained stable upon discharge from the Department of Radiology. The vein puncture was patent under ultrasound. A patiño scale image was obtained to document patency of the vein punctured. All elements of the maximal barrier technique were utilized. FLUOROSCOPY TIME: 0.8 minutes, one image submitted IMPRESSION: Successful PICC double lumen line placement under fluoroscopic guidance.
[2017-06-09 13:03] VITALS: BP 128/60; PULSE 85
== END ==
LOC: CATHCVL 09:53
PROVIDERS: ATTEND Radiology Diagnostic Radiology
DX: I87.2 Venous insufficiency (chronic) (peripheral) (principal); C56.9 Malignant neoplasm of unspecified ovary; Z88.2 Allergy status to sulfonamides; Z91.012 Allergy to eggs
CPT/HCPCS: 36569; 76937; 77001; C1751; C1769 ×2

== ENCOUNTER 2017-07-02 18:06 | Inpatient (IN) | payer MEDICARE, OTHER ==
[2017-07-02] MEDS ORDERED: SODIUM CHLORIDE 0.9% 1,000 ML IV STA (18:37)
[2017-07-02] MEDS ORDERED: ONDANSETRON 4 MG/2 ML VIAL IVP STA (18:37)
[2017-07-02] MEDS ORDERED: MORPHINE SULFATE 4 MG/0.8 ML SYRINGE (INJ) IVP STA (18:48)
[2017-07-02] MEDS ORDERED: ACETAMINOPHEN IV (For NPO) 1,000 MG in EMPTY BAG 1 BAG IVPB ONE (19:00)
[2017-07-02 19:06] LABS: Basophils % (A) 0 %; Eosinophils % (A) 1 %; HCT 33.6 % (34.0-46.0); Lymphocytes # (A) 1.5 k/uL (1.0-4.8); Lymphocytes % (A) 18 %; MCH 28.9 pg (25.0-35.0); MCHC 32.7 g/dL (31.0-37.0); MCV 88.3 fL (80.0-100.0); Mean Platelet Volume 7.2; Monocytes # (A) 0.5 k/uL (0-1.0); Monocytes % (A) 6 %; Neutrophils # (A) 6.2 k/uL (1.3-7.7); Neutrophils % (A) 74 %; Platelet Count 419 k/uL (150-450); RBC 3.81 m/uL (3.80-5.40); RDW 15.5 % (11.5-15.5); WBC 8.4 k/uL (3.8-10.6)
--- NOTE | 2017-07-02 19:09 | XR ---
EXAMINATION TYPE: XR KUB DATE OF EXAM: 07/02/2017 7:02 PM CLINICAL HISTORY: Abdominal pain TECHNIQUE: Single supine KUB image of the abdomen is obtained. COMPARISON: None. FINDINGS: There is a relative paucity of bowel gas. This could be due to decompression from the gastr ostomy tube. There is what appears to be a featureless loop of bowel in the right abdomen on the view of the pelvis. This is of unknown etiology or significance. Air and stool are noted within the rectu m. Several surgical clips are noted throughout the abdomen. There is a gastrostomy tube in place. IMPRESSION: Relative paucity of bowel gas which could be due to decompression from the gastrostomy tube. Further imaging can be obtained as warranted.
[2017-07-02 19:18] LABS: ALT 35 U/L (9-52); AST 45 U/L (14-36); Albumin 3.4 g/dL (3.5-5.0); Alkaline Phosphatase 188 U/L (38-126); Amylase 64 U/L (30-110); Anion Gap 16 mmol/L; Blood Urea Nitrogen 26 mg/dL (7-17); Calcium 9.7 mg/dL (8.4-10.2); Carbon Dioxide 31 mmol/L (22-30); Chloride 100 mmol/L (98-107); Glucose 100 mg/dL (74-99); Lipase 97 U/L (23-300); Potassium 3.1 mmol/L (3.5-5.1); Sodium 147 mmol/L (137-145); Total Bilirubin 0.8 mg/dL (0.2-1.3); Total Protein 6.6 g/dL (6.3-8.2)
--- NOTE | 2017-07-02 19:24 | ED ---
Nausea/Vomiting/Diarrhea HPI - General Chief complaint: Nausea/Vomiting/Diarrhea Stated complaint: Bowel Obstruction Time Seen by Provider: 07/02/17 18:28 Source: patient, RN notes reviewed Mode of arrival: wheelchair Limitations: no limitations - History of Present Illness Initial comments: This is a 52-year-old female who presents to the emergency department with chief complaint of possible bowel obstruction. Patient states that she has ovarian cancer that has spread to her intestines. She states that she has had multiple bowel obstructions in the past and has had sepsis twice in the past 2 months. Patient states that since Monday she has had nausea and vomiting. She states that she has had mild abdominal pain in the mid abdomen that she currently rates as 4/10. She describes the pain as crampy in nature. She states she passed a small amount of stool 2 days ago but she has continued to pass gas. She reports fevers and chills.Denies chest pain or shortness of breath, diarrhea, dizziness or headache, dysuria or hematuria. Patient does have a PICC line in her right arm and a drainage tube from her stomach. She reports she is no longer on chemotherapy. - Related Data Home Medications Medication Instructions Recorded Confirmed ALPRAZolam [Xanax] 0.5 mg PO Q6H 01/16/14 06/09/17 Escitalopram Oxalate [Lexapro] 20 mg PO HS 01/16/14 06/09/17 INSULIN LISPRO (HumaLOG) [humaLOG] See Protocol SQ ACHS 03/10/17 06/09/17 Acetaminophen/Diphenhydramine 2 tab PO HS 03/28/17 06/09/17 [Tylenol PM Extra Strength] Naproxen Sodium [Aleve] 440 mg PO DAILY PRN 03/28/17 06/09/17 Enoxaparin [Lovenox] 80 mg SQ DAILY 04/15/17 06/08/17 HYDROmorphone HCL [Dilaudid] 4 mg PO Q3H PRN 05/17/17 06/09/17 diphenhydrAMINE HCL [Benadryl] 50 mg PO HS 05/17/17 06/09/17 Ondansetron Odt [Zofran ODT] 8 mg PO Q6HR PRN 06/08/17 06/09/17 Previous Rx's Medication Instructions Recorded Pantoprazole Sodium [Protonix] 40 mg PO BID #60 tablet. 01/31/17 Allergies Allergy/AdvReac Type Severity Reaction Status Date / Time duloxetine HCl Allergy Rash/Hives Verified 07/02/17 18:25 [From Cymbalta] scopolamine Allergy change in Verified 07/02/17 18:25 taste and smell Sulfa (Sulfonamide Allergy Rash/Hives Verified 07/02/17 18:25 Antibiotics) carboplatin AdvReac Nausea & Verified 07/02/17 18:25 Vomiting, TEMPORARY HEARING LOSS Review of Systems ROS Statement: Those systems with pertinent positive or pertinent negative responses have been documented in the HPI. ROS Other: All systems not noted in ROS Statement are negative. Past Medical History Past Medical History: Cancer, Deep Vein Thrombosis (DVT), Fibromyalgia, GERD/ Reflux, Hearing Disorder / Deafness, Hyperlipidemia, Osteoarthritis (OA) Additional Past Medical History / Comment(s): OVARIAN CA-T3C N0 Mx grade 3, 2012 ; REOCCURING CA W/ CHEMO TREATMENT 03/2016-07/2016. MVP. Diverticulosis. PARTIAL BOWEL OBSTRUCTION D/T CA METS 12/2016. 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 BLOOD PRESSURE TAKEN ON LEGS ONLY. CURRENT UTI, ON RX. TPN, 05/27/17 PICC line insertion pt states 1 lumen now occluded. History of Any Multi-Drug Resistant Organisms: None Reported Past Surgical History: Hysterectomy Additional Past Surgical History / Comment(s): OOPHERECTOMY/CERVIX/UTERUS/ OMENTUM EXC; Vaginal mesh insertion. RX Port placement, removal; PICC line insertion, removal. G TUBE 02/02 Past Anesthesia/Blood Transfusion Reactions: Motion Sickness Additional Past Anesthesia/Blood Transfusion Reaction / Comment(s): claustrophobia Past Psychological History: Anxiety, Depression, Panic Disorder Smoking Status: Former smoker Past Alcohol Use History: None Reported Past Drug Use History: None Reported - Past Family History Sister(s) Family Medical History: Blood Disorder Additional Family Medical History / Comment(s): FACTOR 5 BLOOD DISORDER. Father Family Medical History: Hypertension, Prostate Disorder Additional Family Medical History / Comment(s): parkinsons, prostate cancer Mother Family Medical History: Cancer Additional Family Medical History / Comment(s): multiple myeoloma General Exam - General Exam Comments Initial Comments: General: Awake and alert, well-developed; in no apparent distress. Patient appears chronically ill. is at bedside. HEENT: Head atraumatic, normocephalic. Pupils are equal, round and reactive to light. Extraocular movements intact. Oropharynx moist without erythema or exudate. Neck: Supple. Normal ROM. Cardiovascular: Regular rate and rhythm. No murmurs, rubs or gallops. Chest symmetrical. Respiratory: Lungs clear to auscultation bilaterally. No wheezes, rales or rhonchi. Normal respiratory effort with no use of accessory muscles. Abdomen: Soft, non-tender, non-distended. No rigidity, rebound or guarding. Hypoactive bowel sounds in all 4 quadrants. Stomach drainage tube is in place and is actively draining dark contents. Musculoskeletal: Normal ROM, no tenderness bilateral upper and lower extremities. Skin: [place], warm and dry without rashes or lesions. Neurological: Alert and oriented x3. CN II-XII grossly intact. Speech is fluent and answers are appropriate. No focal neuro deficits. Psychiatric: Normal mood and affect. No overt signs of depression or anxiety noted. Limitations: no limitations Course Vital Signs 07/02/17 07/02/17 18:22 19:33 Temperature 99.9 F H 99 F Pulse Rate 98 87 Respiratory 18 18 Rate Blood Pressure 128/63 143/70 O2 Sat by Pulse 98 98 Oximetry Medical Decision Making - Medical Decision Making This is a 52-year-old female with history of metastatic ovarian cancer who presents to the emergency department with chief complaint of nausea and vomiting. Patient has been diagnosed with multiple bowel obstructions in the past so a gastrostomy tube was placed by Dr. Paredes. While in the emergency department, patient was given IV fluids and pain medication. Her potassium was low at 3.1 so she received IV supplementation. CBC revealed a hemoglobin at 11.0, however this appears chronic. Computed tomography scan of the abdomen and pelvis revealed evidence concerning for a small bowel obstruction as well as progression of metastatic disease into the liver. Patient did present with a slightly elevated temperature at 99.9 and she received IV Ofirmev. Vital signs have been stable and she is in no acute distress. Patient will be admitted to Dr. Santana with consult to Dr. Paredes. Patient is in agreement with admission. All questions answered. - Lab Data Result diagrams: 07/02/17 18:50 07/02/17 18:50 Lab Results 07/02/17 07/02/17 07/02/17 Range/Units 18:50 18:50 18:50 WBC 8.4 (3.8-10.6) k/uL RBC 3.81 (3.80-5.40) m/uL Hgb 11.0 L (11.4-16.0) gm/dL Hct 33.6 L (34.0-46.0) % MCV 88.3 (80.0-100.0) fL MCH 28.9 (25.0-35.0) pg MCHC 32.7 (31.0-37.0) g/dL RDW 15.5 (11.5-15.5) % Plt Count 419 (150-450) k/uL Neutrophils % 74 % Lymphocytes % 18 % Monocytes % 6 % Eosinophils % 1 % Basophils % 0 % Neutrophils # 6.2 (1.3-7.7) k/uL Lymphocytes # 1.5 (1.0-4.8) k/uL Monocytes # 0.5 (0-1.0) k/uL Eosinophils # 0.0 (0-0.7) k/uL Basophils # 0.0 (0-0.2) k/uL Sodium 147 H (137-145) mmol/L Potassium 3.1 L (3.5-5.1) mmol/L Chloride 100 (98-107) mmol/L Carbon Dioxide 31 H (22-30) mmol/L Anion Gap 16 mmol/L BUN 26 H (7-17) mg/dL Creatinine 0.70 (0.52-1.04) mg/dL Est GFR (CKD-EPI)AfAm >90 (>60 ml/min/1.73 sqM) Est GFR (CKD-EPI)NonAf >90 (>60 ml/min/1.73 sqM) Glucose 100 H (74-99) mg/dL Plasma Lactic Acid Vern 1.9 (0.7-2.0) mmol/L Calcium 9.7 (8.4-10.2) mg/dL Total Bilirubin 0.8 (0.2-1.3) mg/dL AST 45 H (14-36) U/L ALT 35 (9-52) U/L Alkaline Phosphatase 188 H (38-126) U/L Total Protein 6.6 (6.3-8.2) g/dL Albumin 3.4 L (3.5-5.0) g/dL Amylase 64 (30-110) U/L Lipase 97 (23-300) U/L - Radiology Data Radiology results: report reviewed X-ray KUB impression: Relative paucity of bowel gas which could be due to decompression from the gastrostomy tube. Further imaging can be obtained as warranted. CT abdomen and pelvis with contrast impression: 1. Findings concerning for small bowel obstruction with the transition point in the anterior pelvis. 2. Progression of metastatic disease within the liver. Disposition Clinical Impression: Small bowel obstruction, Metastatic malignant neoplasm to ovary Disposition: ADMITTED IP TO THIS [facility] Condition: Stable Is patient prescribed a controlled substance at d/c from ED?: No Referrals: Duyen Khan MD [Primary Care Provider] - 1-2 days Time of Disposition: 21:16
[2017-07-02] MEDS ORDERED: Potassium Replacement Protocol 1 EACH MISC MISCELLANE PRN (19:25)
[2017-07-02] MEDS ORDERED: RX INFO: IV CONTRAST WAS GIVEN 1 EACH MISC MISCELLANE PRN (19:27)
--- NOTE | 2017-07-02 20:09 | CT ---
EXAMINATION TYPE: CT abdomen pelvis w con DATE OF EXAM: 07/02/2017 COMPARISON: NONE HISTORY: Nausea, vomiting and abdominal pain. History of ovarian cancer. CT DLP: 598.2 mGycm Automated exposure control for dose reduction was used. TECHNIQUE: Helical acquisition of images was performed from the lung bases through the pelvis. CONTRAST: Performed without Oral Contrast and with IV Contrast, patient injected with 100 mL of Isovue 300. FINDINGS: Lung bases are clear. No pleural pericardial effusion is identified. Several hypodense foci are identified within both hepatic lobes consistent with patient's known histo ry of metastatic ovarian cancer. Dominant lesion in the inferior right hepatic lobe appears to slight ly increased since the previous study. On the current examination this area measures 2.0 x 2.2 cm. Th e previous examination from May 19, 2017 this area measured 2.0 x 1.6 cm. Pole through gastrostomy tube is noted. There is a moderate amount of ascites noted mostly in the left upper quadrant which is new. There is also ascites extending in the pelvis. The kidneys, pancreas, adrenal glands and spleen are unremarkable. The gallbladder is present and appears unremarkable. Multiple surgical clips are i dentified in the right upper quadrant. Several dilated loops of small bowel are identified in the ant erior and left abdomen concerning for small bowel obstruction. Transition point is difficult to preci sely determine but is felt to be in the anterior mid pelvis. Aorta is not dilated and there are no osteolytic or osteoblastic lesions. IMPRESSION: 1. Findings concerning for small bowel obstruction with the transition point in the anterior pelvis. 2. Progression of metastatic disease within the liver.
[2017-07-02 20:47] LABS: Amorphous Sediment,Urine Rare /hpf; Appearance,Urine Clear (Clear); Bilirubin,Urine Negative (Negative); Blood,Urine Negative (Negative); Color,Urine Yellow; Glucose,Urine (UA) Negative (Negative); Ketones,Urine Negative (Negative); Leukocyte Esterase,Urine Negative (Negative); Mucus,Urine Rare /hpf; Nitrite,Urine Negative (Negative); PH, Urine 8.5 (5.0-8.0); Protein,Urine 1+ (Negative); RBC,Urine 3 /hpf (0-5); Specific Gravity,Urine 1.037 (1.001-1.035); Squamous Epithelial Cell,Urine <1 /hpf (0-4); WBC,Urine 1 /hpf (0-5)
[2017-07-02] MEDS: POTASSIUM CHLORIDE 10 MEQ in WATER FOR INJECTION 1 100ML.BAG IVPB SCH ×2 (20:49→23:19)
[2017-07-02] MEDS ORDERED: diphenhydrAMINE 50 MG/ML 1 ML VIAL IVP STA (21:03)
[2017-07-02] MEDS ORDERED: NALOXONE 0.4 MG/ML 1 ML VIAL IV PRN (21:18)
[2017-07-02] MEDS ORDERED: ONDANSETRON 4 MG/2 ML VIAL IVP PRN (21:18)
[2017-07-02] MEDS ORDERED: SODIUM CHLORIDE 0.9% 1,000 ML IV SCH (21:30)
[2017-07-02 23:05] VITALS: BMI 26.9
[2017-07-02] MEDS: MORPHINE SULFATE 4 MG/0.8 ML SYRINGE (INJ) IV PRN (23:20)
[2017-07-02] MEDS ORDERED: SODIUM CHLORIDE 0.9% 1,000 ML with POTASSIUM CHLORIDE 20 MEQ IV SCH ×2 (23:30)
[2017-07-02] MEDS: ONDANSETRON 4 MG/2 ML VIAL IVP PRN (23:58)
[2017-07-03] MEDS: 0.9% NACL WITH KCL 20 MEQ/L 1,000 ML IV SCH ×3 (00:31→21:19)
[2017-07-03] MEDS: PANTOPRAZOLE 40 MG/10 ML VIAL IVP SCH ×3 (02:20→21:51)
[2017-07-03] MEDS: ONDANSETRON 4 MG/2 ML VIAL IVP PRN ×4 (05:07→20:44)
[2017-07-03] MEDS: MORPHINE SULFATE 4 MG/0.8 ML SYRINGE (INJ) IV PRN (05:07)
[2017-07-03] MEDS: LORazepam 2 MG/ML INJ IV PRN ×4 (06:02→18:21)
[2017-07-03 07:44] LABS: Glucose,Whole Blood 121 mg/dL (75-99)
[2017-07-03] MEDS ORDERED: MORPHINE SULFATE 4 MG/ML SYRINGE IV PRN (09:16)
[2017-07-03 09:42] LABS: Basophils % (A) 0 %; Eosinophils % (A) 0 %; HCT 29.5 % (34.0-46.0); Lymphocytes # (A) 1.4 k/uL (1.0-4.8); Lymphocytes % (A) 18 %; MCH 28.7 pg (25.0-35.0); MCHC 31.5 g/dL (31.0-37.0); MCV 90.8 fL (80.0-100.0); Mean Platelet Volume 7.1; Monocytes # (A) 0.8 k/uL (0-1.0); Monocytes % (A) 10 %; Neutrophils # (A) 5.8 k/uL (1.3-7.7); Neutrophils % (A) 71 %; Platelet Count 396 k/uL (150-450); RBC 3.25 m/uL (3.80-5.40); RDW 15.7 % (11.5-15.5); WBC 8.1 k/uL (3.8-10.6)
[2017-07-03 09:45] LABS: HGB 9.3 gm/dL (11.4-16.0)
[2017-07-03 10:00] LABS: ALT 40 U/L (9-52); AST 46 U/L (14-36); Albumin 2.9 g/dL (3.5-5.0); Alkaline Phosphatase 151 U/L (38-126); Anion Gap 13 mmol/L; Blood Urea Nitrogen 25 mg/dL (7-17); Calcium 8.8 mg/dL (8.4-10.2); Carbon Dioxide 26 mmol/L (22-30); Chloride 107 mmol/L (98-107); Glucose 100 mg/dL (74-99); Potassium 4.5 mmol/L (3.5-5.1); Sodium 146 mmol/L (137-145); Total Bilirubin 0.5 mg/dL (0.2-1.3); Total Protein 5.9 g/dL (6.3-8.2)
[2017-07-03 12:21] LABS: Glucose,Whole Blood 96 mg/dL (75-99)
[2017-07-03] MEDS: INSULIN ASPART 100 UNIT/ML 1 ML 10 ML VIAL SQ SCH ×3 (12:37→20:48)
[2017-07-03 14:31] LABS: Ionized Calcium 5.1 mg/dL (4.5-5.3)
[2017-07-03 14:43] LABS: ALT 41 U/L (9-52); AST 54 U/L (14-36); Alkaline Phosphatase 162 U/L (38-126); Anion Gap 10 mmol/L; Blood Urea Nitrogen 22 mg/dL (7-17); Carbon Dioxide 27 mmol/L (22-30); Chloride 107 mmol/L (98-107); Glucose 98 mg/dL (74-99); Magnesium 1.9 mg/dL (1.6-2.3); Phosphorus 3.4 mg/dL (2.5-4.5); Potassium 3.8 mmol/L (3.5-5.1); Sodium 144 mmol/L (137-145); Total Bilirubin 0.7 mg/dL (0.2-1.3); Total Protein 6.1 g/dL (6.3-8.2); Triglycerides 209 mg/dL (<150)
--- NOTE | 2017-07-03 15:30 | P.GSCN ---
History of Present Illness Consult date: 07/03/17 Reason for Consult: Bowel obstruction History of present illness: Patient medical hospital with complaints of nausea, abdominal pain, and recurrent bowel obstruction. The patient has a decompressive PEG tube placed for a small bowel obstruction. Lately she has noticed some varying degrees of output. CAT scan was performed which shows progression of her intra-abdominal malignancy. She has been off of chemotherapy for the last 2 months. We are asked see this patient to evaluate her bowel obstruction. She is not vomiting currently. She is concerned that without IV Zofran and she will have worsening nausea. Very rare episodes of bowel movements. CAT scan was reviewed. The liver lesions appear larger. She now has a moderate volume of left-sided ascites extending into the pelvis that is likely related to her carcinomatosis. Review of Systems The patient denies any acute changes in vision or hearing, no dysphagia or odynophagia, no chest pain or shortness of breath, no dysuria or hematuria, no headache, no runny nose, no rectal bleeding or melena Past Medical History Past Medical History: Cancer, Deep Vein Thrombosis (DVT), Fibromyalgia, GERD/ Reflux, Hearing Disorder / Deafness, Hyperlipidemia, Osteoarthritis (OA) Additional Past Medical History / Comment(s): OVARIAN CA-T3C N0 Mx grade 3, 2012 ; REOCCURING CA W/ CHEMO TREATMENT 03/2016-07/2016. MVP. Diverticulosis. PARTIAL BOWEL OBSTRUCTION D/T CA METS 12/2016. 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 BLOOD PRESSURE TAKEN ON LEGS ONLY. TPN/ lipids daily 7p to 1 a, septic from picc line picc line removed new one in on right arm now History of Any Multi-Drug Resistant Organisms: None Reported Past Surgical History: Hysterectomy Additional Past Surgical History / Comment(s): OOPHERECTOMY/CERVIX/UTERUS/ OMENTUM EXC; Vaginal mesh insertion. RX Port placement, removal; PICC line insertion, removal. G TUBE 02/02 Past Anesthesia/Blood Transfusion Reactions: Motion Sickness Additional Past Anesthesia/Blood Transfusion Reaction / Comm: claustrophobia Past Psychological History: Anxiety, Depression, Panic Disorder Additional Psychological History / Comment(s): lives in the family with the and the child. does not work outside of the home. Stopped smoking several years ago no significant alcohol use. No experience or extensive travels. No animals in the home Smoking Status: Former smoker Past Alcohol Use History: None Reported Additional Past Alcohol Use History / Comment(s): started smoking at age 13, smoked 1 pack per day, quit 2011 Past Drug Use History: None Reported Additional Drug Use History / Comment(s): PAST MEDICAL MARIJUANA USE. - Past Family History Sister(s) Family Medical History: Blood Disorder Additional Family Medical History / Comment(s): FACTOR 5 BLOOD DISORDER. Father Family Medical History: Hypertension, Prostate Disorder Additional Family Medical History / Comment(s): parkinsons, prostate cancer Mother Family Medical History: Cancer Additional Family Medical History / Comment(s): multiple myeoloma Medications and Allergies Home Medications Medication Instructions Recorded Confirmed Type ALPRAZolam [Xanax] 0.5 mg PO Q6H 01/16/14 07/03/17 History Escitalopram Oxalate [Lexapro] 20 mg PO HS 01/16/14 07/03/17 History Pantoprazole Sodium [Protonix] 40 mg PO BID #60 tablet. 01/31/17 07/03/17 Rx INSULIN LISPRO (HumaLOG) [humaLOG] See Protocol SQ ACHS 03/10/17 07/03/17 History Acetaminophen/Diphenhydramine 2 tab PO HS 03/28/17 07/03/17 History [Tylenol PM Extra Strength] Enoxaparin [Lovenox] 80 mg SQ DAILY 04/15/17 07/03/17 History HYDROmorphone HCL [Dilaudid] 4 mg PO Q3H PRN 05/17/17 07/03/17 History diphenhydrAMINE HCL [Benadryl] 50 mg PO HS PRN 05/17/17 07/03/17 History Ondansetron Odt [Zofran ODT] 8 mg PO Q6HR PRN 06/08/17 07/03/17 History Allergies Allergy/AdvReac Type Severity Reaction Status Date / Time duloxetine HCl Allergy Rash/Hives Verified 07/03/17 09:27 [From Cymbalta] scopolamine Allergy change in Verified 07/03/17 09:27 taste and smell Sulfa (Sulfonamide Allergy Rash/Hives Verified 07/03/17 09:27 Antibiotics) carboplatin AdvReac Nausea & Verified 07/03/17 09:27 Vomiting, TEMPORARY HEARING LOSS Surgical - Exam Vital Signs Temp Pulse Resp BP Pulse Ox 99.9 F H 98 18 128/63 98 07/02/17 18:22 07/02/17 18:22 07/02/17 18:22 07/02/17 18:22 07/02/17 18:22 Physical exam: General: Well-developed, well-nourished HEENT: Normocephalic, sclerae nonicteric Abdomen: Mild mid abdominal tenderness, PEG tube intact, nondistended Extremities: No edema Neuro: Alert and oriented Results - Labs 07/03/17 08:22 07/03/17 13:45 Abnormal Lab Results - Last 24 Hours (Table) 07/02/17 07/02/17 07/02/17 Range/Units 18:50 18:50 20:30 RBC (3.80-5.40) m/uL Hgb 11.0 L (11.4-16.0) gm/dL Hct 33.6 L (34.0-46.0) % RDW (11.5-15.5) % Sodium 147 H (137-145) mmol/L Potassium 3.1 L (3.5-5.1) mmol/L Carbon Dioxide 31 H (22-30) mmol/L BUN 26 H (7-17) mg/dL Glucose 100 H (74-99) mg/dL POC Glucose (mg/dL) (75-99) mg/dL AST 45 H (14-36) U/L Alkaline Phosphatase 188 H (38-126) U/L Total Protein (6.3-8.2) g/dL Albumin 3.4 L (3.5-5.0) g/dL Triglycerides (<150) mg/dL Urine pH 8.5 H (5.0-8.0) Ur Specific [place] 1.037 H (1.001-1.035) Urine Protein 1+ H (Negative) Amorphous Sediment Rare H (None) /hpf Urine Mucus Rare H (None) /hpf 07/03/17 07/03/17 07/03/17 Range/Units 07:42 08:22 08:22 RBC 3.25 L (3.80-5.40) m/uL Hgb 9.3 L D (11.4-16.0) gm/dL Hct 29.5 L (34.0-46.0) % RDW 15.7 H (11.5-15.5) % Sodium 146 H (137-145) mmol/L Potassium (3.5-5.1) mmol/L Carbon Dioxide (22-30) mmol/L BUN 25 H (7-17) mg/dL Glucose 100 H (74-99) mg/dL POC Glucose (mg/dL) 121 H (75-99) mg/dL AST 46 H (14-36) U/L Alkaline Phosphatase 151 H (38-126) U/L Total Protein 5.9 L (6.3-8.2) g/dL Albumin 2.9 L (3.5-5.0) g/dL Triglycerides (<150) mg/dL Urine pH (5.0-8.0) Ur Specific [place] (1.001-1.035) Urine Protein (Negative) Amorphous Sediment (None) /hpf Urine Mucus (None) /hpf 07/03/17 Range/Units 13:45 RBC (3.80-5.40) m/uL Hgb (11.4-16.0) gm/dL Hct (34.0-46.0) % RDW (11.5-15.5) % Sodium (137-145) mmol/L Potassium (3.5-5.1) mmol/L Carbon Dioxide (22-30) mmol/L BUN 22 H (7-17) mg/dL Glucose (74-99) mg/dL POC Glucose (mg/dL) (75-99) mg/dL AST 54 H (14-36) U/L Alkaline Phosphatase 162 H (38-126) U/L Total Protein 6.1 L (6.3-8.2) g/dL Albumin 3.0 L (3.5-5.0) g/dL Triglycerides 209 H (<150) mg/dL Urine pH (5.0-8.0) Ur Specific [place] (1.001-1.035) Urine Protein (Negative) Amorphous Sediment (None) /hpf Urine Mucus (None) /hpf Diabetes panel 07/02/17 07/03/17 07/03/17 Range/Units 18:50 08:22 13:45 Sodium 147 H 146 H 144 (137-145) mmol/L Potassium 3.1 L 4.5 3.8 (3.5-5.1) mmol/L Chloride 100 107 107 (98-107) mmol/L Carbon Dioxide 31 H 26 27 (22-30) mmol/L BUN 26 H 25 H 22 H (7-17) mg/dL Creatinine 0.70 0.65 0.66 (0.52-1.04) mg/dL Glucose 100 H 100 H 98 (74-99) mg/dL Calcium 9.7 8.8 9.0 (8.4-10.2) mg/dL AST 45 H 46 H 54 H (14-36) U/L ALT 35 40 41 (9-52) U/L Alkaline Phosphatase 188 H 151 H 162 H (38-126) U/L Total Protein 6.6 5.9 L 6.1 L (6.3-8.2) g/dL Albumin 3.4 L 2.9 L 3.0 L (3.5-5.0) g/dL Triglycerides 209 H (<150) mg/dL Calcium panel 07/02/17 07/03/17 07/03/17 Range/Units 18:50 08:22 13:45 Calcium 9.7 8.8 9.0 (8.4-10.2) mg/dL Ionized Calcium [place] 5.1 (4.5-5.3) mg/dL Phosphorus 3.4 (2.5-4.5) mg/dL Albumin 3.4 L 2.9 L 3.0 L (3.5-5.0) g/dL Pituitary panel 07/02/17 07/03/17 07/03/17 Range/Units 18:50 08:22 13:45 Sodium 147 H 146 H 144 (137-145) mmol/L Potassium 3.1 L 4.5 3.8 (3.5-5.1) mmol/L Chloride 100 107 107 (98-107) mmol/L Carbon Dioxide 31 H 26 27 (22-30) mmol/L BUN 26 H 25 H 22 H (7-17) mg/dL Creatinine 0.70 0.65 0.66 (0.52-1.04) mg/dL Glucose 100 H 100 H 98 (74-99) mg/dL Calcium 9.7 8.8 9.0 (8.4-10.2) mg/dL Adrenal panel 07/02/17 07/03/17 07/03/17 Range/Units 18:50 08:22 13:45 Sodium 147 H 146 H 144 (137-145) mmol/L Potassium 3.1 L 4.5 3.8 (3.5-5.1) mmol/L Chloride 100 107 107 (98-107) mmol/L Carbon Dioxide 31 H 26 27 (22-30) mmol/L BUN 26 H 25 H 22 H (7-17) mg/dL Creatinine 0.70 0.65 0.66 (0.52-1.04) mg/dL Glucose 100 H 100 H 98 (74-99) mg/dL Calcium 9.7 8.8 9.0 (8.4-10.2) mg/dL Total Bilirubin 0.8 0.5 0.7 (0.2-1.3) mg/dL AST 45 H 46 H 54 H (14-36) U/L ALT 35 40 41 (9-52) U/L Alkaline Phosphatase 188 H 151 H 162 H (38-126) U/L Total Protein 6.6 5.9 L 6.1 L (6.3-8.2) g/dL Albumin 3.4 L 2.9 L 3.0 L (3.5-5.0) g/dL Assessment and Plan Plan: Patient with persistent and progressive bowel obstruction related to carcinomatosis. Continue TPN per oncology. Patient will discuss with oncology her wishes as it pertains to palliative care transition. No surgical intervention.
--- NOTE | 2017-07-03 15:41 | P.CONS ---
History of Present Illness - Reason for Consult Consult date: 07/03/17 Metastatic ovarian adenocarcinoma Requesting physician: Maria Fernanda Vu - Chief Complaint abd pain, concern for recurrent SBO - History of Present Illness Mrs. Belle is a very pleasant female pt of Dr. Khan, diagnosed with stage IIIC serous papillary ovarian cancer, treated with radical surgery, done by Dr. Gillespie in [place], and 8 cycles of chemotherapy in [place]. In February 2016 CA125 was up to 92, symptomatic with abdominal pain, PET revealed evidence of peritoneal carcinomatosis in abdomen and pelvis including the liver surface. She started treatment with carbo/taxol, had reaction that required desensitization and ultimately completed 6 cycles of treatment in July 2016. CA125 was 11 in September 2016, BRCA testing was negative. December 2016 she was evaluated by Dr. Rabbi Khan for possible resection but, CT AP revealed partial small bowel obstruction and new nodularity in anterior abdominal wall worrisome for new peritoneal disease so, she started single agent gemzar 01/12/17, in anticipation of a possible clinical trial. Treatment f/u 03/31/17 revealed stable disease. She was on treatment and admitted 05/18/17, treated for SBO conservatively. She was supposed to resume chemotherapy but, at her last visit in the office a few weeks ago her and Dr. Khan had a discussion about how she was thinking of proceeding with treatment of her malignancy. She was due for that appointment tomorrow. She is on chronic TPN, she has had febrile neutropenia and sepsis from PICC line infection with replacement. She has had 2 line related DVTs in upper extremity. Currently patient is still experiencing nausea, anxiety, insomnia, denies fevers , chills, cough, only had small amounts of stool, denies dysuria, swelling or bleeding. She is not currently experiencing pain. Review of Systems 14 point ROS as stated in HPI Past Medical History Past Medical History: Cancer, Deep Vein Thrombosis (DVT), Fibromyalgia, GERD/ Reflux, Hearing Disorder / Deafness, Hyperlipidemia, Osteoarthritis (OA) Additional Past Medical History / Comment(s): OVARIAN CA-T3C N0 Mx grade 3, 2012 ; REOCCURING CA W/ CHEMO TREATMENT 03/2016-07/2016. MVP. Diverticulosis. PARTIAL BOWEL OBSTRUCTION D/T CA METS 12/2016. 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 BLOOD PRESSURE TAKEN ON LEGS ONLY. TPN/ lipids daily 7p to 1 a, septic from picc line picc line removed new one in on right arm now History of Any Multi-Drug Resistant Organisms: None Reported Past Surgical History: Hysterectomy Additional Past Surgical History / Comment(s): OOPHERECTOMY/CERVIX/UTERUS/ OMENTUM EXC; Vaginal mesh insertion. RX Port placement, removal; PICC line insertion, removal. G TUBE 02/02 Past Anesthesia/Blood Transfusion Reactions: Motion Sickness Additional Past Anesthesia/Blood Transfusion Reaction / Comm: claustrophobia Past Psychological History: Anxiety, Depression, Panic Disorder Additional Psychological History / Comment(s): lives in the family with the and the child. does not work outside of the home. Stopped smoking several years ago no significant alcohol use. No experience or extensive travels. No animals in the home Smoking Status: Former smoker Past Alcohol Use History: None Reported Additional Past Alcohol Use History / Comment(s): started smoking at age 13, smoked 1 pack per day, quit 2011 Past Drug Use History: None Reported Additional Drug Use History / Comment(s): PAST MEDICAL MARIJUANA USE. - Past Family History Sister(s) Family Medical History: Blood Disorder Additional Family Medical History / Comment(s): FACTOR 5 BLOOD DISORDER. Father Family Medical History: Hypertension, Prostate Disorder Additional Family Medical History / Comment(s): parkinsons, prostate cancer Mother Family Medical History: Cancer Additional Family Medical History / Comment(s): multiple myeoloma Medications and Allergies Home Medications Medication Instructions Recorded Confirmed Type ALPRAZolam [Xanax] 0.5 mg PO Q6H 01/16/14 07/03/17 History Escitalopram Oxalate [Lexapro] 20 mg PO HS 01/16/14 07/03/17 History Pantoprazole Sodium [Protonix] 40 mg PO BID #60 tablet. 01/31/17 07/03/17 Rx INSULIN LISPRO (HumaLOG) [humaLOG] See Protocol SQ ACHS 03/10/17 07/03/17 History Acetaminophen/Diphenhydramine 2 tab PO HS 03/28/17 07/03/17 History [Tylenol PM Extra Strength] Enoxaparin [Lovenox] 80 mg SQ DAILY 04/15/17 07/03/17 History HYDROmorphone HCL [Dilaudid] 4 mg PO Q3H PRN 05/17/17 07/03/17 History diphenhydrAMINE HCL [Benadryl] 50 mg PO HS PRN 05/17/17 07/03/17 History Ondansetron Odt [Zofran ODT] 8 mg PO Q6HR PRN 06/08/17 07/03/17 History Allergies Allergy/AdvReac Type Severity Reaction Status Date / Time duloxetine HCl Allergy Rash/Hives Verified 07/03/17 09:27 [From Cymbalta] scopolamine Allergy change in Verified 07/03/17 09:27 taste and smell Sulfa (Sulfonamide Allergy Rash/Hives Verified 07/03/17 09:27 Antibiotics) carboplatin AdvReac Nausea & Verified 07/03/17 09:27 Vomiting, TEMPORARY HEARING LOSS Physical Exam Vitals: Vital Signs Temp Pulse Pulse Resp BP BP Pulse Ox 07/03/17 08:00 91 16 07/03/17 07:39 98.6 F 91 16 130/60 97 07/02/17 22:00 98.4 F 95 18 134/69 97 07/02/17 21:28 98.8 F 89 16 116/67 98 07/02/17 19:33 99 F 87 18 143/70 98 07/02/17 18:22 99.9 F H 98 18 128/63 98 Intake and Output 07/03/17 07/03/17 07/03/17 06:59 14:59 22:59 Intake Total 500 Output Total 450 Balance 50 Intake: IV 500 0.9% NaCl with KCl 20 Meq 400 /l 1,000 ml @ 100 mls/hr IV .Q10H [facility] Rx#: [id number] Sodium Chloride 0.9% 1, 100 000 ml @ 100 mls/hr IV . Q10H [facility] Rx#:[id number] Output: Gastric Drainage 450 Other: Voiding Method Toilet Toilet # Voids 1 Weight 71.214 kg - Constitutional General appearance: cooperative, mild distress, no acute distress - EENT Eyes: anicteric sclerae, EOMI, normal appearance ENT: hearing grossly normal, normal oropharynx - Neck Neck: no lymphadenopathy - Respiratory Respiratory: bilateral: CTA - Cardiovascular Heart sounds: normal: S1, S2 leg Peripheral Edema: bilateral: Trace - Gastrointestinal General gastrointestinal: distended, tenderness - Neurologic Neurologic: CNII-XII intact - Musculoskeletal Musculoskeletal: strength equal bilaterally - Psychiatric Psychiatric: A&O x's 3, appropriate affect, intact judgment & insight Results CBC & Chem 7: 07/03/17 08:22 07/03/17 13:45 Labs: Abnormal Lab Results - Last 24 Hours (Table) 07/02/17 07/02/17 07/02/17 Range/Units 18:50 18:50 20:30 RBC (3.80-5.40) m/uL Hgb 11.0 L (11.4-16.0) gm/dL Hct 33.6 L (34.0-46.0) % RDW (11.5-15.5) % Sodium 147 H (137-145) mmol/L Potassium 3.1 L (3.5-5.1) mmol/L Carbon Dioxide 31 H (22-30) mmol/L BUN 26 H (7-17) mg/dL Glucose 100 H (74-99) mg/dL POC Glucose (mg/dL) (75-99) mg/dL AST 45 H (14-36) U/L Alkaline Phosphatase 188 H (38-126) U/L Total Protein (6.3-8.2) g/dL Albumin 3.4 L (3.5-5.0) g/dL Triglycerides (<150) mg/dL Urine pH 8.5 H (5.0-8.0) Ur Specific [place] 1.037 H (1.001-1.035) Urine Protein 1+ H (Negative) Amorphous Sediment Rare H (None) /hpf Urine Mucus Rare H (None) /hpf 07/03/17 07/03/17 07/03/17 Range/Units 07:42 08:22 08:22 RBC 3.25 L (3.80-5.40) m/uL Hgb 9.3 L D (11.4-16.0) gm/dL Hct 29.5 L (34.0-46.0) % RDW 15.7 H (11.5-15.5) % Sodium 146 H (137-145) mmol/L Potassium (3.5-5.1) mmol/L Carbon Dioxide (22-30) mmol/L BUN 25 H (7-17) mg/dL Glucose 100 H (74-99) mg/dL POC Glucose (mg/dL) 121 H (75-99) mg/dL AST 46 H (14-36) U/L Alkaline Phosphatase 151 H (38-126) U/L Total Protein 5.9 L (6.3-8.2) g/dL Albumin 2.9 L (3.5-5.0) g/dL Triglycerides (<150) mg/dL Urine pH (5.0-8.0) Ur Specific [place] (1.001-1.035) Urine Protein (Negative) Amorphous Sediment (None) /hpf Urine Mucus (None) /hpf 07/03/17 Range/Units 13:45 RBC (3.80-5.40) m/uL Hgb (11.4-16.0) gm/dL Hct (34.0-46.0) % RDW (11.5-15.5) % Sodium (137-145) mmol/L Potassium (3.5-5.1) mmol/L Carbon Dioxide (22-30) mmol/L BUN 22 H (7-17) mg/dL Glucose (74-99) mg/dL POC Glucose (mg/dL) (75-99) mg/dL AST 54 H (14-36) U/L Alkaline Phosphatase 162 H (38-126) U/L Total Protein 6.1 L (6.3-8.2) g/dL Albumin 3.0 L (3.5-5.0) g/dL Triglycerides 209 H (<150) mg/dL Urine pH (5.0-8.0) Ur Specific [place] (1.001-1.035) Urine Protein (Negative) Amorphous Sediment (None) /hpf Urine Mucus (None) /hpf CT scan - abdomen: report reviewed CT scan - pelvis: report reviewed Assessment and Plan (1) Papillary serous adenocarcinoma of ovary Narrative/Plan: During our discussion today patient states that she met with Dr. Khan couple weeks ago, plan was to decide how she wanted to proceed forward in regards to her malignancy. She stated to me today that she made the decision to forego any further chemotherapy treatments. She wants to continue her TPN and other supportive care measures. Recommended to the patient that she be seen by the palliative care team as they should be able to provide her with supportive treatments and transition her to other services, i.e. Hospice, as appropriate. She did verbalize understanding. Consult to Social Work placed Current Visit: Yes Status: Chronic Priority: High Code(s): C56.9 - MALIGNANT NEOPLASM OF UNSPECIFIED OVARY SNOMED Code(s): 38518719 (2) Anemia aplastic aregenerative Narrative/Plan: Hgb not requiring intervention. Will check when last iron studies evaluated and some nutritional labs as well. Current Visit: Yes Status: Chronic Priority: Medium Code(s): D61.9 - APLASTIC ANEMIA, UNSPECIFIED SNOMED Code(s): 070357679 (3) Anxiety about health Narrative/Plan: All questions about patient's malignancy were answered to the best of my ability. Tried to alleviate as many of her anxieties as I could. Patient's medications for depression and anxiety have been ordered. Social work consult and palliative care discussion we will relieve some of patient's anxieties Current Visit: Yes Status: Acute Priority: High Code(s): F41.8 - OTHER SPECIFIED ANXIETY DISORDERS SNOMED Code(s): 824214684 (4) Protein calorie malnutrition Narrative/Plan: Continue TPN Current Visit: No Status: Acute Priority: High Code(s): E46 - UNSPECIFIED PROTEIN-CALORIE MALNUTRITION SNOMED Code(s): 533165439 Time with Patient: Greater than 30 (counseling and coordinating care)
[2017-07-03 18:13] LABS: Glucose,Whole Blood 86 mg/dL (75-99)
[2017-07-03] MEDS: ESCITALOPRAM 20 MG TAB PO SCH (18:21)
[2017-07-03] MEDS ORDERED: MVI, ADULT NO.4 WITH VIT K 10 ML, TRACE (CONC-1ML/DOSE) 1 ML in AMIN 3.3%/DEX 9.8%/LIPI... IV ONE ×3 (18:30)
[2017-07-03] MEDS ORDERED: diphenhydrAMINE 50 MG/ML 1 ML VIAL IVP PRN (21:55)
[2017-07-03 22:31] LABS: Hemoglobin A1C 5.4 % (4.0-6.0)
[2017-07-03 23:43] LABS: Glucose,Whole Blood 99 mg/dL (75-99)
--- NOTE | 2017-07-03 23:44 | P.HPIM ---
History of Present Illness H&P Date: 07/03/17 Chief Complaint: Nausea and vomiting Mrs. Belle is a 52-year-old female with a past medical history of stage IIIc serous papillary ovarian cancer status post chemotherapy, DVT in the left upper extremity that was treated with Lovenox in the past coming in with a chief complaint of nausea and vomiting for the past 2-3 days. States that she is not able to keep down her pills and came in for further evaluation. Patient had a PET scan which revealed evidence of peritoneal carcinomatosis in the abdomen and pelvis including the liver surface. The patient had a CAT scan of the abdomen and pelvis done last night showing partial small bowel obstruction and advancing of metastasis in the liver. Patient has a drainage tube in her stomach and she states that it has been draining more for the past couple of days. The last bowel movement she had was 3 days back. She is able to pass gas. Patient denies having any fever chills or rigors. Denies having any chest pain and difficulty in breathing. No dysuria or hematuria. The patient has a PICC line in the right arm. Patient is no longer on chemotherapy. Currently the patient is lying comfortably in the bed and states that her nausea and vomiting are much better now. She denies having any abdominal pain. She is on chronic TPN . Currently nothing by mouth. She follows with Dr. Khan, who has been consulted. Surgery Dr. Paredes is also on board. Review of Systems REVIEW OF SYSTEMS: PSYCH: No anxiety or depression NEURO: Denies having any loss of consciousness or speech abnormalities VASCULAR: She has history of DVT HEMATOLOGIC: recurrent infections . RESPIRATORY: No cough, No SOB, No chest discomfort. INTEGUMENT: no rashes OPHTHALMOLOGIC: No blurry vision and no eye discharge : No dysuria or hematuria SENIOR IOS DEVELOPER: No bleeding PV CARDIAC: No chest pain , shortness of breath , paroxysmal nocturnal dyspnea MUSCULOSKELETAL : No Aches or pains in the joints or muscles. GI: She has a drainage tube in her stomach. Per HPI Past Medical History Past Medical History: Cancer, Deep Vein Thrombosis (DVT), Fibromyalgia, GERD/ Reflux, Hearing Disorder / Deafness, Hyperlipidemia, Osteoarthritis (OA) Additional Past Medical History / Comment(s): OVARIAN CA-T3C N0 Mx grade 3, 2012 ; REOCCURING CA W/ CHEMO TREATMENT 03/2016-07/2016. MVP. Diverticulosis. PARTIAL BOWEL OBSTRUCTION D/T CA METS 12/2016. 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 BLOOD PRESSURE TAKEN ON LEGS ONLY. TPN/ lipids daily 7p to 1 a, septic from picc line picc line removed new one in on right arm now History of Any Multi-Drug Resistant Organisms: None Reported Past Surgical History: Hysterectomy Additional Past Surgical History / Comment(s): OOPHERECTOMY/CERVIX/UTERUS/ OMENTUM EXC; Vaginal mesh insertion. RX Port placement, removal; PICC line insertion, removal. G TUBE 02/02 Past Anesthesia/Blood Transfusion Reactions: Motion Sickness Additional Past Anesthesia/Blood Transfusion Reaction / Comment(s): claustrophobia Past Psychological History: Anxiety, Depression, Panic Disorder Additional Psychological History / Comment(s): lives in the family with the and the child. does not work outside of the home. Stopped smoking several years ago no significant alcohol use. No experience or extensive travels. No animals in the home Smoking Status: Former smoker Past Alcohol Use History: None Reported Additional Past Alcohol Use History / Comment(s): started smoking at age 13, smoked 1 pack per day, quit 2011 Past Drug Use History: None Reported Additional Drug Use History / Comment(s): PAST MEDICAL MARIJUANA USE. - Past Family History Sister(s) Family Medical History: Blood Disorder Additional Family Medical History / Comment(s): FACTOR 5 BLOOD DISORDER. Father Family Medical History: Hypertension, Prostate Disorder Additional Family Medical History / Comment(s): parkinsons, prostate cancer Mother Family Medical History: Cancer Additional Family Medical History / Comment(s): multiple myeoloma Medications and Allergies Home Medications Medication Instructions Recorded Confirmed Type ALPRAZolam [Xanax] 0.5 mg PO Q6H 01/16/14 07/03/17 History Escitalopram Oxalate [Lexapro] 20 mg PO HS 01/16/14 07/03/17 History Pantoprazole Sodium [Protonix] 40 mg PO BID #60 tablet. 01/31/17 07/03/17 Rx INSULIN LISPRO (HumaLOG) [humaLOG] See Protocol SQ ACHS 03/10/17 07/03/17 History Acetaminophen/Diphenhydramine 2 tab PO HS 03/28/17 07/03/17 History [Tylenol PM Extra Strength] Enoxaparin [Lovenox] 80 mg SQ DAILY 04/15/17 07/03/17 History HYDROmorphone HCL [Dilaudid] 4 mg PO Q3H PRN 05/17/17 07/03/17 History diphenhydrAMINE HCL [Benadryl] 50 mg PO HS PRN 05/17/17 07/03/17 History Ondansetron Odt [Zofran ODT] 8 mg PO Q6HR PRN 06/08/17 07/03/17 History Allergies Allergy/AdvReac Type Severity Reaction Status Date / Time duloxetine HCl Allergy Rash/Hives Verified 07/03/17 09:27 [From Cymbalta] scopolamine Allergy change in Verified 07/03/17 09:27 taste and smell Sulfa (Sulfonamide Allergy Rash/Hives Verified 07/03/17 09:27 Antibiotics) carboplatin AdvReac Nausea & Verified 07/03/17 09:27 Vomiting, TEMPORARY HEARING LOSS Physical Exam Vitals: Vital Signs Temp Pulse Pulse Resp BP BP Pulse Ox 07/03/17 07:39 98.6 F 91 16 130/60 97 07/02/17 22:00 98.4 F 95 18 134/69 97 07/02/17 21:28 98.8 F 89 16 116/67 98 07/02/17 19:33 99 F 87 18 143/70 98 07/02/17 18:22 99.9 F H 98 18 128/63 98 Intake and Output 07/02/17 07/03/17 07/03/17 22:59 06:59 14:59 Intake Total 500 Output Total 450 Balance 50 Intake: IV 500 0.9% NaCl with KCl 20 Meq 400 /l 1,000 ml @ 100 mls/hr IV .Q10H [facility] Rx#: [id number] Sodium Chloride 0.9% 1, 100 000 ml @ 100 mls/hr IV . Q10H [facility] Rx#:[id number] Output: Gastric Drainage 450 Other: Voiding Method Toilet # Voids 1 Weight 71.214 kg 71.214 kg GENERAL EXAM GEN. APPEARANCE: alert, in no apparent distress HEAD EXAM: atraumatic, normocephalic, normal inspection EYE EXAM: normal appearance, PERRL, EOMI. mild pallor ENT EXAM: mucous membranes moist NECK EXAM: normal inspection. Absent: tenderness, meningismus, full ROM, lymphadenopathy RESPIRATORY EXAM: normal lung sounds bilaterally. Absent: respiratory distress , wheezes, rales, rhonchi, stridor CARDIOVASCULAR EXAM: regular rate, normal rhythm, normal heart sounds. Absent : systolic murmur, diastolic murmur, rubs, gallop, clicks GI/ABDOMINAL EXAM: Patient has a drainage tube from the stomach which has greenish fluid EXTREMITIES EXAM: No edema no cyanosis NEUROLOGICAL EXAM: alert, oriented X3, CN II-XII intact, motor sensory deficit PSYCHIATRIC EXAM: normal affect, normal mood SKIN EXAM: warm, dry, intact, normal color. Patient has bruising at the site of Lovenox shots. PICC line in her right upper extremity- no signs of acute inflammation at the site Results CBC & Chem 7: 07/03/17 08:22 07/03/17 08:22 Labs: Abnormal Lab Results - Last 24 Hours (Table) 07/02/17 07/02/17 07/02/17 Range/Units 18:50 18:50 20:30 RBC (3.80-5.40) m/uL Hgb 11.0 L (11.4-16.0) gm/dL Hct 33.6 L (34.0-46.0) % RDW (11.5-15.5) % Sodium 147 H (137-145) mmol/L Potassium 3.1 L (3.5-5.1) mmol/L Carbon Dioxide 31 H (22-30) mmol/L BUN 26 H (7-17) mg/dL Glucose 100 H (74-99) mg/dL POC Glucose (mg/dL) (75-99) mg/dL AST 45 H (14-36) U/L Alkaline Phosphatase 188 H (38-126) U/L Total Protein (6.3-8.2) g/dL Albumin 3.4 L (3.5-5.0) g/dL Urine pH 8.5 H (5.0-8.0) Ur Specific [place] 1.037 H (1.001-1.035) Urine Protein 1+ H (Negative) Amorphous Sediment Rare H (None) /hpf Urine Mucus Rare H (None) /hpf 07/03/17 07/03/17 07/03/17 Range/Units 07:42 08:22 08:22 RBC 3.25 L (3.80-5.40) m/uL Hgb 9.3 L D (11.4-16.0) gm/dL Hct 29.5 L (34.0-46.0) % RDW 15.7 H (11.5-15.5) % Sodium 146 H (137-145) mmol/L Potassium (3.5-5.1) mmol/L Carbon Dioxide (22-30) mmol/L BUN 25 H (7-17) mg/dL Glucose 100 H (74-99) mg/dL POC Glucose (mg/dL) 121 H (75-99) mg/dL AST 46 H (14-36) U/L Alkaline Phosphatase 151 H (38-126) U/L Total Protein 5.9 L (6.3-8.2) g/dL Albumin 2.9 L (3.5-5.0) g/dL Urine pH (5.0-8.0) Ur Specific [place] (1.001-1.035) Urine Protein (Negative) Amorphous Sediment (None) /hpf Urine Mucus (None) /hpf Thrombosis Risk Factor Assmnt - Choose All That Apply Any of the Below Risk Factors Present?: Yes Each Factor Represents 1 point: Age 41-60 years, Obesity (BMI >25) Other Risk Factors: Yes Each Risk Factor Represents 2 Points: Malignancy Each Risk Factor Represents 3 Points: History of DVT/PE Other congenital or acquired thrombophilia - If yes, enter type in comment: No Thrombosis Risk Factor Assessment Total Risk Factor Score: 7 Thrombosis Risk Factor Assessment Level: High Risk Assessment and Plan Plan: Assessment Nausea and vomiting - secondary to partial small bowel obstruction Hypokalemia secondary to above Ovarian cancer stage IIIc with peritoneal carcinomatosis Fibromyalgia GERD Hearing disorder/Deafness Hyperlipidemia next and osteoarthritis History of diverticulosis History of DVT in the upper extremity suspected line related Previous history of smoking Anxiety depression and panic disorder DVT prophylaxis. Plan: Continue with Zofran for her nausea and vomiting. Replace electrolytes. As per discussion with surgical services there is no plan for any further surgeries. Patient follows closely with Dr. Khan who has been consulted as there have been discussions regarding hospice care previously. Patient is a DO NOT RESUSCITATE.
[2017-07-04] MEDS: METOCLOPRAMIDE 5 MG/ML 2 ML VIAL IVP PRN ×4 (00:47→12:20)
[2017-07-04] MEDS: LORazepam 2 MG/ML INJ IV PRN ×3 (00:59→12:19)
[2017-07-04] MEDS: 0.9% NACL WITH KCL 20 MEQ/L 1,000 ML IV SCH ×2 (06:09→14:05)
[2017-07-04] MEDS: INSULIN ASPART 100 UNIT/ML 1 ML 10 ML VIAL SQ SCH ×3 (06:09→11:37)
[2017-07-04 06:16] LABS: Glucose,Whole Blood 124 mg/dL (75-99)
[2017-07-04 07:41] VITALS: BP 130/71; PULSE 92; RESP 18; TEMP 97.7
[2017-07-04 08:40] LABS: Basophils % (A) 0 %; Eosinophils % (A) 1 %; HCT 33.4 % (34.0-46.0); HGB 10.3 gm/dL (11.4-16.0); Hypochromasia Moderate; Lymphocytes # (A) 1.5 k/uL (1.0-4.8); Lymphocytes % (A) 23 %; MCH 29.2 pg (25.0-35.0); MCHC 30.8 g/dL (31.0-37.0); MCV 94.6 fL (80.0-100.0); Mean Platelet Volume 6.8; Monocytes # (A) 0.6 k/uL (0-1.0); Monocytes % (A) 9 %; Neutrophils # (A) 4.4 k/uL (1.3-7.7); Neutrophils % (A) 66 %; Platelet Count 438 k/uL (150-450); RBC 3.53 m/uL (3.80-5.40); RDW 15.5 % (11.5-15.5); WBC 6.7 k/uL (3.8-10.6)
[2017-07-04] MEDS: PANTOPRAZOLE 40 MG/10 ML VIAL IVP SCH (08:44)
[2017-07-04] MEDS: ESCITALOPRAM 20 MG TAB PO SCH (08:53)
[2017-07-04 08:59] LABS: Chloride 107 mmol/L (98-107)
[2017-07-04 09:02] LABS: Anion Gap 14 mmol/L; Blood Urea Nitrogen 21 mg/dL (7-17); Calcium 9.1 mg/dL (8.4-10.2); Carbon Dioxide 22 mmol/L (22-30); Glucose 112 mg/dL (74-99); Potassium 3.8 mmol/L (3.5-5.1); Sodium 143 mmol/L (137-145)
[2017-07-04 09:45] LABS: Phosphorus 3.7 mg/dL (2.5-4.5)
[2017-07-04] MEDS ORDERED: LIPID IV ONE (10:00)
[2017-07-04] MEDS ORDERED: LYTES IV ONE (10:00)
[2017-07-04] MEDS ORDERED: AMINO ACIDS IV ONE (10:00)
[2017-07-04] MEDS ORDERED: DEXTROSE IV ONE (10:00)
[2017-07-04] MEDS: POTASSIUM CHLORIDE 10 MEQ in WATER FOR INJECTION 1 100ML.BAG IVPB SCH ×2 (10:04→11:04)
[2017-07-04 10:56] LABS: Glucose,Whole Blood 122 mg/dL (75-99)
--- NOTE | 2017-07-04 12:49 | P.PN ---
Subjective Progress Note Date: 07/04/17 Principal diagnosis: Small bowel obstruction Patient was having dry heaves last night. Decent relief with Reglan. Denies pain. Objective - Vital Signs Vital signs: Vital Signs Temp 97.7 F 07/04/17 07:10 Pulse 92 07/04/17 08:00 Resp 18 07/04/17 08:00 BP 130/71 07/04/17 07:10 Pulse Ox 99 07/04/17 07:10 Intake & Output 07/03/17 07/04/17 07/04/17 18:59 06:59 18:59 Output Total 125 Balance -125 Weight 71.214 kg Output: Drainage 125 Left Abdomen 125 Other: Voiding Method Toilet Toilet Toilet # Voids 2 # Bowel Movements 1 - Exam Abdomen: Soft, mild distention, PEG tube noted, minimal tenderness - Labs CBC & Chem 7: 07/04/17 07:39 07/04/17 07:39 Labs: Abnormal Lab Results - Last 24 Hours (Table) 07/03/17 07/04/17 07/04/17 Range/Units 13:45 06:14 07:39 RBC 3.53 L (3.80-5.40) m/uL Hgb 10.3 L (11.4-16.0) gm/dL Hct 33.4 L (34.0-46.0) % MCHC 30.8 L (31.0-37.0) g/dL BUN 22 H (7-17) mg/dL Glucose (74-99) mg/dL POC Glucose (mg/dL) 124 H (75-99) mg/dL AST 54 H (14-36) U/L Alkaline Phosphatase 162 H (38-126) U/L Total Protein 6.1 L (6.3-8.2) g/dL Albumin 3.0 L (3.5-5.0) g/dL Triglycerides 209 H (<150) mg/dL 07/04/17 07/04/17 Range/Units 07:39 10:54 RBC (3.80-5.40) m/uL Hgb (11.4-16.0) gm/dL Hct (34.0-46.0) % MCHC (31.0-37.0) g/dL BUN 21 H (7-17) mg/dL Glucose 112 H (74-99) mg/dL POC Glucose (mg/dL) 122 H (75-99) mg/dL AST (14-36) U/L Alkaline Phosphatase (38-126) U/L Total Protein (6.3-8.2) g/dL Albumin (3.5-5.0) g/dL Triglycerides (<150) mg/dL Microbiology - Last 24 Hours (Table) 07/02/17 21:03 Blood Culture - Preliminary Blood No Growth after 24 hours Assessment and Plan (1) Small bowel obstruction Narrative/Plan: Continue sips of clears. Continue Reglan and Zofran when necessary. Current Visit: Yes Status: Acute Priority: High Code(s): K56.609 - UNSP INTESTNL OBST, UNSP TO PARTIAL VERSUS COMPLETE OBST SNOMED Code(s): 894607630
[2017-07-04] MEDS ORDERED: MVI, ADULT NO.4 WITH VIT K 10 ML, TRACE (CONC-1ML/DOSE) 1 ML in AMIN 3.3%/DEX 9.8%/LIPI... IV ONE ×3 (18:30)
[2017-07-05] MEDS ORDERED: LIPID IV ONE (08:00)
[2017-07-05] MEDS ORDERED: AMINO ACIDS IV ONE (08:00)
[2017-07-05] MEDS ORDERED: LYTES IV ONE (08:00)
[2017-07-05] MEDS ORDERED: DEXTROSE IV ONE (08:00)
--- NOTE | 2017-07-05 22:16 | P.DS ---
Providers Date of admission: 07/02/17 21:16 Expected date of discharge: 07/04/17 Attending physician: Valerie Mcdonald Consults: 07/02/17 21:18 Consult Physician Urgent Consulting Provider: Duyen Khan Consult Reason/Comments: small bowel obstruction, metastatic ovarian cancer Do you want consulting provider notified?: Yes 07/02/17 21:19 Consult Physician Urgent Consulting Provider: Agus Paredes Consult Reason/Comments: small bowel obstruction, metastatic ovarian cancer Do you want consulting provider notified?: Yes Primary care physician: Duyen Khan [facility] Course: Mrs. Belle is a 52-year-old female with a past medical history of stage IIIc serous papillary ovarian cancer status post chemotherapy, DVT in the left upper extremity that was treated with Lovenox in the past coming in with a chief complaint of nausea and vomiting for the past 2-3 days. States that she is not able to keep down her pills and came in for further evaluation. Patient had a PET scan which revealed evidence of peritoneal carcinomatosis in the abdomen and pelvis including the liver surface. The patient had a CAT scan of the abdomen and pelvis done last night showing partial small bowel obstruction and advancing of metastasis in the liver. Patient has a drainage tube in her stomach and she states that it has been draining more for the past couple of days. The last bowel movement she had was 3 days back. She is able to pass gas. Patient denies having any fever chills or rigors. Denies having any chest pain and difficulty in breathing. No dysuria or hematuria. The patient has a PICC line in the right arm. Patient is no longer on chemotherapy. She is on chronic TPN, she has had febrile neutropenia and sepsis from PICC line infection with replacement. She has had 2 line related DVTs in upper extremity. She was on treatment and admitted 05/18/17, treated for SBO conservatively. She was supposed to resume chemotherapy but, at her last visit in the office a few weeks ago her and Dr. Khan had a discussion about how she was thinking of proceeding with treatment of her malignancy.. Eventually she made the decision to forego any further chemotherapy treatments. She wants to continue her TPN and other supportive care measures. So Palliative services have been consulted and she is transferred to Home with Hospice care. 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 Patient Condition at Discharge: Stable Plan - Discharge Summary New Discharge Prescriptions: New Atropine Ophth Soln 1% 5Ml [Isopto Atropine 1% 5Ml] 2 drop SUBLINGUAL Q4H PRN #1 bottle PRN Reason: Congestion LORazepam [Ativan] 1 mg PO Q4H PRN #20 tab PRN Reason: Anxiety MORPHINE ORAL NIRMAL CONC 20mg/mL [Roxanol Oral Soln Conc 20MG/ML] 5 mg PO Q4HR PRN #10 ml PRN Reason: Pain Ondansetron Odt [Zofran Odt] 4 mg RECTAL Q8HR PRN #20 tab PRN Reason: Nausea Continue INSULIN LISPRO (HumaLOG) [humaLOG] See Protocol SQ ACHS Acetaminophen/Diphenhydramine [Tylenol PM Extra Strength] 2 tab PO HS diphenhydrAMINE HCL [Benadryl] 50 mg PO HS PRN PRN Reason: Insomnia HYDROmorphone HCL [Dilaudid] 4 mg PO Q3H PRN PRN Reason: Pain Discontinued Escitalopram Oxalate [Lexapro] 20 mg PO HS ALPRAZolam [Xanax] 0.5 mg PO Q6H Pantoprazole Sodium [Protonix] 40 mg PO BID #60 tablet. Enoxaparin [Lovenox] 80 mg SQ DAILY Discharge Medication List INSULIN LISPRO (HumaLOG) [humaLOG] See Protocol SQ ACHS 03/10/17 [History] Acetaminophen/Diphenhydramine [Tylenol PM Extra Strength] 2 tab PO HS 03/28/17 [ History] HYDROmorphone HCL [Dilaudid] 4 mg PO Q3H PRN 05/17/17 [History] diphenhydrAMINE HCL [Benadryl] 50 mg PO HS PRN 05/17/17 [History] Atropine Ophth Soln 1% 5Ml [Isopto Atropine 1% 5Ml] 2 drop SUBLINGUAL Q4H PRN # 1 bottle 07/04/17 [Rx] LORazepam [Ativan] 1 mg PO Q4H PRN #20 tab 07/04/17 [Rx] MORPHINE ORAL NIRMAL CONC 20mg/mL [Roxanol Oral Soln Conc 20MG/ML] 5 mg PO Q4HR PRN #10 ml 07/04/17 [Rx] Ondansetron Odt [Zofran Odt] 4 mg RECTAL Q8HR PRN #20 tab 07/04/17 [Rx] Follow up Appointment(s)/Referral(s): [facility], [NON-STAFF] - 1 Week Duyen Khan MD [Primary Care Provider] - 07/18/17 8:30 am Patient Instructions/Handouts: Lorazepam (By mouth), Ondansetron (By mouth), Difenoxin/Atropine (By mouth), Morphine/Naltrexone (By mouth), Bowel Obstruction (DC) Discharge Disposition: HOME WITH HOSPICE
== END 2017-07-04 15:00 | disposition hospice, home (50) | DRG 375 ==
LOC: EC 18:06 → 5MS5E 21:16 → 5ONC 07-03 11:15
PROVIDERS: ADMIT Internal Medicine; ATTEND Internal Medicine
DX: C78.6 Secondary malignant neoplasm of retroperitoneum and peritoneum (principal); C78.7 Secondary malignant neoplasm of liver and intrahepatic bile duct; R18.8 Other ascites; D61.9 Aplastic anemia, unspecified; E46 Unspecified protein-calorie malnutrition; H91.90 Unspecified hearing loss, unspecified ear; E78.5 Hyperlipidemia, unspecified; K21.9 Gastro-esophageal reflux disease without esophagitis; M79.7 Fibromyalgia; Z66 Do not resuscitate; E87.6 Hypokalemia; M19.90 Unspecified osteoarthritis, unspecified site; F41.0 Panic disorder [episodic paroxysmal anxiety]; F32.9 Major depressive disorder, single episode, unspecified; F41.9 Anxiety disorder, unspecified; Z86.718 Personal history of other venous thrombosis and embolism; Z92.21 Personal history of antineoplastic chemotherapy; Z90.710 Acquired absence of both cervix and uterus; Z87.891 Personal history of nicotine dependence; G47.00 Insomnia, unspecified; Z85.43 Personal history of malignant neoplasm of ovary; Z82.49 Family history of ischemic heart disease and other diseases of the circulatory system; Z82.0 Family history of epilepsy and other diseases of the nervous system
CPT/HCPCS: 36415; 74018; 74177; 80048; 80053; 81001; 82150; 82330; 83036; 83605; 83690; 83735; 84100; 84478; 85025; 87040; 96361; 96365; 96367; 96375; 96376; 99285